=== PATIENT | female | born 1935 | race Caucasian/White ===

== ENCOUNTER 2016-11-01 12:16 | Emergency (ER) | payer OTHER ==
--- NOTE | 2016-11-01 13:08 | EDDOCDS ---
Physician Documentation [facility] Name: Anastasiya Garrison Age: 81 yrs Sex: Female : 1935 Arrival Date: 11/01/2016 Time: 12:16 Bed TR7 Private MD: SILVESTRE ADORNO Disposition: 11/01/16 12:53 Discharged to Home/Self Care. Impression: Tinea cruris. - Condition is Stable. - Discharge Instructions: Jock Itch. - Prescriptions for Clotrimazole 1 % Topical Cream - apply to affected area 1 application by TOPICAL route every 12 hours for 14 days APPLY THIN LAYER TO AFFECTED AREA TWICE DAILY FOR 14 DAYS; 15 gram. - Medication Reconciliation, Local Pharmacy Hours form. - Follow up: Emergency Department; When: As needed; Reason: Worsening of conditions. Follow up: Private Physician; When: 2 - 3 days; Reason: Wound/Symptom Recheck, Recheck today's complaints, Continuance of care. - Problem is new. - Symptoms are unchanged. Historical: - Allergies: No known drug Allergies; - Home Meds: 1. amlodipine 10 mg Oral tab 1 tab once daily 2. simvastatin 10 mg Oral tab 1 tab once daily 3. bisoprolol-hydrochlorothiazide 5-6.25 mg oral tab 1 tab once daily 4. aspirin 81 mg Oral tab 1 tab once daily 5. Breo Ellipta 100-25 mcg/dose inhalation dsdv 1 puff once daily - PMHx: Hypertension; COPD; Hypercholesterolemia; Arthritis; - PSHx: abdominal aneurysm repair; Hysterectomy; Thyroid Surgery; - Social history: Smoking status: Patient states was never smoker of tobacco. No barriers to communication noted, The patient speaks fluent [place] Islander, Speaks appropriately for age. - Family history: Not pertinent. - : The pt / caregiver states he / she is not on anticoagulants. Home medication list is obtained from the patient. - Exposure Risk Screening:: None identified. Vital Signs: 11/01 12:18 BP 146 / 64; Pulse 91; Resp 16; Temp 99.0(O); Pulse Ox 94% on R/A; Weight 66.68 kg / elp 147 lbs; Height 5 ft. 0 in. (152.40 cm); Pain 0/10; 12:18 Body Mass Index 28.71 (66.68 kg, 152.40 cm) elp MDM: 12:42 Undress patient appropriately for examination ordered. dt4 13:05 [facility] Payment Agreement was scanned into [employer] and attached to record. jp5 13:05 Financial registration complete. jp5 Signatures: Yusra Ramos, RN Codi JadeRN EDMOND joRamila Kim, SAROJ KYLE dt4 Rajani Larose jp5 The chart was reviewed and I authenticate all verbal orders and agree with the evaluation and treatment provided.Attachments: 13:05 [facility] Payment Agreement jp5 MTDD
--- NOTE | 2016-11-01 13:08 | EDDOCDS ---
Nurse's Notes [facility] Name: Anastasiya Garrison Age: 81 yrs Sex: Female : 1935 Arrival Date: 11/01/2016 Time: 12:16 Bed TR7 Private MD: SILVESTRE ADORNO Diagnosis: Tinea cruris Presentation: 11/01 12:28 Presenting complaint: Patient states: Severe rash in groin area. Been treating with jo3 diaper rash cream and then hydrocortisone and corn starch and then nystatin. Unable to get into buffer operator until the 8th. Requesting a female provider. Onset: The symptoms/episode began/occurred gradually, 2 week(s) ago. This patient has not experienced a previous allergic reaction. Anaphylaxis evaluation, the patient reports or I have noted the following symptoms which indicate a significant risk of anaphylaxis: no signs or symptoms of anaphylaxis were noted. Adult Sepsis Screening: The patient does not have new or worsening altered mentation. Patient's respiratory rate is less than 22. Systolic blood pressure is greater than 100. Patient has a qSOFA score of 0- Negative Sepsis Screen. Suicide/Homicide risk assessment- the patient denies having any suicidal and/or homicidal ideations and does not present with any other emotional, behavioral or mental health complaints. Status: Patient is not a rehabilitation services manager or dependent. Transition of care: patient was not received from another setting of care. 12:28 Acuity: JUAN CARLOS Level 4 jo3 12:28 Method Of Arrival: Walkin/Carried/Asstd jo3 Triage Assessment: 12:32 General: Appears in no apparent distress, Behavior is appropriate for age, cooperative, jo3 pleasant. Neurological: Level of Consciousness is awake, alert, Oriented to person, place, time. Respiratory: No deficits noted. Airway is patent Respiratory effort is even, unlabored. Historical: - Allergies: No known drug Allergies; - Home Meds: 1. amlodipine 10 mg Oral tab 1 tab once daily 2. simvastatin 10 mg Oral tab 1 tab once daily 3. bisoprolol-hydrochlorothiazide 5-6.25 mg oral tab 1 tab once daily 4. aspirin 81 mg Oral tab 1 tab once daily 5. Breo Ellipta 100-25 mcg/dose inhalation dsdv 1 puff once daily - PMHx: Hypertension; COPD; Hypercholesterolemia; Arthritis; - PSHx: abdominal aneurysm repair; Hysterectomy; Thyroid Surgery; - Social history: Smoking status: Patient states was never smoker of tobacco. No barriers to communication noted, The patient speaks fluent Nicaraguan, Speaks appropriately for age. - Family history: Not pertinent. - : The pt / caregiver states he / she is not on anticoagulants. Home medication list is obtained from the patient. - Exposure Risk Screening:: None identified. Screenin:06 Screening information is obtained from prior medical records. Fall risk: At risk due to kcs gait disturbance. Assistance ADL's: requires no assistance with activities of daily living. Abuse/DV Screen: The patient / caregiver reports he/she is: not in a situation that causes fear, pain or injury. Nutritional screening: No deficits noted. Advance Directives: Currently, there is no health care proxy. There is no living will. home support is adequate. Assessment: 12:45 General: Appears comfortable, well developed, well nourished, well groomed, Behavior is kcs cooperative, pleasant. Pain: Denies pain. Neurological: Level of Consciousness is awake, alert. Respiratory: Airway is patent Respiratory effort is even, unlabored, Respiratory pattern is regular, symmetrical. Derm: Skin is intact, is healthy with good turgor, Skin is dry, Skin is normal, Rash noted that is flat,diffuse, red, dry rash noted to groin and lower abdomen. 13:04 Awake, alert, oriented. Skin warm and dry. Moves all extremities. Respirations kcs unlabored. No apparent distress. The patient / caregiver is instructed regarding the plan of care and ED course. Physical assessment to be completed by PA/EDMD. Vital Signs: 12:18 BP 146 / 64; Pulse 91; Resp 16; Temp 99.0(O); Pulse Ox 94% on R/A; Weight 66.68 kg; elp Height 5 ft. 0 in. (152.40 cm); Pain 0/10; 12:18 Body Mass Index 28.71 (66.68 kg, 152.40 cm) [facility] Vitals: 12:18 Log In Time: November 01, 2016 at 12:00. [facility] ED Course: 12:17 Patient visited by Kaila Arce PCA. elp 12:17 Patient moved to Waiting elp 12:18 Gal Reyes is Private Physician. elp 12:18 Unknown, Family is Private Physician. elp 12:19 SILVESTRE ADORNO is Private Physician. elp 12:19 Patient moved to Pre RCE elp 12:30 Triage Initiated jo3 12:33 Patient visited by Codi Maria RN. jo3 12:41 Patient moved to Triage 1 kcs 12:42 Ramila Cox [facility]-C [facility]. dt4 12:42 Laila Matthew MD is Attending Physician. dt4 12:42 Patient visited by Ramila Cox PA-C. dt4 13:03 Patient moved to TR7 kcs 13:04 Patient has correct armband on for positive identification. kcs 13:05 [facility] Payment Agreement was scanned into [employer] and attached to record. jp5 13:05 No IV's were initiated during this patient's visit. No procedures done that require kcs assistance. Order Results: There are currently no results for this order. Outcome: 12:53 Discharge ordered by Provider. dt4 13:04 The following High Risk Discharge criteria are identified: None. Discharged to home kcs ambulatory, with family. Condition: stable. No special radiology studies were completed. 13:05 Discharge Assessment: Patient awake, alert and oriented x 3. No cognitive and/or kcs functional deficits noted. Patient verbalized understanding of disposition instructions. Patient awake and alert. patient administered narcotics - no. Property sent home with patient. 13:07 Patient left the ED. kcs Signatures: Yusra Ramos, RN Codi Jade,RN EDMOND jo3 Yazmin, Kaila, PEANUT SHELLER PEANUT SHELLER elp Ramila Cox PA-C PA-C dt4 Rajani Larose jp5 MTDD
--- NOTE | 2016-11-03 14:08 | EDDOCDS ---
Physician Documentation [facility] Name: Anastasiya Garrison Age: 81 yrs Sex: Female : 1935 Arrival Date: 11/01/2016 Time: 12:16 Bed TR7 Private MD: SILVESTRE ADORNO Disposition: 11/01/16 12:53 Discharged to Home/Self Care. Impression: Tinea cruris. - Condition is Stable. - Discharge Instructions: Jock Itch. - Prescriptions for Clotrimazole 1 % Topical Cream - apply to affected area 1 application by TOPICAL route every 12 hours for 14 days APPLY THIN LAYER TO AFFECTED AREA TWICE DAILY FOR 14 DAYS; 15 gram. - Medication Reconciliation, Local Pharmacy Hours form. - Follow up: Emergency Department; When: As needed; Reason: Worsening of conditions. Follow up: Private Physician; When: 2 - 3 days; Reason: Wound/Symptom Recheck, Recheck today's complaints, Continuance of care. - Problem is new. - Symptoms are unchanged. Historical: - Allergies: No known drug Allergies; - Home Meds: 1. amlodipine 10 mg Oral tab 1 tab once daily 2. simvastatin 10 mg Oral tab 1 tab once daily 3. bisoprolol-hydrochlorothiazide 5-6.25 mg oral tab 1 tab once daily 4. aspirin 81 mg Oral tab 1 tab once daily 5. Breo Ellipta 100-25 mcg/dose inhalation dsdv 1 puff once daily - PMHx: Hypertension; COPD; Hypercholesterolemia; Arthritis; - PSHx: abdominal aneurysm repair; Hysterectomy; Thyroid Surgery; - Social history: Smoking status: Patient states was never smoker of tobacco. No barriers to communication noted, The patient speaks fluent Maldivian, Speaks appropriately for age. - Family history: Not pertinent. - : The pt / caregiver states he / she is not on anticoagulants. Home medication list is obtained from the patient. - Exposure Risk Screening:: None identified. Vital Signs: 11/01 12:18 BP 146 / 64; Pulse 91; Resp 16; Temp 99.0(O); Pulse Ox 94% on R/A; Weight 66.68 kg / elp 147 lbs; Height 5 ft. 0 in. (152.40 cm); Pain 0/10; 12:18 Body Mass Index 28.71 (66.68 kg, 152.40 cm) elp MDM: 12:42 Undress patient appropriately for examination ordered. dt4 13:05 [facility] Payment Agreement was scanned into [employer] and attached to record. jp5 13: Financial registration complete. jp5 11/02 10:01 T-Sheet-- Draft Copy was scanned into [employer] and attached to record. gb Signatures: Yusra Ramos RN RN kcs Antonieta Torres, Reg Reg gb Codi Maria RN RN joRamila Kim, PAElizabethC PA-C dt4 Rajani Larose jp5 The chart was reviewed and I authenticate all verbal orders and agree with the evaluation and treatment provided.Attachments: 11/01 13:05 [facility] Payment Agreement jp5 11/02 10:01 T-Sheet-- Draft Copy gb Chart Complete MTDD
--- NOTE | 2016-11-03 14:08 | EDDOCDS ---
Physician Documentation [facility] Name: Anastasiya Garrison Age: 81 yrs Sex: Female : 1935 Arrival Date: 11/01/2016 Time: 12:16 Bed TR7 Private MD: SILVESTRE ADORNO Disposition: 11/01/16 12:53 Discharged to Home/Self Care. Impression: Tinea cruris. - Condition is Stable. - Discharge Instructions: Jock Itch. - Prescriptions for Clotrimazole 1 % Topical Cream - apply to affected area 1 application by TOPICAL route every 12 hours for 14 days APPLY THIN LAYER TO AFFECTED AREA TWICE DAILY FOR 14 DAYS; 15 gram. - Medication Reconciliation, Local Pharmacy Hours form. - Follow up: Emergency Department; When: As needed; Reason: Worsening of conditions. Follow up: Private Physician; When: 2 - 3 days; Reason: Wound/Symptom Recheck, Recheck today's complaints, Continuance of care. - Problem is new. - Symptoms are unchanged. Historical: - Allergies: No known drug Allergies; - Home Meds: 1. amlodipine 10 mg Oral tab 1 tab once daily 2. simvastatin 10 mg Oral tab 1 tab once daily 3. bisoprolol-hydrochlorothiazide 5-6.25 mg oral tab 1 tab once daily 4. aspirin 81 mg Oral tab 1 tab once daily 5. Breo Ellipta 100-25 mcg/dose inhalation dsdv 1 puff once daily - PMHx: Hypertension; COPD; Hypercholesterolemia; Arthritis; - PSHx: abdominal aneurysm repair; Hysterectomy; Thyroid Surgery; - Social history: Smoking status: Patient states was never smoker of tobacco. No barriers to communication noted, The patient speaks fluent Palauan, Speaks appropriately for age. - Family history: Not pertinent. - : The pt / caregiver states he / she is not on anticoagulants. Home medication list is obtained from the patient. - Exposure Risk Screening:: None identified. Vital Signs: 11/01 12:18 BP 146 / 64; Pulse 91; Resp 16; Temp 99.0(O); Pulse Ox 94% on R/A; Weight 66.68 kg / elp 147 lbs; Height 5 ft. 0 in. (152.40 cm); Pain 0/10; 12:18 Body Mass Index 28.71 (66.68 kg, 152.40 cm) elp MDM: 12:42 Undress patient appropriately for examination ordered. dt4 13:05 [facility] Payment Agreement was scanned into [employer] and attached to record. jp5 13: Financial registration complete. jp5 11/02 10:01 T-Sheet-- Draft Copy was scanned into [employer] and attached to record. gb Signatures: Yusra Ramos RN RN kcs Antonieta Torres, Reg Reg gb Codi Maria RN RN joRamila Kim, PAElizabethC PA-C dt4 Rajani Larose jp5 The chart was reviewed and I authenticate all verbal orders and agree with the evaluation and treatment provided.Attachments: 11/01 13:05 [facility] Payment Agreement jp5 11/02 10:01 T-Sheet-- Draft Copy gb Chart Complete MTDD
--- NOTE | 2016-11-03 14:08 | EDDOCDS ---
Nurse's Notes [facility] Name: Anastasiya Garrison Age: 81 yrs Sex: Female : 1935 Arrival Date: 11/01/2016 Time: 12:16 Bed TR7 Private MD: SILVESTRE ADORNO Diagnosis: Tinea cruris Presentation: 11/01 12:28 Presenting complaint: Patient states: Severe rash in groin area. Been treating with jo3 diaper rash cream and then hydrocortisone and corn starch and then nystatin. Unable to get into cloth neutralizer until the 8th. Requesting a female provider. Onset: The symptoms/episode began/occurred gradually, 2 week(s) ago. This patient has not experienced a previous allergic reaction. Anaphylaxis evaluation, the patient reports or I have noted the following symptoms which indicate a significant risk of anaphylaxis: no signs or symptoms of anaphylaxis were noted. Adult Sepsis Screening: The patient does not have new or worsening altered mentation. Patient's respiratory rate is less than 22. Systolic blood pressure is greater than 100. Patient has a qSOFA score of 0- Negative Sepsis Screen. Suicide/Homicide risk assessment- the patient denies having any suicidal and/or homicidal ideations and does not present with any other emotional, behavioral or mental health complaints. Status: Patient is not a servicer coin machines or dependent. Transition of care: patient was not received from another setting of care. 12:28 Acuity: JUAN CARLOS Level 4 jo3 12:28 Method Of Arrival: Walkin/Carried/Asstd jo3 Triage Assessment: 12:32 General: Appears in no apparent distress, Behavior is appropriate for age, cooperative, jo3 pleasant. Neurological: Level of Consciousness is awake, alert, Oriented to person, place, time. Respiratory: No deficits noted. Airway is patent Respiratory effort is even, unlabored. Historical: - Allergies: No known drug Allergies; - Home Meds: 1. amlodipine 10 mg Oral tab 1 tab once daily 2. simvastatin 10 mg Oral tab 1 tab once daily 3. bisoprolol-hydrochlorothiazide 5-6.25 mg oral tab 1 tab once daily 4. aspirin 81 mg Oral tab 1 tab once daily 5. Breo Ellipta 100-25 mcg/dose inhalation dsdv 1 puff once daily - PMHx: Hypertension; COPD; Hypercholesterolemia; Arthritis; - PSHx: abdominal aneurysm repair; Hysterectomy; Thyroid Surgery; - Social history: Smoking status: Patient states was never smoker of tobacco. No barriers to communication noted, The patient speaks fluent Montserratian, Speaks appropriately for age. - Family history: Not pertinent. - : The pt / caregiver states he / she is not on anticoagulants. Home medication list is obtained from the patient. - Exposure Risk Screening:: None identified. Screenin:06 Screening information is obtained from prior medical records. Fall risk: At risk due to kcs gait disturbance. Assistance ADL's: requires no assistance with activities of daily living. Abuse/DV Screen: The patient / caregiver reports he/she is: not in a situation that causes fear, pain or injury. Nutritional screening: No deficits noted. Advance Directives: Currently, there is no health care proxy. There is no living will. home support is adequate. Assessment: 12:45 General: Appears comfortable, well developed, well nourished, well groomed, Behavior is kcs cooperative, pleasant. Pain: Denies pain. Neurological: Level of Consciousness is awake, alert. Respiratory: Airway is patent Respiratory effort is even, unlabored, Respiratory pattern is regular, symmetrical. Derm: Skin is intact, is healthy with good turgor, Skin is dry, Skin is normal, Rash noted that is flat,diffuse, red, dry rash noted to groin and lower abdomen. 13:04 Awake, alert, oriented. Skin warm and dry. Moves all extremities. Respirations kcs unlabored. No apparent distress. The patient / caregiver is instructed regarding the plan of care and ED course. Physical assessment to be completed by PA/EDMD. Vital Signs: 12:18 BP 146 / 64; Pulse 91; Resp 16; Temp 99.0(O); Pulse Ox 94% on R/A; Weight 66.68 kg; elp Height 5 ft. 0 in. (152.40 cm); Pain 0/10; 12:18 Body Mass Index 28.71 (66.68 kg, 152.40 cm) [facility] Vitals: 12:18 Log In Time: November 01, 2016 at 12:00. [facility] ED Course: 12:17 Patient visited by Kaial Arce PCA. elp 12:17 Patient moved to Waiting elp 12:18 Gal Reyes is Private Physician. elp 12:18 Unknown, Family is Private Physician. elp 12:19 SILVESTRE ADORNO is Private Physician. elp 12:19 Patient moved to Pre RCE elp 12:30 Triage Initiated jo3 12:33 Patient visited by Codi Maria RN. jo3 12:41 Patient moved to Triage 1 kcs 12:42 [facility]. dt4 12:42 Laila Matthew MD is Attending Physician. dt4 12:42 Patient visited by Ramila Cox PA-C. dt4 13:03 Patient moved to TR7 kcs 13:04 Patient has correct armband on for positive identification. kcs 13:05 [facility] Payment Agreement was scanned into [employer] and attached to record. jp5 13:05 No IV's were initiated during this patient's visit. No procedures done that require kcs assistance. 02 10:01 T-Sheet-- Draft Copy was scanned into [employer] and attached to record. gb Order Results: There are currently no results for this order. Outcome: 11/01 12:53 Discharge ordered by Provider. dt4 13:04 The following High Risk Discharge criteria are identified: None. Discharged to home kcs ambulatory, with family. Condition: stable. No special radiology studies were completed. 13:05 Discharge Assessment: Patient awake, alert and oriented x 3. No cognitive and/or kcs functional deficits noted. Patient verbalized understanding of disposition instructions. Patient awake and alert. patient administered narcotics - no. Property sent home with patient. 13:07 Patient left the ED. kcs Signatures: Yusra Ramos RN RN Antonieta Rodriguez, Reg Reg gb Codi Maria,EDMOND RN Kaila Dominguez, ON CALL PHARMACY TECHNICIAN ON CALL PHARMACY TECHNICIAN elp Ramila Cox PA-C PA-C dt4 Rajani Larose jp5 Chart Complete MTDD
== END 2016-11-01 13:07 | disposition home or self-care (01) ==
LOC: M ED 12:16
DX: B35.6 Tinea cruris (principal); I10 Essential (primary) hypertension; J44.9 Chronic obstructive pulmonary disease, unspecified; E78.00 Pure hypercholesterolemia, unspecified; M19.90 Unspecified osteoarthritis, unspecified site; Z90.79 Acquired absence of other genital organ(s); Z79.51 Long term (current) use of inhaled steroids; Z79.82 Long term (current) use of aspirin; Z79.899 Other long term (current) drug therapy

== ENCOUNTER → 2016-12-11 | Outpatient (REF) | payer OTHER ==
[2016-12-11 18:14] LABS: MEAN CORPUSCULAR HEMOGLOBIN 34.4 pg (27.0-33.0); MEAN CORPUSCULAR HGB CONC 33.6 g/dl (32.0-36.5); MEAN CORPUSCULAR VOLUME 102.3 fl (80.0-96.0); RED CELL DISTRIBUTION WIDTH 12.4 % (11.5-14.5); WHITE BLOOD COUNT 8.1 K/mm3 (4.0-10.0)
[2016-12-11 18:23] LABS: ALBUMIN 3.6 GM/DL (3.2-5.2); ALBUMIN/GLOBULIN RATIO 1.03 (1.00-1.93); BILIRUBIN,TOTAL 0.5 MG/DL (0.2-1.0); CALCIUM LEVEL 9.1 MG/DL (8.8-10.2); GLOMERULAR FILTRATION RATE 56.4 (>32); POTASSIUM SERUM 4.4 MEQ/L (3.5-5.1); TOTAL PROTEIN 7.1 GM/DL (6.4-8.2)
[2016-12-11 18:26] LABS: FREE T4 0.95 NG/DL (0.76-1.46)
== END ==
LOC: M SFHCLERA 10:44
PROVIDERS: ATTEND Family Medicine
DX: R73.9 Hyperglycemia, unspecified (principal); I10 Essential (primary) hypertension
CPT/HCPCS: 80053; 80061; 81001; 83036; 84439; 84443; 85027; G0463

== ENCOUNTER → 2016-12-17 | Outpatient (REF) | payer OTHER ==
[2016-12-17 19:52] LABS: MEAN CORPUSCULAR HEMOGLOBIN 34.5 pg (27.0-33.0); MEAN CORPUSCULAR HGB CONC 33.4 g/dl (32.0-36.5); MEAN CORPUSCULAR VOLUME 103.3 fl (80.0-96.0); RED CELL DISTRIBUTION WIDTH 12.5 % (11.5-14.5); WHITE BLOOD COUNT 7.4 K/mm3 (4.0-10.0)
== END ==
LOC: M SFHCLERA 10:49
PROVIDERS: ATTEND Family Medicine
DX: K64.4 Residual hemorrhoidal skin tags (principal)
CPT/HCPCS: 85007; 85027; G0463

== ENCOUNTER → 2016-12-24 | Outpatient (REF) | payer OTHER ==
[2016-12-26 10:01] LABS: FOLATE > 24.0 NG/ML (>5.4); VITAMIN B12 LEVEL 452 PG/ML (247-911)
== END ==
LOC: M SFHCLERA 14:57
PROVIDERS: ATTEND Family Medicine
DX: R71.8 Other abnormality of red blood cells (principal)

== ENCOUNTER → 2016-12-24 | Outpatient (CLI) | payer OTHER ==
--- NOTE | 2016-12-24 16:03 | REP ---
Clinical: Cough and wheezing . Comparison: 07/28/2015 . Technique: PA and lateral. Findings: The mediastinum and cardiac silhouette are normal. The lung franco are without acute consolidation, effusion, or pneumothorax. Minimal linear right middle lobe atelectasis based on lateral radiograph cannot be excluded. Trace linear scarring at the left base noted. The skeletal structures are intact and normal. Impression: Cannot exclude minimal right middle lobe atelectasis. Signed by James Mae MD 12/24/2016 03:55 P
== END ==
LOC: M LRY 15:20
PROVIDERS: ATTEND Family Medicine
DX: R06.2 Wheezing (principal); R71.8 Other abnormality of red blood cells
CPT/HCPCS: 71020; 82607; 82746; G0463

== ENCOUNTER → 2018-01-02 | Outpatient (CLI) | payer OTHER | LOC: M LRY 10:48 | DX: R09.89 Other specified symptoms and signs involving the circulatory and respiratory systems (principal) | CPT/HCPCS: 94640 ==

== ENCOUNTER → 2018-02-18 | Outpatient (REF) | payer OTHER ==
[2018-02-18 17:27] LABS: MALB URINE SIEMENS 47.8 MG/L; MAU/CREAT RATIO 28.6 MCG/MG (0.0-30.0)
[2018-02-18 17:30] LABS: ALBUMIN 3.4 GM/DL (3.2-5.2); ALBUMIN/GLOBULIN RATIO 0.92 (1.00-1.93); ALKALINE PHOSPHATASE 129 U/L (45-117); ALT/SGPT 30 U/L (12-78); ANION GAP 7 MEQ/L (8-16); AST/SGOT 22 U/L (7-37); BILIRUBIN,TOTAL 0.6 MG/DL (0.2-1.0); BLOOD UREA NITROGEN 20 MG/DL (7-18); CALCIUM LEVEL 8.6 MG/DL (8.8-10.2); CARBON DIOXIDE LEVEL 29 MEQ/L (21-32); CHLORIDE LEVEL 101 MEQ/L (98-107); CHOLESTEROL LEVEL 158 MG/DL (<200); CHOLESTEROL RISK RATIO 2.468 (<5); CREATININE FOR GFR 1.15 MG/DL (0.55-1.30); GLOMERULAR FILTRATION RATE 47.7 (>32); GLUCOSE, FASTING 266 MG/DL (70-100); HDL CHOLESTEROL 64 MG/DL (>40); NON-HDL-C 94 MG/DL; POTASSIUM SERUM 4.6 MEQ/L (3.5-5.1); SODIUM LEVEL 137 MEQ/L (136-145); TOTAL PROTEIN 7.1 GM/DL (6.4-8.2); TRIGLYCERIDES LEVEL 150 MG/DL (<150)
[2018-02-18 18:15] LABS: BASO % 0.3 % (0.0-1.0); EOS # 0.1 10^3/uL (0.0-0.50); EOS % 0.4 % (0.0-3.0); HEMOGLOBIN 15.6 g/dl (12.0-15.5); IMMATURE GRANULOCYTE % 1.7 % (0-3.0); LYMPH # 1.3 10^3/uL (1.5-4.5); LYMPH % 10.2 % (24.0-44.0); MEAN CORPUSCULAR HEMOGLOBIN 34.2 pg (27.0-33.0); MEAN CORPUSCULAR HGB CONC 33.2 g/dl (32.0-36.5); MEAN CORPUSCULAR VOLUME 103.1 fl (80.0-96.0); MONO # 0.6 10^3/uL (0.0-0.8); MONO % 4.2 % (0.0-5.0); NEUTROPHILS # 10.9 10^3/uL (1.8-7.7); NEUTROPHILS % 83.2 % (36.0-66.0); PLATELET COUNT, AUTOMATED 210 10^3/uL (150-450); RED BLOOD COUNT 4.56 10^6/uL (4.00-5.40); RED CELL DISTRIBUTION WIDTH 12.7 % (11.5-14.5); WHITE BLOOD COUNT 13.1 10^3/uL (4.0-10.0)
[2018-02-18 18:53] LABS: ESTIMATED AVERAGE GLUCOSE 143 MG/DL (60-110); HEMOGLOBIN A1c 6.6 %
== END ==
LOC: M SFHCLERA 10:04
DX: I10 Essential (primary) hypertension (principal); Z79.899 Other long term (current) drug therapy
CPT/HCPCS: 84443

== ENCOUNTER → 2018-02-25 | Outpatient (CLI) | payer OTHER | LOC: M SMT 11:36 | DX: R05 Cough (principal); J06.9 Acute upper respiratory infection, unspecified | CPT/HCPCS: 71046 ==

== ENCOUNTER 2018-04-14 11:04 | Emergency (ER) | payer OTHER ==
[2018-04-14] MEDS: predniSONE 20 MG TAB PO (12:16)
[2018-04-14] MEDS: IPRATROPIUM 0.5MG/ALBUTEROL 2.5MG INH SOL UD 3ML (DUONEB)(J7620) NEB (12:33)
== END 2018-04-14 13:20 | disposition home or self-care (01) ==
LOC: M ED 11:04
DX: J44.1 Chronic obstructive pulmonary disease with (acute) exacerbation (principal); Z79.82 Long term (current) use of aspirin; Z79.899 Other long term (current) drug therapy
CPT/HCPCS: 71046

== ENCOUNTER 2018-07-23 10:37 | Emergency (ER) | payer OTHER ==
[2018-07-23] MEDS: IPRATROPIUM 0.5MG/ALBUTEROL 2.5MG INH SOL UD 3ML (DUONEB)(J7620) NEB (12:40)
== END 2018-07-23 13:17 | disposition home or self-care (01) ==
LOC: M ED 10:37
DX: J44.1 Chronic obstructive pulmonary disease with (acute) exacerbation (principal); J06.9 Acute upper respiratory infection, unspecified; I10 Essential (primary) hypertension; Z86.79 Personal history of other diseases of the circulatory system; Z79.82 Long term (current) use of aspirin; Z79.899 Other long term (current) drug therapy
CPT/HCPCS: 71046

== ENCOUNTER 2018-09-24 13:03 | Emergency (ER) | payer OTHER ==
[~2018-09-24] VITALS: Ht 152.4 cm; Wt 65.0 kg
[~2018-09-24 13:03] MED LIST: ALBU83IN NEB; ASPI81TA85 PO; AUGM875T28 PO; BISOPRL; BREO1INH3; HCTZ; IPRA0.00 NEB; PRED20TA PO; SIMV10TA2; ZITHTAB PO
[2018-09-24] MEDS ORDERED: BISOPRL/HCTZ (13:11)
[2018-09-24] MEDS ORDERED: diphenhydrAMINE 25 MG CAP PO ONE (15:30)
[2018-09-24] MEDS ORDERED: FAMOTIDINE 20 MG TAB PO ONE (15:30)
[2018-09-24] MEDS ORDERED: predniSONE 20 MG TAB PO ONE (15:30)
[2018-09-24 15:38] LABS: BASO # 0.1 10^3/uL (0.0-0.2); BASO % 0.9 % (0.0-1.0); EOS # 0.2 10^3/uL (0.0-0.50); HEMATOCRIT 45.2 % (36.0-47.0); HEMOGLOBIN 15.3 g/dl (12.0-15.5); LYMPH % 25.6 % (24.0-44.0); MEAN CORPUSCULAR HEMOGLOBIN 34.6 pg (27.0-33.0); MEAN CORPUSCULAR HGB CONC 33.8 g/dl (32.0-36.5); MEAN CORPUSCULAR VOLUME 102.3 fl (80.0-96.0); NEUTROPHILS # 4.6 10^3/uL (1.8-7.7); PLATELET COUNT, AUTOMATED 178 10^3/uL (150-450); RED BLOOD COUNT 4.42 10^6/uL (4.00-5.40)
[2018-09-24 16:00] LABS: ALBUMIN 3.6 GM/DL (3.2-5.2); BILIRUBIN,DIRECT 0.1 MG/DL (0.0-0.2); BILIRUBIN,TOTAL 0.4 MG/DL (0.2-1.0); C REACTIVE PROTEIN QUANTITATIV 1.72 MG/DL (0.00-0.30); CALCIUM LEVEL 9.4 MG/DL (8.8-10.2); CREATININE FOR GFR 1.02 MG/DL (0.55-1.30); GLOMERULAR FILTRATION RATE 54.8 (>32); POTASSIUM SERUM 4.8 MEQ/L (3.5-5.1); TOTAL PROTEIN 7.1 GM/DL (6.4-8.2)
[2018-09-24 16:03] LABS: ERYTHROCYTE SEDIMENTATION RATE 7 mm/hr (0-42)
[2018-09-24] MEDS ORDERED: BENA25CA4 PO (16:39)
[2018-09-24] MEDS ORDERED: TRIA25CR TOP (16:39)
[2018-09-24 16:54] VITALS: BP 162/88
== END 2018-09-24 16:56 | disposition home or self-care (01) ==
LOC: M ED 13:03
DX: L85.3 Xerosis cutis (principal); I10 Essential (primary) hypertension; J44.9 Chronic obstructive pulmonary disease, unspecified; E78.5 Hyperlipidemia, unspecified; Z79.82 Long term (current) use of aspirin

== ENCOUNTER → 2018-12-11 | Outpatient (CLI) | payer MEDICARE, OTHER ==
[~2018-12-11] MED LIST changes: +BENA25CA4 PO; +BISOPRL/HCTZ; +TRIA25CR TOP
[2018-12-11 10:42] LABS: BASO # 0.1 10^3/uL (0.0-0.2); EOS # 0.1 10^3/uL (0.0-0.50); HEMATOCRIT 47.4 % (36.0-47.0); HEMOGLOBIN 15.5 g/dl (12.0-15.5); LYMPH % 29.6 % (24.0-44.0); MEAN CORPUSCULAR HEMOGLOBIN 34.2 pg (27.0-33.0); MEAN CORPUSCULAR HGB CONC 32.7 g/dl (32.0-36.5); MEAN CORPUSCULAR VOLUME 104.6 fl (80.0-96.0); MONO # 0.9 10^3/uL (0.0-0.8); MONO % 12.7 % (0.0-5.0); NEUTROPHILS # 3.7 10^3/uL (1.8-7.7); NEUTROPHILS % 54.1 % (36.0-66.0); PLATELET COUNT, AUTOMATED 212 10^3/uL (150-450); RED BLOOD COUNT 4.53 10^6/uL (4.00-5.40); WHITE BLOOD COUNT 6.8 10^3/uL (4.0-10.0)
[2018-12-11 11:14] LABS: ALBUMIN 3.7 GM/DL (3.2-5.2); BILIRUBIN,TOTAL 0.5 MG/DL (0.2-1.0); CALCIUM LEVEL 9.3 MG/DL (8.8-10.2); CHOLESTEROL RISK RATIO 3.333 (<5); CREATININE FOR GFR 1.04 MG/DL (0.55-1.30); GLOMERULAR FILTRATION RATE 53.6 (>32); POTASSIUM SERUM 4.6 MEQ/L (3.5-5.1); THYROID STIMULATING HORMONE 4.95 uIU/ML (0.358-3.740); TOTAL PROTEIN 7.4 GM/DL (6.4-8.2)
[2018-12-11 12:07] LABS: HEMOGLOBIN A1c 6.2 %
== END ==
LOC: M LAB 09:13
PROVIDERS: ATTEND Physician Assistant
DX: E78.2 Mixed hyperlipidemia (principal); R73.01 Impaired fasting glucose; J45.909 Unspecified asthma, uncomplicated

== ENCOUNTER 2019-03-22 16:22 | Emergency (ER) | payer MEDICARE ==
[~2019-03-22] VITALS: Ht 152.4 cm; Wt 65.9 kg
[~2019-03-22 16:22] MED LIST changes: -SIMV10TA2; +SIMV10TA2 PO
[2019-03-22] MEDS ORDERED: MORPHINE 4 MG/ML 1ML VIAL/SYRINGE (J2270) IV ONE (18:00)
[2019-03-22 18:20] LABS: BASO # 0.1 10^3/uL (0.0-0.2); BASO % 0.6 % (0.0-1.0); EOS # 0.1 10^3/uL (0.0-0.50); EOS % 0.9 % (0.0-3.0); HEMATOCRIT 43.5 % (36.0-47.0); HEMOGLOBIN 14.8 g/dl (12.0-15.5); LYMPH # 1.3 10^3/uL (1.5-4.5); LYMPH % 10.8 % (24.0-44.0); MEAN CORPUSCULAR HEMOGLOBIN 34.7 pg (27.0-33.0); MEAN CORPUSCULAR VOLUME 101.9 fl (80.0-96.0); MONO # 1.1 10^3/uL (0.0-0.8); MONO % 9.1 % (0.0-5.0); NEUTROPHILS # 9.1 10^3/uL (1.8-7.7); NEUTROPHILS % 77.6 % (36.0-66.0); PLATELET COUNT, AUTOMATED 267 10^3/uL (150-450); RED BLOOD COUNT 4.27 10^6/uL (4.00-5.40); WHITE BLOOD COUNT 11.8 10^3/uL (4.0-10.0)
[2019-03-22] MEDS ORDERED: GABA-1171 PO (18:21)
[2019-03-22] MEDS ORDERED: BISO5TAB2 PO (18:21)
[2019-03-22] MEDS ORDERED: TRAM50TA2 PO (18:21)
[2019-03-22] MEDS ORDERED: INCR1INH INH (18:21)
[2019-03-22 18:31] LABS: INR 0.99; PARTIAL THROMBOPLASTIN TIME 26.6 SECONDS (25.0-38.4); PROTHROMBIN TIME 12.8 SECONDS (11.8-14.0)
[2019-03-22 18:49] LABS: CALCIUM LEVEL 9.1 MG/DL (8.8-10.2); CREATININE FOR GFR 0.99 MG/DL (0.55-1.30); GLOMERULAR FILTRATION RATE 56.6 (>32); POTASSIUM SERUM 4.4 MEQ/L (3.5-5.1)
--- NOTE | 2019-03-22 19:39 | REPVR ---
EXAM: US Duplex Right Lower Extremity Veins, Limited EXAM DATE/TIME: 03/22/2019 6:38 PM CLINICAL HISTORY: 84 years old, female; Pain; Leg, lower; Right; Additional info: Calf pain TECHNIQUE: Imaging protocol: Real-time Duplex ultrasound of the Right Lower Extremity with 2-D paredes scale, color Doppler flow and spectral waveform analysis. Limited exam was focused on the right lower extremity veins. COMPARISON: No relevant prior studies available. FINDINGS: Right deep veins: Unremarkable. The common femoral, femoral, proximal profunda femoral and popliteal veins are patent without thrombus. Normal Doppler waveforms. Normal compressibility and/or augmentation response. Right superficial veins: Unremarkable. Saphenofemoral junction is patent without thrombus. Soft tissues: Unremarkable. IMPRESSION: No acute findings. No evidence of deep vein thrombosis. Electronically signed by: Dayana Romo On 03/22/2019 19:38:34 PM
[2019-03-22] MEDS ORDERED: KETOROLAC 30 MG/ML VIAL (J1885) IV ONE (19:45)
[2019-03-22] MEDS ORDERED: traMADol 50 MG TAB (BULK 4 TAB ED) PO ONE (20:15)
[2019-03-22 20:24] VITALS: BP 183/70
== END 2019-03-22 20:31 | disposition home or self-care (01) ==
LOC: M ED 16:22
DX: M54.5 Low back pain (principal); I10 Essential (primary) hypertension; J44.9 Chronic obstructive pulmonary disease, unspecified; Z79.82 Long term (current) use of aspirin; Z79.899 Other long term (current) drug therapy
CPT/HCPCS: 80048; 85025; 85610; 85730; 93971; 96374; 96375; 99284; J1885; J2270

== ENCOUNTER → 2019-04-10 | Outpatient (CLI) | payer MEDICARE ==
[~2019-04-10] MED LIST changes: +BISO5TAB2 PO; +DOK1CAP7; +GABA-1171 PO; +GABA-843; +INCR1INH INH; +OXYC1TAB23; +TRAM50TA2 PO
--- NOTE | 2019-04-10 11:36 | REPVR ---
EXAM: MR Lumbar Spine Without Contrast. EXAM DATE/TIME: 04/10/2019 10:30 AM CLINICAL HISTORY: 84 years old, female; Pain and injury or trauma; Fall; Late effect from previous injury; Rupture of lumbar intervertebral disc; Injury details: PT states x-ray ncog worsening low back pain with right leg numbness and pain; Additional info: Wedge compression FX of 3rd lumber vertebre TECHNIQUE: Imaging protocol: Multiplanar magnetic resonance images of the lumbar spine without intravenous contrast. COMPARISON: No relevant prior studies available. FINDINGS: There is moderate compression of the L3 vertebral body. Marrow edema and irregular fracture lines suggest this is acute or subacute. There is approximately 4 mm broad-based central fragment retropulsion associated with borderline spinal stenosis. Vertebral body heights are otherwise intact. There is grade 1 spondylolisthesis at L4-5 with grade 2 spondylolisthesis at L5-S1. Alignment is otherwise maintained. Chronic bilateral pars defects are present at L5. The conus is unremarkable in appearance, with its tip at the L1-2 level. There are varying degrees of disc desiccation indicating intervertebral disc degeneration. There is borderline dilatation of the infrarenal abdominal aorta up to 3.0 cm in caliber. Note is made of some sigmoid colonic diverticula. The visualized abdominal structures appear otherwise unremarkable. T12-L1: Minimal bulge leading to very mild bilateral neural foraminal narrowing without significant spinal stenosis. L1-2: Small bulge combining with facet arthrosis to lead to moderate right and mild to moderate left neural foraminal narrowing with very mild right and mild left lateral recess narrowing, without significant central canal stenosis. There is small fluid in the facet joints. L2-3: Diffuse bulge combining with facet arthrosis and ligamentum flavum hypertrophy to lead to moderate right and mild to to moderate left neural foraminal narrowing with mild narrowing of the bilateral lateral recesses and borderline central canal stenosis. L3-4: Diffuse bulge combining with facet arthrosis to lead to moderate right and mild left neural foraminal narrowing with very mild bilateral lateral recess narrowing, without significant central canal stenosis. There is small fluid in the facet joints. L4-5: Disc osteophyte complex combining with facet arthrosis and the listhesis to lead to moderate right and mild to moderate left neural foraminal narrowing with mild bilateral lateral recess narrowing, without significant central canal stenosis. L5-S1: Uncovered disc bulge combining with facet arthrosis and the listhesis to lead to severe bilateral neural foraminal narrowing with severe narrowing of the bilateral lateral recesses and moderate central canal stenosis. If surgery is considered, recommend level confirmation. IMPRESSION: 1. Moderate compression of the L3 vertebral body, with marrow edema and irregular fracture lines suggesting acute or subacute nature, associated with mild fragment retropulsion and borderline spinal stenosis. If biopsy is not performed, with followup in 8 weeks to exclude pathologic fracture. 2. Multilevel disc desiccation indicating intervertebral disk degeneration with disc displacements as described. Most marked is L5-S1, where there is a grade 2 spondylolisthesis, severe bilateral neural foraminal and lateral recess narrowing and moderate central canal stenosis. 3. Borderline dilatation of the infrarenal abdominal aorta at 3.0 cm. Electronically signed by: Axel Portillo On 04/10/2019 11:36:45 AM
== END ==
LOC: M RAD 09:31
PROVIDERS: ATTEND Physician Assistant
DX: S32.030D Wedge compression fracture of third lumbar vertebra, subsequent encounter for fracture with routine healing (principal); X58.XXXD Exposure to other specified factors, subsequent encounter; Y92.89 Other specified places as the place of occurrence of the external cause

== ENCOUNTER 2019-04-16 11:23 | Emergency (ER) | payer MEDICARE ==
[~2019-04-16] VITALS: Ht 152.4 cm; Wt 65.9 kg
[~2019-04-16 11:23] MED LIST changes: -DOK1CAP7; -GABA-843; -OXYC1TAB23
[2019-04-16] MEDS ORDERED: OXYC1TAB23 (11:31)
[2019-04-16] MEDS ORDERED: GABA-843 (11:31)
[2019-04-16] MEDS ORDERED: BREO1INH3 (11:31)
[2019-04-16] MEDS ORDERED: DOK1CAP7 (11:31)
[2019-04-16] MEDS ORDERED: GI COCKTAIL 50ML BTL(HYOSCYAMINE/MAALOX/LIDOCAINE VISCOUS)(1:3:1) PO ONE (12:15)
[2019-04-16 12:27] LABS: BASO # 0.1 10^3/uL (0.0-0.2); BASO % 0.5 % (0.0-1.0); EOS # 0.2 10^3/uL (0.0-0.50); EOS % 1.4 % (0.0-3.0); HEMATOCRIT 42.8 % (36.0-47.0); HEMOGLOBIN 14.5 g/dl (12.0-15.5); LYMPH # 1.3 10^3/uL (1.5-4.5); LYMPH % 11.8 % (24.0-44.0); MEAN CORPUSCULAR HGB CONC 33.9 g/dl (32.0-36.5); MEAN CORPUSCULAR VOLUME 106.2 fl (80.0-96.0); MONO % 8.9 % (0.0-5.0); NEUTROPHILS # 8.5 10^3/uL (1.8-7.7); NEUTROPHILS % 76.7 % (36.0-66.0); PLATELET COUNT, AUTOMATED 231 10^3/uL (150-450); RED BLOOD COUNT 4.03 10^6/uL (4.00-5.40)
[2019-04-16 12:30] LABS: INR 1.05; PROTHROMBIN TIME 13.4 SECONDS (11.8-14.0)
[2019-04-16 12:31] LABS: PARTIAL THROMBOPLASTIN TIME 27.5 SECONDS (25.0-38.4)
[2019-04-16 12:57] LABS: ALBUMIN 2.8 GM/DL (3.2-5.2); ALT/SGPT 30 U/L (12-78); BILIRUBIN,DIRECT 0.2 MG/DL (0.0-0.2); BILIRUBIN,TOTAL 0.4 MG/DL (0.2-1.0); BLOOD UREA NITROGEN 12 MG/DL (7-18); CALCIUM LEVEL 9.1 MG/DL (8.8-10.2); CARBON DIOXIDE LEVEL 28 MEQ/L (21-32); CHLORIDE LEVEL 104 MEQ/L (98-107); CPK CREATINE PHOSPHOKINASE 47 U/L (26-192); CREATININE FOR GFR 0.96 MG/DL (0.55-1.30); GLOMERULAR FILTRATION RATE 58.7 (>32); GLUCOSE, FASTING 191 MG/DL (70-100); LIPASE 153 U/L (73-393); MB/CK RELATIVE INDEX 2.13 (< OR =4); POTASSIUM SERUM 3.9 MEQ/L (3.5-5.1); SODIUM LEVEL 138 MEQ/L (136-145); TROPONIN I < 0.02 NG/ML (< 0.10)
[2019-04-16] MEDS: GASTROGRAFIN SOLUTION 30ML PO SCH ×2 (14:31→15:05)
[2019-04-16] MEDS ORDERED: ISOVUE-370 76% 100ML VIAL (Q9967) As Ordered ONE (15:11)
[2019-04-16 17:13] VITALS: BP 143/59
--- NOTE | 2019-04-17 05:39 | ECGEPIP ---
[facility] - ED Test Date: 2019-04-16 Pat Name: CHRISTOPHE BENITEZ Department: Room: - Gender: Female Network Support: RUT : 1935 Requested By: STANFORD COTTER Order Number: [id number] Reading MD: Ok Kwon Measurements Intervals Tyler Rate: 78 P: IA: -1 QRS: QRSD: 94 T: 62 QT: 361 QTc: 411 Interpretive Statements SINUS RHYTHM WITH FIRST DEGREE AV BLOCK WITH SINUS ARRHYTHMIA WITH OCCASIONAL VENTRICULAR PREMATURE COMPLEXES PATTERN CONSISTENT WITH PULMONARY DISEASE BASELINE ARTIFACT AFFECTS INTERPRETATION SIMILAR TO 07/28/15 Electronically Signed on 04-17-2019 5:38:56 EDT by Ok Kwon
--- NOTE | 2019-04-17 07:29 | REP ---
CT of the abdomen and pelvis with IV and oral contrast for upper abdominal pain: Comparison is 2014. The visualized lung franco demonstrate curvilinear scarring in the left lower lobe, unchanged. The hepatic parenchyma is homogeneous. The gallbladder, pancreas, spleen, adrenals and kidneys are unremarkable and unchanged. The entire infrarenal abdominal aorta is aneurysmal measuring up to 3 cm in diameter diffusely. This is unchanged. There is no periaortic hematoma. There is no bowel distension or obstruction. The stomach and duodenum are unremarkable. There is no mesenteric inflammation. Pelvis: There are descending colon and sigmoid colon diverticula without CT evidence of diverticulitis. Pelvis: There is a hysterectomy. Vaginal cuff and adnexa are unremarkable as previously. The bladder is unremarkable. There is no adenopathy or ascites. There is advanced bilateral hip osteoarthritis, unchanged. There is grade 3 compression deformity of the L3 vertebral body as an interval change. There is advanced degenerative disc disease L4-5 and L5 S1 as previously. There is grade 1 spondylolisthesis at both of these levels, likely degenerative. No spondylolisthesis is identified. This is unchanged. Impression: The stomach, duodenum, and bowel are unremarkable except for descending colon/sigmoid colon diverticulosis without diverticulitis. This is unchanged. There is diffuse aneurysmal dilatation of the infrarenal abdominal aorta up to 3 cm. No focal aneurysm is identified. This is unchanged. There is new grade 3 compression deformity of the L3 vertebral body as an interval change. There is advanced lumbar degenerative disc disease L4-5 and L5 S1, unchanged. There is advanced bilateral hip osteoarthritis, unchanged. Electronically Signed by Adam Silva MD 04/17/2019 07:21 A
--- NOTE | 2019-04-18 19:38 | ED PDOC ---
Post-Departure Follow-Up dr chelsea lombardo faxed formal report of ct abd/p for fu Kurt Hahn MD Apr 18, 2019 19:38
== END 2019-04-16 17:39 | disposition home or self-care (01) ==
LOC: M ED 11:23
DX: R10.10 Upper abdominal pain, unspecified (principal); K64.8 Other hemorrhoids; I44.0 Atrioventricular block, first degree; I10 Essential (primary) hypertension; J44.9 Chronic obstructive pulmonary disease, unspecified; Z79.899 Other long term (current) drug therapy; Z79.82 Long term (current) use of aspirin
CPT/HCPCS: 36415; 74177; 80048; 80076; 81001; 82550; 82553; 83690; 84484; 85025; 85610; 85730; 86850; 86900; 86901; 87086; 93005; 93041; 99284; Q9963; Q9967

== ENCOUNTER → 2019-05-06 | Outpatient (REF) | payer OTHER ==
[~2019-05-06] MED LIST changes: +BREO1INH3 INH; +DOK1CAP7 PO; +GABA-843 PO; +OXYC1TAB23
[2019-05-06 16:58] LABS: BASO # 0.1 10^3/uL (0.0-0.2); BASO % 0.5 % (0.0-1.0); EOS # 0.1 10^3/uL (0.0-0.50); EOS % 1.1 % (0.0-3.0); HEMATOCRIT 40.6 % (36.0-47.0); HEMOGLOBIN 13.5 g/dl (12.0-15.5); LYMPH # 1.4 10^3/uL (1.5-4.5); LYMPH % 13.6 % (24.0-44.0); MEAN CORPUSCULAR HEMOGLOBIN 34.9 pg (27.0-33.0); MEAN CORPUSCULAR HGB CONC 33.3 g/dl (32.0-36.5); MEAN CORPUSCULAR VOLUME 104.9 fl (80.0-96.0); MONO % 9.6 % (0.0-5.0); NEUTROPHILS # 7.4 10^3/uL (1.8-7.7); NEUTROPHILS % 74.7 % (36.0-66.0); PLATELET COUNT, AUTOMATED 215 10^3/uL (150-450); RED BLOOD COUNT 3.87 10^6/uL (4.00-5.40); WHITE BLOOD COUNT 9.9 10^3/uL (4.0-10.0)
[2019-05-06 17:10] LABS: ALBUMIN 3.1 GM/DL (3.2-5.2); ALT/SGPT 33 U/L (12-78); BILIRUBIN,TOTAL 0.8 MG/DL (0.2-1.0); BLOOD UREA NITROGEN 13 MG/DL (7-18); CALCIUM LEVEL 9.1 MG/DL (8.8-10.2); CARBON DIOXIDE LEVEL 30 MEQ/L (21-32); CHLORIDE LEVEL 106 MEQ/L (98-107); CHOLESTEROL LEVEL 155 MG/DL (<200); CHOLESTEROL RISK RATIO 2.384 (<5); CREATININE FOR GFR 0.93 MG/DL (0.55-1.30); GLOMERULAR FILTRATION RATE > 60.0 (>32); GLUCOSE, FASTING 112 MG/DL (70-100); HDL CHOLESTEROL 65 MG/DL (>40); LDL CHOLESTEROL 73 MG/DL (<100); NON-HDL-C 90 MG/DL; SODIUM LEVEL 141 MEQ/L (136-145); TOTAL PROTEIN 6.4 GM/DL (6.4-8.2); TRIGLYCERIDES LEVEL 85 MG/DL (<150)
[2019-05-06 17:24] LABS: HEMOGLOBIN A1c 5.9 %
== END ==
LOC: M SFHCLERA 11:53
PROVIDERS: ATTEND Family Medicine
DX: I10 Essential (primary) hypertension (principal); E78.5 Hyperlipidemia, unspecified

== ENCOUNTER 2019-05-14 07:49 | Day surgery (SDC) | payer MEDICARE ==
[~2019-05-14] VITALS: Ht 152.4 cm; Wt 63.0 kg
[~2019-05-14 07:49] MED LIST changes: +LIDOCAINE 2% INJ 100 MG/5 ML SDV (FOR ANES.) As Ordered ONE; +NS 1,000 ML IV ONE; +PROPOFOL 200 MG/20 ML VIAL As Ordered ONE
--- NOTE | 2019-05-14 09:52 | ROOR ---
Patient Name: Anastasiya Garrison Procedure Date: 05/14/2019 8:53 AM Date of : 1935 Age: 84 Room: [facility] Gender: Female Note Status: Finalized Procedure: Upper GI endoscopy Indications: Dyspepsia Providers: Anthony Artis MD Referring MD: Adam RAMOS MD Requesting Provider: Medicines: Monitored Anesthesia Care Complications: No immediate complications. Procedure: Pre-Anesthesia Assessment: - Prior to the procedure, a History and Physical was performed, and patient medications and allergies were reviewed. The patient is competent. The risks and benefits of the procedure and the sedation options and risks were discussed with the patient. All questions were answered and informed consent was obtained. Patient identification and proposed procedure were verified by the physician, the nurse and the anesthesiologist in the procedure room. Mental Status Examination: alert and oriented. Airway Examination: normal oropharyngeal airway and neck mobility. Respiratory Examination: clear to auscultation. CV Examination: normal. Prophylactic Antibiotics: The patient does not require prophylactic antibiotics. Prior Anticoagulants: The patient has taken no previous anticoagulant or antiplatelet agents. ASA Grade Assessment: III - A patient with severe systemic disease. After reviewing the risks and benefits, the patient was deemed in satisfactory condition to undergo the procedure. The anesthesia plan was to use monitored anesthesia care (MAC). Immediately prior to administration of medications, the patient was re-assessed for adequacy to receive sedatives. The heart rate, respiratory rate, oxygen saturations, blood pressure, adequacy of pulmonary ventilation, and response to care were monitored throughout the procedure. The physical status of the patient was re-assessed after the procedure. The Endoscope was introduced through the mouth, and advanced to the second part of duodenum. The upper GI endoscopy was accomplished without difficulty. The patient tolerated the procedure well. Findings: The Z-line was regular and was found 31 cm from the incisors. LA Grade A (one or more mucosal breaks less than 5 mm, not extending between tops of 2 mucosal folds) esophagitis with no bleeding was found in the distal esophagus. Biopsies were taken with a cold forceps for histology. Verification of patient identification for the specimen was done by the physician and nurse using the patient's name, date and medical record number. Estimated blood loss was minimal. A medium-sized hiatal hernia was present. Scattered minimal inflammation characterized by congestion (edema), erythema and granularity was found in the gastric antrum. Biopsies were taken with a cold forceps for Helicobacter pylori testing. The duodenal bulb and second portion of the duodenum were normal. Impression: - Z-line regular, 31 cm from the incisors. - LA Grade A reflux esophagitis. Rule out Cristobal's esophagus. Biopsied. - Medium-sized hiatal hernia. - Gastritis. Biopsied. - Normal duodenal bulb and second portion of the duodenum. Recommendation: - Patient has a contact number available for emergencies. The signs and symptoms of potential delayed complications were discussed with the patient. Return to normal activities tomorrow. Written discharge instructions were provided to the patient. - Resume previous diet. - Follow an antireflux regimen. - Continue present medications. - Await pathology results. - Return to GI clinic in [facility] (address [address], [address], [place] [address]) in 4 -- 6 weeks. Please call GI clinic @ [phone] for apppointment date and time. - Return to primary care physician. Anthony Artis MD Anthony Artis MD 05/14/2019 9:52:02 AM Electronically signed by Anthony Artis MD Number of Addenda: 0 Note Initiated On: 05/14/2019 8:53 AM Estimated Blood Loss: Estimated blood loss was minimal.
--- NOTE | 2019-05-14 10:01 | ROOR ---
Patient Name: Anastasiya Garrison Procedure Date: 05/14/2019 8:54 AM Date of : 1935 Age: 84 Room: [facility] Gender: Female Note Status: Finalized Procedure: Colonoscopy Indications: Follow-up of diverticulitis Providers: Anthony Artis MD Referring MD: Adam RMAOS MD Requesting Provider: Medicines: Monitored Anesthesia Care Complications: No immediate complications. Procedure: Pre-Anesthesia Assessment: - Prior to the procedure, a History and Physical was performed, and patient medications and allergies were reviewed. The patient is competent. The risks and benefits of the procedure and the sedation options and risks were discussed with the patient. All questions were answered and informed consent was obtained. Patient identification and proposed procedure were verified by the physician, the nurse and the anesthesiologist in the procedure room. Mental Status Examination: alert and oriented. Airway Examination: normal oropharyngeal airway and neck mobility. Respiratory Examination: clear to auscultation. CV Examination: normal. Prophylactic Antibiotics: The patient does not require prophylactic antibiotics. Prior Anticoagulants: The patient has taken no previous anticoagulant or antiplatelet agents. ASA Grade Assessment: III - A patient with severe systemic disease. After reviewing the risks and benefits, the patient was deemed in satisfactory condition to undergo the procedure. The anesthesia plan was to use monitored anesthesia care (MAC). Immediately prior to administration of medications, the patient was re-assessed for adequacy to receive sedatives. The heart rate, respiratory rate, oxygen saturations, blood pressure, adequacy of pulmonary ventilation, and response to care were monitored throughout the procedure. The physical status of the patient was re-assessed after the procedure. The Colonoscope was introduced through the anus and advanced to the terminal ileum, with identification of the appendiceal orifice and IC valve. The colonoscopy was performed without difficulty. The patient tolerated the procedure well. The quality of the bowel preparation was good. The terminal ileum, ileocecal valve, appendiceal orifice, and rectum were photographed. Scope insertion time was 3 minutes. Scope withdrawal time was 9 minutes. The total duration of the procedure was 12 minutes. Findings: The perianal and digital rectal examinations were normal. The terminal ileum appeared normal. A 8 mm polyp was found in the ascending colon. The polyp was sessile. The polyp was removed with a cold snare. Resection and retrieval were complete. Verification of patient identification for the specimen was done by the physician and nurse using the patient's name, date and medical record number. Estimated blood loss was minimal. A 6 mm polyp was found in the descending colon. The polyp was sessile. The polyp was removed with a cold snare. Resection and retrieval were complete. Multiple small and large-mouthed diverticula were found from sigmoid to descending colon. There was narrowing of the colon in association with the diverticular opening. Shira-diverticular erythema was seen. There was no evidence of diverticular bleeding. Non-bleeding external and internal hemorrhoids were found during retroflexion. The hemorrhoids were large. Impression: - The examined portion of the ileum was normal. - One 8 mm polyp in the ascending colon, removed with a cold snare. Resected and retrieved. - One 6 mm polyp in the descending colon, removed with a cold snare. Resected and retrieved. - Severe diverticulosis from sigmoid to descending colon. There was narrowing of the colon in association with the diverticular opening. Shira-diverticular erythema was seen. There was no evidence of diverticular bleeding. - Non-bleeding external and internal hemorrhoids. Recommendation: - Patient has a contact number available for emergencies. The signs and symptoms of potential delayed complications were discussed with the patient. Return to normal activities tomorrow. Written discharge instructions were provided to the patient. - High fiber diet. - Continue present medications. - Await pathology results. - Repeat colonoscopy is not recommended due to current age (66 years or older) for surveillance based on pathology results and depending on clinical and functional status. - Return to GI clinic in [facility] (address [address], [address], [place], [facility]) in 4 -- 6 weeks. Please call GI clinic @ [phone] for apppointment date and time. - Return to primary care physician. Anthony Artis MD Anthony Artis MD 05/14/2019 10:00:25 AM Electronically signed by Anthony Artis MD Number of Addenda: 0 Note Initiated On: 05/14/2019 8:54 AM Estimated Blood Loss: Estimated blood loss was minimal.
[2019-05-14 10:05] VITALS: BP 136/63
== END 2019-05-14 10:18 | disposition home or self-care (01) ==
LOC: M OPP 07:49
PROVIDERS: ATTEND Internal Medicine Gastroenterology
DX: K64.8 Other hemorrhoids (principal); D12.4 Benign neoplasm of descending colon; D12.2 Benign neoplasm of ascending colon; K57.32 Diverticulitis of large intestine without perforation or abscess without bleeding; K57.30 Diverticulosis of large intestine without perforation or abscess without bleeding; K62.5 Hemorrhage of anus and rectum; K21.0 Gastro-esophageal reflux disease with esophagitis; K44.9 Diaphragmatic hernia without obstruction or gangrene; K29.70 Gastritis, unspecified, without bleeding; R10.13 Epigastric pain; Z79.82 Long term (current) use of aspirin; Z79.899 Other long term (current) drug therapy

== ENCOUNTER → 2019-05-20 | Outpatient (REF) | payer MEDICARE ==
[~2019-05-20] MED LIST changes: -LIDOCAINE 2% INJ 100 MG/5 ML SDV (FOR ANES.) As Ordered ONE; -NS 1,000 ML IV ONE; -PROPOFOL 200 MG/20 ML VIAL As Ordered ONE
[2019-05-20 18:26] LABS: ALBUMIN 2.9 GM/DL (3.2-5.2); ALT/SGPT 23 U/L (12-78); BILIRUBIN,TOTAL 0.6 MG/DL (0.2-1.0); BLOOD UREA NITROGEN 9 MG/DL (7-18); CALCIUM LEVEL 9.1 MG/DL (8.8-10.2); CARBON DIOXIDE LEVEL 29 MEQ/L (21-32); CHLORIDE LEVEL 105 MEQ/L (98-107); CREATININE FOR GFR 0.82 MG/DL (0.55-1.30); GAMMA GLUTAMYLTRANSPEPTIDASE 44 U/L (5-55); GLOMERULAR FILTRATION RATE > 60.0 (>32); GLUCOSE, FASTING 108 MG/DL (70-100); NT-PRO BNP 772 PG/ML (<450); POTASSIUM SERUM 4.3 MEQ/L (3.5-5.1); SODIUM LEVEL 140 MEQ/L (136-145); TOTAL PROTEIN 6.3 GM/DL (6.4-8.2)
[2019-05-20 20:21] LABS: TOTAL PROTEIN,RANDOM URINE 56.4 MG/DL (0.0-12.0)
== END ==
LOC: M SFHCLERA 09:58
PROVIDERS: ATTEND Family Medicine
DX: E88.09 Other disorders of plasma-protein metabolism, not elsewhere classified (principal); R60.0 Localized edema; Z79.82 Long term (current) use of aspirin; Z79.899 Other long term (current) drug therapy

== ENCOUNTER → 2019-06-03 | Outpatient (CLI) | payer MEDICARE ==
--- NOTE | 2019-06-03 10:52 | REP ---
Clinical: Chronic cough. Technique: PA and lateral. Comparison: 07/23/2018. Findings: Cardiac silhouette is normal. Diffuse chronic interstitial changes with bibasilar predominance again appreciated. Subtle atelectasis cannot be excluded. No obvious effusion. No pneumothorax. Skeletal structures intact. Impression: Relatively chronic-appearing changes as noted above. Very subtle basilar atelectasis cannot definitively be excluded. Electronically Signed by James Mae MD 06/03/2019 10:44 A
== END ==
LOC: M LRY 10:21
PROVIDERS: ATTEND Family Medicine
DX: R05 Cough (principal)
CPT/HCPCS: 71046; G0463

== ENCOUNTER → 2019-06-22 | Outpatient (REF) | payer MEDICARE ==
[2019-06-22 16:54] LABS: ALBUMIN 3.2 GM/DL (3.2-5.2); BILIRUBIN,TOTAL 0.6 MG/DL (0.2-1.0); CALCIUM LEVEL 9.4 MG/DL (8.8-10.2); CREATININE FOR GFR 1.11 MG/DL (0.55-1.30); GLOMERULAR FILTRATION RATE 49.6 (>32); THYROID STIMULATING HORMONE 5.56 uIU/ML (0.358-3.740); TOTAL PROTEIN 7.2 GM/DL (6.4-8.2)
== END ==
LOC: M SFHCLERA 12:55
PROVIDERS: ATTEND Family Medicine
DX: E88.09 Other disorders of plasma-protein metabolism, not elsewhere classified (principal); R74.8 Abnormal levels of other serum enzymes

== ENCOUNTER 2019-07-19 14:38 | Emergency (ER) | payer MEDICARE ==
[~2019-07-19] VITALS: Ht 152.4 cm; Wt 62.7 kg
[2019-07-19] MEDS ORDERED: PRED20TA (15:33)
[2019-07-19] MEDS ORDERED: IPRA0.00 (15:33)
[2019-07-19 16:13] VITALS: BP 168/75
== END 2019-07-19 16:27 | disposition home or self-care (01) ==
LOC: M ED 14:38
DX: L92.9 Granulomatous disorder of the skin and subcutaneous tissue, unspecified (principal); J45.909 Unspecified asthma, uncomplicated; I10 Essential (primary) hypertension; G89.29 Other chronic pain; Z79.899 Other long term (current) drug therapy; Z79.82 Long term (current) use of aspirin

== ENCOUNTER → 2019-07-22 | Outpatient (REF) | payer MEDICARE ==
[~2019-07-22] MED LIST changes: +IPRA0.00; +PRED20TA
== END ==
LOC: M SFHCLERA 14:02
PROVIDERS: ATTEND Nurse Practitioner Family
DX: R05 Cough (principal); Z53.8 Procedure and treatment not carried out for other reasons

== ENCOUNTER → 2019-07-22 | Outpatient (CLI) | payer MEDICARE ==
--- NOTE | 2019-07-22 14:36 | REP ---
Two-view chest: 07/22/2019. Indication: Cough. Comparison: 06/03/2019. Findings: Minimal bibasilar atelectasis is present. The lungs are hyperinflated. No air space consolidation is present. The cardiomediastinal silhouette is unremarkable. There is no evidence of significant pleural effusion or pneumothorax. Impression: Clear lungs. Sequelae of emphysema. Minimal bibasilar atelectasis. Stable. Electronically Signed by Damon Mujica DO 07/22/2019 01:17 P
== END ==
LOC: M LRY 12:18
PROVIDERS: ATTEND Nurse Practitioner Family
DX: J98.11 Atelectasis (principal); R05 Cough
CPT/HCPCS: 71046; 87804; 94640; G0463

== ENCOUNTER → 2019-10-07 | Outpatient (REF) | payer MEDICARE ==
[~2019-10-07] MED LIST changes: -SIMV10TA2 PO; +SIMV10TA21 PO
[2019-10-07 17:11] LABS: FREE T4 0.84 NG/DL (0.76-1.46); THYROID STIMULATING HORMONE 4.92 uIU/ML (0.358-3.740)
[2019-10-07 17:47] LABS: HEMOGLOBIN A1c 6.7 %
== END ==
LOC: M SFHCLERA 10:49
PROVIDERS: ATTEND Family Medicine
DX: R73.9 Hyperglycemia, unspecified (principal); Z79.899 Other long term (current) drug therapy
CPT/HCPCS: 83036; 84439; 84443; G0463

== ENCOUNTER 2020-03-14 10:21 | Emergency (ER) | payer MEDICARE ==
[~2020-03-14] VITALS: Ht 152.4 cm; Wt 65.9 kg
[2020-03-14] MEDS ORDERED: LORA-674 (10:32)
[2020-03-14] MEDS ORDERED: PANT40TA3 (10:32)
[2020-03-14] MEDS ORDERED: bisoproloL fumarate 5 MG TAB PO ONE (11:15)
[2020-03-14] MEDS ORDERED: hydroCHLOROthiazide 12.5 MG CAPSULE PO ONE (11:15)
[2020-03-14 11:24] LABS: BASO # 0.1 10^3/uL (0.0-0.2); BASO % 0.9 % (0.0-1.0); EOS # 0.1 10^3/uL (0.0-0.5); EOS % 1.5 % (0.0-3.0); HEMATOCRIT 47.7 % (36.0-47.0); HEMOGLOBIN 15.6 g/dl (12.0-15.5); LYMPH # 1.5 10^3/uL (1.5-5.0); MEAN CORPUSCULAR HEMOGLOBIN 34.2 pg (27.0-33.0); MEAN CORPUSCULAR HGB CONC 32.7 g/dl (32.0-36.5); MEAN CORPUSCULAR VOLUME 104.6 fl (80.0-96.0); MONO # 0.6 10^3/uL (0.0-0.8); NEUTROPHILS # 6.8 10^3/uL (1.5-8.5); NEUTROPHILS % 73.8 % (36.0-66.0); PLATELET COUNT, AUTOMATED 162 10^3/uL (150-450); RED BLOOD COUNT 4.56 10^6/uL (4.00-5.40); WHITE BLOOD COUNT 9.2 10^3/uL (4.0-10.0)
[2020-03-14 11:47] LABS: CALCIUM LEVEL 9.3 MG/DL (8.8-10.2); CREATININE FOR GFR 0.99 MG/DL (0.55-1.30); FREE T4 0.95 NG/DL (0.76-1.46); GLOMERULAR FILTRATION RATE 56.5 (>32); POTASSIUM SERUM 4.4 MEQ/L (3.5-5.1); THYROID STIMULATING HORMONE 6.64 uIU/ML (0.358-3.740)
[2020-03-14 12:28] VITALS: BP 157/70
--- NOTE | 2020-03-14 12:31 | REP ---
CT BRAIN WITHOUT CONTRAST: HISTORY: Hypertension. Headache. FINDINGS: Preliminary digital methods analyst data processing radiograph is unremarkable. There is heavy vascular calcification in the distal internal carotid and distal vertebral arteries bilaterally. The bony calvarium is intact. Visualized paranasal sinuses are unremarkable. No intraorbital abnormality is seen. On soft tissue window settings, there are scattered small vessel atherosclerotic changes in the periventricular white matter. There is no evidence of intracranial hemorrhage. No acute infarction is seen. No mass or midline shift is seen. IMPRESSION: Vascular calcification, diffuse volume loss, and small vessel changes are noted. No acute intracranial abnormality is appreciated. Electronically Signed by Gera Macias MD 03/14/2020 02:58 P
== END 2020-03-14 13:21 | disposition home or self-care (01) ==
LOC: M ED 10:21
DX: R51 Headache (principal); I10 Essential (primary) hypertension; K21.9 Gastro-esophageal reflux disease without esophagitis; J45.909 Unspecified asthma, uncomplicated; E78.5 Hyperlipidemia, unspecified; Z79.899 Other long term (current) drug therapy; Z79.82 Long term (current) use of aspirin; Z79.51 Long term (current) use of inhaled steroids

== ENCOUNTER → 2020-04-06 | Outpatient (REF) | payer MEDICARE ==
[~2020-04-06] MED LIST changes: -ASPI81TA85 PO; +ASPI81TA86 PO; +LORA-674; +PANT40TA29
[2020-04-06 12:20] LABS: BLOOD UREA NITROGEN 12 MG/DL (7-18); CALCIUM LEVEL 9.4 MG/DL (8.8-10.2); CARBON DIOXIDE LEVEL 30 MEQ/L (21-32); CHLORIDE LEVEL 104 MEQ/L (98-107); CREATININE FOR GFR 0.87 MG/DL (0.55-1.30); GLOMERULAR FILTRATION RATE > 60.0 (>32); GLUCOSE, FASTING 108 MG/DL (70-100); POTASSIUM SERUM 4.9 MEQ/L (3.5-5.1); SODIUM LEVEL 137 MEQ/L (136-145)
[2020-04-06 13:24] LABS: HEMOGLOBIN A1c 6.5 %
== END ==
LOC: M SFHCLERA 09:39
PROVIDERS: ATTEND Family Medicine
DX: R73.01 Impaired fasting glucose (principal)

== ENCOUNTER → 2020-05-24 | Outpatient (POV) | payer MEDICARE ==
--- NOTE | 2020-06-01 12:17 | IRPN ---
[facility] IR Progress Note IR Progress Note DATE: May 24, 2020 Patient agreed to this telephone call. I spent 20 minutes reviewing patient's history and talking to the patient's carer on the phone. FOLLOW-UP: 85-year-old female with bilateral lower extremity rest pain and rubor. Patient did not appear for her bilateral lower extremity angiogram as planned. Patient is not willing to undergo any interventions at this present time. We discussed options of a CTA which doesn't allow the option of intervention in the same setting but maybe informative. Patient would like to have a CTA instead. We'll schedule the patient for CTA.. IMPRESSION: Patient will be scheduled for CTA with bilateral lower extremity runoff. Thank you for this referral CC Dr. Ronald Rueda Allergies Coded Allergies: No Known Allergies (Unverified , 05/07/19) PETER FERNANDES MD Jun 01, 2020 12:17
== END ==
LOC: M TMIRPOV 13:52
PROVIDERS: ATTEND Radiology Diagnostic Radiology
DX: M79.605 Pain in left leg (principal); M79.606 Pain in leg, unspecified; L53.9 Erythematous condition, unspecified

== ENCOUNTER → 2020-07-27 | Outpatient (CLI) | payer MEDICARE ==
[2020-07-27 14:46] LABS: BASO # 0.1 10^3/uL (0.0-0.2); BASO % 0.5 % (0.0-1.0); EOS # 0.1 10^3/uL (0.0-0.5); EOS % 0.9 % (0.0-3.0); HEMATOCRIT 48.1 % (36.0-47.0); HEMOGLOBIN 16.1 g/dl (12.0-15.5); LYMPH # 2.1 10^3/uL (1.5-5.0); LYMPH % 22.5 % (24.0-44.0); MEAN CORPUSCULAR HEMOGLOBIN 34.5 pg (27.0-33.0); MEAN CORPUSCULAR HGB CONC 33.5 g/dl (32.0-36.5); MONO # 0.9 10^3/uL (0.0-0.8); MONO % 9.2 % (0.0-5.0); NEUTROPHILS # 6.1 10^3/uL (1.5-8.5); NEUTROPHILS % 66.2 % (36.0-66.0); PLATELET COUNT, AUTOMATED 199 10^3/uL (150-450); RED BLOOD COUNT 4.67 10^6/uL (4.00-5.40); WHITE BLOOD COUNT 9.2 10^3/uL (4.0-10.0)
[2020-07-27 15:04] LABS: ALBUMIN 3.5 GM/DL (3.2-5.2); BILIRUBIN,TOTAL 0.5 MG/DL (0.2-1.0); CALCIUM LEVEL 9.2 MG/DL (8.8-10.2); CHOLESTEROL RISK RATIO 2.839 (<5); CREATININE FOR GFR 1.04 MG/DL (0.55-1.30); GLOMERULAR FILTRATION RATE 53.4 (>32); PERCENT SATURATION 42.8 % (13.2-45.0); POTASSIUM SERUM 3.9 MEQ/L (3.5-5.1); THYROID STIMULATING HORMONE 5.07 uIU/ML (0.358-3.740); TOTAL PROTEIN 6.8 GM/DL (6.4-8.2)
[2020-07-27 15:09] LABS: TOTAL 25(OH) VITAMIN D 9.5 NG/ML (30.0-100.0)
== END ==
LOC: M LAB 13:35
PROVIDERS: ATTEND Family Medicine
DX: G25.81 Restless legs syndrome (principal); R60.0 Localized edema; E03.9 Hypothyroidism, unspecified; Z79.899 Other long term (current) drug therapy; Z23 Encounter for immunization
CPT/HCPCS: 36415; 80053; 80061; 82306; 82728; 83550; 84443; 85025; 90682; G0008; G0463

== ENCOUNTER → 2020-08-23 | Outpatient (CLI) | payer MEDICARE ==
[~2020-08-23] MED LIST changes: +ISOVUE-370 76% 100ML VIAL As Ordered ONE
--- NOTE | 2020-08-29 07:49 | REP ---
INDICATION: PAD. COMPARISON: None TECHNIQUE: Axial contrast-enhanced images from the lung bases through the bilateral lower extremities using arterial angiographic technique including multiplanar reformations and post processing MIP images along with volume rendered 3D CT angiographic images. 100 cc Isovue 370 intravenous contrast material administered without complication. This CT examination was performed using the following dose reduction techniques: Automated exposure control, adjustment of mA and/or kv according to the patient's size, and the use of iterative reconstruction technique. FINDINGS: Significant atherosclerotic disease of the aorta and branch vessels is appreciated including visible areas of stenosis at the origins of the renal arteries (left greater than right) and suspected chronic decreased perfusion to the kidneys causing bilateral atrophy. There is a patent aortofemoral bypass graft with anastomosis at the level of the right common femoral artery (DIGITAL DESIGNER). The bypass graft demonstrates satisfactory enhancement to the level of the femoral anastomosis. The enterprise bilateral common iliac arteries, and left internal/external iliac arteries demonstrate satisfactory patency. The right external iliac artery demonstrates partial likely chronic occlusion through its distal portion to the level of the enterprise common femoral artery. The right lower extremity demonstrates extensive, severe calcified atherosclerotic disease which severely limits evaluation for contrast enhancement and subsequent evaluation of flow in the common femoral artery through calf arteries. The appearance is suggestive of at least partial occlusion at the level of the proximal superficial femoral artery with at best, trickle flow distally to the ankle. The left lower extremity demonstrates extensive severe calcified atherosclerotic disease with visible areas of stenosis through the superficial femoral artery and suggestions for near occlusive disease at the distal superficial femoral artery/popliteal artery and at best, subsequent trickle flow through calf vessels to the ankle. Liver, spleen, pancreas, gallbladder, bilateral adrenal glands are relatively normal. Kidneys demonstrate atrophic changes bilaterally without perinephric stranding or hydronephrosis. The enteric system is without obstruction or acute inflammatory process. Diverticulosis noted without acute diverticulitis. Pelvis demonstrates collapsed bladder and evidence for prior hysterectomy. No ascites. No free air. No adenopathy. Skeletal structures demonstrate degenerative changes without acute abnormality. IMPRESSION: 1. Extensive atherosclerotic disease as described above. Due to extensive partially calcified atherosclerotic plaquing, distinction between flow/enhancement and artifact significantly limits evaluation through the bilateral lower extremities. Conventional contrast enhanced angiography as well as arterial ultrasound evaluation is recommended. <Electronically signed by James Mae > 08/29/20 [id number]
== END ==
LOC: M RAD 14:24
PROVIDERS: ATTEND Radiology Diagnostic Radiology
DX: I73.9 Peripheral vascular disease, unspecified (principal)
CPT/HCPCS: 75635; Q9967

== ENCOUNTER → 2020-09-06 | Outpatient (POV) | payer MEDICARE ==
[~2020-09-06] MED LIST changes: -ISOVUE-370 76% 100ML VIAL As Ordered ONE; +vit d; +vit d PO
--- NOTE | 2020-09-07 13:46 | IRPN ---
[facility] IR Progress Note IR Progress Note DATE: Sep 06, 2020 Patient agreed to this telephone follow-up. I spent 20 minutes reviewing patient's records, imaging and talking to the patient. FOLLOW-UP: 85-year-old female with bilateral lower extremity rest pain and rubor. Patient was previously not interested in intervention, therefore underwent a CTA lower extremity with runoff. She states her symptoms are getting worse, she cannot rest during the day or night and constantly has to move her legs around and down to the ground. She denies any gangrene or skin discolorati on other than the dependent rubor. ON EXAMINATION: Patient sent images of bilateral legs. Bilateral legs appear mildly edematous with generalized rubor. Prominent anterior tibial vein is seen. No ulcers. No gangrene. Imaging: I reviewed the CTA abdomen with bilateral lower extremity runoff performed 08/23/2020. Patent right aortofemoral bypass. However there is occlusion of the right SFA and popliteal artery. Left external iliac and common femoral artery appear patent however there is atherosclerotic disease and occlusion of the distal left SFA/popliteal artery. 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 Patient would benefit from angiogram and intervention if possible at the same time. We discussed the risks and benefits of the procedure and patient would now like to proceed. We'll schedule the patient for the procedure. Thank you for this referral Cc Dr. Rueda CC Dr. Lane Allergies Coded Allergies: No Known Allergies (Unverified , 05/07/19) PETER FERNANDES MD Sep 07, 2020 13:46
== END ==
LOC: M TMIRPOV 09:19
PROVIDERS: ATTEND Radiology Diagnostic Radiology
DX: I70.223 Atherosclerosis of native arteries of extremities with rest pain, bilateral legs (principal)

== ENCOUNTER → 2020-09-14 | Outpatient (CLI) | payer MEDICARE ==
[~2020-09-14] MED LIST changes: +ISOVUE-300 61% 50ML VIAL As Ordered ONE; +LIDOCAINE 1% MDV 20ML VIAL As Ordered ONE; +MIDAZOLAM INJ 2MG/2ML VIAL (J2250 PER 1MG) As Ordered ONE; +NITROGLYCERIN IN D5W 25MG/250ML (100MCG/ML) As Ordered ONE; +ONDANSETRON 4MG/2ML VIAL IV PRN; +PERCOCET 5MG/325MG TAB As Ordered ONE; +PERCOCET 5MG/325MG TAB PO PRN; +PROMETHAZINE INJ 25 MG/ML VIAL (J2550) As Ordered ONE; +diphenhydrAMINE 50MG/ML VIAL (J1200) As Ordered ONE; +fentaNYL 100 MCG/2 ML INJECTION (J3010) As Ordered ONE
[2020-09-14 08:18] LABS: HEMATOCRIT 43.8 % (36.0-47.0); HEMOGLOBIN 14.9 g/dl (12.0-15.5); MEAN CORPUSCULAR HEMOGLOBIN 35.3 pg (27.0-33.0); MEAN CORPUSCULAR VOLUME 103.8 fl (80.0-96.0); PLATELET COUNT, AUTOMATED 232 10^3/uL (150-450); RED BLOOD COUNT 4.22 10^6/uL (4.00-5.40); WHITE BLOOD COUNT 8.4 10^3/uL (4.0-10.0)
[2020-09-14 08:36] LABS: CALCIUM LEVEL 9.1 MG/DL (8.8-10.2); CREATININE FOR GFR 0.96 MG/DL (0.55-1.30); GLOMERULAR FILTRATION RATE 58.5 (>32); POTASSIUM SERUM 3.9 MEQ/L (3.5-5.1)
--- NOTE | 2020-09-14 11:04 | IRHP ---
[facility] IR Pre-Procedure H & P General Date of Service: Sep 14, 2020 Procedure: Same Day Surgery Interval History and Physical I have seen the patient and reviewed last H & P performed within 30 days. There is no significant interval change. History of Present Illness Chief Complaint The patient is a 85-year-old female admitted with a reason for visit of PAD. PRE-PROCEDURE DIAGNOSIS:PAD HEART: normal rate. LUNGS: normal breathing at rest. ASA Classification ASA Classification: III-Severe systemic dis. Mallampati Score: II NPO: Yes Problems with prior sedation: No Obstructive Sleep Apnea: No Plan moderate sedation Allergies Coded Allergies: No Known Allergies (Unverified , 05/07/19) Home Medications Scheduled Aspirin (Aspir 81), 1 TAB PO m, w and fr, (Reported) Bisoprolol/Hydrochlorothiazide (Bisoprolol-Hctz 5-6.25 mg Tab), 1 TAB PO DAILY, (Reported) Fluticasone/Vilanterol (Breo Ellipta 200-25 Mcg INH), 1 PUFF INH DAILY, (Reported) Simvastatin (Simvastatin), 1 TAB PO QHS, (Reported) [vit d], 1XWK, (Reported) [vit d], 50,000 PO 1XWK, (Reported) Discontinued Medications Gabapentin (Gabapentin), PO TID, (Reported) Discontinued Reason: Pt states not taking Ipratropium/Albuterol Sulfate (Iprat-Albut 0.5-3(2.5) mg/3 ml), (Reported) Discontinued Reason: Pt states not taking Loratadine (Loratadine), (Reported) Discontinued Reason: Pt states not taking Pantoprazole Sodium (Pantoprazole Sodium), (Reported) Discontinued Reason: Pt states not taking VS, I&O, 24H, Fishbone Vital Signs/I&O Vital Signs Date Time Temp Pulse Resp B/P (MAP) Pulse Ox O2 Delivery O2 Flow Rate FiO2 09/14/20 10:55 83 18 100 Nasal Cannula 09/14/20 10:45 2 09/14/20 07:45 98.5 Laboratory Data 24H LABS Laboratory Tests 2 09/14/20 08:00: Nucleated Red Blood Cells % (auto) 0.0, Anion Gap 8, Glomerular Filtration Rate 58.5, Calcium Level 9.1 CBC/BMP Laboratory Tests 09/14/20 08:00 PETER FERNANDES MD Sep 14, 2020 11:04
[2020-09-14 17:00] VITALS: BP 148/70
--- NOTE | 2020-09-15 13:32 | POST-OPPD ---
Postoperative Procedure Note Date Of Procedure: Sep 14, 2020 Time Of Procedure: 16:00 IR Right leg angiogram IR Below-knee runoff arteriogram. IR Right posterior tibial artery recanalization. IR Right posterior tibial artery angioplasty. IR Moderate sedation. Clinical Information:Lower extremity rest pain. Physician: Dr. Perez. Procedure: The patient was advised of the benefits, risks, and alternatives of the procedure and informed consent was obtained. A time out was performed with verification of the patient's name, MRN, site of procedure, and type of procedure to be performed. The patient was positioned in the supine position on the angiographic table. The site was prepped and draped in the usual sterile fashion. Moderate sedation was performed by the physician including the presence of an independent trained RN, who assisted in monitoring the patient's level of consciousness and physiological status. Following the administration of fentanyl and Versed, the physician spent 120 minutes of continuous qyuv-ys-lzfp time with the patient. A chief design drafter radiograph reveals no gross abnormality. Lidocaine was used for local anesthesia. The left common femoral artery was accessed, under fluoroscopy guidance with a microintroducer set. A short 0.018" [place] wire was inserted and the needle was exchanged for a 4 Fr microintroducer sheath. The guidewire and dilator were removed and a 0.035" Bents[place] wire was placed into aorta. A 6 Fr sheath was placed over the wire. A pelvic angiogram was performed. This demonstrates atherosclerotic disease of the infrarenal abdominal aorta and common iliac arteries. There is a conduit from the infrarenal abdominal aorta to the right common femoral artery which is patent. Patent bilateral internal and iliac arteries. A second pelvic angiogram was performed with angulation of the image intensifier to further evaluate the inflow. This demonstrates separate conduit from the aorta to the common femoral artery. This is patent. The catheter in conjunction with the wire was used to gain up and over access into the right common femoral artery. The catheter was exchanged over the wire for a Glidecath. The Glidecath in conjunction with the wire was used under fluoroscopy guidance to catheterize the right common femoral artery. Angiography further down the right leg was performed and this demonstrates patent superficial femoral artery and profunda femoris without significant stenosis. Patent popliteal artery. A below knee run off arteriogram was performed and this demonstrates patent anterior tibial artery without significant stenosis. Patent dorsalis pedis. Atherosclerotic disease of the posterior tibial artery and peroneal artery with multi segment greater than 90% stenosis and focal areas of occlusion. The catheter in conjunction with a wire was used under fluoroscopy guidance to catheterize the distal superficial femoral artery. The 6 Macedonian short vascular sheath was exchanged for a long 6 Macedonian 45 cm destination sheath. The tip of the sheath was positioned in the right superficial femoral artery. A [place] catheter was then used in conjunction with a wire to catheterize the popliteal artery. The catheter was then used under fluoroscopy guidance and in conjunction with the wire, to catheterize the Posterior tibial artery. Intermittent injection of contrast confirmed intraluminal location. After successful catheterization of the distal posterior tibial artery, a 3 x 200 mm [place] balloon was used under fluoroscopy guidance to angioplasty the tibio peroneal trunk and proximal posterior tibial artery. Heparin was administered. The balloon was deflated and removed over the wire. A 2.5 x 220 mm coyote balloon was then advanced over the wire under fluoroscopy guidance and positioned in the mid and distal posterior tibial artery. Angioplasty of the mid and distal posterior tibial artery was performed. The balloon was deflated and removed over the wire. The catheter was readvanced over the wire to the proximal posterior tibial artery. A post angioplasty follow-up arteriogram was performed which demonstrates much improved and now rapid flow in the posterior tibial artery all the way into the foot. Preserved flow in the anterior tibial artery and peroneal artery. As patient could not lay on the table any longer due to back discomfort, we did not intervene on the peroneal artery. But this is an option for the future. A completion magnification angiography of the right foot was performed and this demonstrates robust flow in the anterior tibial artery, dorsalis pedis and metatarsal branches and now good flow in the posterior tibial artery supplying the calcaneal and plantar branches. The Catheter, wire and sheath were removed, pressure held and hemostasis achieved. A sterile dressing was applied to the site. The patient tolerated the procedure well and was returned to the PRU in stable condition. EBL: < 5 mL. Complications:None. Impression: 1. Right leg angiogram demonstrates below-knee arterial disease with multi segment stenosis and focal occlusions in the posterior tibial and peroneal artery. 2. Successful recanalization and angioplasty of posterior tibial artery with improved 2 vessel flow into the right foot. Thank you for this referral CC Dr. Ronald Schneider CC PETER Pitts MD Sep 15, 2020 13:32
== END ==
LOC: M IRPRO 07:32
PROVIDERS: ATTEND Radiology Diagnostic Radiology
DX: I70.222 Atherosclerosis of native arteries of extremities with rest pain, left leg (principal); Z79.82 Long term (current) use of aspirin; Z79.899 Other long term (current) drug therapy
CPT/HCPCS: 75710; 80048; 85027; 99152; 99153; C1725; C1769; C1887; C1894; J1200; J1644; J2250; J3010; Q9967

== ENCOUNTER → 2020-10-10 | Outpatient (CLI) | payer MEDICARE ==
[~2020-10-10] MED LIST changes: +GABA-282 PO; -GABA-843 PO; -ISOVUE-300 61% 50ML VIAL As Ordered ONE; -LIDOCAINE 1% MDV 20ML VIAL As Ordered ONE; -MIDAZOLAM INJ 2MG/2ML VIAL (J2250 PER 1MG) As Ordered ONE; -NITROGLYCERIN IN D5W 25MG/250ML (100MCG/ML) As Ordered ONE; -ONDANSETRON 4MG/2ML VIAL IV PRN; -PERCOCET 5MG/325MG TAB As Ordered ONE; -PERCOCET 5MG/325MG TAB PO PRN; -PROMETHAZINE INJ 25 MG/ML VIAL (J2550) As Ordered ONE; -diphenhydrAMINE 50MG/ML VIAL (J1200) As Ordered ONE; -fentaNYL 100 MCG/2 ML INJECTION (J3010) As Ordered ONE
--- NOTE | 2020-10-10 10:50 | REP ---
INDICATION: THYROID NODULE COMPARISON: None. TECHNIQUE: Hernandez scale and color evaluation of the thyroid gland using the linear high frequency transducer. FINDINGS: The thyroid gland is heterogeneous. Isthmus measures 5.6 mm in width. The right lobe measures 4.6 x 3.0 x 3.0 cm and is dominated by a 3.3 x 2.7 x 2.8 cm complex hypervascular mass. The left lobe measures 2.6 x 1.4 x 1.0 cm with a 6 x 5.8 x 6.5 mm hypoechoic complex nodule with calcification. 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 Nonspecific hypoechoic complex nodule in the left lobe. <Electronically signed by James Mae > 10/10/20 [id number]
== END ==
LOC: M RAD 09:38
PROVIDERS: ATTEND Family Medicine
DX: E04.1 Nontoxic single thyroid nodule (principal)

== ENCOUNTER → 2020-10-13 | Outpatient (CLI) | payer MEDICARE ==
[~2020-10-13] MED LIST changes: +ISOVUE-300 61% 50ML VIAL As Ordered ONE; +LIDOCAINE 1% MDV 20ML VIAL As Ordered ONE; +MIDAZOLAM INJ 2MG/2ML VIAL (J2250 PER 1MG) As Ordered ONE; +PROMETHAZINE INJ 25 MG/ML VIAL (J2550) As Ordered ONE; +diphenhydrAMINE 50MG/ML VIAL (J1200) As Ordered ONE; +fentaNYL 100 MCG/2 ML INJECTION (J3010) As Ordered ONE
[2020-10-13 08:19] LABS: HEMATOCRIT 39.8 % (36.0-47.0); HEMOGLOBIN 13.2 g/dl (12.0-15.5); MEAN CORPUSCULAR HEMOGLOBIN 35.3 pg (27.0-33.0); MEAN CORPUSCULAR HGB CONC 33.2 g/dl (32.0-36.5); MEAN CORPUSCULAR VOLUME 106.4 fl (80.0-96.0); PLATELET COUNT, AUTOMATED 210 10^3/uL (150-450); RED BLOOD COUNT 3.74 10^6/uL (4.00-5.40)
[2020-10-13 08:52] LABS: INR 0.98; PROTHROMBIN TIME 13.2 SECONDS (12.5-14.3)
[2020-10-13 08:58] LABS: BLOOD UREA NITROGEN 16 MG/DL (7-18); CALCIUM LEVEL 9.4 MG/DL (8.8-10.2); CARBON DIOXIDE LEVEL 28 MEQ/L (21-32); CHLORIDE LEVEL 105 MEQ/L (98-107); GLOMERULAR FILTRATION RATE > 60.0 (>32); GLUCOSE, FASTING 103 MG/DL (70-100); POTASSIUM SERUM 4.2 MEQ/L (3.5-5.1); SODIUM LEVEL 139 MEQ/L (136-145)
--- NOTE | 2020-10-13 16:32 | POST-OPPD ---
Postoperative Procedure Note Date Of Procedure: Oct 13, 2020 Time Of Procedure: 16:07 IR Left leg angiogram IR Below-knee runoff arteriogram. IR Ultrasound-guided left common femoral artery access. IR Left posterior tibial artery recanalization. IR Left posterior tibial artery angioplasty. IR Left tibioperoneal trunk angioplasty. IR Moderate sedation. Clinical Information:Left lower extremity rest pain . Physician: Dr. Perez. Procedure: The patient was advised of the benefits, risks, and alternatives of the procedure and informed consent was obtained. A time out was performed with verification of the patient's name, MRN, site of procedure, and type of procedure to be performed. The patient was positioned in the supine position on the angiographic table. The site was prepped and draped in the usual sterile fashion. Moderate sedation was performed by the physician including the presence of an independent trained RN, who assisted in monitoring the patient's level of consciousness and physiological status. Following the administration of fentanyl and Versed, the physician spent 180 minutes of continuous fmvh-iq-eulq time with the patient. A functional tester radiograph reveals right greater than left hip arthritis. Lidocaine was used for local anesthesia. The right common femoral artery was accessed with a microintroducer set. A short 0.018" [place] wire was inserted and the needle was exchanged for a 4 Fr microintroducer sheath. The guidewire and dilator were removed and a 0.035" Bentson wire was placed into the abdominal aorta. A 6 Fr sheath was placed over the wire. An omni flush catheter was advanced over the wire under fluoroscopy guidance and used to catheterize the infrarenal abdominal aorta. A pelvic angiogram was performed and this demonstrates the infrarenal abdominal aorta. Patent left common iliac, internal and external iliac artery. The catheter in conjunction with the wire was used to try to gain up and over access into the left common iliac artery. This was not possible. The catheter was exchange over the wire for a cobra catheter. The Cobra catheter in conjunction with the wire was used to try to gain up and over access into the left common iliac artery. This was not possible due to the tortuosity of the aorta and acute angulation of the left common iliac artery. The catheter was removed of the wire and a SIM 1 catheter was used [id number]-umq-bkja to try to catheterize the aortic bifurcation and the left common iliac artery. This was not possible therefore the catheter and wire were removed and a left antegrade approach was then selected for access. Ultrasound of the left groin demonstrates patent and compressible left common femoral artery. Lidocaine was used for local anesthesia. The left common femoral artery was accessed antegrade, under ultrasound guidance with a microintroducer set. A short 0.018" [place] wire was inserted and the needle was exchanged for a 4 Fr microintroducer sheath. A left leg angiogram was then performed. This demonstrates patent proximal, mid and distal superficial femoral artery and reflux into patent profunda femoris. Angiography further down the left leg was performed and this demonstrates patent distal superficial femoral artery, proximal, mid and distal popliteal artery. A below knee run off arteriogram was performed and this demonstrates patent anterior tibial artery coursing into the left foot. Patent dorsalis pedis. Occluded left posterior tibial artery with no contribution to the calcaneal or plantar branches. Small peroneal artery. A wire was advanced through the micro sheath into the SFA and the micro sheath was exchanged for a 5 Maltese vascular sheath. A Glidecath in conjunction with the Glidewire was used under fluoroscopy guidance to catheterize the superficial femoral artery and then the popliteal artery. A repeat below-knee arterial runoff was performed and this demonstrates significant stenosis in the tibia peroneal trunk, multifocal severe stenosis in the proximal left posterior tibial artery and complete occlusion of the mid and distal posterior tibial artery. Small peroneal artery. Patent left anterior tibial artery. The catheter in conjunction with the wire was then used to catheterize the left posterior tibial artery. [place] down the left posterior tibial artery, the catheter was exchanged for a [place] catheter. Intermittent injection of contrast confirmed intraluminal location. The [place] catheter in conjunction with the Glidewire was then used under fluoroscopy guidance to catheterize the mid and distal posterior tibial artery. The wire was removed and injection of contrast confirmed intraluminal location. The catheter was then removed over the wire. A 3 x 200 mm [place] balloon was then advanced over the wire under fluoroscopy guidance and positioned in the popliteal artery, tibioperoneal trunk and proximal posterior tibial artery. This was used to angioplasty. Heparin was administered. The balloon was deflated and then repositioned to the mid posterior tibial artery. Angioplasty of the proximal and mid posterior tibial artery was performed. The balloon was deflated and removed over the wire. A 2.5 x 220 mm coyote balloon was then advanced over the wire, under fluoroscopy guidance and position in the mid and distal left posterior tibial artery. Angioplasty of the mid and distal posterior tibial artery was performed. The balloon was deflated and advanced ipoe-bwb-zant to the distal posterior tibial artery and calcaneal branches. Angioplasty was performed. The balloon was deflated and removed over the wire. A postangioplasty follow-up arteriogram was performed which demonstrates rapid flow in the tibioperoneal trunk with no residual stenosis. Complete recanalization of the left posterior tibial artery without significant stenosis. Improved flow in the peroneal artery after treatment of the tibioperoneal trunk. Robust flow in the anterior tibial artery into dorsalis pedis. Increased vascularity to the left foot. Catheters and wires removed. A Mynx device was used to close the right groin arteriotomy, the sheath was removed, hemostasis achieved and a sterile dressing was applied to site. The left groin sheath was removed, manual pressure held and hemostasis achieved. A sterile dressing was applied to the site. The patient tolerated the procedure well and was returned to the PRU in stable condition. EBL: < 5 mL. Complications:None. Impression: 1. Left leg angiogram demonstrates below-knee arterial disease with severe stenosis of the tibioperoneal trunk and occlusion of the left posterior tibial artery. 2. Successful recanalization of left posterior tibial artery now with 3 vessel runoff to the left foot. 3. Successful angioplasty of tibioperoneal trunk with improved flow to the peroneal artery. Thank you for this referral. Cc Dr. Ronald Walker Cc PETER Pitts MD Oct 13, 2020 16:32
[2020-10-13 17:15] VITALS: BP 174/81
== END ==
LOC: M IRPRO 07:26
PROVIDERS: ATTEND Radiology Diagnostic Radiology
DX: I70.222 Atherosclerosis of native arteries of extremities with rest pain, left leg (principal); M16.0 Bilateral primary osteoarthritis of hip; Q25.40 Congenital malformation of aorta unspecified
CPT/HCPCS: 37228; 37232; 75710; 75774; 80048; 85027; 85610; 85730; 99152; 99153; C1725; C1760; C1769; C1887; C1894; J1200; J1644; J2250; J3010; Q9967

== ENCOUNTER → 2020-11-15 | Outpatient (POV) | payer MEDICARE ==
[~2020-11-15] MED LIST changes: -ISOVUE-300 61% 50ML VIAL As Ordered ONE; -LIDOCAINE 1% MDV 20ML VIAL As Ordered ONE; -MIDAZOLAM INJ 2MG/2ML VIAL (J2250 PER 1MG) As Ordered ONE; -PROMETHAZINE INJ 25 MG/ML VIAL (J2550) As Ordered ONE; -diphenhydrAMINE 50MG/ML VIAL (J1200) As Ordered ONE; -fentaNYL 100 MCG/2 ML INJECTION (J3010) As Ordered ONE
--- NOTE | 2020-11-17 11:47 | IRPN ---
[facility] IR Progress Note IR Progress Note DATE: Nov 15, 2020 Patient agreed to this telephone follow-up. I spent 10 minutes talking to the patient and her daughter. FOLLOW-UP: 85-year-old female status post bilateral lower extremity angiogram and intervention for rest pain. She underwent bilateral lower extremity an giography on different days and below-knee angioplasty with improvement of flow to the bilateral lower extremities. Patient describes both access sites have healed up with no bruising swelling or pain. She does describe that sometimes her feet get very cold and tingly and subsequently get very red and hot. She denies rest pain with elevation. ON EXAMINATION: No video on patient side. IMPRESSION: Patient status post bilateral lower extremity angiography with identification of below-knee atherosclerotic disease. This was treated with bilateral lower extremity below-knee angioplasty with improvement in flow to the feet. I will start her on Plavix, she may continue the aspirin and I'll follow her up in 6 months. Thank you for this referral. Cc Dr. Rueda Allergies Coded Allergies: No Known Allergies (Unverified , 05/07/19) PETER FERNNADES MD Nov 17, 2020 11:47
== END ==
LOC: M TMIRPOV 09:58
PROVIDERS: ATTEND Radiology Diagnostic Radiology
DX: Z48.816 Encounter for surgical aftercare following surgery on the genitourinary system (principal); I70.203 Unspecified atherosclerosis of native arteries of extremities, bilateral legs

== ENCOUNTER → 2021-02-28 | Outpatient (REF) | payer MEDICARE ==
[2021-02-28 11:36] LABS: CALCIUM LEVEL 9.4 MG/DL (8.8-10.2); CREATININE FOR GFR 1.1 MG/DL (0.55-1.30); GLOMERULAR FILTRATION RATE 49.9 (>32); POTASSIUM SERUM 4.1 MEQ/L (3.5-5.1)
== END ==
LOC: M LAB REF 10:49
PROVIDERS: ATTEND Family Medicine
DX: M79.89 Other specified soft tissue disorders (principal)

== ENCOUNTER → 2021-03-29 | Outpatient (REF) | payer MEDICARE ==
[2021-03-29 15:58] LABS: CALCIUM LEVEL 9.3 MG/DL (8.8-10.2); CREATININE FOR GFR 1.42 MG/DL (0.55-1.30); GLOMERULAR FILTRATION RATE 37.2 (>32); POTASSIUM SERUM 3.6 MEQ/L (3.5-5.1)
== END ==
LOC: M LAB REF 15:10
PROVIDERS: ATTEND Family Medicine
DX: I50.9 Heart failure, unspecified (principal)

== ENCOUNTER → 2021-04-21 | Outpatient (REF) | payer MEDICARE ==
[2021-04-21 14:16] LABS: CALCIUM LEVEL 8.9 MG/DL (8.8-10.2); CREATININE FOR GFR 1.28 MG/DL (0.55-1.30); GLOMERULAR FILTRATION RATE 41.9 (>32); POTASSIUM SERUM 3.7 MEQ/L (3.5-5.1)
== END ==
LOC: M SFHCLERA 13:29
PROVIDERS: ATTEND Family Medicine
DX: I50.9 Heart failure, unspecified (principal)

== ENCOUNTER → 2021-07-07 | Outpatient (REF) | payer MEDICARE ==
[~2021-07-07] MED LIST changes: +DOK1CAP4 PO; -DOK1CAP7 PO
[2021-07-07 18:48] LABS: CALCIUM LEVEL 9.7 MG/DL (8.8-10.2); CREATININE FOR GFR 1.2 MG/DL (0.55-1.30); GLOMERULAR FILTRATION RATE 45.1 (>32); POTASSIUM SERUM 4.4 MEQ/L (3.5-5.1)
== END ==
LOC: M SHH 15:36
PROVIDERS: ATTEND Family Medicine
DX: N18.9 Chronic kidney disease, unspecified (principal)

== ENCOUNTER 2021-08-04 19:14 | Emergency (ER) | payer MEDICARE ==
[~2021-08-04] VITALS: Ht 152.4 cm; Wt 60.0 kg
--- OUTSIDE RECORDS SUMMARY | 2021-08-04 19:19 | CCD ---
Author Author [facility] Organization [facility] Address Unknown Phone Unavailable Care Team Providers Care [employer] Name Role Phone Ronald Walker Unavailable PROBLEMS Type Condition ICD9-CM Code [id number] Code Onset Dates Condition S tatus W/U Status Risk SNOMED Code Notes Problem Dyslipidemia E78.5 Active confirmed 1886247 07 Problem Chronic obstructive pulmonary disease, unspecified COPD ty pe J44.9 Active confirmed 71944787 Problem Venous stasis dermatitis of both lower extremities I87.2 Active confirmed 53399945 Problem Hypoalbuminemia E88.09 Active confirmed 1192 03968 Problem Neuropathy G62.9 Active confirmed 944725487 Problem Restless leg G25.81 Active confirmed 0561060 8 Problem Hearing difficulty of both ears H91.93 Active confi rmed 032615627 Problem Anxiety F41.9 Active confirmed 47222768 Problem Thyroid nodule E04.1 Active confirmed 32671 5005 Problem Peripheral artery disease I73.9 Active confirmed 507622038 Problem Pressure injury of left buttock, stage 1 L89.321 Active confirmed 296486838 Problem Pressure injury of buttock, stage 1, unspecified lateralit y L89.301 Active confirmed 66389710371267986 Problem Subclinical hypothyroidism E03.9 Active confirmed 80696942 Problem Essential hypertension I10 Active confirmed 57299133 Problem Chronic kidney disease, unspecified CKD stage N18. 9 Active confirmed 831305456 Problem Decrease in appetite R63.0 Active confirmed 21197952 Problem Obesity due to excess calories, unspecified obesity severi ty E66.09 Active confirmed 027466904 Problem COPD exacerbation J44.1 Active confirmed 19 0363658 Problem Pressure injury of right buttock, stage 1 L89.311 Active confirmed 067515763 Problem Generalized anxiety disorder F41.1 Active confirme d 89189409 Problem Hypothyroidism, unspecified type E03.9 Active conf irmed 61082704 Problem Congestive heart failure, un specified HF chronicity, unspecified heart failure type I50.9 Active confirmed 88164331 ALLERGIES No Known Allergies ENCOUNTERS from 1933 to 2021-06-16 [facility]counter [facility] Date [facility] [id number] [place] [address] [place] [address] 14 May, 2021 Ronald Walker Physical deconditioning R53. 81 ; Impaired activities of daily living Z78.9 ; Pressure injury of right buttock, stage 1 L89.311 and Pressure injury of left buttock, stage 1 L89.321 IMMUNIZATIONS Vaccine Route Administration Date Status COVID-19 dose #2 given elsewhere Unspecified IM Intramuscular Ap ril 2020 Administered COVID-19 dose #1 given elsewhere Unspecified IM Intramuscular [facility] 2020 Administered Influenza 18 yrs & older Flublok IM Intramuscular Jul 27, 2020 Administered Influenza 18 yrs & older Flublok IM Intramuscular Jul 01, 2019 Administered SOCIAL HISTORY Tobacco Use: Social History Observation Description Date Details (start date - stop date) Never Smoker Sex Assigned At : Social History Observation Description Sex Assigned At Unknown Language: Question Answer Notes Languages spoken: Romanian Adventism: Question Answer Notes Adventism 21 [employer] Sexual Hx: Question Answer Notes Had sex in the last 12 months (vaginal, oral, or anal)? No Have you ever had an STD? No Alcohol Screening: Question Answer Notes Did you have a drink containing alcohol in the past year? No Points 0 Interpretation Negative BMI Care Goal Follow-Up Question Answer Notes Above Normal BMI Follow-Up Dietary management educatio n, guidance, and counseling Tobacco Use: Question Answer Notes Are you a: never smoker REASON FOR REFERRAL from 1933 to 2021-06-16 Reason [facility], wound care as needed Diagnosis 1 Physical deconditioning (R53 .81) Diagnosis 2 Impaired activities of daily living (Z78.9) Diagnosis 3 Pressure injury of right but tock, stage 1 (L89.311) Diagnosis 4 Pressure injury of left butt ock, stage 1 (L89.321) Referral Organization [facility] Rishabh Referring Provider First Name Ronald Referring Provider Last Name Aaron Referring Provider Specialty Family Medicine [facility] Referral Priority Routine General Notes Anyi Arroyo 06/16/2021 9:3 3:04 AM > Sent VITAL SIGNS No information MEDICATIONS Medication SIG (Take, Route, Frequency, Duration) Notes Start Da te End Date Status Furosemide 20 MG 1 tablet Orally Daily for 90 days January, Active Ipratropium-Albuterol 0.5-2.5 (3) MG/3ML 3 ml Inhalati on every 6 hrs for 30 days Jun, Active Spironolactone 25 MG 1 tablet Orally for 30 day(s) Active Foam Dressing Bordered - as directed Externally daily , change once a week or if soaked through for 30 days Apply to gluteal area Oct, Active Breo Ellipta 200-25 MCG/INH 1 puff Inhalation Once a day Active Triamcinolone Acetonide 0.1 % 1 application Externally daily for 14 days to affected areas back, arms Nov, Not-Taking Bisoprolol-hydroCHLOROthiazide 10-6.25 MG 1 tablet Orally Once a da y for 90 Not-Taking traMADol HCl 50 MG 1 tablet as needed Orally Once a day UNSURE OF DOS E Active Simvastatin 10 MG TAKE 1 TABLET BY MOUTH ONCE DAILY IN THE EVENING fo r Active Incruse Ellipta 62.5 MCG/INH 1 puff Inhalation Once a day Active Bisoprolol Fumarate 5 MG 1 tablet Orally Once a day for 30 day(s) Active Gabapentin 300 MG Take 1 capsule by mouth at bedtime for 90 Active Eliquis 5 MG TAKE 1 TABLET BY MOUTH TWICE DAILY DIRECTED for 90 Active Aspir-81 81 MG 1 tablet Orally taqlxs-soytdrkwc-Ycmlky Active Shower Chair without wheels as directed Daily Use for 999 days D x: R53.81 Feb, Active Remeron 15 MG 1 tablet at bedtime Orally Once a day for 90 days Oct, Active PROCEDURES No Information RESULTS No Results REASON FOR VISIT Nurse? MEDICAL (GENERAL) HISTORY Type Description Date Medical History high cholesterol Medical History HTN, Goal 150/90 Medical History COPD Medical History Right hip, OA Medical History Neuropathy Surgical History 1 parathyroid removed 2012 Surgical History aortic aneurysm repair 2011 Surgical History partial hysterectomy Surgical History Colonoscopy and Endoscopy - Dr. David campos 05/14/19 Surgical History angioplasty lower extremity, Dr. Andreas mora 2020 Hospitalization History multiple times for heart palpitation s Hospitalization History pnuemonia [facility] 05/2020 Hospitalization History pneumonia, DVT right leg, COPD 1 Goals Section No Information Health Concerns No Information MEDICAL EQUIPMENT No Information MENTAL STATUS No Information FUNCTIONAL STATUS No Information ASSESSMENTS Encounter Date Diagnosis Assessment Notes Treatment Notes Treatm ent Clinical Notes 14 May, 2021 Physical deconditioning (ICD-10 - R53.81) 14 May, 2021 Impaired activities of daily living (ICD-10 - Z7 8.9) 14 May, 2021 Pressure injury of right buttock, stage 1 (ICD-1 0 - L89.311) 14 May, 2021 Pressure injury of left buttock, stage 1 (ICD-10 - L89.321) PLAN OF TREATMENT Medication Medication Name Sig Start Date Stop Date Foam Dressing Bordered - as directed Externally daily , change once a week or if soaked through for 30 days Oct, Referrals Referral Date Details [facility], wound care as needed, Home Health Asha Next Appt Details Provider Name:Ronald Walker, 2021-09-06 10:00:00 AM, [address] [facility], , [place], [address], Insurance Providers Payer Name Payer Address Payer Phone Insured Name Patient Relati onship to Insured Coverage Start Date Coverage End Date [facility] [address] [address] [facility] [id number] CHRISTOPHE BENITEZ self
--- OUTSIDE RECORDS SUMMARY | 2021-08-04 19:19 | CCD ---
Author Author [facility] Organization [facility] Address Unknown Phone Unavailable Care Team Providers Care Cheese Cooker Name Role Phone Ronald Walker Unavailable PROBLEMS Type Condition ICD9-CM Code [id number] Code Onset Dates Condition S tatus W/U Status Risk SNOMED Code Notes Problem Dyslipidemia E78.5 Active confirmed 9849142 07 Problem Chronic obstructive pulmonary disease, unspecified COPD ty pe J44.9 Active confirmed 75353416 Problem Venous stasis dermatitis of both lower extremities I87.2 Active confirmed 73312700 Problem Hypoalbuminemia E88.09 Active confirmed 1192 91330 Problem Neuropathy G62.9 Active confirmed 985424293 Problem Restless leg G25.81 Active confirmed 8740468 8 Problem Hearing difficulty of both ears H91.93 Active confi rmed 813415220 Problem Anxiety F41.9 Active confirmed 26973487 Problem Thyroid nodule E04.1 Active confirmed 39325 5005 Problem Peripheral artery disease I73.9 Active confirmed 647855312 Problem Pressure injury of left buttock, stage 1 L89.321 Active confirmed 942758270 Problem Pressure injury of buttock, stage 1, unspecified lateralit y L89.301 Active confirmed 72914215684659080 Problem 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 9 Active confirmed 586823624 Problem Decrease in appetite R63.0 Active confirmed 88940966 Problem Obesity due to excess calories, unspecified obesity severi ty E66.09 Active confirmed 393208513 Problem COPD exacerbation J44.1 Active confirmed 19 8324060 Problem Pressure injury of right buttock, stage 1 L89.311 Active confirmed 204176445 Problem Generalized anxiety disorder F41.1 Active confirme d 07626262 Problem Hypothyroidism, unspecified type E03.9 Active conf irmed 38952838 Problem Congestive heart failure, un specified HF chronicity, unspecified heart failure type I50.9 Active confirmed 15787355 ALLERGIES No Known Allergies ENCOUNTERS from 1935 to 2021-06-21 Encounter Location Date [facility] [address] [phone] [place] [address] May, Ronald Walker IMMUNIZATIONS Vaccine Route Administration Date Status COVID-19 dose #2 given elsewhere Unspecified IM Intramuscular Ap ril 2020 Administered COVID-19 dose #1 given elsewhere Unspecified IM Intramuscular Ma [facility] 2020 Administered Influenza 18 yrs & older Flublok IM Intramuscular Jul 27, 2020 Administered Influenza 18 yrs & older Flublok IM Intramuscular Jul 01, 2019 Administered SOCIAL HISTORY Tobacco Use: Social History Observation Description Date Details (start date - stop date) Never Smoker Sex Assigned At : Social History Observation Description Sex Assigned At Unknown Language: Question Answer Notes Languages spoken: Hungarian Temple: Question Answer Notes Temple 21 [place] Sexual Hx: Question Answer Notes Had sex [...] you a: never smoker REASON FOR REFERRAL No Information VITAL SIGNS No information MEDICATIONS Medication SIG (Take, Route, Frequency, Duration) Notes Start Da te End Date Status Ipratropium-Albuterol 0.5-2.5 (3) MG/3ML 3 ml Inhalati on every 6 hrs for 30 days Jun, Active Remeron 15 MG 1 tablet at bedtime Orally Once a day for 90 days Oct, Active Spironolactone 25 MG 1 tablet Orally for 30 day(s) Active Furosemide 20 MG 1 tablet Orally Daily for 90 days January, Active Foam Dressing Bordered - as directed [...] Once a da y for 90 Not-Taking MiraLax Mix-In [place] 17 GM 1 packet mixed with 8 ounces of fluid Orally Once a day as needed for 30 day(s) May, Active Simvastatin 10 MG TAKE 1 TABLET BY MOUTH ONCE DAILY IN THE EVENING fo r Active Incruse Ellipta 62.5 MCG/INH 1 puff Inhalation Once a day Active Eliquis 5 MG TAKE 1 TABLET BY MOUTH TWICE DAILY DIRECTED for 90 Active Gabapentin 300 MG Take 1 capsule by mouth at bedtime for Active traMADol HCl 50 MG 1 tablet as needed Orally Once a day UNSURE OF DOS E Active Aspir-81 81 MG 1 tablet Orally iikuvz-fvclehgxa-Rndchx Active Shower Chair without wheels as directed Daily Use for 999 days D x: R53.81 Feb, Active Bisoprolol Fumarate 5 MG 1 tablet Orally Once a day for 30 day(s) Active PROCEDURES No Information RESULTS No Results REASON FOR VISIT More Information MEDICAL (GENERAL) HISTORY Type Description Date Medical [...] Hospitalization History pneumonia, DVT right leg, COPD Goals Section No Information Health Concerns No Information MEDICAL EQUIPMENT No Information MENTAL STATUS No Information FUNCTIONAL STATUS No Information ASSESSMENTS No Information PLAN OF TREATMENT Medication Medication Name Sig Start Date Stop Date MiraLax Mix-In [place] 17 GM 1 packet mixed with 8 ounces of fluid Orally Once a day as needed for 30 day(s) May, Foam Dressing Bordered - as directed Externally daily , change once a week or if soaked through for 30 days Oct, Next Appt Details Provider Name:Ronald Walker, 2021-09-06 10:00:00 AM, [id number] [address], , [place], [address], Insurance Providers Payer Name Payer Address Payer Phone Insured Name Patient Relati onship to Insured Coverage Start Date Coverage End Date [facility] [address] [facility] [address] CHRISTOPHE BENITEZ self
--- OUTSIDE RECORDS SUMMARY | 2021-08-04 19:19 | CCD ---
Author Author [facility] Organization [facility] Address Unknown Phone Unavailable Care Team Providers Care Head Soft Sugar Operator Name Role Phone Ronald Walker Unavailable PROBLEMS Type Condition ICD9-CM Code [id number] Code Onset Dates Condition S tatus W/U Status Risk SNOMED Code Notes Problem Dyslipidemia E78.5 Active confirmed 7106043 07 Problem Chronic obstructive pulmonary disease, unspecified COPD ty pe J44.9 Active confirmed 45247311 Problem Venous stasis dermatitis of both lower extremities I87.2 Active confirmed 99819413 Problem Hypoalbuminemia E88.09 Active confirmed 1192 79395 Problem Neuropathy G62.9 Active confirmed 439776410 Problem Restless leg G25.81 Active confirmed 4232691 8 Problem Hearing difficulty of both ears H91.93 Active confi rmed 018827548 Problem Anxiety F41.9 Active confirmed 35479937 Problem Thyroid nodule E04.1 Active confirmed 36095 5005 Problem Peripheral artery disease I73.9 Active confirmed 192900717 Problem Pressure injury of left buttock, stage 1 L89.321 Active confirmed 008115784 Problem Pressure injury of buttock, stage 1, unspecified lateralit y L89.301 Active confirmed 72850761212688979 Problem 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 9 Active confirmed 475423685 Problem Decrease in appetite R63.0 Active confirmed 49612612 Problem Obesity due to excess calories, unspecified obesity severi ty E66.09 Active confirmed 844346113 Problem COPD exacerbation J44.1 Active confirmed 19 0455237 Problem Pressure injury of right buttock, stage 1 L89.311 Active confirmed 540509124 Problem Generalized anxiety disorder F41.1 Active confirme d 00300305 Problem Hypothyroidism, unspecified type E03.9 Active conf irmed 64813257 Problem Congestive heart failure, un specified HF chronicity, unspecified heart failure type I50.9 Active confirmed 94522139 ALLERGIES No Known Allergies ENCOUNTERS from 1935 to 2021-06-07 Encounter [facility] [address] [place] [address] [place] [address] Apr, Ronald Nickersonett Venous stasis dermatitis of both lower extremities I87.2 ; Congestive heart failure, unspecified HF chronicity, unspecified heart failure type I50.9 ; Lower extremity edema R60.0 ; Pressure injury of right buttock, stage 1 L89.311 ; Pressure injury of left buttock, stage 1 L89.321 ; Essential hypertension I10 ; Eschar of lower leg R23.4 and Skin lesion L98.9 IMMUNIZATIONS Vaccine Route Administration Date Status COVID-19 dose #2 given elsewhere Unspecified IM Intramuscular Ap [facility] 2020 Administered COVID-19 dose #1 given elsewhere Unspecified IM Intramuscular Ma [facility] 2020 Administered Influenza 18 yrs & older Flublok IM Intramuscular Jul 27, 2020 Administered Influenza 18 yrs & older Flublok IM Intramuscular Jul 01, 2019 Administered SOCIAL HISTORY Tobacco Use: Social History Observation Description Date Details (start date - stop date) Never Smoker Sex Assigned At : Social History Observation Description Sex Assigned At Unknown Language: Question Answer Notes Languages spoken: Swedish Taoism: Question Answer Notes Taoism 21 Buddhist Sexual Hx: Question Answer Notes Had sex [...] REASON FOR REFERRAL No Information VITAL SIGNS Weight 133.2 lbs Apr, Weight-kg 60.42 kg Apr, Height 58 in Apr, BMI 27.84 kg/m2 Apr, Heart Rate 61 /min 31 Aug, 2021 Respiratory Rate 18 /min Apr, Temperature 95.6 degrees Fahrenheit Apr, Oximetry 95 Apr, Blood pressure systolic 151 mm Hg Apr, Blood pressure diastolic 78 mm Hg Apr, MEDICATIONS Medication SIG (Take, Route, Frequency, Duration) Notes Start Da te End Date Status Furosemide 20 MG 1 tablet Orally Daily for 90 days January, Active Foam Dressing Bordered - as directed Externally daily , change once a week or if soaked through for 30 days Apply to gluteal area Oct, Active Simvastatin 10 MG TAKE 1 TABLET BY MOUTH ONCE DAILY IN THE EVENING Active Incruse Ellipta 62.5 MCG/INH 1 puff Inhalation Once a day Active Breo Ellipta 200-25 MCG/INH 1 puff Inhalation Once a day Active Triamcinolone Acetonide 0.1 % 1 application Externally daily for 14 days to affected areas back, arms Nov, Not-Taking Bisoprolol-hydroCHLOROthiazide 10-6.25 MG 1 tablet Orally Once a da y for 90 Not-Taking Eliquis 5 MG TAKE 1 TABLET BY MOUTH TWICE DAILY DIRECTED for 90 Active traMADol HCl 50 MG 1 tablet as needed Orally Once a day UNSURE OF DOS E Active Shower Chair without wheels as directed Daily Use for 999 days D x: R53.81 Feb, Active Remeron 15 MG 1 tablet at bedtime Orally Once a day for 90 days Oct, Active Spironolactone 25 MG 1 tablet Orally for 30 day(s) Active Bisoprolol Fumarate 5 MG 1 tablet Orally Once a day for 30 day(s) Active Aspir-81 81 MG 1 tablet Orally mjkxfa-fuekbstyp-Jwvczb Active Gabapentin 300 MG Take 1 capsule by mouth at bedtime for 90 Active Ipratropium-Albuterol 0.5-2.5 (3) MG/3ML 3 ml Inhalati on every 6 hrs for 30 days Jun, Active PROCEDURES No Information RESULTS No Results REASON FOR VISIT follow up MEDICAL (GENERAL) HISTORY Type Description Date Medical [...] Notes Treatment Notes Treatm ent Clinical Notes Apr, Venous stasis dermatitis of both lower extremities (ICD-10 - I87.2) Swelling has improved. Contiune lasix. Continue follow up cardilogy. Apr, Congestive heart failure, un specified HF chronicity, unspecified heart failure type (ICD-10 - I50.9) Alternates 2 tablets one day, 1 tablet the next day. Contiune at this time. Follow up cardiology. Has appointment soon to discuss this and HTN. Apr, Lower extremity edema (ICD-10 - R60.0) Swelling has improved. Contiune lasix. Continue follow up cardilogy. Apr, Pressure injury of right buttock, stage 1 (ICD-1 0 - L89.311) No longer following up with home health. Continue to try and stay off area if possible. If concerned return in future. Apr, Pressure injury of left buttock, stage 1 (ICD-10 - L89.321) No longer following up with home health. Continue to try and stay off area if possible. If concerned return in future. Apr, Essential hypertension (ICD-10 - I10) Follow up cardiology. Apr, Eschar of lower leg (ICD-10 - R23.4) Suspect eschar of lower leg to monitor for now. Keep covered. If not improving consider further evaluation/ debridement. Apr, Skin lesion (ICD-10 - L98.9) follow up [facility] cooker helper PLAN OF TREATMENT Treatment Notes Assessment Notes Clinical Notes Venous stasis dermatitis of both lower extremities Swelling has improved. Contiune lasix. Continue follow up cardilogy. Congestive heart failure, unspecified HF chronicity, unspecified heart failure type Alternates 2 tablets one day , 1 tablet the next day. Contiune at this time.Follow up cardiology. Has appointment soon to discuss this and HTN. Lower extremity edema Swelling has impro ekaterina. Contiune lasix. Continue follow up cardilogy. Pressure injury of right buttock, stage 1 No longer following up with home health. Continue to try and stay off area if possible. If concerned return in future. Pressure injury of left buttock, stage 1 No longer following up with home health. Continue to try and stay off area if possible. If concerned return in future. Essential hypertension Follow up cardiol ogy. Eschar of lower leg Suspect eschar of lo wer leg to monitor for now. Keep covered. If not improving consider further evaluation/ debridement. Skin lesion follow up [facility] americo Wiggins Appt Details 3 month Reason: Provider Name:Ronald Walker, 2021-09-06 10:00:00 AM, [address] [facility], , [place], [address], Insurance Providers Payer Name Payer Address Payer Phone Insured Name Patient Relati onship to Insured Coverage Start Date Coverage End Date [facility] [address] [address] [facility] [address] [phone] CHRISTOPHE BENITEZ self
--- OUTSIDE RECORDS SUMMARY | 2021-08-04 19:19 | CCD ---
Author Author [facility] Organization [facility] Address Unknown Phone Unavailable Care Team Providers Care Cotton Breeder Name Role Phone Ronald Walker Unavailable PROBLEMS Type Condition ICD9-CM Code [id number] Code Onset Dates Condition S tatus W/U Status Risk SNOMED Code Notes Problem Dyslipidemia E78.5 Active confirmed 5026355 07 Problem Chronic obstructive pulmonary disease, unspecified COPD ty pe J44.9 Active confirmed 64635677 Problem Venous stasis dermatitis of both lower extremities I87.2 Active confirmed 29890773 Problem Hypoalbuminemia E88.09 Active confirmed 1192 34868 Problem Neuropathy G62.9 Active confirmed 045405348 Problem Restless leg G25.81 Active confirmed 6391421 8 Problem Hearing difficulty of both ears H91.93 Active confi rmed 322200871 Problem Anxiety F41.9 Active confirmed 83737053 Problem Thyroid nodule E04.1 Active confirmed 76400 5005 Problem Peripheral artery disease I73.9 Active confirmed 149307550 Problem Pressure injury of left buttock, stage 1 L89.321 Active confirmed 160705330 Problem Pressure injury of buttock, stage 1, unspecified lateralit y L89.301 Active confirmed 00737547608859021 Problem 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 9 Active confirmed 601610877 Problem Decrease in appetite R63.0 Active confirmed 12681605 Problem Obesity due to excess calories, unspecified obesity severi ty E66.09 Active confirmed 057732540 Problem COPD exacerbation J44.1 Active confirmed 19 3224652 Problem Pressure injury of right buttock, stage 1 L89.311 Active confirmed 434838937 Problem Generalized anxiety disorder F41.1 Active confirme d 39951243 Problem Hypothyroidism, unspecified type E03.9 Active conf irmed 29297529 Problem Congestive heart failure, un specified HF chronicity, unspecified heart failure type I50.9 Active confirmed 51503928 ALLERGIES No Known Allergies ENCOUNTERS from 1935 to 2021-06-09 Encounter Location Date [facility] [address] [facility] [phone] [place] [address] May, Ronald Walker Wound of gluteal cleft, righ t, initial encounter S31.819A IMMUNIZATIONS Vaccine Route Administration Date Status COVID-19 dose #2 given elsewhere Unspecified IM Intramuscular Ap ril 2020 Administered COVID-19 dose #1 given elsewhere Unspecified IM Intramuscular [facility] 2020 Administered Influenza 18 yrs & older Flublok IM Intramuscular Jul 27, 2020 Administered Influenza 18 yrs & older Flublok IM Intramuscular Jul 01, 2019 Administered SOCIAL HISTORY Tobacco Use: Social History Observation Description Date Details (start date - stop date) Never Smoker Sex Assigned At : Social History Observation Description Sex Assigned At Unknown Language: Question Answer Notes Languages spoken: Samoan Baptist: Question Answer Notes Baptist 21 Mandaen Sexual Hx: Question Answer Notes Had sex [...] Active Aspir-81 81 MG 1 tablet Orally etfefk-ixyokaavn-Dwsdgm Active Shower Chair without wheels as directed Daily Use for 999 days D x: R53.81 Feb, Active Remeron 15 MG 1 tablet at bedtime Orally Once a day for 90 days Oct, Active PROCEDURES No Information RESULTS No Results REASON FOR VISIT bandages MEDICAL (GENERAL) HISTORY Type Description Date Medical [...] Notes Treatment Notes Treatm ent Clinical Notes May, Wound of gluteal cleft, riggreg t, initial encounter (ICD-10 - S31.819A) PLAN OF TREATMENT Medication Medication Name Sig Start Date Stop Date Foam Dressing Bordered - as directed Externally daily , change once a week or if soaked through for 30 days Oct, Next Appt Details Provider Name:Ronald Walker, 2021-09-06 10:00:00 AM, [address] [facility], , [place], [address], Insurance Providers Payer Name Payer Address Payer Phone Insured Name Patient Relati onship to Insured Coverage Start Date Coverage End Date [facility] [address] [address] [facility] [address] CHRISTOPHE BENITEZ self
--- OUTSIDE RECORDS SUMMARY | 2021-08-04 19:19 | CCD ---
Author Author [facility] Organization [facility] Address Unknown Phone Unavailable Care Team Providers Care Bridge Saw Operator Name Role Phone Ronald Walker Unavailable PROBLEMS Type Condition ICD9-CM Code [id number] Code Onset Dates Condition S tatus W/U Status Risk SNOMED Code Notes Problem Dyslipidemia E78.5 Active confirmed 9548952 07 Problem Chronic obstructive pulmonary disease, unspecified COPD ty pe J44.9 Active confirmed 89401888 Problem Venous stasis dermatitis of both lower extremities I87.2 Active confirmed 28590691 Problem Hypoalbuminemia E88.09 Active confirmed 1192 76983 Problem Neuropathy G62.9 Active confirmed 424794628 Problem Restless leg G25.81 Active confirmed 6607023 8 Problem Hearing difficulty of both ears H91.93 Active confi rmed 127961633 Problem Anxiety F41.9 Active confirmed 98291915 Problem Thyroid nodule E04.1 Active confirmed 37837 5005 Problem Peripheral artery disease I73.9 Active confirmed 854031027 Problem Pressure injury of left buttock, stage 1 L89.321 Active confirmed 551703097 Problem Pressure injury of buttock, stage 1, unspecified lateralit y L89.301 Active confirmed 07669987889929621 Problem 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 9 Active confirmed 598904666 Problem Decrease in appetite R63.0 Active confirmed 85184219 Problem Obesity due to excess calories, unspecified obesity severi ty E66.09 Active confirmed 926854171 Problem COPD exacerbation J44.1 Active confirmed 19 7980228 Problem Pressure injury of right buttock, stage 1 L89.311 Active confirmed 491867346 Problem Generalized anxiety disorder F41.1 Active confirme d 95553494 Problem Hypothyroidism, unspecified type E03.9 Active conf irmed 69387163 Problem Congestive heart failure, un specified HF chronicity, unspecified heart failure type I50.9 Active confirmed 19264787 ALLERGIES No Known Allergies ENCOUNTERS from 1935 to 2021-07-11 Encounter Location Date [facility] [address] [phone] [place] [address] Jun, Ronald Walker IMMUNIZATIONS Vaccine Route Administration Date Status COVID-19 dose #2 given elsewhere Unspecified IM Intramuscular Ap ril 2020 Administered COVID-19 dose #1 given elsewhere Unspecified IM Intramuscular Ma [facility] 2020 Administered Influenza 18 yrs & older Flublok IM Intramuscular Jul 27, 2020 Administered Influenza 18 yrs & older Flublok IM Intramuscular Jul 01, 2019 Administered SOCIAL HISTORY Tobacco Use: Social History Observation Description Date Details (start date - stop date) Never Smoker Sex Assigned At : Social History Observation Description Sex Assigned At Unknown Language: Question Answer Notes Languages spoken: Hebrew Latter Day: Question Answer Notes L[employer] 21 [employer] Sexual Hx: Question Answer Notes Had sex [...] da y for 90 Not-Taking MiraLax Mix-In [place] 17 GM 1 packet mixed with 8 [...] Active Aspir-81 81 MG 1 tablet Orally dvbcog-toctyzdan-Smndsz Active Shower Chair without wheels as directed Daily Use for 999 days D x: R53.81 Feb, Active Bisoprolol Fumarate 5 MG 1 tablet Orally Once a day for 30 day(s) Active PROCEDURES No Information RESULTS No Results REASON FOR VISIT FYI MEDICAL (GENERAL) HISTORY Type Description Date Medical [...] Sig Start Date Stop Date MiraLax Mix-In [place] 17 GM 1 packet mixed with 8 ounces of fluid Orally Once a day as needed for 30 day(s) May, Foam Dressing Bordered - as directed Externally daily , change once a week or if soaked through for 30 days Oct, Next Appt Details Provider Name:Ronald Walker, 2021-09-06 10:00:00 AM, [address] [address], , [place], [address], Insurance Providers Payer Name Payer Address Payer Phone Insured Name Patient Relati onship to Insured Coverage Start Date Coverage End Date [facility] [address] [address] [facility] [address] CHRISTOPHE BENITEZ self
--- OUTSIDE RECORDS SUMMARY | 2021-08-04 19:19 | CCD | Continuity of Care Document ---
Author Author Anastasiya CLAROS P.A. Organization Unknown Address [address] [place] [address], [address] [address] Phone [phone] Care Team Providers Care Senior Climate Advisor Name Role Phone Ary Stevenson DO AUTM Problems Active Problems Provider Date Essential hypertension Onset: 12/07/2015 Pure hypercholesterolemia Onset: 016 Social History Type Date Description Comments Sex Unknown ETOH Use Denies alcohol use Tobacco Use Start: Unknown Denies Smoking Allergies, Adverse Reactions, Alerts Description No Known Drug Allergies Medications Active Medications SIG Qnty Indications Ordering Provide r Date Medrol 4mg Tablets dose kathia, take as directed on sheet 1tabs Arnoldo Cortez MD 05/11/2021 Tramadol HCL 50mg Tablets 1 every 4-6 hours as needed pain 30tabs Arnoldo Cortez MD 05/11/20 21 Acetaminophen-Codeine #3 300-30mg Tablets take 1 tablet every 6 hours as needed for pain 28tabs DDestinee Rodriguez MD 09/29/2020 Tramadol HCL 50mg Tablets 1 every 6 hours as needed pain 28tabs M54.5 Arnoldo Cortez MD 12/30/2019 Gabapentin 300mg Capsules Take 1 Capsule By Mouth Three Times A Day 90caps S32.030D Aron Romano 06/30/2019 Simvastatin 10mg Tablets 1 by mouth every day Unknown Bisoprolol Fumarate/Hydrochlorothiazide 5-6.25mg Tablets Unknown Breo Ellipta 200-25mcg/Inh Aerosol 1 puff daily Unknown Immunizations Description No Information Available Vital Signs Date Vital Result Comment 02/26/2019 10:41am Body Temperature 97.7 F Height 66.25 inches 5'6.25" Weight 139.50 lb BMI (Body Mass Index) 22.3 kg/m2 12/07/2015 10:19am Body Temperature 96.9 F Height 57 inches 4'9" Weight 145.25 lb BMI (Body Mass Index) 31.4 kg/m2 Results Description No Information Available Procedures Date Code Description Status 05/11/2021 [id number] Phone Evaluation/Management Phys ician 11-20 Mins Completed Medical Devices Description No Information Available Encounters Type Date Location Provider Dx Diagnosis Office Visit 05/11/2021 8:00a [place] Axel Claros, P.A. M48.061 Spinal stenosis, lumbar region without neurogenic tonia M43.16 Spondylolisthesis, lumbar re gion M51.36 Other intervertebral disc de generation, lumbar region Assessments Date Code Description Provider 05/11/2021 M48.061 Spinal stenosis, lumbar region w ithout neurogenic claudicati Axel Claros, Mindy. 05/11/2021 M43.16 Spondylolisthesis, lumbar region Axel Claros, MakcA. 05/11/2021 M51.36 Other intervertebral disc degene ration, lumbar region Axel Claros, PRaffy Plan of Treatment No Information Available Functional Status Description No Information Available Mental Status Description No Information Available Referrals Description No Information Available
--- OUTSIDE RECORDS SUMMARY | 2021-08-04 19:19 | CCD ---
Author Author [facility] Organization [facility] Address Unknown Phone Unavailable Care Team Providers Care Quarry Equipment Operator Name Role Phone Ronald Walker Unavailable PROBLEMS Type Condition ICD9-CM Code [id number] Code Onset Dates Condition S tatus W/U Status Risk SNOMED Code Notes Problem Dyslipidemia E78.5 Active confirmed 5207640 07 Problem Chronic obstructive pulmonary disease, unspecified COPD ty pe J44.9 Active confirmed 33158547 Problem Venous stasis dermatitis of both lower extremities I87.2 Active confirmed 63408027 Problem Hypoalbuminemia E88.09 Active confirmed 1192 88977 Problem Neuropathy G62.9 Active confirmed 273963405 Problem Restless leg G25.81 Active confirmed 5675890 8 Problem Hearing difficulty of both ears H91.93 Active confi rmed 051618177 Problem Anxiety F41.9 Active confirmed 29722023 Problem Thyroid nodule E04.1 Active confirmed 55968 5005 Problem Peripheral artery disease I73.9 Active confirmed 775034450 Problem Pressure injury of left buttock, stage 1 L89.321 Active confirmed 099306810 Problem Pressure injury of buttock, stage 1, unspecified lateralit y L89.301 Active confirmed 37308994236148356 Problem 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 9 Active confirmed 330341047 Problem Decrease in appetite R63.0 Active confirmed 00001868 Problem Obesity due to excess calories, unspecified obesity severi ty E66.09 Active confirmed 151906963 Problem COPD exacerbation J44.1 Active confirmed 19 4858733 Problem Pressure injury of right buttock, stage 1 L89.311 Active confirmed 860773381 Problem Generalized anxiety disorder F41.1 Active confirme d 64321526 Problem Hypothyroidism, unspecified type E03.9 Active conf irmed 78539276 Problem Congestive heart failure, un specified HF chronicity, unspecified heart failure type I50.9 Active confirmed 70075201 ALLERGIES No Known Allergies ENCOUNTERS from 1935 to 2021-06-20 Encounter Location Date [facility] [phone] [place] [address] May, Ronald Walker IMMUNIZATIONS Vaccine Route Administration Date Status COVID-19 dose #2 given elsewhere Unspecified IM Intramuscular Ap ril 2020 Administered COVID-19 dose #1 given elsewhere Unspecified IM Intramuscular [facility] 2020 Administered Influenza 18 yrs & older Flublok IM Intramuscular Jul 27, 2020 Administered Influenza 18 yrs & older Flublok IM Intramuscular Jul 01, 2019 Administered SOCIAL HISTORY Tobacco Use: Social History Observation Description Date Details (start date - stop date) Never Smoker Sex Assigned At : Social History Observation Description Sex Assigned At Unknown Language: Question Answer Notes Languages spoken: Greek Oriental Orthodox: Question Answer Notes Oriental Orthodox 21 Orthodoxy Sexual Hx: Question Answer Notes Had sex [...] da y for 90 Not-Taking MiraLax Mix-In [place] 17 GM 1 packet mixed with 8 [...] Active Aspir-81 81 MG 1 tablet Orally zqhbuu-vvtywdnfo-Sumtxk Active Shower Chair without wheels as directed Daily Use for 999 days D x: R53.81 Feb, Active Bisoprolol Fumarate 5 MG 1 tablet Orally Once a day for 30 day(s) Active PROCEDURES No Information RESULTS No Results REASON FOR VISIT constipation MEDICAL (GENERAL) HISTORY Type Description Date Medical [...] Sig Start Date Stop Date MiraLax Mix-In [place] 17 GM 1 packet mixed with 8 ounces of fluid Orally Once a day as needed for 30 day(s) May, Foam Dressing Bordered - as directed Externally daily , change once a week or if soaked through for 30 days Oct, Next Appt Details Provider Name:Ronald Walker, 2021-09-06 10:00:00 AM, [address], , [place], [address], Insurance Providers Payer Name Payer Address Payer Phone Insured Name Patient Relati onship to Insured Coverage Start Date Coverage End Date [facility] [address] [address] [facility] [address] CHRISTOPHE BENITEZ self
--- OUTSIDE RECORDS SUMMARY | 2021-08-04 19:19 | CCD ---
Author Author [facility] Organization [facility] Address Unknown Phone Unavailable Care Team Providers Care Quality Engineer Medical Device Name Role Phone Ronald Walker Unavailable PROBLEMS Type Condition ICD9-CM Code [id number] Code Onset Dates Condition S tatus W/U Status Risk SNOMED Code Notes Problem Dyslipidemia E78.5 Active confirmed 0815565 07 Problem Chronic obstructive pulmonary disease, unspecified COPD ty pe J44.9 Active confirmed 95762877 Problem Venous stasis dermatitis of both lower extremities I87.2 Active confirmed 60739137 Problem Hypoalbuminemia E88.09 Active confirmed 1192 39044 Problem Neuropathy G62.9 Active confirmed 722347925 Problem Restless leg G25.81 Active confirmed 9014995 8 Problem Hearing difficulty of both ears H91.93 Active confi rmed 466315889 Problem Anxiety F41.9 Active confirmed 73170162 Problem Thyroid nodule E04.1 Active confirmed 83128 5005 Problem Peripheral artery disease I73.9 Active confirmed 586825293 Problem Pressure injury of left buttock, stage 1 L89.321 Active confirmed 609914219 Problem Pressure injury of buttock, stage 1, unspecified lateralit y L89.301 Active confirmed 18006076218795133 Problem 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 9 Active confirmed 631512425 Problem Decrease in appetite R63.0 Active confirmed 14801543 Problem Obesity due to excess calories, unspecified obesity severi ty E66.09 Active confirmed 408617667 Problem COPD exacerbation J44.1 Active confirmed 19 9560494 Problem Pressure injury of right buttock, stage 1 L89.311 Active confirmed 713428133 Problem Generalized anxiety disorder F41.1 Active confirme d 51271123 Problem Hypothyroidism, unspecified type E03.9 Active conf irmed 12664218 Problem Congestive heart failure, un specified HF chronicity, unspecified heart failure type I50.9 Active confirmed 98777733 ALLERGIES No Known Allergies ENCOUNTERS from 1933 to 2021-05-15 Encounter [facility] Date [facility] [place] [phone] [place] [address] Apr, Ronald Walker IMMUNIZATIONS Vaccine Route Administration Date Status COVID-19 dose #2 given elsewhere Unspecified IM Intramuscular Ap ril 2020 Administered COVID-19 dose #1 given elsewhere Unspecified IM Intramuscular [facility] 2020 Administered Influenza 18 yrs & older Flublok IM Intramuscular Jul 27, 2020 Administered Influenza 18 yrs & older Flublok IM Intramuscular Jul 01, 2019 Administered SOCIAL HISTORY Tobacco Use: Social History Observation Description Date Details (start date - stop date) Never Smoker Sex Assigned At : Social History Observation Description Sex Assigned At Unknown Language: Question Answer Notes Languages spoken: Portuguese Judaism: Question Answer Notes Judaism 21 Samaritan Sexual Hx: Question Answer Notes Had sex [...] Notes Start Da te End Date Status Triamcinolone Acetonide 0.1 % 1 application Externally daily for 14 days to affected areas back, arms Nov, Active Breo Ellipta 200-25 MCG/INH 1 puff Inhalation Once a day Active Furosemide 20 MG 1 tablet Orally Daily for 90 days January, Active Incruse Ellipta 62.5 MCG/INH 1 puff Inhalation Once a day Active Gabapentin 300 MG 1 capsule Orally before bedtime for 90 days Active Shower Chair without wheels as directed Daily Use for 999 days D x: R53.81 Feb, Active Bisoprolol-hydroCHLOROthiazide 10-6.25 MG 1 tablet Orally Once a da y for 90 Active Aspir-81 81 MG 1 tablet Orally sorqec-rcslqvqat-Jlsdfy Active Simvastatin 10 MG 1 tablet in the evening Orally Once a day for 90 Active Remeron 15 MG 1 tablet at bedtime Orally Once a day for 90 days 17 Oct, 2020 Active Foam Dressing Bordered - as directed Externally daily , change once a week or if soaked through for 30 days Apply to gluteal area Oct, Active Eliquis 5 MG TAKE 1 TABLET BY MOUTH TWICE DAILY DIRECTED for 90 Active Ipratropium-Albuterol 0.5-2.5 (3) MG/3ML 3 ml Inhalati on every 6 hrs for 30 days Jun, Active PROCEDURES No Information RESULTS No Results REASON FOR VISIT Update/ follow up MEDICAL (GENERAL) HISTORY Type Description [...] Medication Name Sig Start Date Stop Date Furosemide 20 MG 1 tablet Orally Daily for 90 days January, Eliquis 5 MG TAKE 1 TABLET BY MOUTH TWICE DAILY DIRECTED or 90 Simvastatin 10 MG 1 tablet in the evening Orally Once a day for 90 Foam Dressing Bordered - as directed Externally daily , change once a week or if soaked through for 30 days Oct, Next Appt Details Provider Name:Ronald Walker, 2021-05-30 10:30:00 AM, [address] [address] [facility], , [place], [address], Insurance Providers Payer Name Payer Address Payer Phone Insured Name Patient Relati onship to Insured Coverage Start Date Coverage End Date [facility] [address] [address] [facility] [phone] CHRISTOPHE BENITEZ self
--- OUTSIDE RECORDS SUMMARY | 2021-08-04 19:20 | CCD ---
Author Author [facility] Organization [facility] Address Unknown Phone Unavailable Care Team Providers Care Career Services Assistant Name Role Phone CHECO, F WILLIAN DO Unavailable Unavailable CHECO, F WILLIAN DO Unavailable Unavailable CHECO, F WILLIAN DO Unavailable Unavailable CHECO, F WILLIAN DO Unavailable Unavailable CHECO, F WILLIAN DO Unavailable Unavailable CHECO, F WILLIAN DO Unavailable Unavailable CHECO, F WILLIAN DO Unavailable Unavailable CHECO, F WILLIAN DO Unavailable Unavailable CHECO, F WILLIAN DO Unavailable Unavailable CHECO, F WILLIAN DO Unavailable Unavailable CHECO, F WILLIAN DO Unavailable Unavailable CHECO, F WILLIAN DO Unavailable Unavailable CHECO, F WILLIAN DO Unavailable Unavailable CHECO, F WILLIAN DO Unavailable Unavailable CHECO, F WILLIAN DO Unavailable Unavailable CHECO, F WILLIAN DO Unavailable Unavailable CHECO, F WILLIAN DO Unavailable Unavailable CHECO, F WILLIAN DO Unavailable Unavailable CHECO, F WILLIAN DO Unavailable Unavailable CHECO, F WILLIAN DO Unavailable Unavailable CHECO, F WILLIAN DO Unavailable Unavailable CHECO, F WILLIAN DO Unavailable Unavailable CHECO, F WILLIAN DO Unavailable Unavailable CHECO, F WILLIAN DO Unavailable Unavailable CHECO, F WILLIAN DO Unavailable Unavailable CHECO, F WILLIAN DO Unavailable Unavailable CHECO, F WILLIAN DO Unavailable Unavailable CHECO, F WILLIAN DO Unavailable Unavailable CHECO, F WILLIAN DO Unavailable Unavailable CHECO, F WILLIAN DO Unavailable Unavailable CHECO, F WILLIAN DO Unavailable Unavailable CHECO, F WILLIAN DO Unavailable Unavailable CHECO, F WILLIAN DO Unavailable Unavailable CHECO, F WILLIAN DO Unavailable Unavailable WYMAN, J RAN DO Unavailable Unavailable WYMAN, J RAN DO Unavailable Unavailable WYMAN, J RAN DO Unavailable Unavailable WYMAN, J RAN DO Unavailable Unavailable WYMAN, J RAN DO Unavailable Unavailable WYMAN, J RAN DO Unavailable Unavailable WYMAN, J RAN DO Unavailable Unavailable WYMAN, J RAN DO Unavailable Unavailable WYMAN, J RAN DO Unavailable Unavailable Nadia Mazariegos MD Unavailable Unavailable Nadia Mazariegos MD Unavailable Unavailable Nadia Mazariegos MD Unavailable Unavailable Nadia Mazariegos MD Unavailable Unavailable Nadia Mazariegos MD Unavailable Unavailable Nadia Mazariegos MD Unavailable Unavailable Nadia Mazariegos MD Unavailable Unavailable Nadia Mazariegos MD Unavailable Unavailable Nadia Mazariegos MD Unavailable Unavailable Nadia Mazariegos MD Unavailable Unavailable Nadia Mazariegos MD Unavailable Unavailable Nadia Mazariegos MD Unavailable Unavailable Nadia Mazariegos MD Unavailable Unavailable Nadia Mazariegos MD Unavailable Unavailable Nadia Mazariegos MD Unavailable Unavailable Nadia Mazariegos MD Unavailable Unavailable Nadia Mazariegos MD Unavailable Unavailable Nadia Mazariegos MD Unavailable Unavailable Nadia Mazariegos MD Unavailable Unavailable Nadia Mazariegos MD Unavailable Unavailable Nadia Mazariegos MD Unavailable Unavailable Nadia Mazariegos MD Unavailable Unavailable Nadia Mazariegos MD Unavailable Unavailable Nadia Mazariegos MD Unavailable Unavailable Nadia Mazariegos MD Unavailable Unavailable Nadia Mazariegos MD Unavailable Unavailable Nadia Mazariegos MD Unavailable Unavailable Nadia Mazariegos MD Unavailable Unavailable Nadia Mazariegos MD Unavailable Unavailable Nadia Mazariegos MD Unavailable Unavailable Cody Cox MD Unavailable Unavailable Cody Cox MD Unavailable Unavailable Cody Cox MD Unavailable Unavailable Cody Cox MD Unavailable Unavailable Cody Cox MD Unavailable Unavailable Cody Cox MD Unavailable Unavailable Olivia, B Jack SPLICING MACHINE OPERATOR AUTOMATIC Unavailable Unavailable Olivia, B Jack SPLICING MACHINE OPERATOR AUTOMATIC Unavailable Unavailable Olivia, B Jack SPLICING MACHINE OPERATOR AUTOMATIC Unavailable Unavailable Olivia, B Jack SPLICING MACHINE OPERATOR AUTOMATIC Unavailable Unavailable Olivia, B Jack SPLICING MACHINE OPERATOR AUTOMATIC Unavailable Unavailable Olivia, B Jack SPLICING MACHINE OPERATOR AUTOMATIC Unavailable Unavailable Olivia, B Jack SPLICING MACHINE OPERATOR AUTOMATIC Unavailable Unavailable Olivia, B Jack SPLICING MACHINE OPERATOR AUTOMATIC Unavailable Unavailable Olivia, B Jack SPLICING MACHINE OPERATOR AUTOMATIC Unavailable Unavailable Olivia, B Jack SPLICING MACHINE OPERATOR AUTOMATIC Unavailable Unavailable Cayden Xie MD Unavailable Unavailable Cayden Xie MD Unavailable Unavailable Cayden Xie MD Unavailable Unavailable Cayden Xie MD Unavailable Unavailable Cayden Xie MD Unavailable Unavailable Cayden Xie MD Unavailable Unavailable Cayden Xie MD Unavailable Unavailable Cayden Xie MD Unavailable Unavailable Cayden Xie MD Unavailable Unavailable Cayden Xie MD Unavailable Unavailable Cayden Xie MD Unavailable Unavailable Cayden Xie MD Unavailable Unavailable Cayden Xie MD Unavailable Unavailable Cayden Xie MD Unavailable Unavailable Cayden Xie MD Unavailable Unavailable Cayden Xie MD Unavailable Unavailable Cayden Xie MD Unavailable Unavailable Cayden Xie MD Unavailable Unavailable Cayden Xie MD Unavailable Unavailable Cayden Xie MD Unavailable Unavailable Cyaden Xie MD Unavailable Unavailable Cayden Xie MD Unavailable Unavailable Cayden Xie MD Unavailable Unavailable Cayden Xie MD Unavailable Unavailable Cayden Xie MD Unavailable Unavailable Cayden Xie MD Unavailable Unavailable Cayden Xie MD Unavailable Unavailable Cayden Xie MD Unavailable Unavailable Cayden Xie MD Unavailable Unavailable Cayden Xie MD Unavailable Unavailable Cayden Xie MD Unavailable Unavailable Cayden Xie MD Unavailable Unavailable Cayden Xie MD Unavailable Unavailable Cayden Xie MD Unavailable Unavailable Cayden Xie MD Unavailable Unavailable Cayden Xie MD Unavailable Unavailable Cayden Xie MD Unavailable Unavailable Cayden Xie MD Unavailable Unavailable Cayden Xie MD Unavailable Unavailable Cayden Xie MD Unavailable Unavailable Cayden Xie MD Unavailable Unavailable Cayden Xie MD Unavailable Unavailable Cayden Xie MD Unavailable Unavailable Cayden Xie MD Unavailable Unavailable Cayden Xie MD Unavailable Unavailable Cayden Xie MD Unavailable Unavailable Cayden Xie MD Unavailable Unavailable Cayden Xie MD Unavailable Unavailable Cayden Xie MD Unavailable Unavailable Cayden Xie MD Unavailable Unavailable Cayden Xie MD Unavailable Unavailable Cayden Xie MD Unavailable Unavailable Cayden Xie MD Unavailable Unavailable Cayden Xie MD Unavailable Unavailable Cayden Xie MD Unavailable Unavailable Cayden Xie MD Unavailable Unavailable Cayden Xie MD Unavailable Unavailable Cayden Xie MD Unavailable Unavailable Cayden Xie MD Unavailable Unavailable [facility] Unavailable Unavailable Meli Falanga, A Rosalba CORONER/MEDICAL EXAMINER Unavailable Unavailable [place] Falanga, A Rosalba CORONER/MEDICAL EXAMINER Unavailable Unavailable Meli Falanga, A Rosalba CORONER/MEDICAL EXAMINER Unavailable Unavailable Meli Falanga, A Rosalba CORONER/MEDICAL EXAMINER Unavailable Unavailable Meli Falanga, A Rosalba CORONER/MEDICAL EXAMINER Unavailable Unavailable Meli Falanga, A Rosalba CORONER/MEDICAL EXAMINER Unavailable Unavailable Meli Falanga, A Rosalba CORONER/MEDICAL EXAMINER Unavailable Unavailable [place] Falanga, A Rosalba CORONER/MEDICAL EXAMINER Unavailable Unavailable [place] Falanga, A Rosalba CORONER/MEDICAL EXAMINER Unavailable Unavailable Meli Falanga, A Rosalba CORONER/MEDICAL EXAMINER Unavailable Unavailable Meli Falanga, A Rosalba CORONER/MEDICAL EXAMINER Unavailable Unavailable [place] Falanga, A Rosalba CORONER/MEDICAL EXAMINER Unavailable Unavailable [place] Falanga, A Rosalba CORONER/MEDICAL EXAMINER Unavailable Unavailable [place] Falanga, A Rosalba CORONER/MEDICAL EXAMINER Unavailable Unavailable Meli Falanga, A Rosalba CORONER/MEDICAL EXAMINER Unavailable Unavailable Meli Falanga, A Rosalba CORONER/MEDICAL EXAMINER Unavailable Unavailable Meli Falanga, A Rosalba CORONER/MEDICAL EXAMINER Unavailable Unavailable [place] Falanga, A Rosalba CORONER/MEDICAL EXAMINER Unavailable Unavailable [place] Falanga, A Rosalba CORONER/MEDICAL EXAMINER Unavailable Unavailable [place] Falanga, A Rosalba CORONER/MEDICAL EXAMINER Unavailable Unavailable Meli Falanga, A Rosalba CORONER/MEDICAL EXAMINER Unavailable Unavailable [place] Falanga, A Rosalba CORONER/MEDICAL EXAMINER Unavailable Unavailable [place] Falanga, A Rosalba CORONER/MEDICAL EXAMINER Unavailable Unavailable [place] Falanga, A Rosalba CORONER/MEDICAL EXAMINER Unavailable Unavailable [place] Falanga, A Rosalba CORONER/MEDICAL EXAMINER Unavailable Unavailable Meli Falanga, A Rosalba CORONER/MEDICAL EXAMINER Unavailable Unavailable [place] Falanga, A Rosalba CORONER/MEDICAL EXAMINER Unavailable Unavailable Meli Falanga, A Rosalba CORONER/MEDICAL EXAMINER Unavailable Unavailable Meli Falanga, A Rosalba CORONER/MEDICAL EXAMINER Unavailable Unavailable Brian DE SANTIAGO MD Unavailable Unavailable Brian DE SANTIAGO MD Unavailable Unavailable Brian DE SANTIAGO MD Unavailable Unavailable Brian DE SANTIAGO MD Unavailable Unavailable Brian DE SANTIAGO MD Unavailable Unavailable Brian DE SANTIAGO MD Unavailable Unavailable Brian DE SANTIAGO MD Unavailable Unavailable Brian DE SANTIAGO MD Unavailable Unavailable Brian DE SANTIAGO MD Unavailable Unavailable Brian DE SANTIAGO MD Unavailable Unavailable Brian DE SANTIAGO MD Unavailable Unavailable Brian DE SANTIAGO MD Unavailable Unavailable Brian DE SANTIAGO MD Unavailable Unavailable Brian DE SANTIAGO MD Unavailable Unavailable Brian DE SANTIAGO MD Unavailable Unavailable Brian DE SANTIAGO MD Unavailable Unavailable Brian DE SANTIAGO MD Unavailable Unavailable Brian DE SANTIAGO MD Unavailable Unavailable Brian DE SANTIAGO MD Unavailable Unavailable Brian DE SANTIAGO MD Unavailable Unavailable Brian DE SANTIAGO MD Unavailable Unavailable Brian DE SANTIAGO MD Unavailable Unavailable Brian DE SANTIAGO MD Unavailable Unavailable Brian DE SANTIAGO MD Unavailable Unavailable MCELHERAN, YANELIS PA Unavailable Unavailable MCELHERAN, YANELIS PA Unavailable Unavailable MCELHERAN, YANELIS PA Unavailable Unavailable MCELHERAN, YANELIS PA Unavailable Unavailable MCELHERAN, YANELIS PA Unavailable Unavailable MCELHERAN, YANELIS PA Unavailable Unavailable MCELHERAN, YANELIS PA Unavailable Unavailable MCELHERAN, YANELIS PA Unavailable Unavailable MCELHERAN, YANELIS PA Unavailable Unavailable MCELHERAN, YANELIS PA Unavailable Unavailable MCELHERAN, YANELIS PA Unavailable Unavailable MCELHERAN, YANELIS PA Unavailable Unavailable MCELHERAN, YANELIS PA Unavailable Unavailable MCELHERAN, YANELIS PA Unavailable Unavailable MCELHERAN, YANELIS PA Unavailable Unavailable MCELHERAN, YANELIS PA Unavailable Unavailable MCELAN, YANELIS PA Unavailable Unavailable MCELAN, YANELIS PA Unavailable Unavailable MCELAN, YANELIS PA Unavailable Unavailable MCELAN, YANELIS PA Unavailable Unavailable MCELHERAN, YANELIS PA Unavailable Unavailable MCELHERAN, YANELIS PA Unavailable Unavailable MCELHERAN, YANELIS PA Unavailable Unavailable MCELHERAN, YANELIS PA Unavailable Unavailable MCELHERAN, YANELIS PA Unavailable Unavailable MCELHERAN, YANELIS PA Unavailable Unavailable MCELHERAN, YANELIS PA Unavailable Unavailable MCELHERAN, YANELIS PA Unavailable Unavailable MCELHERAN, YANELIS PA Unavailable Unavailable Macho Law MD Unavailable Unavailable Edmond, Macho RUSSELL Unavailable Unavailable Edmond, Macho RUSSELL Unavailable Unavailable Edmond, Macho RUSSELL Unavailable Unavailable Edmond, Macho RUSSELL Unavailable Unavailable Edmond, Macho RUSSELL Unavailable Unavailable Edmond, Macho RUSSELL Unavailable Unavailable Edmond, Macho RUSSELL Unavailable Unavailable Edmond, Macho RUSSELL Unavailable Unavailable Edmond, Macho RUSSELL Unavailable Unavailable Edmond, Macho RUSSELL Unavailable Unavailable Edmond, Macho RUSSELL Unavailable Unavailable Edmond, Macho RUSSELL Unavailable Unavailable Edmond, Macho RUSSELL Unavailable Unavailable Edmond, Macho RUSSELL Unavailable Unavailable Edmond, Macho RUSSELL Unavailable Unavailable Edmond, Macho RUSSELL Unavailable Unavailable Edmond, Macho RUSSELL Unavailable Unavailable Edmond, Macho RUSSELL Unavailable Unavailable Edmond, Macho RUSSELL Unavailable Unavailable Edmond, Macho RUSSELL Unavailable Unavailable Edmond, Macho RUSSELL Unavailable Unavailable Edmond, Macho RUSSELL Unavailable Unavailable Edmond, Macho RUSSELL Unavailable Unavailable Edmond, Macho RUSSELL Unavailable Unavailable Edmond, Macho RUSSELL Unavailable Unavailable Edmond, Macho RUSSELL Unavailable Unavailable Edmond, Macho RUSSELL Unavailable Unavailable Edmond, Macho RUSSELL Unavailable Unavailable Edmond, Macho RUSSELL Unavailable Unavailable Edmond, Macho RUSSELL Unavailable Unavailable RACHEL, W BINU Unavailable Unavailable RACHEL, W BINU Unavailable Unavailable RACHEL, W BINU Unavailable Unavailable RACHEL, W BINU Unavailable Unavailable RACHEL, W BINU Unavailable Unavailable RACHEL, W BINU Unavailable Unavailable RACHEL, W BINU Unavailable Unavailable RACHEL, W BINU Unavailable Unavailable RACHEL, W BINU Unavailable Unavailable RACHEL, W BINU Unavailable Unavailable RACHEL, W BINU Unavailable Unavailable RACHEL, W BINU Unavailable Unavailable RACHEL, W BINU Unavailable Unavailable RACHEL, W BINU Unavailable Unavailable RACHEL, W BINU Unavailable Unavailable RACHEL, W BINU Unavailable Unavailable RACHEL, W BINU Unavailable Unavailable RACHEL, W BINU Unavailable Unavailable RACHEL, W BINU Unavailable Unavailable RACHEL, W BINU Unavailable Unavailable RACHEL, W BINU Unavailable Unavailable RACHEL, W BINU Unavailable Unavailable RACHEL, W BINU Unavailable Unavailable RACHEL, W BINU Unavailable Unavailable RACHEL, W BINU Unavailable Unavailable RACHEL, W BINU Unavailable Unavailable RACHEL, W BINU Unavailable Unavailable RACHEL, W BINU Unavailable Unavailable RACHEL, W BINU Unavailable Unavailable RACHEL, W BINU Unavailable Unavailable RACHEL, W BINU Unavailable Unavailable RACHEL, W BINU Unavailable Unavailable RACHEL, W BINU Unavailable Unavailable RACHEL, W BINU Unavailable Unavailable RACHEL, W BINU Unavailable Unavailable RACHEL, W BINU Unavailable Unavailable RACHEL, W BINU Unavailable Unavailable RACHEL, W BINU Unavailable Unavailable Amada RAMOS Unavailable Unavailable WYMAN, SIMI TONG MD Unavailable Unavailable WYMAN, SIMI TONG MD Unavailable Unavailable WYMAN, SIMI TONG MD Unavailable Unavailable WYMAN, SIMI TONG MD Unavailable Unavailable WYMAN, SIMI TONG MD Unavailable Unavailable WYMAN, SIMI TONG MD Unavailable Unavailable WYMAN, SIMI TONG MD Unavailable Unavailable WYMAN, SIMI TONG MD Unavailable Unavailable WYMAN, SIMI TONG MD Unavailable Unavailable WYMAN, SIMI TONG MD Unavailable Unavailable WYMAN, SIMI TONG MD Unavailable Unavailable WYMAN, SIMI TONG MD Unavailable Unavailable WYMAN, SIMI TONG MD Unavailable Unavailable WYMAN, SIMI TONG MD Unavailable Unavailable WYMAN, SIMI TONG MD Unavailable Unavailable WYMAN, SIMI TONG MD Unavailable Unavailable WYMAN, SIMI TONG MD Unavailable Unavailable WYMAN, SIMI TONG MD Unavailable Unavailable WYMAN, SIMI TONG MD Unavailable Unavailable WYMAN, SIMI TONG MD Unavailable Unavailable WYMAN, SIMI TONG MD Unavailable Unavailable WYMAN, SIMI TONG MD Unavailable Unavailable WYMAN, SIMI TONG MD Unavailable Unavailable WYMAN, SIMI TONG MD Unavailable Unavailable WYMAN, SIMI TONG MD Unavailable Unavailable WYMAN, SIMI TONG MD Unavailable Unavailable WYMAN, SIMI TONG MD Unavailable Unavailable WYMAN, SIMI TONG MD Unavailable Unavailable WYMAN, SIMI TONG MD Unavailable Unavailable WYMAN, SIMI TONG MD Unavailable Unavailable WYMAN, SIMI TONG MD Unavailable Unavailable WYMAN, SIMI TONG MD Unavailable Unavailable WYMAN, SIMI TONG MD Unavailable Unavailable WYMAN, SIMI TONG MD Unavailable Unavailable WYMAN, SIMI TONG MD Unavailable Unavailable WYMAN, SIMI TONG MD Unavailable Unavailable WYMAN, SIMI TONG MD Unavailable Unavailable WYMAN, SIMI TONG MD Unavailable Unavailable WYMAN, SIMI TONG MD Unavailable Unavailable WYMANSIMI MD Unavailable Unavailable WYMANSIMI MD Unavailable Unavailable Medina, V YFN PA-C Unavailable Unavailable Medina, V YFN PA-C Unavailable Unavailable Medina, V YFN PA-C Unavailable Unavailable Mayte, V YFN PA-C Unavailable Unavailable Medina, V YFN PA-C Unavailable Unavailable Medina, V YFN PA-C Unavailable Unavailable Medina, V YFN PA-C Unavailable Unavailable Mayte, V YFN PA-C Unavailable Unavailable Mayte, V YFN PA-C Unavailable Unavailable Mayte, V YFN PA-C Unavailable Unavailable Medina, V YFN PA-C Unavailable Unavailable Medina, V YFN PA-C Unavailable Unavailable Medina, V YFN PA-C Unavailable Unavailable Medina, V YFN PA-C Unavailable Unavailable Re-disclosure Warning The records that you are about to access may contain information from federally-assisted alcohol or drug abuse programs. If such information is present, then the following federally mandated warning applies: This information has been disclosed to you from records protected by federal confidentiality rules (42 CFR part 2). The federal rules prohibit you from making any further disclosure of this information unless further disclosure is expressly permitted by the written consent of the person to whom it pertains or as otherwise permitted by 42 CFR part 2. A general authorization for the release of medical or other information is NOT sufficient for this purpose. The Federal rules restrict any use of the information to criminally investigate or prosecute any alcohol or drug abuse patient.The records that you are about to access may contain highly sensitive health information, the redisclosure of which is protected by Article 27-F of the [facility] Public Health law. If you continue you may have access to information: Regarding HIV / AIDS; Provided by facilities licensed or operated by the [facility] Office of Mental Health; or Provided by the [facility] Office for People With Developmental Disabilities. If such information is present, then the following [facility] mandated warning applies: This information has been disclosed to you from confidential records which are protected by state law. State law prohibits you from making any further disclosure of this information without the specific written consent of the person to whom it pertains, or as otherwise permitted by law. Any unauthorized further disclosure in violation of state law may result in a fine or custodial sentence or both. A general authorization for the release of medical or other information is NOT sufficient authorization for further disc losure. Allergies and Adverse Reactions Type Description Substance Reaction Status Data Source(s ) No Known Drug Allergies No Known Drug Allergies No Known Drug Aller gies active NETSMART ([facility] ) No Known Allergies No Known Allergies [facility] Family History Family Member Name Family Member Gender Family Member Status Date o f Status Description Data Source(s) Unknown Male Problem MEDENT ([facility]) Unknown Male Problem MEDENT ([facility] ) Unknown Male Problem MEDENT ([facility] () Unknown Unknown Problem MEDENT ([facility]) mother Unknown Female Problem MEDENT ([facility]) Encounters Encounter Providers Location Date Indications Data Source(s ) Outpatient Attender: YANNA DE SANTIAGO MD 08/04 05:02:29 PM EDT - 08/04/2021 06:58:47 PM EDT [facility] ([facility] ) [place] [address] [address] 06/30/2021 12:00:00 AM EDT eCW1 ([facility]) [place] [address] [address] 06/20/2021 12:00:00 AM EDT eCW1 ([facility]) [place] [address] [address] 06/19/2021 12:00:00 AM EDT eCW1 ([facility]) [place] [address] [address] 06/13/2021 12:00:00 AM EDT eCW1 ([facility]) Outpatient Attender: YFN MERCADO-SJP.MANDY 05/2021 12:00:00 AM EDT - 06/08/2021 10:54:03 AM EDT [facility] [place] [address] [address] 06/08/2021 12:00:00 AM EDT eCW1 ([facility]) [place] [address] [address] 05/30/2021 12:00:00 AM EDT eCW1 ([facility]) Outpatient Attender: YFN MERCADO-SJPDestineeMANDY 12:00:00 AM EDT - 05/25/2021 02:06:23 PM EDT [facility] Outpatient Attender: Cayden Xie MDReferrer: RAN MARTIN-SJPDestineeMANDY 05/17/2021 12:00:00 AM EDT - 05/17/2021 03:20:15 PM EDT [facility] Office Visit Attender: YANELIS TINEO Physical [facility] 05/11/2021 08:00:00 AM EDT MEDENT ([facility]) [place] [address] [address] 05/03/2021 12:00:00 AM EDT eCW1 ([facility]) [place] [address] [address] 04/25/2021 12:00:00 AM EDT eCW1 ([facility]) [place] [address] [address] 04/24/2021 12:00:00 AM EDT eCW1 ([facility]) [place] [address] [address] 04/13/2021 12:00:00 AM EDT eCW1 ([facility]) [place] [address] [address] 04/10/2021 12:00:00 AM EDT eCW1 ([facility]) [place] [address] [address] 03/30/2021 12:00:00 AM EDT eCW1 ([facility]) [place] [address] [address] 03/27/2021 12:00:00 AM EDT eCW1 ([facility]) [place] [address] [address] 03/22/2021 12:00:00 AM EDT eCW1 ([facility]) [place] [address] [facility] [place] [address] 03/20/2021 12:00:00 AM EDT eCW1 ([facility]) [place] [address] [address] 03/13/2021 12:00:00 AM EDT eCW1 [facility]) Outpatient Attender: Nadia Ortega/Thanh/Edy/Chin riojas 03/09/2021 11:30:00 AM EDT MEDENT ([facility]) [place] [address] [address] 03/08/2021 12:00:00 AM EDT [facility] [place] [address] [address] 03/06/2021 12:00:00 AM EDT [facility]CW1 [facility] [place] [address] [facility] [place] [address] 03/03/2021 12:00:00 AM EDT [facility]CW1 [facility] [place] [address] [facility] [place] [address] 02/22/2021 12:00:00 AM EDT [facility]CW1 [facility] [place] [address] [address] 02/21/2021 12:00:00 AM EDT eCW1 [facility]) [place] [address] [address] 02/16/2021 12:00:00 AM EDT [facility]CW1 [facility] [place] [address] [address] 02/16/2021 12:00:00 AM EDT eCW1 ([facility]) 02/15/2021 01:00:00 AM EDT - 021 04:36:37 PM EDT NETSMART ([facility]) [place] [address] [facility] [place] [address] 02/14/2021 12:00:00 AM EDT eCW1 [facility]) [place] [address] [facility] [place] [address] 02/13/2021 12:00:00 AM EDT eCW1 [facility]) [place] [address] [address] 02/13/2021 12:00:00 AM EDT eCW1 ([facility]) [place] [address] [address] 02/13/2021 12:00:00 AM EDT eCW1 ([facility]) Outpatient Attender: [facility] 02/05/2021 11:5 8:00 AM EDT [facility] Emergency Attender: Cody Cox MDConsultant: BINU RAMOS 02/05/2021 11:28:00 AM EDT - 02/05/2021 01:25:00 PM [facility] [place] [address] [address] 01/31/2021 12:00:00 AM EDT eCW1 ([facility]) Unknown [address], [place] [address] 01/24/2021 12:00:00 AM EDT eCW1 ([facility]) [place] [address] [facility] [facility] [address] 01/19/2021 12:00:00 AM EDT eCW1 ([facility]) [place] [address] [address] 01/19/2021 12:00:00 AM EDT eCW1 [facility] Inpatient Attender: Jack BUCIO ttender: Rosalba Cheung FNPAttender: WILLIAN KESSLER DOConsultant: BINU RAMOSConsultant: RAN WYMAN MD 01/16/2021 12:54:00 PM EDT - 01/17/2021 12:35:00 PM EDT [facility] Patient discharged. Outpatient Attender: [facility] 01/14/2021 11:0 0:00 AM EDT [facility] Outpatient Attender: Rosalba COTTER 01/14/2021 10:27:00 AM EDT - 01/16/2021 12:54:00 PM EDT [facility] [place]patient [address] [facility] [address] 12/08/2020 12:00:00 AM EST eCW1 ([facility]) [place] [address] [address] 12/07/2020 12:00:00 AM EST eCW1 ([facility]) Unknown [address] [facility] [address] 12/05/2020 12:00:00 AM EST eCW1 ([facility]) [place] [address] [facility] [address] 12/01/2020 12:00:00 AM EST eCW1 ([facility]) [place] [address] [facility] [address] 11/24/2020 12:00:00 AM EST eCW1 ([facility]) Unknown [address] [facility] [address] 11/22/2020 12:00:00 AM EST eCW1 ([facility]) Unknown [address] [facility] [address] 11/17/2020 12:00:00 AM EST eCW1 ([facility]) [place]patient [address] [facility] [address] 11/16/2020 12:00:00 AM EST eCW1 ([facility]) Unknown [address] [facility] [address] 11/10/2020 12:00:00 AM EST eCW1 ([facility]) Unknown [address] [facility] [address] 11/09/2020 12:00:00 AM EST eCW1 ([facility]) Unknown [address] [facility] [address] 11/08/2020 12:00:00 AM EST eCW1 ([facility]) [place] [address] [address] 11/08/2020 12:00:00 AM EST eCW1 ([facility]) Outpatient [address] [facility] [address] 11/03/2020 12:00:00 AM EST eCW1 ([facility]) Outpatient Attender: Macho Ortega/Thanh/Edy/Layla albright 10/31/2020 10:15:00 AM EST MEDENT ([facility]) Unknown [address] [facility] [address] 10/31/2020 12:00:00 AM EST eCW1 ([facility]) TeleMedicine Phone E/M by Phys 11-20 Min [address] [place] [address] 10/27/2020 12:00:00 AM EST eCW1 ([facility]) Unknown [address] [facility] [place] [address] 10/19/2020 12:00:00 AM EST eCW1 ([facility]) Unknown [address] [facility] [address] 08/18/2020 12:00:00 AM EST eCW1 ([facility]) Outpatient Attender: Nadia Ortega/Thanh/Edy/Chin riojas 08/11/2020 01:00:00 PM EST MEDENT ([facility]) Unknown [address] [facility] [facility] [place] [address] 08/03/2020 12:00:00 AM EST eCW1 ([facility]) Outpatient [address] [facility] [facility] [place] [address] 07/27/2020 12:00:00 AM EDT eCW1 ([facility]) Unknown [address] [facility] [place] [address] 07/04/2020 12:00:00 AM EDT eCW1 ([facility]) Immunizations Vaccine Date Status Description Data Source(s) COVID-19 dose #2 given elsewhere Unspecified 12/30/2020 03:0 8:00 PM EDT completed eCW1 ([facility]) COVID-19 dose #2 given elsewhere Unspecified 12/30/2020 03:0 8:00 PM EDT completed eCW1 ([facility]) COVID-19 dose #2 given elsewhere Unspecified 12/30/2020 03:0 8:00 PM EDT completed eCW1 ([facility]) COVID-19 dose #2 given elsewhere Unspecified 12/30/2020 03:0 8:00 PM EDT completed eCW1 ([facility]) COVID-19 dose #2 given elsewhere Unspecified 12/30/2020 03:0 8:00 PM EDT completed eCW1 ([facility]) COVID-19 dose #2 given elsewhere Unspecified 12/30/2020 03:0 8:00 PM EDT completed eCW1 ([facility]) COVID-19 dose #2 given elsewhere Unspecified 12/30/2020 03:0 8:00 PM EDT completed eCW1 ([facility]) COVID-19 dose #2 given elsewhere Unspecified 12/30/2020 03:0 8:00 PM EDT completed eCW1 ([facility]) COVID-19 dose #2 given elsewhere Unspecified 12/30/2020 03:0 8:00 PM EDT completed eCW1 ([facility]) COVID-19 dose #2 given elsewhere Unspecified 12/30/2020 03:0 8:00 PM EDT completed eCW1 ([facility]) COVID-19 dose #2 given elsewhere Unspecified 12/30/2020 03:0 8:00 PM EDT completed eCW1 ([facility]) COVID-19 dose #2 given elsewhere Unspecified 12/30/2020 03:0 8:00 PM EDT completed eCW1 ([facility]) COVID-19 dose #2 given elsewhere Unspecified 12/30/2020 03:0 8:00 PM EDT completed eCW1 ([facility]) COVID-19 dose #2 given elsewhere Unspecified 12/30/2020 03:0 8:00 PM EDT completed eCW1 ([facility]) COVID-19 dose #2 given elsewhere Unspecified 12/30/2020 03:0 8:00 PM EDT completed eCW1 ([facility]) COVID-19 dose #2 given elsewhere Unspecified 12/30/2020 03:0 8:00 PM EDT completed eCW1 ([facility]) COVID-19 dose #2 given elsewhere Unspecified 12/30/2020 03:0 8:00 PM EDT completed eCW1 ([facility]) COVID-19 dose #2 given elsewhere Unspecified 12/30/2020 03:0 8:00 PM EDT completed eCW1 ([facility]) COVID-19 dose #2 given elsewhere Unspecified 12/30/2020 03:0 8:00 PM EDT completed eCW1 ([facility]) COVID-19 dose #2 given elsewhere Unspecified 12/30/2020 03:0 8:00 PM EDT completed eCW1 ([facility]) COVID-19 dose #2 given elsewhere Unspecified 12/30/2020 03:0 8:00 PM EDT completed eCW1 ([facility]) COVID-19 dose #2 given elsewhere Unspecified 12/30/2020 03:0 8:00 PM EDT completed eCW1 ([facility]) COVID-19 dose #2 given elsewhere Unspecified 12/30/2020 03:0 8:00 PM EDT completed eCW1 ([facility]) COVID-19 dose #2 given elsewhere Unspecified 12/30/2020 03:0 8:00 PM EDT completed eCW1 ([facility]) COVID-19 dose #2 given elsewhere Unspecified 12/30/2020 03:0 8:00 PM EDT completed eCW1 ([facility]) COVID-19 dose #2 given elsewhere Unspecified 12/30/2020 03:0 8:00 PM EDT completed eCW1 ([facility]) COVID-19 dose #2 given elsewhere Unspecified 12/30/2020 03:0 8:00 PM EDT completed eCW1 ([facility]) COVID-19 dose #2 given elsewhere Unspecified 12/30/2020 03:0 8:00 PM EDT completed eCW1 ([facility]) COVID-19 dose #2 given elsewhere Unspecified 12/30/2020 03:0 8:00 PM EDT completed eCW1 ([facility]) COVID-19 dose #2 given elsewhere Unspecified 12/30/2020 03:0 8:00 PM EDT completed eCW1 ([facility]) COVID-19 dose #2 given elsewhere Unspecified 12/30/2020 03:0 8:00 PM EDT completed eCW1 ([facility]) COVID-19 VACCINE Moderna 12/30/2020 12:00:00 AM EDT completed [employer] Vaccine Series Complete: YESThis Data wa s Submitted to [facility] Via [employer]. COVID-19 dose #1 given elsewhere Unspecified 12/02/2020 03:0 7:00 PM EST completed eCW1 ([facility]) COVID-19 dose #1 given elsewhere Unspecified 12/02/2020 03:0 7:00 PM EST completed eCW1 ([facility]) COVID-19 dose #1 given elsewhere Unspecified 12/02/2020 03:0 7:00 PM EST completed eCW1 ([facility]) COVID-19 dose #1 given elsewhere Unspecified 12/02/2020 03:0 7:00 PM EST completed eCW1 ([facility]) COVID-19 dose #1 given elsewhere Unspecified 12/02/2020 03:0 7:00 PM EST completed eCW1 ([facility]) COVID-19 dose #1 given elsewhere Unspecified 12/02/2020 03:0 7:00 PM EST completed eCW1 ([facility]) COVID-19 dose #1 given elsewhere Unspecified 12/02/2020 03:0 7:00 PM EST completed eCW1 ([facility]) COVID-19 dose #1 given elsewhere Unspecified 12/02/2020 03:0 7:00 PM EST completed eCW1 ([facility]) COVID-19 dose #1 given elsewhere Unspecified 12/02/2020 03:0 7:00 PM EST completed eCW1 ([facility]) COVID-19 dose #1 given elsewhere Unspecified 12/02/2020 03:0 7:00 PM EST completed eCW1 ([facility]) COVID-19 dose #1 given elsewhere Unspecified 12/02/2020 03:0 7:00 PM EST completed eCW1 ([facility]) COVID-19 dose #1 given elsewhere Unspecified 12/02/2020 03:0 7:00 PM EST completed eCW1 ([facility]) COVID-19 dose #1 given elsewhere Unspecified 12/02/2020 03:0 7:00 PM EST completed eCW1 ([facility]) COVID-19 dose #1 given elsewhere Unspecified 12/02/2020 03:0 7:00 PM EST completed eCW1 ([facility]) COVID-19 dose #1 given elsewhere Unspecified 12/02/2020 03:0 7:00 PM EST completed eCW1 ([facility]) COVID-19 dose #1 given elsewhere Unspecified 12/02/2020 03:0 7:00 PM EST completed eCW1 ([facility]) COVID-19 dose #1 given elsewhere Unspecified 12/02/2020 03:0 7:00 PM EST completed eCW1 ([facility]) COVID-19 dose #1 given elsewhere Unspecified 12/02/2020 03:0 7:00 PM EST completed eCW1 ([facility]) COVID-19 dose #1 given elsewhere Unspecified 12/02/2020 03:0 7:00 PM EST completed eCW1 ([facility]) COVID-19 dose #1 given elsewhere Unspecified 12/02/2020 03:0 7:00 PM EST completed eCW1 ([facility]) COVID-19 dose #1 given elsewhere Unspecified 12/02/2020 03:0 7:00 PM EST completed eCW1 ([facility]) COVID-19 dose #1 given elsewhere Unspecified 12/02/2020 03:0 7:00 PM EST completed eCW1 ([facility]) COVID-19 dose #1 given elsewhere Unspecified 12/02/2020 03:0 7:00 PM EST completed eCW1 ([facility]) COVID-19 dose #1 given elsewhere Unspecified 12/02/2020 03:0 7:00 PM EST completed eCW1 ([facility]) COVID-19 dose #1 given elsewhere Unspecified 12/02/2020 03:0 7:00 PM EST completed eCW1 ([facility]) COVID-19 dose #1 given elsewhere Unspecified 12/02/2020 03:0 7:00 PM EST completed eCW1 ([facility]) COVID-19 dose #1 given elsewhere Unspecified 12/02/2020 03:0 7:00 PM EST completed eCW1 ([facility]) COVID-19 dose #1 given elsewhere Unspecified 12/02/2020 03:0 7:00 PM EST completed eCW1 ([facility]) COVID-19 dose #1 given elsewhere Unspecified 12/02/2020 03:0 7:00 PM EST completed eCW1 ([facility]) COVID-19 dose #1 given elsewhere Unspecified 12/02/2020 03:0 7:00 PM EST completed eCW1 ([facility]) COVID-19 dose #1 given elsewhere Unspecified 12/02/2020 03:0 7:00 PM EST completed eCW1 ([facility]) COVID-19 VACCINE Moderna 12/02/2020 12:00:00 AM EST completed [employer] Vaccine Series Complete: NOThis Data was Submitted to [facility] Via [employer]. influenza, recombinant, quadrIvalent,injectable, prese rvative free 07/27/2020 11:45:00 AM EDT completed eCW1 ([facility]) influenza, recombinant, quadrIvalent,injectable, prese rvative free 07/27/2020 11:45:00 AM EDT completed eCW1 ([facility]) influenza, recombinant, quadrIvalent,injectable, prese rvative free 07/27/2020 11:45:00 AM EDT completed eCW1 ([facility]) influenza, recombinant, quadrIvalent,injectable, prese rvative free 07/27/2020 11:45:00 AM EDT completed eCW1 ([facility]) influenza, recombinant, quadrIvalent,injectable, prese rvative free 07/27/2020 11:45:00 AM EDT completed eCW1 ([facility]) influenza, recombinant, quadrIvalent,injectable, prese rvative free 07/27/2020 11:45:00 AM EDT completed eCW1 ([facility]) influenza, recombinant, quadrIvalent,injectable, prese rvative free 07/27/2020 11:45:00 AM EDT completed eCW1 ([facility]) influenza, recombinant, quadrIvalent,injectable, prese rvative free 07/27/2020 11:45:00 AM EDT completed eCW1 ([facility]) influenza, recombinant, quadrIvalent,injectable, prese rvative free 07/27/2020 11:45:00 AM EDT completed eCW1 ([facility]) influenza, recombinant, quadrIvalent,injectable, prese rvative free 07/27/2020 11:45:00 AM EDT completed eCW1 ([facility]) influenza, recombinant, quadrIvalent,injectable, prese rvative free 07/27/2020 11:45:00 AM EDT completed eCW1 ([facility]) influenza, recombinant, quadrIvalent,injectable, prese rvative free 07/27/2020 11:45:00 AM EDT completed eCW1 ([facility]) influenza, recombinant, quadrIvalent,injectable, prese rvative free 07/27/2020 11:45:00 AM EDT completed eCW1 ([facility]) influenza, recombinant, quadrIvalent,injectable, prese rvative free 07/27/2020 11:45:00 AM EDT completed eCW1 ([facility]) influenza, recombinant, quadrIvalent,injectable, prese rvative free 07/27/2020 11:45:00 AM EDT completed eCW1 ([facility]) influenza, recombinant, quadrIvalent,injectable, prese rvative free 07/27/2020 11:45:00 AM EDT completed eCW1 ([facility]) influenza, recombinant, quadrIvalent,injectable, prese rvative free 07/27/2020 11:45:00 AM EDT completed eCW1 ([facility]) influenza, recombinant, quadrIvalent,injectable, prese rvative free 07/27/2020 11:45:00 AM EDT completed eCW1 ([facility]) influenza, recombinant, quadrIvalent,injectable, prese rvative free 07/27/2020 11:45:00 AM EDT completed eCW1 ([facility]) influenza, recombinant, quadrIvalent,injectable, prese rvative free 07/27/2020 11:45:00 AM EDT completed eCW1 ([facility]) influenza, recombinant, quadrIvalent,injectable, prese rvative free 07/27/2020 11:45:00 AM EDT completed eCW1 ([facility]) influenza, recombinant, quadrIvalent,injectable, prese rvative free 07/27/2020 11:45:00 AM EDT completed eCW1 ([facility]) influenza, recombinant, quadrIvalent,injectable, prese rvative free 07/27/2020 11:45:00 AM EDT completed eCW1 ([facility]) influenza, recombinant, quadrIvalent,injectable, prese rvative free 07/27/2020 11:45:00 AM EDT completed eCW1 ([facility]) influenza, recombinant, quadrIvalent,injectable, prese rvative free 07/27/2020 11:45:00 AM EDT completed eCW1 ([facility]) influenza, recombinant, quadrIvalent,injectable, prese rvative free 07/27/2020 11:45:00 AM EDT completed eCW1 ([facility]) influenza, recombinant, quadrIvalent,injectable, prese rvative free 07/27/2020 11:45:00 AM EDT completed eCW1 ([facility]) influenza, recombinant, quadrIvalent,injectable, prese rvative free 07/27/2020 11:45:00 AM EDT completed eCW1 ([facility]) influenza, recombinant, quadrIvalent,injectable, prese rvative free 07/27/2020 11:45:00 AM EDT completed eCW1 ([facility]) influenza, recombinant, quadrIvalent,injectable, prese rvative free 07/27/2020 11:45:00 AM EDT completed eCW1 ([facility]) influenza, recombinant, quadrIvalent,injectable, prese rvative free 07/27/2020 11:45:00 AM EDT completed eCW1 ([facility]) influenza, recombinant, quadrIvalent,injectable, prese rvative free 07/27/2020 11:45:00 AM EDT completed eCW1 ([facility]) influenza, recombinant, quadrIvalent,injectable, prese rvative free 07/27/2020 11:45:00 AM EDT completed eCW1 ([facility]) influenza, recombinant, quadrIvalent,injectable, prese rvative free 07/27/2020 11:45:00 AM EDT completed eCW1 ([facility]) influenza, recombinant, quadrIvalent,injectable, prese rvative free 07/27/2020 11:45:00 AM EDT completed eCW1 ([facility]) influenza, recombinant, quadrIvalent,injectable, prese rvative free 07/27/2020 11:45:00 AM EDT completed eCW1 ([facility]) influenza, recombinant, quadrIvalent,injectable, prese rvative free 07/27/2020 11:45:00 AM EDT completed eCW1 ([facility]) influenza, recombinant, quadrIvalent,injectable, prese rvative free 07/27/2020 11:45:00 AM EDT completed eCW1 ([facility]) influenza, recombinant, quadrIvalent,injectable, prese rvative free 07/27/2020 11:45:00 AM EDT completed eCW1 ([facility]) influenza, recombinant, quadrIvalent,injectable, prese rvative free 07/27/2020 11:45:00 AM EDT completed eCW1 ([facility]) influenza, recombinant, quadrIvalent,injectable, prese rvative free 07/27/2020 11:45:00 AM EDT completed eCW1 ([facility]) influenza, recombinant, quadrIvalent,injectable, prese rvative free 07/27/2020 11:45:00 AM EDT completed eCW1 ([facility]) influenza, recombinant, quadrIvalent,injectable, prese rvative free 07/27/2020 11:45:00 AM EDT completed eCW1 ([facility]) influenza, recombinant, quadrIvalent,injectable, prese rvative free 07/27/2020 11:45:00 AM EDT completed eCW1 ([facility]) influenza, recombinant, quadrIvalent,injectable, prese rvative free 07/27/2020 11:45:00 AM EDT completed eCW1 ([facility]) influenza, recombinant, quadrIvalent,injectable, prese rvative free 07/27/2020 11:45:00 AM EDT completed eCW1 ([facility]) influenza, recombinant, quadrIvalent,injectable, prese rvative free 07/27/2020 11:45:00 AM EDT completed eCW1 ([facility]) influenza, recombinant, quadrIvalent,injectable, prese rvative free 07/27/2020 11:45:00 AM EDT completed eCW1 ([facility]) influenza, recombinant, quadrIvalent,injectable, prese rvative free 07/27/2020 11:45:00 AM EDT completed eCW1 ([facility]) influenza, recombinant, quadrIvalent,injectable, prese rvative free 07/27/2020 11:45:00 AM EDT completed eCW1 ([facility]) Medications Medication Brand Name Start Date Product Form Dose Route Admi nistrative Instructions Pharmacy Instructions Status Indications Reaction Description Data Source(s) MiraLax Mix-In [place] [facility] [address] 06/20/2021 12:00: 00 AM EDT 1.0 {packet_mixed_with_8_ounces_of_fluid} active [facility]ira[facility]ax Mix-In [place] [facility] eCW1 ([facility]) [facility] [address] [facility] [address] 06/20/2021 12:00: 00 AM EDT 1.0 {packet_mixed_with_8_ounces_of_fluid} active [facility] [facility] [address] eCW1 ([facility]) MiraLax Mix-In [place] [facility] Mix-[facility] [address] 06/20/2021 12:00: 00 AM EDT 1.0 {packet_mixed_with_8_ounces_of_fluid} active MiraLax Mix-In [place] [facility] eCW1 ([facility]) Bisoprolol Fumarate 5 MG Oral Tablet bisoprolol (ZEBET A) 5 MG tablet bisoprolol (ZEBETA) 5 MG tablet 05/25/2021 12:00:00 AM EDT 2.5 mg Oral active Take 0.5 tablets (2.5 mg total) by mouth daily [facility] Spironolactone 25 MG Oral Tablet spironolactone (ALDAC TONE) 25 MG tablet spironolactone (ALDACTONE) 25 MG tablet 05/17/2021 12:00:00 AM EDT 25 mg Oral active Take 1 tablet (25 mg tota l) by mouth daily [facility] apixaban 5 MG Oral Tablet [Eliquis] Eliquis 5 MG TABS tablet Eliquis 5 MG TABS tablet 05/15/2021 12:00:00 AM EDT 5 mg active 5 mg 2 (two) times a day [facility] Mirtazapine 15 MG Oral Tablet mirtazapine (REMERON) 15 MG tablet mirtazapine (REMERON) 15 MG tablet 05/12/2021 12:00:00 AM EDT active [facility] tramadol hydrochloride 50 MG Oral Tablet Tramadol HCL 05/11/2021 12:00:00 AM EDT active MEDENT ([facility]) Methylprednisolone 4 MG Oral Tablet [Medrol] Medrol 08/2021 12:00:00 AM EDT active MEDENT ( [facility]) tramadol hydrochloride 50 MG Oral Tablet traMADol (ULT DILIA) 50 MG tablet traMADol (ULTRAM) 50 MG tablet 05/11/2021 12:00:00 AM EDT active TAKE 1 TABLET BY MOUTH EVERY 4 TO 6 HOURS NEEDED . DO NOT EXCEED 4 PER 24 HOURS [facility] 7 ACTUAT umeclidinium 0.0625 MG/ACTUAT D ry Powder Inhaler [Incruse] Incruse Ellipta 62.5 MCG/INH AEPB Incruse Ellipta 62.5 MCG/INH AEPB 05/05/2021 12:00:00 AM EDT active INHALE 1 PUFF BY MOUTH ONCE DAILY [facility] Furosemide 40 MG Furosemide 04/25/2021 01:00:00 AM EDT 2.0 {tabl et} completed [facility] ([facility]) Furosemide 20 MG Oral Tablet furosemide (LASIX) 20 MG tablet furosemide (LASIX) 20 MG tablet 04/10/2021 12:00:00 AM EDT 20 mg activ e 20 mg Pt alternating 20mg daily, with 40mg daily. [facility] Furosemide 40 MG Furosemide 03/20/2021 01:00:00 AM EDT completed NETSMART ([facility] ) Bisoprolol Fumarate 5 MG / Hydrochloroth iazide 6.25 MG Oral Tablet bisoprolol- hydrochlorothiazide (ZIAC) 5-6.25 MG per tablet bisoprolol-hydrochlorothiazide (ZIAC) 5-6.25 MG per tablet 03/15/2021 12:00:00 AM EDT 1 {tbl} Oral aborted Take 1 tablet by mouth daily [facility] gabapentin 300 MG Oral Capsule gabapentin (NEURONTIN) 300 MG capsule gabapentin (NEURONTIN) 300 MG capsule 03/09/2021 12:00:00 AM EDT 300 mg Oral active Take 300 mg by mouth [facility] Simvastatin 10 MG Oral Tablet simvastatin (ZOCOR) 10 M G tablet simvastatin (ZOCOR) 10 MG tablet 03/09/2021 12:00:00 AM EDT 10 mg Oral active Take 10 mg by mouth nightly [facility] Ipratropium-Albuterol 0.5-2.5 (3) MG/3ML Ipratropium-Albuter ol 03/07/2021 01:00:00 AM EDT completed [facility]SMART ([facility]) Remeron 15 MG Remeron 03/07/2021 01:00:00 AM EDT 1.0 {tablet} completed [facility]SMART ([facility]) Bisoprolol-Hydrochlorothiazide 10-6.25 MG Bisoprolol-Hydroch lorothiazide 02/17/2021 01:00:00 AM EDT 1.0 {tablet} completed [facility]SMART ([facility]) Breo Ellipta 200-25 MCG/INH Breo Ellipta 02/17/2021 01:00:00 AM EDT completed [facility]SM[facility] ([facility]) Incruse Ellipta 62.5 MCG/INH Incruse Ellipta 02/17/2021 01:00:00 AM EDT completed [facility]SMART ([facility]) Ipratropium-Albuterol 0.5-2.5 (3) MG/3ML Ipratropium-Albuter ol 02/17/2021 01:00:00 AM EDT completed [facility]SMART ([facility]) Cephalexin 500 MG Cephalexin 02/17/2021 01:00:00 AM EDT completed [facility]SMART ([facility] ) Remeron 15 MG Remeron 02/17/2021 01:00:00 AM EDT 1.0 {tablet} completed [facility]SMART ([facility]) Eliquis 5 MG Eliquis 02/17/2021 01:00:00 AM EDT 1.0 {tablet} completed [facility]SMART ([facility]) Furosemide 20 MG Furosemide 02/17/2021 01:00:00 AM EDT 1.0 {tabl et} completed [facility] ([facility]) Simvastatin 10 MG Simvastatin 02/17/2021 01:00:00 AM EDT 1.0 {ta blet} completed [facility] ([facility]) Gabapentin 300 MG Gabapentin 02/17/2021 01:00:00 AM EDT completed [facility]SMART ([facility] ) Triamcinolone Acetonide 0.1 % Triamcinolone Acetonide 2020 01:00:00 AM EDT completed NETSMAR T ([facility]) Albuterol 0.833 MG/ML / Ipratropium Brom paul 0.167 MG/ML Inhalant Solution ipratropium-albuterol (DUO-NEB) 0.5-2.5 mg/mL nebulizer ipratropium-albuterol (DUO-NEB) 0.5-2.5 mg/mL nebulizer 02/16/2021 12:00:00 AM EDT active as needed [facility] Bisoprolol-Hydrochlorothiazide 10-6.25 MG Bisoprolol-Hydroch lorothiazide 02/15/2021 01:00:00 AM EDT 1.0 {tablet} completed [facility]SMART ([facility]) Incruse Ellipta 62.5 MCG/INH Incruse Ellipta 02/15/2021 01:00:00 AM EDT completed [facility]SMART ([facility]) Breo Ellipta 200-25 MCG/INH Breo Ellipta 02/15/2021 01:00:00 AM EDT completed [facility]SM[facility] ([facility]) Furosemide 20 MG Furosemide 02/15/2021 01:00:00 AM EDT 1.0 {tabl et} completed [facility]SM[facility] ([facility]) Gabapentin 300 MG Gabapentin 02/15/2021 01:00:00 AM EDT completed [facility]SMART ([facility] ) Eliquis 5 MG Eliquis 02/15/2021 01:00:00 AM EDT 1.0 {tablet} completed [facility]SMART ([facility]) Triamcinolone Acetonide 0.1 % Triamcinolone Acetonide 2020 01:00:00 AM EDT completed NETSMAR T ([facility]) Simvastatin 10 MG Simvastatin 02/15/2021 01:00:00 AM EDT 1.0 {ta blet} completed NETSMART ([facility]) Cephalexin 500 MG Oral Capsule Cephalexin 500 MG 02/13/2021 12:00:0 0 AM EDT 1.0 {capsule} active Cephalexin 500 MG eCW1 ([facility]) Cephalexin 500 MG Oral Capsule Cephalexin 500 MG 02/13/2021 12:00:0 0 AM EDT 1.0 {capsule} active Cephalexin 500 MG eCW1 ([facility]) Cephalexin 500 MG Oral Capsule Cephalexin 500 MG 02/13/2021 12:00:0 0 AM EDT 1.0 {capsule} active Cephalexin 500 MG eCW1 ([facility]) Cephalexin 500 MG Oral Capsule Cephalexin 500 MG 02/13/2021 12:00:0 0 AM EDT 1.0 {capsule} active Cephalexin 500 MG eCW1 ([facility]) Cephalexin 500 MG Oral Capsule Cephalexin 500 MG 02/13/2021 12:00:0 0 AM EDT 1.0 {capsule} active Cephalexin 500 MG eCW1 ([facility]) Cephalexin 500 MG Oral Capsule Cephalexin 500 MG 02/13/2021 12:00:0 0 AM EDT 1.0 {capsule} active Cephalexin 500 MG eCW1 ([facility]) Cephalexin 500 MG Oral Capsule Cephalexin 500 MG 02/13/2021 12:00:0 0 AM EDT 1.0 {capsule} active Cephalexin 500 MG eCW1 ([facility]) apixaban 5 MG Oral Tablet [Eliquis] Eliquis 5 MG Eliquis 5 M G 01/31/2021 12:00:00 AM EDT active Eliquis 5 MG eCW1 ([facility]) apixaban 5 MG Oral Tablet [Eliquis] Eliquis 5 MG Eliquis 5 M G 01/31/2021 12:00:00 AM EDT active Eliquis 5 MG eCW1 ([facility]) Furosemide 20 MG Oral Tablet Furosemide 20 MG 01/31/2021 12:00:00 A M EDT 1.0 {tablet} active Furosemide 20 MG eCW1 ( [facility]) Furosemide 20 MG Oral Tablet Furosemide 20 MG 01/31/2021 12:00:00 A M EDT 1.0 {tablet} active Furosemide 20 MG eCW1 ( [facility]) Furosemide 20 MG Oral Tablet Furosemide 20 MG 01/31/2021 12:00:00 A M EDT 1.0 {tablet} active Furosemide 20 MG eCW1 ( [facility]) Furosemide 20 MG Oral Tablet Furosemide 20 MG 01/31/2021 12:00:00 A M EDT 1.0 {tablet} active Furosemide 20 MG eCW1 ( [facility]) Furosemide 20 MG Oral Tablet Furosemide 20 MG 01/31/2021 12:00:00 A M EDT 2.0 {tablet} active Furosemide 20 MG eCW1 ( [facility]) Furosemide 20 MG Oral Tablet Furosemide 20 MG 01/31/2021 12:00:00 A M EDT 1.0 {tablet} active Furosemide 20 MG eCW1 ( [facility]) Furosemide 20 MG Oral Tablet Furosemide 20 MG 01/31/2021 12:00:00 A M EDT 1.0 {tablet} active Furosemide 20 MG eCW1 ( [facility]) Furosemide 20 MG Oral Tablet Furosemide 20 MG 01/31/2021 12:00:00 A M EDT 1.0 {tablet} active Furosemide 20 MG eCW1 ( [facility]) apixaban 5 MG Oral Tablet [Eliquis] Eliquis 5 MG Eliquis 5 M G 01/31/2021 12:00:00 AM EDT active Eliquis 5 MG eCW1 ([facility]) Furosemide 20 MG Oral Tablet Furosemide 20 MG 01/31/2021 12:00:00 A M EDT 1.0 {tablet} active Furosemide 20 MG eCW1 ( [facility]) Furosemide 20 MG Oral Tablet Furosemide 20 MG 01/31/2021 12:00:00 A M EDT 1.0 {tablet} active Furosemide 20 MG eCW1 ( [facility]) Furosemide 20 MG Oral Tablet Furosemide 20 MG 01/31/2021 12:00:00 A M EDT 1.0 {tablet} active Furosemide 20 MG eCW1 ( [facility]) Furosemide 20 MG Oral Tablet Furosemide 20 MG 01/31/2021 12:00:00 A M EDT 1.0 {tablet} active Furosemide 20 MG eCW1 ( [facility]) apixaban 5 MG Oral Tablet [Eliquis] Eliquis 5 MG Eliquis 5 M G 01/31/2021 12:00:00 AM EDT active Eliquis 5 MG eCW1 ([facility]) Furosemide 20 MG Oral Tablet Furosemide 20 MG 01/31/2021 12:00:00 A M EDT 1.0 {tablet} active Furosemide 20 MG eCW1 ( [facility]) apixaban 5 MG Oral Tablet [Eliquis] Eliquis 5 MG Eliquis 5 M G 01/31/2021 12:00:00 AM EDT active Eliquis 5 MG eCW1 ([facility]) Furosemide 20 MG Oral Tablet Furosemide 20 MG 01/31/2021 12:00:00 A M EDT 1.0 {tablet} active Furosemide 20 MG eCW1 ( [facility]) Furosemide 20 MG Oral Tablet Furosemide 20 MG 01/31/2021 12:00:00 A M EDT 1.0 {tablet} active Furosemide 20 MG eCW1 ( [facility]) apixaban 5 MG Oral Tablet [Eliquis] Eliquis 5 MG Eliquis 5 M G 01/31/2021 12:00:00 AM EDT active Eliquis 5 MG eCW1 ([facility]) apixaban 5 MG Oral Tablet [Eliquis] Eliquis 5 MG Eliquis 5 M G 01/31/2021 12:00:00 AM EDT active Eliquis 5 MG eCW1 ([facility]) Furosemide 20 MG Oral Tablet Furosemide 20 MG 01/31/2021 12:00:00 A M EDT 1.0 {tablet} active Furosemide 20 MG eCW1 ( [facility]) apixaban 5 MG Oral Tablet [Eliquis] Eliquis 5 MG Eliquis 5 M G 01/31/2021 12:00:00 AM EDT active Eliquis 5 MG eCW1 ([facility]) Furosemide 20 MG Oral Tablet Furosemide 20 MG 01/31/2021 12:00:00 A M EDT 1.0 {tablet} active Furosemide 20 MG eCW1 ( [facility]) Furosemide 20 MG Oral Tablet Furosemide 20 MG 01/31/2021 12:00:00 A M EDT 1.0 {tablet} active Furosemide 20 MG eCW1 ( [facility]) Prednisone 20 MG Oral Tablet PredniSONE 20 MG PredniSONE 20 MG 01/31/2021 12:00:00 AM EDT 2.0 {tablet} active Pr edniSONE 20 MG eCW1 ([facility]) apixaban 5 MG Oral Tablet [Eliquis] Eliquis 5 MG Eliquis 5 M G 01/31/2021 12:00:00 AM EDT active Eliquis 5 MG eCW1 ([facility]) Furosemide 20 MG Oral Tablet Furosemide 20 MG 01/31/2021 12:00:00 A M EDT 1.0 {tablet} active Furosemide 20 MG eCW1 ( [facility]) apixaban 5 MG Oral Tablet [Eliquis] Eliquis 5 MG Eliquis 5 M G 01/31/2021 12:00:00 AM EDT active Eliquis 5 MG eCW1 ([facility]) apixaban 5 MG Oral Tablet [Eliquis] Eliquis 5 MG Eliquis 5 M G 01/31/2021 12:00:00 AM EDT active Eliquis 5 MG eCW1 ([facility]) Furosemide 20 MG Oral Tablet Furosemide 20 MG 01/31/2021 12:00:00 A M EDT 1.0 {tablet} active Furosemide 20 MG eCW1 ( [facility]) apixaban 5 MG Oral Tablet [Eliquis] Eliquis 5 MG Eliquis 5 M G 01/31/2021 12:00:00 AM EDT active Eliquis 5 MG eCW1 ([facility]) Furosemide 20 MG Oral Tablet Furosemide 20 MG 01/31/2021 12:00:00 A M EDT 1.0 {tablet} active Furosemide 20 MG eCW1 ( [facility]) apixaban 5 MG Oral Tablet [Eliquis] Eliquis 5 MG Eliquis 5 M G 01/31/2021 12:00:00 AM EDT active Eliquis 5 MG eCW1 ([facility]) Furosemide 20 MG Oral Tablet Furosemide 20 MG 01/31/2021 12:00:00 A M EDT 1.0 {tablet} active Furosemide 20 MG eCW1 ( [facility]) Furosemide 20 MG Oral Tablet Furosemide 20 MG 01/31/2021 12:00:00 A M EDT 2.0 {tablet} active Furosemide 20 MG eCW1 ( [facility]) apixaban 5 MG Oral Tablet [Eliquis] Eliquis 5 MG Eliquis 5 M G 01/31/2021 12:00:00 AM EDT active Eliquis 5 MG eCW1 ([facility]) apixaban 5 MG Oral Tablet [Eliquis] Eliquis 5 MG Eliquis 5 M G 01/31/2021 12:00:00 AM EDT active Eliquis 5 MG eCW1 ([facility]) apixaban 5 MG Oral Tablet [Eliquis] Eliquis 5 MG Eliquis 5 M G 01/31/2021 12:00:00 AM EDT active Eliquis 5 MG eCW1 ([facility]) Furosemide 20 MG Oral Tablet Furosemide 20 MG 01/31/2021 12:00:00 A M EDT 1.0 {tablet} active Furosemide 20 MG eCW1 ( [facility]) Furosemide 20 MG Oral Tablet Furosemide 20 MG 01/31/2021 12:00:00 A M EDT 1.0 {tablet} active Furosemide 20 MG eCW1 ( [facility]) apixaban 5 MG Oral Tablet [Eliquis] Eliquis 5 MG Eliquis 5 M G 01/31/2021 12:00:00 AM EDT active Eliquis 5 MG eCW1 ([facility]) Furosemide 20 MG Oral Tablet Furosemide 20 MG 01/31/2021 12:00:00 A M EDT 1.0 {tablet} active Furosemide 20 MG eCW1 ( [facility]) Furosemide 20 MG Oral Tablet Furosemide 20 MG 01/31/2021 12:00:00 A M EDT 1.0 {tablet} active Furosemide 20 MG eCW1 ( [facility]) apixaban 5 MG Oral Tablet [Eliquis] Eliquis 5 MG Eliquis 5 M G 01/31/2021 12:00:00 AM EDT active Eliquis 5 MG eCW1 ([facility]) Furosemide 20 MG Oral Tablet Furosemide 20 MG 01/31/2021 12:00:00 A M EDT 2.0 {tablet} active Furosemide 20 MG eCW1 ( [facility]) apixaban 5 MG Oral Tablet [Eliquis] Eliquis 5 MG Eliquis 5 M G 01/31/2021 12:00:00 AM EDT active Eliquis 5 MG eCW1 ([facility]) apixaban 5 MG Oral Tablet [Eliquis] Eliquis 5 MG Eliquis 5 M G 01/31/2021 12:00:00 AM EDT active Eliquis 5 MG eCW1 ([facility]) apixaban 5 MG Oral Tablet [Eliquis] Eliquis 5 MG Eliquis 5 M G 01/31/2021 12:00:00 AM EDT active Eliquis 5 MG eCW1 ([facility]) apixaban 5 MG Oral Tablet [Eliquis] Eliquis 5 MG Eliquis 5 M G 01/31/2021 12:00:00 AM EDT active Eliquis 5 MG eCW1 ([facility]) Doxycycline Monohydrate 100 MG Oral Capsule Doxycycline [place] hydrate 100 MG 01/31/2021 12:00:00 AM EDT 1.0 {capsule} active Doxycycline Monohydrate 100 MG eCW1 ([facility]) Furosemide 20 MG Oral Tablet Furosemide 20 MG 01/31/2021 12:00:00 A M EDT 1.0 {tablet} active Furosemide 20 MG eCW1 ( [facility]) Triamcinolone Acetonide 1 MG/ML Topical Cream Triamcin olone Acetonide 0.1 % Triamcinolone Acetonide 0.1 % 12/08/2020 12:00:00 AM EST 1.0 {appli cation} suspended Triamcinolone Acetonide 0 .1 % eCW1 ([facility]) Triamcinolone Acetonide 1 MG/ML Topical Cream Triamcin olone Acetonide 0.1 % Triamcinolone Acetonide 0.1 % 12/08/2020 12:00:00 AM EST 1.0 {appli cation} active Triamcinolone Acetonide 0 .1 % eCW1 ([facility]) Triamcinolone Acetonide 1 MG/ML Topical Cream Triamcin olone Acetonide 0.1 % Triamcinolone Acetonide 0.1 % 12/08/2020 12:00:00 AM EST 1.0 {appli cation} active Triamcinolone Acetonide 0 .1 % eCW1 ([facility]) Triamcinolone Acetonide 1 MG/ML Topical Cream Triamcin olone Acetonide 0.1 % Triamcinolone Acetonide 0.1 % 12/08/2020 12:00:00 AM EST 1.0 {appli cation} active Triamcinolone Acetonide 0 .1 % eCW1 ([facility]) Triamcinolone Acetonide 1 MG/ML Topical Cream Triamcin olone Acetonide 0.1 % Triamcinolone Acetonide 0.1 % 12/08/2020 12:00:00 AM EST 1.0 {appli cation} active Triamcinolone Acetonide 0 .1 % eCW1 ([facility]) Triamcinolone Acetonide 1 MG/ML Topical Cream Triamcin olone Acetonide 0.1 % Triamcinolone Acetonide 0.1 % 12/08/2020 12:00:00 AM EST 1.0 {appli cation} active Triamcinolone Acetonide 0 .1 % eCW1 ([facility]) Triamcinolone Acetonide 1 MG/ML Topical Cream Triamcin olone Acetonide 0.1 % Triamcinolone Acetonide 0.1 % 12/08/2020 12:00:00 AM EST 1.0 {appli cation} active Triamcinolone Acetonide 0 .1 % eCW1 ([facility]) Triamcinolone Acetonide 1 MG/ML Topical Cream Triamcin olone Acetonide 0.1 % Triamcinolone Acetonide 0.1 % 12/08/2020 12:00:00 AM EST 1.0 {appli cation} suspended Triamcinolone Acetonide 0 .1 % eCW1 ([facility]) Triamcinolone Acetonide 1 MG/ML Topical Cream Triamcin olone Acetonide 0.1 % Triamcinolone Acetonide 0.1 % 12/08/2020 12:00:00 AM EST 1.0 {appli cation} active Triamcinolone Acetonide 0 .1 % eCW1 ([facility]) Triamcinolone Acetonide 1 MG/ML Topical Cream Triamcin olone Acetonide 0.1 % Triamcinolone Acetonide 0.1 % 12/08/2020 12:00:00 AM EST 1.0 {appli cation} active Triamcinolone Acetonide 0 .1 % eCW1 ([facility]) Triamcinolone Acetonide 1 MG/ML Topical Cream Triamcin olone Acetonide 0.1 % Triamcinolone Acetonide 0.1 % 12/08/2020 12:00:00 AM EST 1.0 {appli cation} active Triamcinolone Acetonide 0 .1 % eCW1 ([facility]) Triamcinolone Acetonide 1 MG/ML Topical Cream Triamcin olone Acetonide 0.1 % Triamcinolone Acetonide 0.1 % 12/08/2020 12:00:00 AM EST 1.0 {appli cation} active Triamcinolone Acetonide 0 .1 % eCW1 ([facility]) Triamcinolone Acetonide 1 MG/ML Topical Cream Triamcin olone Acetonide 0.1 % Triamcinolone Acetonide 0.1 % 12/08/2020 12:00:00 AM EST 1.0 {appli cation} active Triamcinolone Acetonide 0 .1 % eCW1 ([facility]) Triamcinolone Acetonide 1 MG/ML Topical Cream Triamcin olone Acetonide 0.1 % Triamcinolone Acetonide 0.1 % 12/08/2020 12:00:00 AM EST 1.0 {appli cation} active Triamcinolone Acetonide 0 .1 % eCW1 ([facility]) Triamcinolone Acetonide 1 MG/ML Topical Cream Triamcin olone Acetonide 0.1 % Triamcinolone Acetonide 0.1 % 12/08/2020 12:00:00 AM EST 1.0 {appli cation} active Triamcinolone Acetonide 0 .1 % eCW1 ([facility]) Triamcinolone Acetonide 1 MG/ML Topical Cream Triamcin olone Acetonide 0.1 % Triamcinolone Acetonide 0.1 % 12/08/2020 12:00:00 AM EST 1.0 {appli cation} active Triamcinolone Acetonide 0 .1 % eCW1 ([facility]) Triamcinolone Acetonide 1 MG/ML Topical Cream Triamcin olone Acetonide 0.1 % Triamcinolone Acetonide 0.1 % 12/08/2020 12:00:00 AM EST 1.0 {appli cation} active Triamcinolone Acetonide 0 .1 % eCW1 ([facility]) Triamcinolone Acetonide 1 MG/ML Topical Cream Triamcin olone Acetonide 0.1 % Triamcinolone Acetonide 0.1 % 12/08/2020 12:00:00 AM EST 1.0 {appli cation} active Triamcinolone Acetonide 0 .1 % eCW1 ([facility]) Triamcinolone Acetonide 1 MG/ML Topical Cream Triamcin olone Acetonide 0.1 % Triamcinolone Acetonide 0.1 % 12/08/2020 12:00:00 AM EST 1.0 {appli cation} active Triamcinolone Acetonide 0 .1 % eCW1 ([facility]) Triamcinolone Acetonide 1 MG/ML Topical Cream Triamcin olone Acetonide 0.1 % Triamcinolone Acetonide 0.1 % 12/08/2020 12:00:00 AM EST 1.0 {appli cation} suspended Triamcinolone Acetonide 0 .1 % eCW1 ([facility]) Triamcinolone Acetonide 1 MG/ML Topical Cream Triamcin olone Acetonide 0.1 % Triamcinolone Acetonide 0.1 % 12/08/2020 12:00:00 AM EST 1.0 {appli cation} active Triamcinolone Acetonide 0 .1 % eCW1 ([facility]) Triamcinolone Acetonide 1 MG/ML Topical Cream Triamcin olone Acetonide 0.1 % Triamcinolone Acetonide 0.1 % 12/08/2020 12:00:00 AM EST 1.0 {appli cation} active Triamcinolone Acetonide 0 .1 % eCW1 ([facility]) Triamcinolone Acetonide 1 MG/ML Topical Cream Triamcin olone Acetonide 0.1 % Triamcinolone Acetonide 0.1 % 12/08/2020 12:00:00 AM EST 1.0 {appli cation} active Triamcinolone Acetonide 0 .1 % eCW1 ([facility]) Triamcinolone Acetonide 1 MG/ML Topical Cream Triamcin olone Acetonide 0.1 % Triamcinolone Acetonide 0.1 % 12/08/2020 12:00:00 AM EST 1.0 {appli cation} suspended Triamcinolone Acetonide 0 .1 % eCW1 ([facility]) Triamcinolone Acetonide 1 MG/ML Topical Cream Triamcin olone Acetonide 0.1 % Triamcinolone Acetonide 0.1 % 12/08/2020 12:00:00 AM EST 1.0 {appli cation} active Triamcinolone Acetonide 0 .1 % eCW1 ([facility]) Triamcinolone Acetonide 1 MG/ML Topical Cream Triamcin olone Acetonide 0.1 % Triamcinolone Acetonide 0.1 % 12/08/2020 12:00:00 AM EST 1.0 {appli cation} active Triamcinolone Acetonide 0 .1 % eCW1 ([facility]) Triamcinolone Acetonide 1 MG/ML Topical Cream Triamcin olone Acetonide 0.1 % Triamcinolone Acetonide 0.1 % 12/08/2020 12:00:00 AM EST 1.0 {appli cation} active Triamcinolone Acetonide 0 .1 % eCW1 ([facility]) Triamcinolone Acetonide 1 MG/ML Topical Cream Triamcin olone Acetonide 0.1 % Triamcinolone Acetonide 0.1 % 12/08/2020 12:00:00 AM EST 1.0 {appli cation} active Triamcinolone Acetonide 0 .1 % eCW1 ([facility]) Triamcinolone Acetonide 1 MG/ML Topical Cream Triamcin olone Acetonide 0.1 % Triamcinolone Acetonide 0.1 % 12/08/2020 12:00:00 AM EST 1.0 {appli cation} active Triamcinolone Acetonide 0 .1 % eCW1 ([facility]) Triamcinolone Acetonide 1 MG/ML Topical Cream Triamcin olone Acetonide 0.1 % Triamcinolone Acetonide 0.1 % 12/08/2020 12:00:00 AM EST 1.0 {appli cation} active Triamcinolone Acetonide 0 .1 % eCW1 ([facility]) Triamcinolone Acetonide 1 MG/ML Topical Cream Triamcin olone Acetonide 0.1 % Triamcinolone Acetonide 0.1 % 12/08/2020 12:00:00 AM EST 1.0 {appli cation} active Triamcinolone Acetonide 0 .1 % eCW1 ([facility]) Triamcinolone Acetonide 1 MG/ML Topical Cream Triamcin olone Acetonide 0.1 % Triamcinolone Acetonide 0.1 % 12/08/2020 12:00:00 AM EST 1.0 {appli cation} suspended Triamcinolone Acetonide 0 .1 % eCW1 ([facility]) Triamcinolone Acetonide 1 MG/ML Topical Cream Triamcin olone Acetonide 0.1 % Triamcinolone Acetonide 0.1 % 12/08/2020 12:00:00 AM EST 1.0 {appli cation} suspended Triamcinolone Acetonide 0 .1 % eCW1 ([facility]) Triamcinolone Acetonide 1 MG/ML Topical Cream Triamcin olone Acetonide 0.1 % Triamcinolone Acetonide 0.1 % 12/08/2020 12:00:00 AM EST 1.0 {appli cation} active Triamcinolone Acetonide 0 .1 % eCW1 ([facility]) Triamcinolone Acetonide 1 MG/ML Topical Cream Triamcin olone Acetonide 0.1 % Triamcinolone Acetonide 0.1 % 12/08/2020 12:00:00 AM EST 1.0 {appli cation} active Triamcinolone Acetonide 0 .1 % eCW1 ([facility]) Mirtazapine 15 MG Oral Tablet [Remeron] Remeron 15 MG Remero n 15 MG 11/16/2020 12:00:00 AM EST 1.0 {tablet_at_bedtime} active Remeron 15 MG eCW1 ([facility]) Mirtazapine 15 MG Oral Tablet [Remeron] Remeron 15 MG Remero n 15 MG 11/16/2020 12:00:00 AM EST 1.0 {tablet_at_bedtime} active Remeron 15 MG eCW1 ([facility]) Mirtazapine 15 MG Oral Tablet [Remeron] Remeron 15 MG Remero n 15 MG 11/16/2020 12:00:00 AM EST 1.0 {tablet_at_bedtime} active Remeron 15 MG eCW1 ([facility]) Mirtazapine 15 MG Oral Tablet [Remeron] Remeron 15 MG Remero n 15 MG 11/16/2020 12:00:00 AM EST 1.0 {tablet_at_bedtime} active Remeron 15 MG eCW1 ([facility]) Mirtazapine 15 MG Oral Tablet [Remeron] Remeron 15 MG Remero n 15 MG 11/16/2020 12:00:00 AM EST 1.0 {tablet_at_bedtime} active Remeron 15 MG eCW1 ([facility]) Mirtazapine 15 MG Oral Tablet [Remeron] Remeron 15 MG Remero n 15 MG 11/16/2020 12:00:00 AM EST 1.0 {tablet_at_bedtime} active Remeron 15 MG eCW1 ([facility]) Mirtazapine 15 MG Oral Tablet [Remeron] Remeron 15 MG Remero n 15 MG 11/16/2020 12:00:00 AM EST 1.0 {tablet_at_bedtime} active Remeron 15 MG eCW1 ([facility]) Mirtazapine 15 MG Oral Tablet [Remeron] Remeron 15 MG Remero n 15 MG 11/16/2020 12:00:00 AM EST 1.0 {tablet_at_bedtime} active Remeron 15 MG eCW1 ([facility]) Mirtazapine 15 MG Oral Tablet [Remeron] Remeron 15 MG Remero n 15 MG 11/16/2020 12:00:00 AM EST 1.0 {tablet_at_bedtime} active Remeron 15 MG eCW1 ([facility]) Mirtazapine 15 MG Oral Tablet [Remeron] Remeron 15 MG Remero n 15 MG 11/16/2020 12:00:00 AM EST 1.0 {tablet_at_bedtime} active Remeron 15 MG eCW1 ([facility]) Mirtazapine 15 MG Oral Tablet [Remeron] Remeron 15 MG Remero n 15 MG 11/16/2020 12:00:00 AM EST 1.0 {tablet_at_bedtime} active Remeron 15 MG eCW1 ([facility]) Mirtazapine 15 MG Oral Tablet [Remeron] Remeron 15 MG Remero n 15 MG 11/16/2020 12:00:00 AM EST 1.0 {tablet_at_bedtime} active Remeron 15 MG eCW1 ([facility]) Mirtazapine 15 MG Oral Tablet [Remeron] Remeron 15 MG Remero n 15 MG 11/16/2020 12:00:00 AM EST 1.0 {tablet_at_bedtime} active Remeron 15 MG eCW1 ([facility]) Mirtazapine 15 MG Oral Tablet [Remeron] Remeron 15 MG Remero n 15 MG 11/16/2020 12:00:00 AM EST 1.0 {tablet_at_bedtime} active Remeron 15 MG eCW1 ([facility]) Mirtazapine 15 MG Oral Tablet [Remeron] Remeron 15 MG Remero n 15 MG 11/16/2020 12:00:00 AM EST 1.0 {tablet_at_bedtime} active Remeron 15 MG eCW1 ([facility]) Mirtazapine 15 MG Oral Tablet [Remeron] Remeron 15 MG Remero n 15 MG 11/16/2020 12:00:00 AM EST 1.0 {tablet_at_bedtime} active Remeron 15 MG eCW1 ([facility]) Mirtazapine 15 MG Oral Tablet [Remeron] Remeron 15 MG Remero n 15 MG 11/16/2020 12:00:00 AM EST 1.0 {tablet_at_bedtime} active Remeron 15 MG eCW1 ([facility]) Mirtazapine 15 MG Oral Tablet [Remeron] Remeron 15 MG Remero n 15 MG 11/16/2020 12:00:00 AM EST 1.0 {tablet_at_bedtime} active Remeron 15 MG eCW1 ([facility]) Mirtazapine 15 MG Oral Tablet [Remeron] Remeron 15 MG Remero n 15 MG 11/16/2020 12:00:00 AM EST 1.0 {tablet_at_bedtime} active Remeron 15 MG eCW1 ([facility]) Mirtazapine 15 MG Oral Tablet [Remeron] Remeron 15 MG Remero n 15 MG 11/16/2020 12:00:00 AM EST 1.0 {tablet_at_bedtime} active Remeron 15 MG eCW1 ([facility]) Mirtazapine 15 MG Oral Tablet [Remeron] Remeron 15 MG Remero n 15 MG 11/16/2020 12:00:00 AM EST 1.0 {tablet_at_bedtime} active Remeron 15 MG eCW1 ([facility]) Mirtazapine 15 MG Oral Tablet [Remeron] Remeron 15 MG Remero n 15 MG 11/16/2020 12:00:00 AM EST 1.0 {tablet_at_bedtime} active Remeron 15 MG eCW1 ([facility]) Mirtazapine 15 MG Oral Tablet [Remeron] Remeron 15 MG Remero n 15 MG 11/16/2020 12:00:00 AM EST 1.0 {tablet_at_bedtime} active Remeron 15 MG eCW1 ([facility]) Mirtazapine 15 MG Oral Tablet [Remeron] Remeron 15 MG Remero n 15 MG 11/16/2020 12:00:00 AM EST 1.0 {tablet_at_bedtime} active Remeron 15 MG eCW1 ([facility]) Mirtazapine 15 MG Oral Tablet [Remeron] Remeron 15 MG Remero n 15 MG 11/16/2020 12:00:00 AM EST 1.0 {tablet_at_bedtime} active Remeron 15 MG eCW1 ([facility]) Mirtazapine 15 MG Oral Tablet [Remeron] Remeron 15 MG Remero n 15 MG 11/16/2020 12:00:00 AM EST 1.0 {tablet_at_bedtime} active Remeron 15 MG eCW1 ([facility]) Mirtazapine 15 MG Oral Tablet [Remeron] Remeron 15 MG Remero n 15 MG 11/16/2020 12:00:00 AM EST 1.0 {tablet_at_bedtime} active Remeron 15 MG eCW1 ([facility]) Mirtazapine 15 MG Oral Tablet [Remeron] Remeron 15 MG Remero n 15 MG 11/16/2020 12:00:00 AM EST 1.0 {tablet_at_bedtime} active Remeron 15 MG eCW1 ([facility]) Mirtazapine 15 MG Oral Tablet [Remeron] Remeron 15 MG Remero n 15 MG 11/16/2020 12:00:00 AM EST 1.0 {tablet_at_bedtime} active Remeron 15 MG eCW1 ([facility]) Mirtazapine 15 MG Oral Tablet [Remeron] Remeron 15 MG Remero n 15 MG 11/16/2020 12:00:00 AM EST 1.0 {tablet_at_bedtime} active Remeron 15 MG eCW1 ([facility]) Mirtazapine 15 MG Oral Tablet [Remeron] Remeron 15 MG Remero n 15 MG 11/16/2020 12:00:00 AM EST 1.0 {tablet_at_bedtime} active Remeron 15 MG eCW1 ([facility]) Mirtazapine 15 MG Oral Tablet [Remeron] Remeron 15 MG Remero n 15 MG 11/16/2020 12:00:00 AM EST 1.0 {tablet_at_bedtime} active Remeron 15 MG eCW1 ([facility]) Mirtazapine 15 MG Oral Tablet [Remeron] Remeron 15 MG Remero n 15 MG 11/16/2020 12:00:00 AM EST 1.0 {tablet_at_bedtime} active Remeron 15 MG eCW1 ([facility]) Mirtazapine 15 MG Oral Tablet [Remeron] Remeron 15 MG Remero n 15 MG 11/16/2020 12:00:00 AM EST 1.0 {tablet_at_bedtime} active Remeron 15 MG eCW1 ([facility]) Mirtazapine 15 MG Oral Tablet [Remeron] Remeron 15 MG Remero n 15 MG 11/16/2020 12:00:00 AM EST 1.0 {tablet_at_bedtime} active Remeron 15 MG eCW1 ([facility]) Mirtazapine 15 MG Oral Tablet [Remeron] Remeron 15 MG Remero n 15 MG 11/16/2020 12:00:00 AM EST 1.0 {tablet_at_bedtime} active Remeron 15 MG eCW1 ([facility]) Mirtazapine 15 MG Oral Tablet [Remeron] Remeron 15 MG Remero n 15 MG 11/16/2020 12:00:00 AM EST 1.0 {tablet_at_bedtime} active Remeron 15 MG eCW1 ([facility]) Mirtazapine 15 MG Oral Tablet [Remeron] Remeron 15 MG Remero n 15 MG 11/16/2020 12:00:00 AM EST 1.0 {tablet_at_bedtime} active Remeron 15 MG eCW1 ([facility]) Mirtazapine 15 MG Oral Tablet [Remeron] Remeron 15 MG Remero n 15 MG 11/16/2020 12:00:00 AM EST 1.0 {tablet_at_bedtime} active Remeron 15 MG eCW1 ([facility]) Mirtazapine 15 MG Oral Tablet [Remeron] Remeron 15 MG Remero n 15 MG 11/16/2020 12:00:00 AM EST 1.0 {tablet_at_bedtime} active Remeron 15 MG eCW1 ([facility]) Mirtazapine 15 MG Oral Tablet [Remeron] Remeron 15 MG Remero n 15 MG 11/16/2020 12:00:00 AM EST 1.0 {tablet_at_bedtime} active Remeron 15 MG eCW1 ([facility]) Foam Dressing Bordered - Foam Dressing Bordered - 11/09/2020 12:00: 00 AM EST suspended Foam Dressing Bordered - eCW1 ([facility]) Foam Dressing Bordered - Foam Dressing Bordered - 11/09/2020 12:00: 00 AM EST active Foam Dressing Bordered - eCW1 ([facility]) Foam Dressing Bordered - Foam Dressing Bordered - 11/09/2020 12:00: 00 AM EST suspended Foam Dressing Bordered - eCW1 ([facility]) Foam Dressing Bordered - Foam Dressing Bordered - 11/09/2020 12:00: 00 AM EST suspended Foam Dressing Bordered - eCW1 ([facility]) Foam Dressing Bordered - Foam Dressing Bordered - 11/09/2020 12:00: 00 AM EST suspended Foam Dressing Bordered - eCW1 ([facility]) Foam Dressing Bordered - Foam Dressing Bordered - 11/09/2020 12:00: 00 AM EST active Foam Dressing Bordered - eCW1 ([facility]) Foam Dressing Bordered - Foam Dressing Bordered - 11/09/2020 12:00: 00 AM EST suspended Foam Dressing Bordered - eCW1 ([facility]) Foam Dressing Bordered - Foam Dressing Bordered - 11/09/2020 12:00: 00 AM EST active Foam Dressing Bordered - eCW1 ([facility]) Foam Dressing Bordered - Foam Dressing Bordered - 11/09/2020 12:00: 00 AM EST suspended Foam Dressing Bordered - eCW1 ([facility]) Foam Dressing Bordered - Foam Dressing Bordered - 11/09/2020 12:00: 00 AM EST active Foam Dressing Bordered - eCW1 ([facility]) Foam Dressing Bordered - Foam Dressing Bordered - 11/09/2020 12:00: 00 AM EST active Foam Dressing Bordered - eCW1 ([facility]) Foam Dressing Bordered - Foam Dressing Bordered - 11/09/2020 12:00: 00 AM EST active Foam Dressing Bordered - eCW1 ([facility]) Foam Dressing Bordered - Foam Dressing Bordered - 11/09/2020 12:00: 00 AM EST active Foam Dressing Bordered - eCW1 ([facility]) Foam Dressing Bordered - Foam Dressing Bordered - 11/09/2020 12:00: 00 AM EST active Foam Dressing Bordered - eCW1 ([facility]) Foam Dressing Bordered - Foam Dressing Bordered - 11/09/2020 12:00: 00 AM EST active Foam Dressing Bordered - eCW1 ([facility]) Foam Dressing Bordered - Foam Dressing Bordered - 11/09/2020 12:00: 00 AM EST suspended Foam Dressing Bordered - eCW1 ([facility]) Foam Dressing Bordered - Foam Dressing Bordered - 11/09/2020 12:00: 00 AM EST active Foam Dressing Bordered - eCW1 ([facility]) Foam Dressing Bordered - Foam Dressing Bordered - 11/09/2020 12:00: 00 AM EST active Foam Dressing Bordered - eCW1 ([facility]) Foam Dressing Bordered - Foam Dressing Bordered - 11/09/2020 12:00: 00 AM EST suspended Foam Dressing Bordered - eCW1 ([facility]) Foam Dressing Bordered - Foam Dressing Bordered - 11/09/2020 12:00: 00 AM EST active Foam Dressing Bordered - eCW1 ([facility]) Foam Dressing Bordered - Foam Dressing Bordered - 11/09/2020 12:00: 00 AM EST suspended Foam Dressing Bordered - eCW1 ([facility]) Foam Dressing Bordered - Foam Dressing Bordered - 11/09/2020 12:00: 00 AM EST active Foam Dressing Bordered - eCW1 ([facility]) Foam Dressing Bordered - Foam Dressing Bordered - 11/09/2020 12:00: 00 AM EST suspended Foam Dressing Bordered - eCW1 ([facility]) Foam Dressing Bordered - Foam Dressing Bordered - 11/09/2020 12:00: 00 AM EST suspended Foam Dressing Bordered - eCW1 ([facility]) Foam Dressing Bordered - Foam Dressing Bordered - 11/09/2020 12:00: 00 AM EST active Foam Dressing Bordered - eCW1 ([facility]) Foam Dressing Bordered - Foam Dressing Bordered - 11/09/2020 12:00: 00 AM EST active Foam Dressing Bordered - eCW1 ([facility]) Foam Dressing Bordered - Foam Dressing Bordered - 11/09/2020 12:00: 00 AM EST suspended Foam Dressing Bordered - eCW1 ([facility]) Foam Dressing Bordered - Foam Dressing Bordered - 11/09/2020 12:00: 00 AM EST active Foam Dressing Bordered - eCW1 ([facility]) Foam Dressing Bordered - Foam Dressing Bordered - 11/09/2020 12:00: 00 AM EST active Foam Dressing Bordered - eCW1 ([facility]) Foam Dressing Bordered - Foam Dressing Bordered - 11/09/2020 12:00: 00 AM EST suspended Foam Dressing Bordered - eCW1 ([facility]) Foam Dressing Bordered - Foam Dressing Bordered - 11/09/2020 12:00: 00 AM EST active Foam Dressing Bordered - eCW1 ([facility]) Foam Dressing Bordered - Foam Dressing Bordered - 11/09/2020 12:00: 00 AM EST active Foam Dressing Bordered - eCW1 ([facility]) Foam Dressing Bordered - Foam Dressing Bordered - 11/09/2020 12:00: 00 AM EST active Foam Dressing Bordered - eCW1 ([facility]) Foam Dressing Bordered - Foam Dressing Bordered - 11/09/2020 12:00: 00 AM EST active Foam Dressing Bordered - eCW1 ([facility]) Foam Dressing Bordered - Foam Dressing Bordered - 11/09/2020 12:00: 00 AM EST active Foam Dressing Bordered - eCW1 ([facility]) Foam Dressing Bordered - Foam Dressing Bordered - 11/09/2020 12:00: 00 AM EST active Foam Dressing Bordered - eCW1 ([facility]) Foam Dressing Bordered - Foam Dressing Bordered - 11/09/2020 12:00: 00 AM EST active Foam Dressing Bordered - eCW1 ([facility]) Foam Dressing Bordered - Foam Dressing Bordered - 11/09/2020 12:00: 00 AM EST active Foam Dressing Bordered - eCW1 ([facility]) Foam Dressing Bordered - Foam Dressing Bordered - 11/09/2020 12:00: 00 AM EST active Foam Dressing Bordered - eCW1 ([facility]) Foam Dressing Bordered - Foam Dressing Bordered - 11/09/2020 12:00: 00 AM EST suspended Foam Dressing Bordered - eCW1 ([facility]) Foam Dressing Bordered - Foam Dressing Bordered - 11/09/2020 12:00: 00 AM EST active Foam Dressing Bordered - eCW1 ([facility]) Foam Dressing Bordered - Foam Dressing Bordered - 11/09/2020 12:00: 00 AM EST active Foam Dressing Bordered - eCW1 ([facility]) Foam Dressing Bordered - Foam Dressing Bordered - 11/09/2020 12:00: 00 AM EST suspended Foam Dressing Bordered - eCW1 ([facility]) Foam Dressing Bordered - Foam Dressing Bordered - 11/09/2020 12:00: 00 AM EST active Foam Dressing Bordered - eCW1 ([facility]) Foam Dressing Bordered - Foam Dressing Bordered - 11/09/2020 12:00: 00 AM EST suspended Foam Dressing Bordered - eCW1 ([facility]) Acetaminophen 300 MG / Codeine Phosphate 30 MG Oral Ta blet Acetaminophen-Codeine #3 09/29/2020 12:00:00 AM EST active MEDENT ([facility]) Trelegy Ellipta Trelegy Ellipta 08/11/2020 12:00:00 AM EST ORAL completed MEDENT ([facility] ) Ergocalciferol 76443 UNT Oral Capsule Vi tamin D (Ergocalciferol) 1.25 MG (82358 UT) Vitamin D (Ergocalciferol) 1.25 MG (86317 UT) 08/03/2020 12:00:0 0 AM EST 1.0 {capsule} active Vitamin D (Ergocal ciferol) 1.25 MG (75793 UT) eC1 ([facility]) Ergocalciferol 76904 UNT Oral Capsule Vi tamin D (Ergocalciferol) 1.25 MG (49312 UT) Vitamin D (Ergocalciferol) 1.25 MG (62604 UT) 08/03/2020 12:00:0 0 AM EST 1.0 {capsule} active Vitamin D (Ergocal ciferol) 1.25 MG (50401 UT) [facility] ([facility]) Ergocalciferol 10155 UNT Oral Capsule Vi tamin D (Ergocalciferol) 1.25 MG (42861 UT) Vitamin D (Ergocalciferol) 1.25 MG (91080 UT) 08/03/2020 12:00:0 0 AM EST 1.0 {capsule} active Vitamin D (Ergocal ciferol) 1.25 MG (61804 UT) eC ([facility]) Ergocalciferol 51666 UNT Oral Capsule Vi tamin D (Ergocalciferol) 1.25 MG (33716 UT) Vitamin D (Ergocalciferol) 1.25 MG (95018 UT) 08/03/2020 12:00:0 0 AM EST 1.0 {capsule} active Vitamin D (Ergocal ciferol) 1.25 MG (75649 UT) eC1 ([facility]) Ergocalciferol 46405 UNT Oral Capsule Vi tamin D (Ergocalciferol) 1.25 MG (57867 UT) Vitamin D (Ergocalciferol) 1.25 MG (32809 UT) 08/03/2020 12:00:0 0 AM EST 1.0 {capsule} active Vitamin D (Ergocal ciferol) 1.25 MG (09042 UT) [facility] ([facility]) Ergocalciferol 41038 UNT Oral Capsule Vi tamin D (Ergocalciferol) 1.25 MG (49211 UT) Vitamin D (Ergocalciferol) 1.25 MG (12971 UT) 08/03/2020 12:00:0 0 AM EST 1.0 {capsule} active Vitamin D (Ergocal ciferol) 1.25 MG (20217 UT) [facility] ([facility]) Ergocalciferol 72138 UNT Oral Capsule Vi tamin D (Ergocalciferol) 1.25 MG (77223 UT) Vitamin D (Ergocalciferol) 1.25 MG (96553 UT) 08/03/2020 12:00:0 0 AM EST 1.0 {capsule} active Vitamin D (Ergocal ciferol) 1.25 MG (16329 UT) [facility] ([facility]) Ergocalciferol 21053 UNT Oral Capsule Vi tamin D (Ergocalciferol) 1.25 MG (88262 UT) Vitamin D (Ergocalciferol) 1.25 MG (37196 UT) 08/03/2020 12:00:0 0 AM EST 1.0 {capsule} active Vitamin D (Ergocal ciferol) 1.25 MG (89304 UT) [facility] ([facility]) Ergocalciferol 08317 UNT Oral Capsule Vi tamin D (Ergocalciferol) 1.25 MG (27990 UT) Vitamin D (Ergocalciferol) 1.25 MG (67445 UT) 08/03/2020 12:00:0 0 AM EST 1.0 {capsule} active Vitamin D (Ergocal ciferol) 1.25 MG (41088 UT) [facility] ([facility]) Ergocalciferol 44608 UNT Oral Capsule Vi tamin D (Ergocalciferol) 1.25 MG (46790 UT) Vitamin D (Ergocalciferol) 1.25 MG (29448 UT) 08/03/2020 12:00:0 0 AM EST 1.0 {capsule} active Vitamin D (Ergocal ciferol) 1.25 MG (33658 UT) [facility] ([facility]) Ergocalciferol 05331 UNT Oral Capsule Vi tamin D (Ergocalciferol) 1.25 MG (51365 UT) Vitamin D (Ergocalciferol) 1.25 MG (94634 UT) 08/03/2020 12:00:0 0 AM EST 1.0 {capsule} active Vitamin D (Ergocal ciferol) 1.25 MG (95907 UT) [facility] ([facility]) Ergocalciferol 19297 UNT Oral Capsule Vi tamin D (Ergocalciferol) 1.25 MG (42999 UT) Vitamin D (Ergocalciferol) 1.25 MG (29209 UT) 08/03/2020 12:00:0 0 AM EST 1.0 {capsule} active Vitamin D (Ergocal ciferol) 1.25 MG (04770 UT) [facility] ([facility]) Ergocalciferol 81559 UNT Oral Capsule Vi tamin D (Ergocalciferol) 1.25 MG (31874 UT) Vitamin D (Ergocalciferol) 1.25 MG (59746 UT) 08/03/2020 12:00:0 0 AM EST 1.0 {capsule} active Vitamin D (Ergocal ciferol) 1.25 MG (25390 UT) [facility] ([facility]) Ergocalciferol 62722 UNT Oral Capsule Vi tamin D (Ergocalciferol) 1.25 MG (25895 UT) Vitamin D (Ergocalciferol) 1.25 MG (94408 UT) 08/03/2020 12:00:0 0 AM EST 1.0 {capsule} active Vitamin D (Ergocal ciferol) 1.25 MG (35987 UT) [facility] ([facility]) Ergocalciferol 83082 UNT Oral Capsule Vi tamin D (Ergocalciferol) 1.25 MG (15518 UT) Vitamin D (Ergocalciferol) 1.25 MG (31130 UT) 08/03/2020 12:00:0 0 AM EST 1.0 {capsule} active Vitamin D (Ergocal ciferol) 1.25 MG (21821 UT) eCW1 ([facility]) Ergocalciferol 35328 UNT Oral Capsule Vi tamin D (Ergocalciferol) 1.25 MG (75432 UT) Vitamin D (Ergocalciferol) 1.25 MG (80282 UT) 08/03/2020 12:00:0 0 AM EST 1.0 {capsule} active Vitamin D (Ergocal ciferol) 1.25 MG (40068 UT) eCW1 ([facility]) Ergocalciferol 13290 UNT Oral Capsule Vi tamin D (Ergocalciferol) 1.25 MG (07255 UT) Vitamin D (Ergocalciferol) 1.25 MG (69305 UT) 08/03/2020 12:00:0 0 AM EST 1.0 {capsule} active Vitamin D (Ergocal ciferol) 1.25 MG (18289 UT) eCW1 ([facility]) Ergocalciferol 69759 UNT Oral Capsule Vi tamin D (Ergocalciferol) 1.25 MG (05201 UT) Vitamin D (Ergocalciferol) 1.25 MG (69958 UT) 08/03/2020 12:00:0 0 AM EST 1.0 {capsule} active Vitamin D (Ergocal ciferol) 1.25 MG (41838 UT) [facility] ([facility]) Insurance Providers Payer name Policy type / Coverage type Policy ID Covered libertarian ID Covered libertarian's relationship to melendez Policy Melendez Plan Information MEDICARE 4 [id number] A BC MEDICARE 11 [id number] Tod[employer] Commercial [id number] Self [employer] Options Medigap Part B [id number] Self [id number] [employer] Medigap Part B [id number] Self [id number] Today's Options Medicare Commercial [id number] Self [id number] Today's Options Medicare Commercial [id number] Self [id number] Well[employer] Commercial [id number] Self [id number] Well[employer] Commercial [id number] Self [id number] WELLCARE [id number] SP [id number] WELLCARE MEDICARE [id number] WELLCARE MEDICARE [id number] Maya [id number] [facility] Health Plans [place]. [id number] Maya f [id number] TODAYS OPTIONS [id number] SP [id number] ANSI-Medicare Part B [id number] ANSI-Medicare Part B [id number] ANSI-Medicare Part B [id number] ANSI-Medicare Part B [id number] Today's Option Medicare Commercial [id number] Self [id number] TOD[employer]YS OPTIONS [id number] SP [id number] Today's Options Medicare Commercial [id number] Self TOD[employer]YS OPTIONS/[place] O [id number] S [id number] WELLCARE HEALTH PLAN [id number] SP [id number] [facility] [id number] TOD[employer]YS OPTIONS [id number] SP [id number] WELLCARE O [id number] S [id number] WELLCARE HEALTH PLAN [id number] SP [id number] MEDICARE BLUE PPO 306 [id number] SP [id number] [facility] [id number] SELF PAY 2 UNAVAILABLE 1 UNAVAILA BLE [id number] A WELLCARE [id number] SP [id number] WELLCARE -O/P [id number] 18 [id number] WELLCARE -I/P [id number] 18 [id number] WELLCARE O [id number] S [id number] WELLCARE [facility]/P [id number] 18 [id number] WELLCARE [id number] SP [id number] TODAYS OPTIONS [id number] SP [id number] ANSI-Medicare Part B [id number] [employer] One[employer] [id number] Self [id number] WELLCARE [id number] SP [id number] [employer] [id number] Self [id number] [employer] Commercial [id number] Self [id number] Problems, Conditions, and Diagnoses Code Display Name Description Problem Type Effective Dates Data Source(s) R00.0 Tachycardia, unspecified Tachycardia, unspecified Diag nosis 06/08/2021 10:03:55 AM EDT [facility] 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 I10 Essential (primary) hypertension Essential (primary) h ypertension Diagnosis 05/25/2021 12:38:53 PM EDT [facility] I50.32 Chronic diastolic (congestive) heart memo lure Chronic diastolic (congestive) heart memo Diagnosis 05/25/2021 12:38:53 PM EDT [facility] I50.9 Heart failure, unspecified Heart failure, unspecified Diagnosis 05/25/2021 12:38:53 PM EDT [facility] I10 Essential (primary) hypertension Essential (primary) h ypertension Diagnosis 02/05/2021 11:28:00 AM EDT [facility] E119 Type 2 diabetes mellitus without complic ations Type 2 diabetes mellitus without complications Diagnosis 02/05/2021 11:28:00 AM EDT [facility] I509 Heart failure, unspecified Heart failure, unspecified Diagnosis 02/05/2021 11:28:00 AM EDT [facility] J449 Chronic obstructive pulmonary disease, u nspecified Chronic obstructive pulmonary disease, unspecified Diagnosis 02/05/2021 11:28:00 AM EDT [facility] R0600 Dyspnea, unspecified Dyspnea, unspecified Diagnosis 02/05/2021 11:28:00 AM EDT [facility] Z7982 terminal block assembler (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) use of aspirin terminal block assembler (cu rrent) use of aspirin Diagnosis 02/05/2021 11:28:00 AM Health system [id number] Personal history of other venous thrombo sis and embolism Personal history of other venous thrombosis and embolism Diagnosis 02/05/2021 11:28:00 AM Health system Z7901 terminal block assembler (current) use of anticoagulant s FPC (current) use of anticoagulants Diagnosis 02/05/2021 11:28:00 AM EDT [facility] I340 Nonrheumatic mitral (valve) insufficienc y Nonrheumatic mitral (valve) insufficiency Diagnosis 01/16/2021 12:54:00 PM EDT [facility] E039 Hypothyroidism, unspecified Hypothyroidism, unspecifie d Diagnosis 01/16/2021 12:54:00 PM EDT [facility] I5020 Unspecified systolic (congestive) heart failure Unspecified systolic (congestive) heart failure Diagnosis 01/16/2021 12:54:00 PM EDT [facility] E7800 Pure hypercholesterolemia, unspecified P ure hypercholesterolemia, unspecified Diagnosis 01/14/2021 10:27:00 AM EDT [facility] I110 Hypertensive heart disease with heart fa ilure Hypertensive heart disease with heart failure Diagnosis 01/14/2021 10:27:00 AM EDT [facility] [id number] Embolism and thrombosis of superficial v eins of right lower extremity Embolism and thrombosis of superficial veins of right lower extremity Diagnosis 01/14/2021 10:27:00 AM EDT [facility] J440 Chronic obstructive pulmonar y disease with (acute) lower respiratory infection Chronic obstructive pulmonary disease wi th (acute) lower respiratory infection Diagnosis 01/14/2021 10:27:00 AM EDT [facility] N390 Urinary tract infection, site not specif ied Urinary tract infection, site not specified Diagnosis [facility]14[facility] Pneumonia, unspecified organism Pneumonia, unspecified organism Diagnosis [facility]/14[facility]2021 [facility] R[facility].0 Sinus tachycardia Sinus tachycardia [id number] 05/25/2021 12:00:00 AM EDT [facility] 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 Chronic deep vein thrombosis (DVT) of fe moral vein of left lower extremity [id number] 05/17/2021 12:00:00 AM EDT [facility] I10 Essential hypertension Essential hypertension [id number] 05/17/2021 12:00:00 AM EDT [facility] I50.32 Chronic diastolic congestive heart failu re Chronic diastolic congestive heart failure [id number] 05/17/2021 12:00:00 AM EDT [facility] N18.9 [id number] Chronic kidney disease, unspecified CKD s tage Problem 04/25/2021 12:00:00 AM EDT eCW1 ([facility]) L89.312 Pressure ulcer of right buttock, stage 2 Pressure ulcer of right buttock, stage 2 Problem 04/12/2021 01:00:00 AM EDT NETSM[facility] ([facility]) J44.9 Chronic obstructive pulmonary disease, u nspecified Chronic obstructive pulmonary disease, unspecified Problem 04/12/2021 01:00:00 AM EDT NE TSMART ([facility]) I82.402 Acute embolism and thrombosi s of unspecified deep veins of left lower extremity Acute embolism and thrombosis of unspeci fied deep veins of left lower extremity Problem 04/12/2021 01:00:00 AM EDT [facility]SM[facility] ([facility]) I11.0 Hypertensive heart disease with heart fa ilure Hypertensive heart disease with heart failure Problem 04/12/2021 01:00:00 AM EDT [facility] ([facility]) I50.9 Heart failure, unspecified Heart failure, unspecified Problem 04/12/2021 01:00:00 AM EDT [facility] ([facility] ) E78.5 Hyperlipidemia, unspecified Hyperlipidemia, unspecifie d Problem 04/12/2021 01:00:00 AM EDT [facility] ([facility] ) E03.9 Hypothyroidism, unspecified Hypothyroidism, unspecifie d Problem 04/12/2021 01:00:00 AM EDT [facility] ([facility] ) M16.11 Unilateral primary osteoarthritis, right hip Unilateral primary osteoarthritis, right hip Problem 04/12/2021 01:00:00 AM EDT NETSMAR T ([facility]) G62.9 Polyneuropathy, unspecified Polyneuropathy, unspecifie d Problem 04/12/2021 01:00:00 AM EDT [facility] ([facility] ) Z79.01 FPC (current) use of anticoagulant s terminal block assembler (current) use of anticoagulants Problem 04/12/2021 01:00:00 AM EDT [facility] ([facility]) Z87.01 Personal history of pneumonia (recurrent ) Personal history of pneumonia (recurrent) Problem 04/12/2021 01:00:00 AM EDT [facility] ([facility]) Z48.00 Encounter for change or removal of nonsu rgical wound dressing Encounter for change or removal of nonsurgical wound dressing Problem 01:00:00 AM EDT [facility] ([facility] ) L89.322 Pressure ulcer of left buttock, stage 2 Pressure ulcer of left buttock, stage 2 Problem 02/15/2021 01:00:00 AM EDT [facility] ([facility]) I11.0 Hypertensive heart disease with heart fa ilure Hypertensive heart disease with heart failure Problem 02/15/2021 01:00:00 AM EDT [facility] ([facility]) I82.409 Acute embolism and thrombosi s of unspecified deep veins of unspecified lower extremity Acute embolism and thrombosis of unspeci fied deep veins of unspecified lower extremity Problem 02/15/2021 01:00:00 AM EDT [facility] ([facility]) I50.9 Heart failure, unspecified Heart failure, unspecified Problem 02/15/2021 01:00:00 AM EDT [facility] ([facility] ) E78.5 Hyperlipidemia, unspecified Hyperlipidemia, unspecifie d Problem 02/15/2021 01:00:00 AM EDT NETSMART ([facility] ) E03.9 Hypothyroidism, unspecified Hypothyroidism, unspecifie d Problem 02/15/2021 01:00:00 AM EDT NETSMART ([facility] ) M16.11 Unilateral primary osteoarthritis, right hip Unilateral primary osteoarthritis, right hip Problem 02/15/2021 01:00:00 AM EDT NETSMAR T ([facility]) G62.9 Polyneuropathy, unspecified Polyneuropathy, unspecifie d Problem 02/15/2021 01:00:00 AM EDT NETSMART ([facility] ) Z48.00 Encounter for change or removal of nonsu rgical wound dressing Encounter for change or removal of nonsurgical wound dressing Problem 01:00:00 AM EDT NETSMART ([facility] ) Z87.01 Personal history of pneumonia (recurrent ) Personal history of pneumonia (recurrent) Problem 02/15/2021 01:00:00 AM EDT NETSMART ([facility]) J44.1 Chronic obstructive pulmonary disease wi th (acute) exacerbation Chronic obstructive pulmonary disease with (acute) exacerbation Problem 02/15/2021 01:00:00 AM EDT NETSMART ([facility] ) L89.301 [id number] Pressure injury of b uttock, stage 1, unspecified laterality Problem 01/31/2021 12:00:00 AM EDT eCW1 ([facility]) I50.9 [id number] Congestive heart memo lure, unspecified HF chronicity, unspecified heart failure type Problem 01/19/2021 12:00:00 AM EDT eCW1 ([facility]) E03.9 [id number] Hypothyroidism, unspecified type Problem 01/19/2021 12:00:00 AM EDT eCW1 ([facility]) F41.1 [id number] Generalized anxiety disorder Problem 021 12:00:00 AM EST eCW1 ([facility]) L89.311 [id number] Pressure injury of right buttock, stage 1 Problem 11/14/2020 12:00:00 AM EST eCW1 ([facility]) L89.321 [id number] Pressure injury of left buttock, stage 1 Problem 11/14/2020 12:00:00 AM EST eCW1 ([facility]) I73.9 [id number] Peripheral artery disease Problem 10/27/2020 12:00:00 AM EST eCW1 ([facility]) E04.1 [id number] Thyroid nodule Problem 08/30/2020 12:00:00 A M EST eCW1 ([facility]) R63.0 [id number] Decrease in appetite Problem 07/27/2020 12:0 0:00 AM EDT eCW1 ([facility]) E03.9 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 Subclinical hypothyroidism Problem 0 12:00:00 AM EDT eCW1 ([facility]) Surgeries/Procedures Procedure Description Date Indications Data Source(s) POCT AMB EKG <td>POCT AMB EKG</td><td>Rou olivia</td><td>06/08/2021 11:13 AM EDT</td><td> Sinus tachycardia</td><td> </td> 06/08/2021 11:13:00 AM EDT Sinus tachycardia [facility] Sinus tachycardia POCT AMB EKG <td>POCT AMB EKG</td><td>Rou olivia</td><td>05/17/2021 2:58 PM EDT</td><td> Acute congestive heart failure, unspecified heart failure type</td><td> </td> 05/17/2021 02:58:00 PM EDT Acute congestive heart failure, unspecified heart fail ure type [facility] Acute congestive heart failure, unspecif ied heart failure type PHYSICIAN TELEPHONE EVALUATION 11-20 MIN 05/11/2021 12 :00:00 AM EDT NANCY ([facility]) BASIC METABOLIC PANEL CALCIUM TOTAL <td>BASIC METABOLI C PANEL</td><td>Routine</td><td>04/21/2021</td><td></td><td> </td> 04/21/2021 12:00:00 AM EDT [facility] Spirometry 03/09/2021 12:00:00 AM EDT Aron MUNIZ ([facility], ) TROPONIN QUANTITATIVE <td>TROPONIN I</td><td>Routine</td><td>02/05/2021</td><td></td><td> </td> 02/05/2021 12:00:00 AM EDT [facility] BLOOD COUNT COMPLETE AUTO&AUTO DIFRNTL WBC COUNT <td>C BC AND DIFFERENTIAL</td><td>Routine</td><td>02/05/2021</td><td></td><td> </td> 02/05/2021 12:00:00 AM EDT [facility] BASIC METABOLIC PANEL CALCIUM TOTAL <td>BASIC METABOLI C PANEL</td><td>Routine</td><td>02/05/2021</td><td></td><td> </td> 02/05/2021 12:00:00 AM EDT [facility] Introduction of Anti-inflammatory into Peripheral Vein , Percutaneous Approach Introduction of Anti-inflammatory into Peripheral Vein, Percutaneous Approach 01/16/2021 12:00:00 AM EDT [facility] Monitoring of Cardiac Electrical Activity, External Ap proach Monitoring of Cardiac Electrical Activity, External Approach 01/16/2021 12:00:00 AM EDT [facility] Introduction of Other Anti-infective int o Peripheral Vein, Percutaneous Approach Introduction of Other Anti-infective int o Peripheral Vein, Percutaneous Approach 01/16/2021 12:00:00 AM EDT [facility] Introduction of Vasopressor into Peripheral Vein, Perc utaneous Approach Introduction of Vasopressor into Peripheral Vein, Percutaneous Approach 01/16/2021 12:00:00 AM T [facility] Immunization: Flublok Quadrivalent (18 years & older) 0.5mL IM (Influenza) 07/27/2020 12:00:00 AM EDT eCW1 ([facility]) Results ID Date Data Source [id number] 05/26/2021 09:08:03 PM EDT [facility] [place] [facility] Name Value Range Interpretation Code Description Data Charis rce(s) Supporting Document(s) FREE THYROXINE @ 1.08 ng/dL (0.76-1.46) [facility] [place] ID Date Data Source [id number] 03/09/2021 11:24:00 AM EDT MEDENT ([facility], ) Name Value Range Interpretation Code Description Data Charis rce(s) Supporting Document(s) PDFReport Laboratory test result MEDENT ([facility], ) FVC-Pred 1.77 L MEDENT ([facility], ) FVC-%Pred-Pre 87 L MEDENT ([facility], ) FVC-Pre 1.56 L MEDENT ([facility], ) FVC-LLN 1.16 L MEDENT ([facility]) Fev1-Pred 1.28 L MEDENT ([facility]) Fev1-%Pred-Pre 66 L MEDENT ([facility], ) Fev1-Pre 0.85 L MEDENT ([facility], ) Fev1-LLN 0.77 L MEDENT ([facility]) Fev6-Pred 1.64 L [facility] ([facility]) Fev6-Pre 1.56 L [facility] ([facility]) Fev6-LLN 1.04 L [facility] ([facility]) Mnf7moy-Waru 72 % MEDENT ([facility]) Fev6-%Pred-Pre 94 L MEDENT ([facility], ) Xxs8ynk-Szq 55 % [facility] ([facility]) Sqa2pch-%Pred-Pre 75 % MEDENT ([facility]) Sxb1wfd-Qqgn 92 % [facility] ([facility]) Yok9fmf-SWI 62 % [facility] ([facility]) Dlz3gwn-Amj 100 % [facility] ([facility]) Brq1frr-%Pred-Pre 107 % [facility] ([facility]) FEFMax-Pred 3.37 L/E/sec MEDENT ([facility]) FEFMax-%Pred-Pre 39 L/E/sec MEDENT ([facility]) FEFMax-Pre 1.33 L/E/sec [facility]ENT ([facility]) FEFMax-LLN 1.86 L/E/sec MEDENT ([facility]) Yur0966-Bxlh 0.76 L/E/sec MED[facility] ([facility]) Yav3192-Fpn 0.40 L/E/sec MEDENT ([facility], ) Rvy0578-CFT -0.33 L/E/sec MEDENT ([facility], ) Wcv9523-%Pred-Pre 52 L/E/sec MEDENT ([facility]) Jxe4ddq6-Wstv 76 % [facility] ([facility]) ExpTime-Pre 6.53 sec MEDENT ([facility]) Hrl6mvs2-Kzm 55 % [facility] ([facility]) Psl5aia3-HPT 68 % [facility] ([facility]) Tnb6ciq0-%Pred-Pre 71 % MEDENT ([facility]) ID Date Data Source [id number] 02/06/2021 09:13:00 AM EDT [facility] [address] [place] [address] PHONE: [phone] FAX: [phone] Name .................. : ELI SAEED Acct Number.................. : [id number] ROOM. ................. : TR-02 Number ................... : [id number] Stay type ............. : E/R Discharge Date......... ... : 02/05/21 Admit Date ......... : 02/05/21 Admit Phys .................... : TIMOTEO Torres Date of ....... : 1935 Family Phys ................... : RACHEL GREENE Phone .................. : [phone] Age ................................ : 86 Film# .................. .:[id number] Sex ................................. : F Unsigned transcriptions are preliminary reports and do not represent a medical or legal document CHEST PORTABLE [id number] COMPLETE:02/05/21 11:46 24209 Reason(s): CHF PORTABLE CHEST X-RAY: COMPARISON: 01/14/21 FINDINGS: There is improving right lower lobe infiltrate and associated pulmonary vascular congestion. The cardiomediastinal silhouette is otherwise magnified by the AP portable examination. IMPRESSION: Improving pulmonary vascular congestion and right lower lobe infiltrate. Electronically Reviewed and Signed By Austin Webber MD , 02/06/21 09:13, AML Transcribe Initials: JAH , Transcribe Date: 02/05/21 14:51, Dictation Date: Copy for: EMERGENCY DEPT via modem Copy for: 710 MED REC DISCHARGED Page 1 of 1 Name Value Range Interpretation Code Description Data Charis rce(s) Supporting Document(s) ID Date Data Source [id number] 01/17/2021 01:43:00 [place] [address] CONSULTATIONNAME: [facility] ROOM#: [id number] OF : 1935 MR#: [id number] PHYS: ALEX Bhagat DATE: 01/16/21DATE OF CONSULTATION: 01/16/21REASON FOR CONSULTATION: This is an 86-year-old white female with past history of COPDand apparently the patient came in with dyspnea and wheezing for the last one week to the emergencyroom.HISTORY OF PRESENT ILLNESS:The dyspnea is described as moderate and she hardly can walk because of the dyspnea. She has acough. She has orthopnea and paroxysmal nocturnal dyspnea. She has a cough with no expectoration.The patient is quite anxious and nervous.REVIEW OF SYSTEMS:The patient has some orthopnea and paroxysmal noctur nal dyspnea. No chest pain. No chills or fever.Mild cough. No bowel disturbance. No urinary problem. No ankle edema.PAST MEDICAL HISTORY:The patient has COPD, hypertension, hyperlipidemia.PAST SURGICAL HISTORY:The patient had AAA repaired, hysterectomy.PERSONAL HISTORY:Nonsmoker. No excess alcohol.FAMILY HISTORY:Mother of hypertension. Father with coronary artery disease.ALLERGIES:None.MEDICATIONS:1. Aspirin 81 mg daily2. Breo Ellipta daily3. Gabapentin 300 mg at bedtime4. Incruse Ellipta daily5. Mirtazapine 15 mg daily6. Simvastatin 10 mg daily [address] [place] [address] CONSULTATIONNAME: [facility] ROOM#: [id number] OF : 1935 MR#: [id number] PHYS: ALEX Bhagat DATE: 01/16/21PHYSICAL EXAMINATION:GENERAL: Moderately-built.VITAL SIGNS: Blood pressure is 150/80. Pulse was 80.HEENT: Head is normal. Pupils and fundus are normal. Mouth normal.NECK: Supple. No lymphadenopathy. Thyroid not enlarged. Neck veins are distended. No carotidbruits.CHEST: Symmetrical.HEART: Regular sinus rhythm. No murmur or gallop.LUNGS: Clear with no rales or rhonchi.ABDOMEN: Soft and nontender. No visceromegaly.EXTREMITIES: Normal. Peripheral pulses are palpable.NEUROLOGICAL: Normal.LABORATORY DATA:Lab tests showed that sodium was 142, potassium was 4.1, BUN was 30, creatinine was 1.2.Hemoglobin was 13.5. White count was 8000. COVID negative. Chest x-ray just shows pulmonaryvenous congestion. Patient's sodium was 138 and 4.2 on admission. T4 was 0.87. Troponin wasnormal. BNP was high.IMPRESSION/PLAN:Patient was given Lasix 40 mg in the emergency room and DuoNeb treatment was given. Patient hasknown hypertension and hypertensive heart disease. Patient is on Zithromax IV and cefuroxime IV,furosemide 20 mg daily. I agree with the current management. Patient is feeling better with thiscombination regimen. Patient has congestive heart failure. I will do an echocardiogram to figure outwhether it is systolic or diastolic and follow up. Patient is improving with the current medical therapy.Thank you very much.DD: William Hennessy MD, PC 01/16/21 17:38DT: BUBBA 01/17/21 01:31DS: William Hennessy MD, PC 02/06/21 09:14 2 Name Value Range Interpretation Code Description Data Charis rce(s) Supporting Document(s) ID Date Data Source [id number] 02/05/2021 11:28:00 AM EDT [facility] 1 OrderSheet [facility] Emergency Department [address] [place] [address] Phone #: ext- [phone] 02/05/2021 11:26 Patient: CHRISTOPHE BENITEZ Sex: F : 1935 Age: 86yWEIGHT:62.1 kg (M) HEIGHT:58 inches (S) BMI:28.6ALLERGIES: No Known Drug AllergyCHIEF COMPLAINT: COPDDIAGNOSIS: Chronic obstructive lung diseaseLAB ORDERSOrder Description Priority Entered Acknowledged InitialedC w Diff STAT 11:46 02/05/2021 11:46 Timoteo Stoddard Jack ; Collette Hanson.CliffCMP STAT 11:46 02/05/2021 11:46 Timoteo Stoddard Jack ; Collette R.N.BNP STAT 11:46 02/05/2021 11:46 Timoteo Stoddard Jack ; Collette R.N.Blood Culture STAT 11:46 02/05/2021 11:46 marc Stoddard0m X2 (Cody Carter ; Collette R.N.11:46 02/05/2021)Blood Culture STAT 11:46 02/05/2021 11:46 sarath Stoddard X2 (Cody Carter ; Collette R.N.11:56 02/05/2021)Troponin-T STAT 11:46 02/05/2021 11:46 Timoteo Stoddard Jack ; Collette R.N.Lactic Acid STAT 11:46 02/05/2021 11:46 Timoteo Stoddard Jack ; Collette YoderCOVID-19 CAH STAT 11:47 02/05/2021 Ack'd: 12:00 12:13 Arlyn,(Symptomatic as Cody Cox ; Collette Stoddard R.N.Defined by CDC) R.NDestinee(01/31/2021) (NotFirst Test) (NotHospitalized) (Not) (NotResident inCongregate CareSetting) (NotEmployed inHealthcare Setting)DIAGNOSTIC STUDY ORDERSOrder Description Priority Entered Acknowledged Initialed 2 OrderSheet [facility] Emergency Department [address] [place] [address] Phone #: ext- [phone] 02/05/2021 11:26 Patient: CHRISTOPHE BENITEZ Sex: F : 1935 Age: 86yChest Portable 1 STAT 11:46 02/05/2021 Ack'd: 11:46 11:50 DorisView Cody Cox ; Collette Stoddard RN(Oxygen?(No)) R.N. Reason for Study: CHF, CoughMEDICATION/IV/DRIP/FLUID ORDERSOrder Description Priority Entered Acknowledged InitialedDuoNeb Neb Tx 3 11:46 02/05/2021 Ack'd: 11:46 11:58 DorismL (NOW x1) Cody Cox ; Collette Stoddard RN R.N.GENERAL ORDERSOrder Description Priority Entered Acknowledged InitialedEKG 11:46 02/05/2021 11:46 Timoteo Stoddard Jack ; Collette Yoder[Electronically signed by Collette Stoddard R.N. (13:54 02/05/2021)][Electronically signed by Cody Cox (15:13 02/05/2021)][Electronically locked by Collette Stoddard R.N. (13:54 02/05/2021)] Name Value Range Interpretation Code Description Data Charis rce(s) Supporting Document(s) ID Date Data Source [id number] 02/05/2021 11:28:00 AM EDT [facility] 1 Medication Reconciliation Report [facility] Emergency Department [address] [place] [address] Phone #: ext- [phone] 02/05/2021 11:26 Patient: CHRISTOPHE BENITEZ Sex: F : 1935 Age: 86yWeight: 62.1 kgHeight/Length: 58 in.BMI: 28.6ALLERGIES: No Known Drug AllergyThe patient's Home Medications are listed below:CONTINUE TAKING THE FOLLOWING MEDICATIONS: Albuterol Sulfate Inhalation 1 unit dose, q4h Aspirin Oral 81 mg, MWF Bisoprolol-hydroCHLOROthiazide Oral (5-6.25 mg) 1 tablet, daily Breo Ellipta Inhalation (200-25 mcg/inh) 1 PUFF, daily Doxycycline Oral 100 mg, 2x a day, x 10 days Eliquis Oral (5 mg) 1 tablet, daily Furosemide Oral 20 mg, every other day Gabapentin Oral 300 mg, daily, every PM Incruse Ellipta Inhalation (62.5 mcg/inh) 1 PUFF, daily Mirtazapine Oral 15 mg, daily Simvastatin Oral 10 mg, dailyThe source(s) of the original Home Medication information:patient's family memberpatient's pill bottlesThe following Medications were given to the patient in the Emergency Department: 2 Medication Reconciliation Report [facility] Emergency Department [address] [place] [address] Phone #: ext- [phone] 02/05/2021 11:26 Patient: CHRISTOPHE BENITEZ Sex: F : 1935 Age: 86yDuoneb [Neb Tx] Neb TX 1 unit dose, administered: 11:58 02/05/2021The following Medications were prescribed to the patient:None. Name Value Range Interpretation Code Description Data Charis rce(s) Supporting Document(s) ID Date Data Source [id number] 02/05/2021 11:28:00 AM EDT [place] [address] Medication Administration Record [facility] Emergency Department [address] [place] [address] Phone #: ext- [phone] 02/05/2021 11:26 Patient: CHRISTOPHE BENITEZ Sex: F : 1935 Age: 86yWeight: 62.1 kgHeight/Length: 58 inBMI: 28.6ALLERGIES: No Known Drug Allergy Date/Time Medication Administered Medication OrderedGiven DUONEB [NEB TX] DuoNeb Neb Tx 3 mL (NOW x1)11:58 02/05/2021 Dose: 1 unit dose Nebulizer Neb Cristina Spence RN----Stop12:14 02/05/2021Collette Stoddard R.N. Name Value Range Interpretation Code Description Data Charis rce(s) Supporting Document(s) ID Date Data Source [id number] 02/05/2021 11:28:00 AM EDT [facility] 1 General Instructions [facility] Emergency Department [address] [place] [address] Phone #: ext- [phone] 02/05/2021 11:26 Patient: CHRISTOPHE BENITEZ Sex: F : 1935 Age: 86yCOPD (chronic bronchitis)INSTRUCTIONSWarnings: Further evaluation is necessary.GENERAL WARNINGS: Return or contact your physician immediately if your condition worsens orchanges unexpectedly, if not improving as expected, or if other problems arise.Your Current Medications: Your current home medications have been reviewed.CONTINUE TAKING THE FOLLOWING MEDICATIONS:Albuterol Sulfate Inhalation : 1 unit dose q4h.Aspirin Oral : 81 mg MWF.Bisoprolol- hydroCHLOROthiazide Oral : Tablet 5-6.25 mg, 1 tablet daily.Breo Ellipta Inhalation : Aerosol Powder Breath Activated 200-25 mcg/inh, 1 PUFF daily.Doxycycline Oral : 100 mg 2x a day, Started: 01/31/2021, x 10 days.Eliquis Oral : Tablet 5 mg, 1 tablet daily.Furosemide Oral : 20 mg every other day.Gabapentin Oral : 300 mg daily, every PM.Incruse Ellipta Inhalation : Aerosol Powder Breath Activated 62.5 mcg/inh, 1 PUFF daily.Mirtazapine Oral : 15 mg daily.Simvastatin Oral : 10 mg daily.Follow-up:Follow up with your healthcare provider Aaron in three days.Understanding of the discharge instructions verbalized by patient and family. ADDITIONAL INFORMATIONBronchitis, Antibiotic Treatment (Adult) 2 General Instructions [facility] Emergency Department [address] [place] [address] Phone #: ext- [phone] 02/05/2021 11:26 Patient: CHRISTOPHE BENITEZ Sex: F : 1935 Age: 86yBronchitis is an infection of the air passages (bronchial tubes) in your lungs. It often occurs when youhave a cold. This illness is contagious during the first few days and is spread through the air bycoughing and sneezing, or by direct contact (touching the sick person and then touching your owneyes, nose, or mouth).Symptoms of bronchitis include cough with mucus (phlegm) and low-grade fever. Bronchitis usuallylasts 7 to 14 days. Mild cases can be treated with simple home remedies. More severe infection istreated with an antibiotic.Home careFollow these guidelines when caring for yourself at home: If your sym ptoms are severe, rest at home for the first 2 to 3 days. When you go back to your usual activities, don't let yourself get too tired. Don't smoke. Also stay away from secondhand smoke. You may use orrz-enz-wkllqcd medicines to control fever or pain, unless another medicine 3 General Instructions [facility] Emergency Department [address] [place] [address] Phone #: ext- [phone] 02/05/2021 11:26 [id number] Sex[facility] F : 1935 Age: 86y was prescribed. If you have chronic liver or kidney disease or have ever had a stomach ulcer or gastrointestinal bleeding, talk with your healthcare provider before using these medicines. Also talk to your provider if you are taking medicine to prevent blood clots. Aspirin should never be given to anyone younger than 18 who is ill with a viral infection or fever. It may cause severe liver or brain damage. Your appetite may be low, so a light diet is fine. Stay well hydrated by drinking 6 to 8 glasses of fluids per day. This includes water, soft drinks, sports drinks, juices, tea, or soup. Extra fluids will help loosen mucus in your nose and lungs. Plfs-fbu-iosulcx cough, cold, and sore-throat medicines will not shorten the length of the illness, but they may be helpful to reduce your symptoms. Don't use decongestants if you have high blood pressure. Finish all antibiotic medicine. Do this even if you are feeling better after only a few days.Follow-up careFollow up with your healthcare provider, or as advised. If you had an X-ray or ECG(electrocardiogram), a specialist will review it. You will be told of any new test results that may affectyour care.If you are age 65 or older, if you smoke, or if you have a chronic lung disease or condition that affectsyour immune system, ask your healthcare provider about getting a pneumococcal vaccine and ayearly flu shot (influenza vaccine).When to seek medical adviceCall your healthcare provider right away if any of these occur: Fever of 100.4F (38C) or higher, or as directed by your healthcare provider Coughing up more sputum Weakness, drowsiness, headache, facial pain, ear pain, or a stiff neckCall 911Call 911 if any of these occur. Coughing up blood Weakness, drowsiness, headache, or stiff neck that get worse Trouble breathing, wheezing, or pain with breathing 4 General Instructions [facility] Emergency Department [address] [place] [address] Phone #: ext- [phone] 02/05/2021 11:26 Patient: CHRISTOPHE BENITEZ Sex: F : 1935 Age: 86y [id number] [employer] [place] [address]. All rights reserved. This information is not intended as asubstitute for professional medical care. Always follow your healthcare professional's instructions. You have been given the following additional information: Bronchitis, Antibiotic Treatment (Adult)(Electronically signed by Cody Cox 02/05/2021 15:13) Name Value Range Interpretation Code Description Data Charis rce(s) Supporting Document(s) ID Date Data Source [id number] 02/05/2021 11:28:00 AM EDT [facility] 1 Clinical Report - Nurses [facility] Emergency Department [address] [place] [address] P letha #: ext- [phone] 02/05/2021 11:26 [facility]: [id number] Sex: F : 1935 Age: 86yTRIAGE Arrived by private vehicle. Historian: patient. Accompanied by daughter. Triage time: 11:26 02/05/2021. Acuity: LEVEL 3. Chief Complaint: COUGH. Alert. Onset. (01/28/2021). ( Pt daughter states pt was in this facility admitted about a month ago for fluid on her lungs, pneumonia and DVT to right leg; She was discharged and originally was doing better, saw her PCP Dr. Ran curtis on 01/31/2021 who placed pt on Prednisone which she finished, placed her on Doxycycline which she is still on; She states she did not get better on this even despite alubterol nebs q4h. She states she has not gotten better and still has a productive cough and she feels she may still have pneumonia.). ( Productive clear/yellow cough.). 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 SEPSIS SCREEN: SIRS SCREEN NEGATIVE. SEPSIS SCREEN NEGATIVE. No suspect ed or confirmed signs of infection present. (11:37 02/05/2021). --11:37 02/05/21 Codi Lamb R.N. 11:26 02/05/21. BP: 126/83. MAP: 97. HR: 84. RR: 23. O2 saturation: 97% on room air. Temp: 96.9 F (oral). Pain level now: 0/10. --11:37 02/05/21 Codi Lamb R.N. Weight: 62.1 kg measured. Height/Length: 58 inches Per Patient. BMI: 28.6. --11:26 02/05/21 Codi Lamb R.N. Medications Albuterol Sulfate Inhalation 1 unit dose, q4h. --11:31 02/05/21 Codi Lamb R.N. Furosemide Oral 20 mg, every other day. --11:31 02/05/21 Codi Lamb R.N. Aspirin Oral 81 mg, MWF. --11:31 02/05/21 Codi Lamb R.N. Doxycycline Oral 100 mg, 2x a day, x 10 days, started 01/31/2021. --11:32 02/05/21 Codi Lamb R.N. Simvastatin Oral 10 mg, daily. --11:32 02/05/21 Codi Labm R.N. Gabapentin Oral 300 mg, daily every PM. --11:32 02/05/21 Codi Lamb R.N. Eliquis Oral (Tablet 5 mg) 1 tablet, daily. --11:33 02/05/21 Codi Lamb R.N. Bisoprolol-hydroCHLOROthiazide Oral (Tablet 5-6.25 mg) 1 tablet, daily. --11:34 02/05/21 Codi Lamb R.N. Mirtazapine Oral 15 mg, daily. --11:34 02/05/21 Codi Lamb R.N. Incruse Ellipta Inhalation (Aerosol Powder Breath Activated 62.5 mcg/inh) 1 PUFF, daily. --11:34 02/05/21 Codi Lamb R.N. 2 Clinical Report - Nurses [facility] Emergency Department [address] [place] [address] Phone #: ext- [phone] 02/05/2021 11:26 [id number] Sex: F : 1935 Age: 86yBreo Ellipta Inhalation (Aerosol Powder Breath Activated 200-25 mcg/inh) 1 PUFF, daily. --11:34 02/05/21Codi Lamb R.N.AllergiesNo Known Drug Allergy. --11:35 02/05/21 Codi Lamb R.N.PROBLEMS:DVT - Deep Venous Thrombosis.Solomon estive Heart Failure.COPD - Chronic Obstructive Pulmonary Disease.Abnormal Test.Chronic Venous Insufficiency.Diabetes Mellitus.Hypothyroidism.Pneumonia.Hyperglycemia.Hypertension. --11:35 02/05/21 Codi Lamb R.N.Medication/allergy information source: the patient's family and pill bottles. --11:37 02/05/21 Codi Lamb R.N.ADDITIONAL SURGERIES:AAA.Calcium deposit out of neck.Hysterectomy. --11:35 02/05/21 Codi Lamb R.N.HistoryPAST MEDICAL HX: Immunizations: up-to-date and (Pt received both doses of COVID-19 vaccine). Thepatient is post-menopausal.SOCIAL HX: Never smoker. No alcohol use or drug use. She was offered HIV testing but declined.Patient education was provided. She was offered hepatitis C testing but declined. Patient education wasprovided. ( COVID screen negative). She has not traveled outside the [place]Infectious disease exposure: No infectious disease exposure. The patient was not exposed to Coronavirus.Mask placed on patient. Patient is not a known carrier of tuberculosis, hepatitis, HIV, MRSA or VRE.Patient is not a known carrier of CRE.SELF HARM ASSESSMENT: Self harm assessment was performed. The patient answered "no" to thequestion(s) "Do you have thoughts of harming or killing yourself?" and "Do you have a plan for harming orkilling yourself?".ABUSE ASSESSMENT: Abuse assessment. The patient had positive responses to the question(s) "Do youfeel safe in your home?". Abuse denied. No suspicion of abuse. No report of abuse.NUTRITIONAL RISK ASSESSMENT: The nutritional risk assessment revealed no deficiencies. 3 Clinical Report - Nurses [facility] Emergency Department [address] [place] [address] Phone #: ext- [phone] 02/05/2021 11:26 Patient: CHRISTOPHE BENITEZ Sex: F : 1935 Age: 86y LEARNING NEEDS ASSESSMENT: The learning needs assessment revealed no barriers. FALL RISK ASSESSMENT: Fall risk assessment completed. Risk factors identified include patient age greater than 65 years. Fall interventions initiated. Patient placed on stretcher. Side rails up x2. Bed in low position. Patient visible from nurses' station and identified as a fall risk. Electronic bed monitor in use. Family at bedside. Call light in reach of patient. Instruc sherly not to get up without assistance. Instructions given to family including fall prevention information. Verbalizes understanding. FUNCTIONAL ASSESSMENT: Functional assessment performed: uses walker- this mobility impairment is an ongoing problem. SKIN INTEGRITY ASSESSMENT: Skin integrity risk assessment completed. No skin integrity risk identified. --11:37 02/05/21 Codi Lamb R.N. FAMILY HX: Father: Coronary Artery Disease. --11:55 02/05/21 Cody Cox. Interventions Identification band on patient. --11:37 02/05/21 Codi Lamb R.N.PHYSICAL ASSESSMENT late entry - 11:36 02/05/21. To room via wheelchair. GENERAL / NEURO / PSYCH: Alert. Oriented X 4. Appears in no acute distress. HEENT: Pupils equal, round and reactive to light. Voice within normal limits. Mucous membranes are pink. RESPIRATORY: Respirations not labored. The patient can speak in full sentences. Wheezes bilaterally; abnormal breath sounds right upper lung posteriorly; left upper lung posteriorly. Cough. CVS: Normal sinus rhythm noted. Capillary refill less than 2 seconds. SKIN: Skin is warm and dry. Normal skin turgor. --11:41 02/05/21 Collette Stoddard R.N.NURSING PROGRESS NOTES field applications specialist, NIBP monitor and pulse oximeter placed on patient; director external communications- Lead II; monitor alarms on; monitor strip added to paper chart. Patient gowned. Reassurance given. Three patient identifiers checked. Call light placed in reach. Side rails up x 2. Bed placed in lowest position. Brakes of bed on. Patient ready for evaluation- ED physician notified. --11:38 02/05/21 Codi Lamb R.N. EKG time: (late entry - 11:30 02/05/2021). EKG was ordered, performed by a nurse and shown to the ED physician. --11:38 02/05/21 Codi Lamb R.N. 11:56 02/05/2021 Site #1 started via IV in the right forearm with an 20g angiocath, with aseptic technique and good blood return; one attempt. Blood drawn: rainbow set, blood bank tube and cultures x2. Labeled in the presence of the patient and sent to the lab. Saline lock flushed with 10 mL saline. --12:01 02/05/21 Collette Stoddard R.N. 4 Clinical Report - Nurses [facility] Emergency Department [address] [place] [address] Phone #: ext- [phone] 02/05/2021 11:26 Patient: CHRISTOPHE BENITEZ Sex: F : 1935 Age: 86y 11:58 02/05/2021 Duoneb Neb TX Nebulizer 1 unit dose given. Given by the nurse. Allergies verified and confirmed 5 rights. Information reviewed with patient including reason for taking this medication, signs of allergic reaction and precautions. Verbalizes understanding. --11:58 02/05/21 Mariana Spence RN late entry - 12:09 02/05/21. Patient ID band checked for patient name and birthdate: patient confirmed. COVID-19 specimen obtained by RN via nasopharyngeal swab. Labeled in the presence of the patient and sent to lab. --12:14 02/05/21 Collette Stoddard R.N. 12:14 02/05/2021 Duoneb Neb TX discontinued due to improvement in patient condition. --12:14 02/05/21 Colletet Stoddard R.N. Monitoring of patient in place. Patient gowned. Reassurance given. Rounding: Position: states comfortable. Personal care / toileting: assisted with toileting. Proximity of possessions / care items: call light within easy reach. Set expectations: advised patient of rounding protocol timing and asked if they needed anything else at this time. The patient is calm. Call light placed in reach. Patient waiting for lab and radiology results. --12:22 02/05/21 Collette Stoddard R.N. ( Pt pulled on IV while toileting, hematoma area noted on right forarm, IV flushes without pain or resistance, Op site changed and small 2x2 placed to control bleeding). --12:40 02/05/21 Collette Stoddard R.N. 12:48 02/05/21. ( Medicine reconciliation sheet faxed to [facility]). --12:48 02/05/21 Mariana Spence RN 13:20 02/05/2021 Site #1 removed upon discharge. Catheter intact. Bandage applied. --13:25 02/05/21 Collette Stoddard R.N.DISPOSITION / DISCHARGE 13:25 02/05/21. Departure time: 13:02/05/2021. Condition at departure: improved and stable. No learning barriers present. Discharge instructions provided and reviewed with the patient. Reviewed warnings. Reviewed referral to a primary care physician for followup. Patient verbalized understanding. Written instructions provided in Telugu. The patient was discharged by the physician. She was discharged home and accompanied by family. She left in a wheelchair and via private vehicle. Family member driving. --13:27 02/05/21 Collette Stoddard R.N. 13:20 02/05/21. BP: 136/56. MAP: 82. HR: 82. RR: 18. O2 saturation: 95% on room air. Temp: 97.3 F (oral). Pain level now: 10. --13:27 02/05/21 Collette Stoddard R.N.Locked/Released at 02/05/2021 13:54 by Collette Stoddard R.N. 5 Clinical Report - Nurses [facility] Emergency Department [address] [place] [address] Phone #: ext- [phone] 02/05/2021 11:26 Patient: CHRISTOPHE BENITEZ Sex: F : 1935 Age: 86y Name Value Range Interpretation Code Description Data Chrais rce(s) Supporting Document(s) ID Date Data Source [id number] 02/05/2021 11:28:00 AM EDT [facility] 1 Clinical Report - Physicians/Mid Levels [facility] Emergency Department [address] [place] [address] Phone #: ext- [phone] 02/05/2021 11:26 Patient: CHRISTOPHE BENITEZ Sex: F : 1935 Age: 86y Time Seen: 11:42 02/05/2021. Arrived- By private vehicle. Historian- patient.HISTORY OF PRESENT ILLNESS Chief Complaint: HISTORY OF CHRONIC OBSTRUCTIVE PULMONARY DISEASE and cough. This started several days and is still present. The dyspnea is described as mild and is worsened by exertion. The patient has had sputum production, a cough, wheezing and dyspnea on exertion. No fever, sweating episodes, chills or chest pain or discomfort. No calf pain, foot swelling, orthopnea, paroxysmal nocturnal dyspnea or anxiety. (Patient has been coughing more and daughter states she's is worse despite antibiotics. Shortness of breath is slightly worse. Admitted 3 weeks ago for similar. No chest pain. Seen by PCP 5 days ago and placed on steroids and another round of antibiotics.). Similar symptoms previously. Patient has had similar symptoms several times. Recent medical care: The patient was seen recently in the office and hospitalized.REVIEW OF SYSTEMSThe patient has had extremity swelling. She has had a cough and easy bruising but not had weight loss.No muscle aches, eye irritation, nasal discharge, vomiting or abdominal pain. No diarrhea, black stools,headache, difficulty with urination or skin rash. No enlarged lymph nodes, fever, hematuria or numbness.All other systems reviewed and are negative.PAST HISTORYSee nurses notes. Problems: DVT - Deep Venous Thrombosis. Congestive Heart Failure. COPD - Chronic Obstructive Pulmonary Disease. Chronic Venous Insufficiency. Diabetes Mellitus. Pneumonia. Hyperglycemia. Hypertension. Additional Surgeries: AAA. Calcium deposit out of neck. Hysterectomy. 2 Clinical Report - Physicians/Mid Levels [facility] Emergency Department [address] [place] [address] Phone #: ext- [phone] 02/05/2021 11:26 Patient: CHRISTOPHE BENITEZ Sex: F : 1935 Age: 86y Medications: Breo Ellipta Inhalation (Aerosol Powder Breath Activated 200-25 mcg/inh) 1 PUFF, daily. Incruse Ellipta Inhalation (Aerosol Powder Breath Activated 62.5 mcg/inh) 1 PUFF, daily. Mirtazapine Oral 15 mg, daily. Bisoprolol-hydroCHLOROthiazide Oral (Tablet 5-6.25 mg) 1 tablet, daily. Eliquis Oral (Tablet 5 mg) 1 tablet, daily. Gabapentin Oral 300 mg, daily every PM. Simvastatin Oral 10 mg, daily. Doxycycline Oral 100 mg, 2x a day, x 10 days, started 01/31/2021. Aspirin Oral 81 mg, MWF. Furosemide Oral 20 mg, every other day. Albuterol Sulfate Inhalation 1 unit dose, q4h. Allergies: No Known Drug Allergy.SOCIAL HISTORYNever smoker.FAMILY HISTORYFather: Coronary Artery Disease.ADDITIONAL NOTESThe nursing notes have been reviewed.PHYSICAL EXAMVital Signs: 02/05/2021 11:26 BP: 126/83. MAP: 97. HR: 84. RR: 23. O2 saturation: 97% on room air.Temp: 96.9 F. Pain level now: 0/10.Appearance: Alert. No acute distress. (no conversational dyspnea).Eyes: Pupils equal, round and reactive to light. Eyes normal inspection.ENT: Nose normal. Pharynx normal.Neck: Normal inspection. No jugular venous distention. Neck supple.CVS: Normal heart rate. Heart sounds normal.Respiratory: No respiratory distress. Mildly decreased air movement in the right lung base posteriorly.Painless inspiration. Expiratory mild bilateral wheezes present. No retractions or chest wall tenderness.Abdomen: Soft and nontender. No organomegaly.Back: Normal inspection.Skin: Skin warm. Normal skin color. (venous stasis in lower extremities).Extremities: Bilateral mild 1+ pitting edema of the lower extremities involving both ankles and both lowerlegs. Extremities exhibit normal ROM.Neuro: Oriented X 3. No motor deficit. No sensory deficit.LABS, X-RAYS, AND EKGEKG: EKG time: 11:30 02/05/2021. Normal sinus rhythm. Rate: 86. Ectopic beats. Premature 3 Clinical Report - Physicians/Mid [facility] Emergency Department [address] [place] [address] Phone #: ext- [phone] 02/05/2021 11:26 Patient: CHRISTOPHE BENITEZ Sex: F : 1935 Age: 86yventricular contractions. No atrial enlargement. First-degree atrioventricular block. Decreased QRSvoltage. The QRS is not wide. Normal axis. Normal ST and T waves and QT. The study has beeninterpreted contemporaneously by me. Interpretation time: 11:45 02/05/2021.Chest X-ray: No acute disease. Mediastinum normal. No pleural effusion. (improved vascularcongestion). The X- rays were interpreted by the radiologist.Laboratory Tests:COVID-19 CAH: (ABDIAS: 02/05/2021 12:10) ( MsgRcvd 02/05/2021 12:47) Final results Test Result Flag Units (Reference) COVID-19 NOT DETECTED COVID-19 REENTER NOT DETECTED { PROCEDURAL CONTROL VALID KIT LOT # _[id number] 02/05/21.1247.CM . KIT EXP DATE _03/04/21 02/05/21.1247.CM . NORMAL RANGE IS NOT DETECTEDNEGATIVE RESULTS SHOULD BE TREATEDAS PRESUMPTIVE AND, IF INCONSISTENT WITHCLINICAL SIGNS AND SYMPTOMS OR NECESSARY FOR PATIENT MANAGEMENT, SHOULDBETESTED WITH DIFFERENT AUTHORIZED OR CLEARED MOLECULAR TESTS. NEGATIVE RESULTSDO NOT PRECLUDE [id number] AND SHOULD NOT BE USED THE SOLE BASISFOR PATIENT MANAGEMENT DECISIONS.CBC w Diff: (ABDIAS: 02/05/2021 11:58) ( MsgRcvd 02/05/2021 12:45) Final results Test Result Flag Units (Reference) CBC W/AUTOMATED DIFF COMPLETE BLOOD COUNT WBC 11.5 H 10/uL (4.2 - 11.0) RBC 4.01 L 10/uL (4.20 - 5.40) HEMOGLOBIN 13.6 g/dL (12.0 - 16.0) HEMATOCRIT 40.3 % (37.0 - 47.0) MCV 100.5 fL (81.0 - 101) MCH 33.9 pg (27.0 - 34.0) MCHC 33.7 g/dL (31.0 - 36.0) RDW 13.4 % (11.5 - 14.5) PLATELETS 207 10/uL (150 - 450) MPV 10.5 H fL (7.4 - 10.4) NEUT 72.4 % (37.0 - 80.0) LYMPH 15.3 L % (25.0 - 40.0) MONO 10.5 H % (3.0 - 8.0) EOS 0.3 % (0.0 - 7.0) BASO 0.3 % (0.0 - 2.5) %IG 1.2 H % (0.0 - 0.0) %NRBC 0.0 % (0.0 - 0.0) #NEUT 8.35 H 10/uL (2.00 - 6.90) #LYMPH 1.76 10/uL (0.60 - 3.40) #MONO 1.21 H 10/uL (0.00 - 0.90) #EOS 0.03 10/uL (0.00 - 0.70) #BASO 0.03 10/uL (0.00 - 0.20) #IG 0.14 H 10/uL (0.00 - 0.10) #NRBC 0.00 10/uL (0.00 - 0.00) MANUAL DIFF SEE BELOW SEGS 80 % (37 - 80) %LYMPH 13 L % (25 - 40) %MONO 7 % (3 - 8) RBC MORPH NOT INDICATEDCMP: (ABDIAS: 02/05/2021 11:58) ( MsgRcvd 02/05/2021 12:44) Final results Test Result Flag Units (Reference) COMPREHENSIVE METABOLIC PANEL 4 Clinical Report - Physicians/Mid Levels [facility] Emergency Department [address] [place] [address] Phone #: ext- [phone] 02/05/2021 11:26 Patient: CHRISTOPHE BENITEZ Sex: F : 1935 Age: 86y COMPREHENSIVE METABOLIC PANEL SODIUM 140 mEq/L (134 - 153) POTASSIUM 3.4 L mEq/L (3.6 - 5.0) CHLORIDE 102 mEq/L (98 - 107) CO2 25 MEQ/L (22 - 30) GLUCOSE 166 H MG/DL (70 - 99) BUN 28 H MG/DL (7 - 21) CREATININE 1.1 MG/DL (0.7 - 1.5) BUN/CREAT 25 (8 - 27) TOTAL PROTEIN 6.5 G/DL (6.3 - 8.2) ALBUMIN 3.6 L G/DL (3.9 - 5.0) GLOBULIN 2.9 GM/DL (2.4 - 3.2) A/G RATIO 1.2 (0.8 - 2.0) CALCIUM 9.4 MG/DL (8.4 - 10.2) TOTAL BILI <0.7 MG/DL (0.2 - 1.3) ALKALINE PHOS 185 H U/L (38 - 126) SGOT/AST 24 U/L (5 - 40) SGPT/ALT 28 U/L (7 - 56) ANION GAP 13.0 mmol/L (8.0 - 16.0) AGE 86 yrs NON-AA GFR 50 mL/min AFR AMER GFR >60 Male GFR Interprentation 20-49 yrs >60 mL/min Normal 50-59 yrs >56 mL/min Normal 60-69 yrs >49 mL/min Normal 70-79yrs >42 mL/min Normal 80 and above >35 mL/min Normal Female GFR Interpretation 20-39 yrs >60 mL/min Normal 40-49 yrs >58 mL/min Normal 50-59 yrs >51 mL/min Normal 60-69 yrs >45 mL/min Normal 70-79 yrs >39 mL/min Normal 80 and above >32 mL/min Normal BNP: (ABDIAS: 02/05/2021 11:58) ( [facility] 02/05/2021 12:44) Final results Test Result Flag Units (Reference) BNP 1556 H PG/ML (0 - 450) Troponin-T: (ABDIAS: 02/05/2021 11:58) ( [facility] 02/05/2021 12:44) Final results Test Result Flag Units (Reference) TROPONIN T <0.01 NG/ML (0.00 - 0.10) TROPONIN T0.1 ng/ml Recommended as the clinical threshold value forTroponin T. Lactic Acid: (ABDIAS: 02/05/2021 11:58) ( [facility] 02/05/2021 12:20) Final results Test Result Flag Units (Reference) LACTIC ACID 2.6 H MMOL/L (0.2 - 2.2).PROGRESS AND PROCEDURESCourse of Care: 12:08 02/05/21. Differential diagnosis include pneumonia, pleural effusion, anemia, URI,CHF, hyponatremia, acute renal injury, pulmonary embolism. 13:06 02/05/21. No hypoxia at rest. Pulse ox is 96%. Chest xray shows improvement from Josselyn admission. No electrolyte abnormalities. Patient will continue on Doxycycline. Old ED and inpatient records ordered. 5 Clinical Report - Physicians/Mid Levels [facility] Emergency Department [address] [place] [address] Phone #: mum- [phone] 02/05/2021 11:26 Patient: CHRISTOPHE BENITEZ Sex: F : 1935 Age: 86y Disposition: Discharged. Condition: stable.CLINICAL IMPRESSION COPD (chronic bronchitis)INSTRUCTIONS Warnings: Further evaluation is necessary. GENERAL WARNINGS: Return or contact your physician immediately if your condition worsens or changes unexpectedly, if not improving as expected, or if other problems arise. Your Current Medications: Your current home medications have been reviewed. CONTINUE TAKING THE FOLLOWING MEDICATIONS: Albuterol Sulfate Inhalation : 1 unit dose q4h. Aspirin Oral : 81 mg MWF. Bisoprolol- hydroCHLOROthiazide Oral : Tablet 5-6.25 mg, 1 tablet daily. Breo Ellipta Inhalation : Aerosol Powder Breath Activated 200-25 mcg/inh, 1 PUFF daily. Doxycycline Oral : 100 mg 2x a day, Started: 01/31/2021, x 10 days. Eliquis Oral : Tablet 5 mg, 1 tablet daily. Furosemide Oral : 20 mg every other day. Gabapentin Oral : 300 mg daily, every PM. Incruse Ellipta Inhalation : Aerosol Powder Breath Activated 62.5 mcg/inh, 1 PUFF daily. Mirtazapine Oral : 15 mg rose mary ly. Simvastatin Oral : 10 mg daily. Follow-up: Follow up with your healthcare provider Aaron in three days. Understanding of the discharge instructions verbalized by patient and family.(Electronically signed by Cody Cox 02/05/2021 15:13) Name Value Range Interpretation Code Description Data Charis rce(s) Supporting Document(s) ID Date Data Source [id number] 02/11/2021 06:46:00 AM EDT [facility] [id number] Name Value Range Interpretation Code Description Data Charis rce(s) Supporting Document(s) Bacteria identified in Blood by Culture [facility] NO GROWTH AFTER 5 DAYS ID Date Data Source [id number] 02/11/2021 10:51:00 AM EDT [facility] Name Value Range Interpretation Code Description Data Charis rce(s) Supporting Document(s) CULTURE BLOOD [facility] _CULTURE BLOOD_ TEST PERFORM ED AT [address] [address] CLIA# [id number] SEE SCANNED REPORT{ PRELIM ID Date Data Source [id number] 02/05/2021 12:10:00 PM EDT [facility] Name Value Range Interpretation Code Description Data Charis rce(s) Supporting Document(s) COVID19 Case rprt NOT DETECTED [facility] This lab was ordered by [facility] and reported by [facility]. ID Date Data Source [id number] 02/05/2021 12:47:00 PM EDT [facility] NOT DETECTEDNOT DETECTED{ PROC EDURAL CONTROL VALID KIT LOT # _[id number] 02/05/21.1247.CM . KIT EXP DATE _03/04/21 02/05/21.1247.CM . NORMAL RANGE IS NOT DETECTEDNEGATIVE RESULTS SHOULD BE TREATED PRESUMPTIVE AND, IF INCONSISTENT WITHCLINICAL SIGNS AND SYMPTOMS OR NECESSARY FOR PATIENT MANAGEMENT, SHOULD BETESTED WITH DIFFERENT AUTHORIZED OR CLEARED MOLECULAR TESTS. NEGATIVE RESULTSDO NOT PRECLUDE SARS-CoV-2 INFECTION AND SHOULD NOT BE USED THE SOLE BASISFOR PATIENT MANAGEMENT DECISIONS. Name Value Range Interpretation Code Description Data Charis rce(s) Supporting Document(s) ID Date Data Source [id number] 02/11/2021 10:51:00 AM EDT [facility] Name Value Range Interpretation Code Description Data Charis rce(s) Supporting Document(s) CULTURE BLOOD [facility] _CULTURE BLOOD_ TEST PERFORM ED AT [address] [address] CLIA# [id number] SEE SCANNED REPORT{ PRELIM ID Date Data Source [id number] 02/05/2021 12:44:00 PM EDT [facility] Name Value Range Interpretation Code Description Data Charis rce(s) Supporting Document(s) CBC W/AUTOMATED DIFF [facility] COMPLETE BLOOD COUNT Leukocytes [#/volume] in Blood by Automated count 11.5 10^3/uL 4.2 - 11.0 H [facility] Erythrocytes [#/volume] in Blood by Automated count 4.01 10^6/uL 4. 20 - 5.40 L [facility] Hemoglobin [Mass/volume] in Blood 13.6 g/dL 12.0 - 16.0 [facility] Hematocrit [Volume Fraction] of Blood by Automated count 40.3 % 3 7.0 - 47.0 [facility] Erythrocyte mean corpuscular volume [Entitic volume] b y Automated count 100.5 fL 81.0 - 101 [facility] Erythrocyte mean corpuscular hemoglobin [Entitic mass] by Automated count 33.9 pg 27.0 - 34.0 [facility] Erythrocyte mean corpuscular hemoglobin concentration [Mass/volume] by Automated count 33.7 g/dL 31.0 - 36.0 [facility] Erythrocyte distribution width [Ratio] by Automated count 13.4 % 11.5 - 14.5 [facility] Platelets [#/volume] in Blood by Automated count 207 10^3/uL 150 - 45 0 [facility] Platelet mean volume [Entitic volume] in Blood by Automated count 10.5 fL 7.4 - 10.4 H [facility] Neutrophils/100 leukocytes in Blood by Automated count 72.4 % 37. 0 - 80.0 [facility] Lymphocytes/100 leukocytes in Blood by Manual count 15.3 % 25.0 - 40.0 L [facility] Monocytes/100 leukocytes in Blood by Automated count 10.5 % 3.0 - 8.0 H [facility] Eosinophils/100 leukocytes in Blood by Automated count 0.3 % 0.0 - 7.0 [facility] Basophils/100 leukocytes in Blood by Automated count 0.3 % 0.0 - 2.5 [facility] %IG 1.2 % 0.0 - 0.0 [facility] %NRBC 0.0 % 0.0 - 0.0 [facility] al Neutrophils [#/volume] in Blood by Automated count 8.35 10^3/uL 2.00 - 6.90 H [facility] Lymphocytes [#/volume] in Blood by Automated count 1.76 10^3/uL 0.60 - 3.40 [facility] Monocytes [#/volume] in Blood by Automated count 1.21 10^3/uL 0.00 - 0.90 H [facility] Eosinophils [#/volume] in Blood by Automated count 0.03 10^3/uL 0.00 - 0.70 [facility] Basophils [#/volume] in Blood by Automated count 0.03 10^3/uL 0.00 - 0.20 [facility] #IG 0.14 10^3/uL 0.00 - 0.10 H [facility] #NRBC 0.00 10^3/uL 0.00 - 0.00 [facility] ospital MANUAL DIFF SEE BELOW [facility] Segmented neutrophils/100 leukocytes in Blood by Manual count 80 % 37 - 80 [facility] %LYMPH 13 % 25 - 40 L [facility] al %MONO 7 % 3 - 8 [facility] al RBC MORPH NOT INDICATED [facility] ID Date Data Source [id number] 02/05/2021 12:44:00 PM EDT [facility] Name Value Range Interpretation Code Description Data Charis rce(s) Supporting Document(s) COMPREHENSIVE METABOLIC PANEL [facility] COMPREHENSIVE METABOLIC PANEL Sodium [Moles/volume] in Serum or Plasma 140 mEq/L 134 - 153 [facility] [facility] Potassium [Moles/volume] in Serum or Plasma 3.4 mEq/L 3.6 - 5.0 L [facility] Chloride [Moles/volume] in Serum or Plasma 102 mEq/L 98 - 107 [facility] Carbon dioxide, total [Moles/volume] in Serum or Plasma 25 MEQ/L 22 - 30 [facility] Glucose [Mass/volume] in Serum or Plasma 166 MG/DL 70 - 99 H [facility] BUN 28 MG/DL 7 - 21 H [facility] al Creatinine [Mass/volume] in Serum or Plasma 1.1 MG/DL 0.7 - 1.5 [facility] BUN/CREAT 25 8 - 27 [facility] Protein [Mass/volume] in Serum or Plasma 6.5 G/DL 6.3 - 8.2 [facility] Albumin [Mass/volume] in Serum or Plasma 3.6 G/DL 3.9 - 5.0 L [facility] Globulin [Mass/volume] in Serum by calculation 2.9 GM/DL 2.4 - 3.2 [facility] A/G RATIO 1.2 0.8 - 2.0 [facility] Calcium [Mass/volume] in Serum or Plasma 9.4 MG/DL 8.4 - 10.2 [facility] Bilirubin.total [Mass/volume] in Serum or Plasma <0.7 MG/DL 0.2 - 1.3 [facility] Alkaline phosphatase [Enzymatic activity/volume] in Serum or Plasma 185 U/L 38 - 126 H [facility] Aspartate aminotransferase [Enzymatic activity/volume] in Serum or Plasma 24 U/L 5 - 40 [facility] Alanine aminotransferase [Enzymatic activity/volume] in Seru m or Plasma 28 U/L 7 - 56 [facility] Anion gap 3 in Serum or Plasma 13.0 mmol/L 8.0 - 16.0 [facility] AGE 86 yrs [facility] al NON-AA GFR 50 mL/min [facility] AFR AMER GFR >60 [facility] Male GFR In terprentation 20-49 yrs >60 mL/min Normal 50-59 yrs >56 mL/min Normal 60-69 yrs >49 mL/min Normal 70-79yrs >42 mL/min Normal 80 and above >35 mL/min Normal Female GFR Interpretation 20-39 yrs >60 mL/min Normal 40-49 yrs >58 mL/min Normal 50-59 yrs >51 mL/min Normal 60-69 yrs >45 mL/min Normal 70-79 yrs >39 mL/min Normal 80 and above >32 mL/min Normal ID Date Data Source [id number] 02/05/2021 12:44:00 PM EDT [facility] Name Value Range Interpretation Code Description Data Charis rce(s) Supporting Document(s) TROPONIN T <0.01 NG/ML 0.00 - 0.10 [facility] ospital TROPONIN T0.1 ng/ml Recommended as the c linical threshold value forTroponin T. ID Date Data Source [id number] 02/05/2021 12:44:00 PM EDT [facility] Name Value Range Interpretation Code Description Data Charis rce(s) Supporting Document(s) BNP 1556 PG/ML 0 - 450 H [facility] ID Date Data Source [id number] 02/05/2021 12:20:00 PM EDT [facility] Name Value Range Interpretation Code Description Data Charis rce(s) Supporting Document(s) Lactate [Moles/volume] in Serum or Plasma 2.6 MMOL/L 0.2 - 2.2 H [facility] ID Date Data Source [id number] 01/17/2021 07:06:00 AM EDT [facility] Name Value Range Interpretation Code Description Data Charis rce(s) Supporting Document(s) BASIC METABOLIC PANEL [facility] BASIC METABOLIC PANEL Sodium [Moles/volume] in Serum or Plasma 140 mEq/L 134 - 153 [facility] Potassium [Moles/volume] in Serum or Plasma 4.3 mEq/L 3.6 - 5.0 [facility] Chloride [Moles/volume] in Serum or Plasma 103 mEq/L 98 - 107 [facility] Carbon dioxide, total [Moles/volume] in Serum or Plasma 28 MEQ/L 22 - 30 [facility] Glucose [Mass/volume] in Serum or Plasma 173 MG/DL 70 - 99 H [facility] BUN 46 MG/DL 7 - 21 H [facility] al Creatinine [Mass/volume] in Serum or Plasma 1.2 MG/DL 0.7 - 1.5 [facility] BUN/CREAT 38 8 - 27 H [facility] Calcium [Mass/volume] in Serum or Plasma 9.3 MG/DL 8.4 - 10.2 [facility] Anion gap 3 in Serum or Plasma 9.0 mmol/L 8.0 - 16.0 [facility] AGE 86 yrs [facility] al AFR AMER GFR >60 [facility] NON-AA GFR 45 mL/min [facility] Male GFR Inter prentation 20-49 yrs >60 mL/min Normal 50-59 yrs >56 mL/min Normal 60-69 yrs >49 mL/min Normal 70-79yrs >42 mL/min Normal 80 and above >35 mL/min Normal Female GFR Interpretation 20-39 yrs >60 mL/min Normal 40-49 yrs >58 mL/min Normal 50-59 yrs >51 mL/min Normal 60-69 yrs >45 mL/min Normal 70-79 yrs >39 mL/min Normal 80 and above >32 mL/min Normal ID Date Data Source [id number] 01/17/2021 07:00:00 AM EDT [facility] Name Value Range Interpretation Code Description Data Charis rce(s) Supporting Document(s) CBC W/AUTOMATED DIFF [facility] COMPLETE BLOOD COUNT Leukocytes [#/volume] in Blood by Automated count 12.2 10^3/uL 4.2 - 11.0 H [facility] Erythrocytes [#/volume] in Blood by Automated count 3.71 10^6/uL 4. 20 - 5.40 L [facility] Hemoglobin [Mass/volume] in Blood 12.8 g/dL 12.0 - 16.0 [facility] Hematocrit [Volume Fraction] of Blood by Automated count 37.7 % 3 7.0 - 47.0 [facility] Erythrocyte mean corpuscular volume [Entitic volume] b y Automated count 101.6 fL 81.0 - 101 H [facility] Erythrocyte mean corpuscular hemoglobin [Entitic mass] by Automated count 34.5 pg 27.0 - 34.0 H [facility] Erythrocyte mean corpuscular hemoglobin concentration [Mass/volume] by Automated count 34.0 g/dL 31.0 - 36.0 [facility] Erythrocyte distribution width [Ratio] by Automated count 13.5 % 11.5 - 14.5 [facility] Platelets [#/volume] in Blood by Automated count 214 10^3/uL 150 - 45 0 [facility] Platelet mean volume [Entitic volume] in Blood by Automated count 10.8 fL 7.4 - 10.4 H [facility] Neutrophils/100 leukocytes in Blood by Automated count 87.9 % 37. 0 - 80.0 H [facility] Lymphocytes/100 leukocytes in Blood by Manual count 6.3 % 25.0 - 40.0 L [facility] Monocytes/100 leukocytes in Blood by Automated count 5.0 % 3.0 - 8.0 [facility] Eosinophils/100 leukocytes in Blood by Automated count 0.0 % 0.0 - 7.0 [facility] Basophils/100 leukocytes in Blood by Automated count 0.1 % 0.0 - 2.5 [facility] %IG 0.7 % 0.0 - 0.0 H [facility] %NRBC 0.0 % 0.0 - 0.0 [facility] Neutrophils [#/volume] in Blood by Automated count 10.73 10^3/uL 2. 00 - 6.90 H [facility] Lymphocytes [#/volume] in Blood by Automated count 0.77 10^3/uL 0.60 - 3.40 [facility] Monocytes [#/volume] in Blood by Automated count 0.61 10^3/uL 0.00 - 0.90 [facility] Eosinophils [#/volume] in Blood by Automated count 0.00 10^3/uL 0.00 - 0.70 [facility] Basophils [#/volume] in Blood by Automated count 0.01 10^3/uL 0.00 - 0.20 [facility] #IG 0.08 10^3/uL 0.00 - 0.10 [facility] #NRBC 0.00 10^3/uL 0.00 - 0.00 [facility] MANUAL DIFF NOT INDICATED [facility] RBC MORPH NOT INDICATED [facility] spital ID Date Data Source [id number] 01/16/2021 11:41:00 [place] [address] PHONE: [phone] FAX: [phone] Name .................. : ELI SAEED Acct Number.................. : [id number] ROOM. ................. : 100-1 Number ................... : [id number] Stay type ............. : O/P Discharge Date......... ... : Admit Date ......... : 01/14/21 Admit Phys .................... : CORETTA Date of ....... : 1935 Family Phys ................... : RACHEL JC Phone .................. : [phone] Age ................................ : 86 Film# .................. .:[id number] Sex ................................. : F Unsigned transcriptions are preliminary reports and do not represent a medical or legal document DOPPLER VENOUS BILAT LEG 25993 COMPLETE:01/15/21 13:44 KNB [id number] (REASON FOR PROCESS: PAIN BILATERAL LOWER EXTREMITY VENOUS DUPLEX DOPPLER ULTRASOUND: CLINICAL HISTORY: Pain. COMPARISON: None. FINDINGS: On the left, there is normal paredes scale compression ultrasound of the common femoral, superficial femoral and popliteal veins as well as the calf veins. Patency in the left lower extremity deep venous system is confirmed with normal color Doppler ultrasound. There is normal phasic flow in the left lower extremity deep venous system with normal augmented flow. On the right, there is incomplete compressibility of the superficial femoral vein compatible with subacute DVT. No occlusive thrombus is present on the right. Subacute DVT is seen in the proximal superior femoral vein, but there is patency of the common femoral, mid to distal superficial femoral and popliteal veins. IMPRESSION: 1. Subacute proximal superficial femoral DVT on the right. 2. No DVT on the left. Electronically Reviewed and Signed By Claudio Willard MD , 01/16/21 11:41, [facility] Transcribe Initials: DZ , Transcribe Date: 01/15/21 14:28, Dictation Date: Copy for: MELIANDRECharmaine Montano via fax Copy for: EMERGENCY DEPT via modem Copy for: [facility] REC Page 1 of 1 Name Value Range Interpretation Code Description Data Charis rce(s) Supporting Document(s) ID Date Data Source [id number] 01/16/2021 11:19:00 [place] [address] PHONE: [phone] FAX: [phone] Name .................. : ELI SAEED Acct Number.................. : [id number] ROOM. ................. : 100-1 MR Number ................... : [id number] Stay type ............. : O/P Discharge Date......... ... : Admit Date ......... : 01/14/21 Admit Phys .................... : CHECO PA Date of ....... : 1935 Family Phys ................... : RACHEL GREENE Phone ..... ............. : [phone] Age ................................ : 86 Film# .................. .:[id number] Sex ................................. : F Unsigned t ranscriptions are preliminary reports and do not represent a medical or legal document CHEST 2 VIEWS 34974 COMPLETE:01/14/21 10:46 9007 Reason(s): Shortness of Breath CHEST X-RAY: FRONTAL AND LATERAL VIEWS COMPARISON: 07/22/19 FINDINGS: There is bibasilar subsegmental atelectasis and/or pleuroparenchymal scarring. This has worsened when compared to the prior examination. There is now mild pulmonary vascular congestion and what appears to be a right lower lobe infiltrate. There is at least a small right and possible left pleural effusion. The lungs are hyperexpanded bilaterally. The heart is enlarged. There is no obvious hilar adenopathy. The aorta is unfolded, tortuous and calcified. The bones are demineralized with degenerative changes. IMPRESSION: Mild pulmonary vascular congestion with what appears to be a right lower lobe infiltrate an associated effusion. Correlate clinically. Electronically Reviewed and Signed By Austin Webber MD , 01/16/21 11:19, [facility] Transcribe Initials: JAH , Transcribe Date: 01/14/21 14:28, Dictation Date: Copy for: EMERGENCY DEPT via mode Copy for: [facility] REC Page 1 of 1 Name Value Range Interpretation Code Description Data Charis rce(s) Supporting Document(s) ID Date Data Source [id number] 01/16/2021 07:49:00 AM EDT [facility] Name Value Range Interpretation Code Description Data Charis rce(s) Supporting Document(s) BASIC METABOLIC PANEL [facility] BASIC METABOLIC PANEL Sodium [Moles/volume] in Serum or Plasma 142 mEq/L 134 - 153 [facility] Potassium [Moles/volume] in Serum or Plasma 4.4 mEq/L 3.6 - 5.0 [facility] Chloride [Moles/volume] in Serum or Plasma 103 mEq/L 98 - 107 [facility] Carbon dioxide, total [Moles/volume] in Serum or Plasma 28 MEQ/L 22 - 30 [facility] Glucose [Mass/volume] in Serum or Plasma 141 MG/DL 70 - 99 H [facility] BUN 31 MG/DL 7 - 21 H [facility] Creatinine [Mass/volume] in Serum or Plasma 1.2 MG/DL 0.7 - 1.5 [facility] BUN/CREAT 26 8 - 27 [facility] Calcium [Mass/volume] in Serum or Plasma 9.6 MG/DL 8.4 - 10.2 [facility] Anion gap 3 in Serum or Plasma 11.0 mmol/L 8.0 - 16.0 [facility] AGE 86 yrs [facility] al AFR AMER GFR >60 [facility] NON-AA GFR 45 mL/min [facility] Male GFR Inter prentation 20-49 yrs >60 mL/min Normal 50-59 yrs >56 mL/min Normal 60-69 yrs >49 mL/min Normal 70-79yrs >42 mL/min Normal 80 and above >35 mL/min Normal Female GFR Interpretation 20-39 yrs >60 mL/min Normal 40-49 yrs >58 mL/min Normal 50-59 yrs >51 mL/min Normal 60-69 yrs >45 mL/min Normal 70-79 yrs >39 mL/min Normal 80 and above >32 mL/min Normal ID Date Data Source [id number] 01/16/2021 07:48:00 AM EDT [facility] Name Value Range Interpretation Code Description Data Charis rce(s) Supporting Document(s) BNP 1534 PG/ML 0 - 450 H [facility] ID Date Data Source [id number] 01/16/2021 06:58:00 AM EDT [facility] Name Value Range Interpretation Code Description Data Charis rce(s) Supporting Document(s) CBC W/AUTOMATED DIFF [facility] COMPLETE BLOOD COUNT Leukocytes [#/volume] in Blood by Automated count 18.3 10^3/uL 4.2 - 11.0 H [facility] Erythrocytes [#/volume] in Blood by Automated count 3.94 10^6/uL 4. 20 - 5.40 L [facility] Hemoglobin [Mass/volume] in Blood 13.5 g/dL 12.0 - 16.0 [facility] Hematocrit [Volume Fraction] of Blood by Automated count 39.9 % 3 7.0 - 47.0 [facility] Erythrocyte mean corpuscular volume [Entitic volume] b y Automated count 101.3 fL 81.0 - 101 H [facility] Erythrocyte mean corpuscular hemoglobin [Entitic mass] by Automated count 34.3 pg 27.0 - 34.0 H [facility] Erythrocyte mean corpuscular hemoglobin concentration [Mass/volume] by Automated count 33.8 g/dL 31.0 - 36.0 [facility] Erythrocyte distribution width [Ratio] by Automated count 13.2 % 11.5 - 14.5 [facility] Platelets [#/volume] in Blood by Automated count 219 10^3/uL 150 - 45 0 [facility] Platelet mean volume [Entitic volume] in Blood by Automated count 10.8 fL 7.4 - 10.4 H [facility] Neutrophils/100 leukocytes in Blood by Automated count 90.9 % 37. 0 - 80.0 H [facility] Lymphocytes/100 leukocytes in Blood by Manual count 5.0 % 25.0 - 40.0 L [facility] Monocytes/100 leukocytes in Blood by Automated count 3.3 % 3.0 - 8.0 [facility] Eosinophils/100 leukocytes in Blood by Automated count 0.0 % 0.0 - 7.0 [facility] Basophils/100 leukocytes in Blood by Automated count 0.2 % 0.0 - 2.5 [facility] %IG 0.6 % 0.0 - 0.0 [facility] %NR[facility] 0.0 % 0.0 - 0.0 [facility] al Neutrophils [#/volume] in Blood by Automated count 16.58 10^3/uL 2. 00 - 6.90 H [facility] Lymphocytes [#/volume] in Blood by Automated count 0.92 10^3/uL 0.60 - 3.40 [facility] Monocytes [#/volume] in Blood by Automated count 0.61 10^3/uL 0.00 - 0.90 [facility] Eosinophils [#/volume] in Blood by Automated count 0.00 10^3/uL 0.00 - 0.70 [facility] Basophils [#/volume] in Blood by Automated count 0.03 10^3/uL 0.00 - 0.20 [facility] #IG 0.11 10^3/uL 0.00 - 0.10 [facility] #NRBC 0.00 10^3/uL 0.00 - 0.00 [facility] MANUAL DIFF NOT INDICATED [facility] RBC MORPH NOT INDICATED [facility] ID Date Data Source [id number] 01/15/2021 01:12:00 PM EDT [facility] [address] [place] [address] RESPIRATORY CARE REPORT ==== ---------NAME------- NUMBER SEX AGE ADMIT DISC. XRAY# F/C [facility] [id number] F 86 01/14/21 [id number] MB8 O/P DATE OF : 1935 M/R# [id number] PH#: [phone] 100-1 LOCATION: EMERGENCY DEPT EKG 49005 COMP LETE:01/14/21 15:54 [place] [address] PHYSICIAN: CORETTA TINEO Name Value Range Interpretation Code Description Data Charis rce(s) Supporting Document(s) ID Date Data Source [id number] 01/15/2021 07:53:00 AM EDT [facility] Name Value Range Interpretation Code Description Data Charis rce(s) Supporting Document(s) BASIC METABOLIC PANEL [facility] BASIC METABOLIC PANEL Sodium [Moles/volume] in Serum or Plasma 140 mEq/L 134 - 153 [facility] Potassium [Moles/volume] in Serum or Plasma 4.2 mEq/L 3.6 - 5.0 [facility] Chloride [Moles/volume] in Serum or Plasma 101 mEq/L 98 - 107 [facility] Carbon dioxide, total [Moles/volume] in Serum or Plasma 26 MEQ/L 22 - 30 [facility] Glucose [Mass/volume] in Serum or Plasma 331 MG/DL 70 - 99 H [facility] BUN 23 MG/DL 7 - 21 H [facility] Creatinine [Mass/volume] in Serum or Plasma 1.1 MG/DL 0.7 - 1.5 [facility] BUN/CREAT 21 8 - 27 [facility] Calcium [Mass/volume] in Serum or Plasma 9.2 MG/DL 8.4 - 10.2 [facility] Anion gap 3 in Serum or Plasma 13.0 mmol/L 8.0 - 16.0 [facility] 86 [facility] GFR >60 [facility] pital NON-AA GFR 50 mL/min [facility] Male GFR Inter prentation 20-49 yrs >60 mL/min Normal 50-59 yrs >56 mL/min Normal 60-69 yrs >49 mL/min Normal 70-79yrs >42 mL/min Normal 80 and above >35 mL/min Normal Female GFR Interpretation 20-39 yrs >60 mL/min Normal 40-49 yrs >58 mL/min Normal 50-59 yrs >51 mL/min Normal 60-69 yrs >45 mL/min Normal 70-79 yrs >39 mL/min Normal 80 and above >32 mL/min Normal ID Date Data Source [id number] 01/15/2021 07:21:00 AM EDT [facility] Name Value Range Interpretation Code Description Data Charis rce(s) Supporting Document(s) CBC W/AUTOMATED DIFF [facility] COMPLETE BLOOD COUNT Leukocytes [#/volume] in Blood by Automated count 5.7 10^3/uL 4.2 - 1 1.0 [facility] Erythrocytes [#/volume] in Blood by Automated count 3.82 10^6/uL 4. 20 - 5.40 L [facility] Hemoglobin [Mass/volume] in Blood 13.1 g/dL 12.0 - 16.0 [facility] Hematocrit [Volume Fraction] of Blood by Automated count 38.8 % 3 7.0 - 47.0 [facility] Erythrocyte mean corpuscular volume [Entitic volume] b y Automated count 101.6 fL 81.0 - 101 H [facility] Erythrocyte mean corpuscular hemoglobin [Entitic mass] by Automated count 34.3 pg 27.0 - 34.0 H [facility] Erythrocyte mean corpuscular hemoglobin concentration [Mass/volume] by Automated count 33.8 g/dL 31.0 - 36.0 [facility] Erythrocyte distribution width [Ratio] by Automated count 12.8 % 11.5 - 14.5 [facility] Platelets [#/volume] in Blood by Automated count 189 10^3/uL 150 - 45 0 [facility] Platelet mean volume [Entitic volume] in Blood by Automated count 10.8 fL 7.4 - 10.4 H [facility] Neutrophils/100 leukocytes in Blood by Automated count 81.2 % 37. 0 - 80.0 H [facility] Lymphocytes/100 leukocytes in Blood by Manual count 14.5 % 25.0 - 40.0 L [facility] Monocytes/100 leukocytes in Blood by Automated count 1.0 % 3.0 - 8.0 L [facility] Eosinophils/100 leukocytes in Blood by Automated count 2.6 % 0.0 - 7.0 [facility] Basophils/100 leukocytes in Blood by Automated count 0.2 % 0.0 - 2.5 [facility] %IG 0.5 % 0.0 - 0.0 [facility] %NR[facility] 0.0 % 0.0 - 0.0 [facility] al Neutrophils [#/volume] in Blood by Automated count 4.65 10^3/uL 2.00 - 6.90 [facility] Lymphocytes [#/volume] in Blood by Automated count 0.83 10^3/uL 0.60 - 3.40 [facility] Monocytes [#/volume] in Blood by Automated count 0.06 10^3/uL 0.00 - 0.90 [facility] Eosinophils [#/volume] in Blood by Automated count 0.15 10^3/uL 0.00 - 0.70 [facility] Basophils [#/volume] in Blood by Automated count 0.01 10^3/uL 0.00 - 0.20 [facility] #IG 0.03 10^3/uL 0.00 - 0.10 [facility] #NRBC 0.00 10^3/uL 0.00 - 0.00 [facility] MANUAL DIFF NOT INDICATED [facility] RBC MORPH NOT INDICATED [facility] ID Date Data Source [id number] 01/14/2021 10:27:00 AM EDT [facility] 1 OrderSheet [facility] Emergency Department [address] [place] [address] Phone #: [phone] 01/14/2021 10:22 Patient: CHRISTOPHE BENITEZ Sex: F : 1935 Age: 86yWEIGHT:62.2 kg (S)ALLERGIES: No Known Drug AllergyCHIEF COMPLAINT: dyspnea, COPDDIAGNOSIS: Pneumonia, Chronic obstructive lung disease, Congestive heart failure, Diabetes mellitus,HypothyroidismLAB ORDERSOrder Description Priority Entered Acknowledged InitialedBlood Culture STAT 10:46 01/14/2021 10:47 [id number] X2 (John Saunders RN10:46 01/14/2021) Physician;Blood Culture STAT 10:46 01/14/2021 10:47 [id number] X2 (John Saunders RN10:56 01/14/2021) Physician;BNP STAT 10:46 01/14/2021 10:47 Soham Saunders RN Physician;CBC w Diff STAT 10:46 01/14/2021 10:47 Soham Saunders RN Physician;CMP STAT 10:46 01/14/2021 10:47 Soham Saunders RN Physician;Urinalysis (Clean STAT 10:46 01/14/2021 13:36 Theodore,Catch) Willian Gary RN Physician;TSH STAT 10:46 01/14/2021 10:47 Soham Saunders RN Physician;Troponin-T STAT 10:46 01/14/2021 10:47 Soham Saunders RN Physician;PT/INR STAT 10:46 01/14/2021 10:47 Soham Saunders RN Physician;PT/PTT STAT 10:46 01/14/2021 10:47 Soham Saunders RN Physician; 2 [facility]Sheet [facility] [facility] Emergency Department [address] [place] [address] Phone #: ext- [phone] 01/14/2021 10:22 Patient: CHRISTOPHE BENITEZ Sex: F : 1935 Age: 86yT4 Free STAT 10:46 01/14/2021 10:47 Soham Saunders RN Physician;COVID-19 CAH (Not STAT 13:14 01/14/2021 14:15 Theodore,Symptomatic as Cookie Jaimes RN; Cookie RNDefined by [facility]) Per protocol; Willian(01/14/2021) (First [place] PhysicianTest) (NotHospitalized) (Not) (NotResident inCongregate CareSetting) (NotEmployed inHealthcare Setting)DIAGNOSTIC STUDY ORDERSOrder Description Priority Entered Acknowledged InitialedChest 2 View STAT 10:46 01/14/2021 10:47 Soham(Oxygen?(No)) Willian Saunders RN Physician; Reason for Study: Shortness of BreathMEDICATION/IV/DRIP/FLUID ORDERSOrder Description Priority Entered Acknowledged InitialedDuoNeb Neb Tx 3 10:46 01/14/2021 10:48 DlymL (NOW) Willian Saunders RN Physician;Lasix IVP 40 mg 12:45 01/14/2021 13:00 Soham(NOW) Willian Saunders RN Physician;Rocephin 12:45 01/14/2021 13:01 Soham(1gm/50mL) IVPB Willian Saunders [id number] mg with Physician;Dextrose 50 mlspike bag (D5W)GENERAL ORDERSOrder Description Priority Entered Acknowledged InitialedEKG 10:46 01/14/2021 10:47 Soham Saunders RN Physician;Saline Lock 10:46 01/14/2021 10:47 Soham 3 OrderSheet [facility] Emergency Department [address] [place] [address] Phone #: ext- [phone] 01/14/2021 10:22 Patient: CHRISTOPHE BENITEZ Sex: F : 1935 Age: 86y Willian Saunders RN Physician;[Electronically signed by Willian Kessler Physician (15:02 01/14/2021)][Electronically signed by Soham Saunders RN (15:24 01/14/2021)][Electronically locked by Soham Saunders RN (15:01/14/2021)] Name Value Range Interpretation Code Description Data Charis rce(s) Supporting Document(s) ID Date Data Source [id number] 01/14/2021 10:27:00 AM EDT [facility] 1 Medication Reconciliation Report [facility] Department [address] [place] [address] Phone #: ext- [phone] 01/14/2021 10:22 Patient: CHRISTOPHE BENITEZ Sex: F : 1935 Age: 86yWeight: 62.2 kgHeight/Length: 60 in.BMI: 26.8ALLERGIES: No Known Drug AllergyThe patient's Home Medications are listed below:THE FOLLOWING MEDICATIONS NEED TO BE RECONCILED: Acetaminophen-Codeine Oral (300-30 mg), q6h, prn Bisoprolol-hydroCHLOROthiazide Oral (5-6.25 mg), daily Breo Ellipta Inhalation (200-25 mcg/inh), daily Gabapentin Oral 300 mg, at bedtime Incruse Ellipta Inhalation Mirtazapine Oral 15 mg, at bedtime Plavix Oral 75 mg, daily, pt doesnt take Zocor Oral 10 mg, dailyThe source(s) of the original Home Medication information:patientpatient's family memberThe following Medications were given to the patient in the Emergency Department:Duoneb [Neb Tx] Neb TX 1 unit dose, administered: 10:45 1Lasix [IVP] IVP 40 mg, administered: 12:55 1ROCEPHIN (1GM/50ML) [IVPB] IVPB bolus 0, then 1 gm 100 mL/hr, administered: 12:56 01/14/2021 2 Medication Reconciliation Report [facility] Emergency Department [address] [place] [address] Phone #: ext- [phone] 01/14/2021 10:22 Patient: CHRISTOPHE BENITEZ Sex: F : 1935 Age: 86yThe following Medications were prescribed to the patient:None. Name Value Range Interpretation Code Description Data Charis rce(s) Supporting Document(s) ID Date Data Source [id number] 01/14/2021 10:27:00 AM EDT [facility] 1 Medication Administration Record [facility] Department [address] [place] [address] Phone #: jrd- [phone] 01/14/2021 10:22 Patient: CHRISTOPHE BENITEZ Sex: F : 1935 Age: 86yWeight: 62.2 kgHeight/Length: 60 inBMI: 26.8ALLERGIES: No Known Drug Allergy Date/Time Medication Administered Medication OrderedGiven DUONEB [NEB TX] DuoNeb Neb Tx 3 mL (NOW)10:45 01/14/2021 Dose: 1 unit dose Nebulizer Willow Saunders RN----Stop10:53 01/14/2021Soham Saunders RNGiven LASIX [IVP] Lasix IVP 40 mg (NOW)12:55 01/14/2021 Dose: 40 mg IVPTcande Saunders RN Site: #1 right wristStart ROCEPHIN (1GM/50ML) [IVPB] Rocephin (1gm/50mL) IVPB 920380:[id number] 01/14/2021 (CEFTRIAXONE SODIUM) mg with Dextrose 50 ml spike Bernardino Saunders RN Dose: 1 gm IVPB (D5W)---- Rate: 100 mL/hr over 30 minute(s)Stop Dispensed: 50 mL bag13:24 01/14/2021 Site: #1 right Mireille Saunders RN Name Value Range Interpretation Code Description Data Charis rce(s) Supporting Document(s) ID Date Data Source [id number] 01/14/2021 10:27:00 AM EDT [facility] 1 General Instructions [facility] Department [address] [place] [address] Phone #: ext- [phone] 01/14/2021 10:22 Patient: CHRISTOPHE BENITEZ Sex: F : 1935 Age: 86yAcute mild systolic, left ventricular congestive heart failure.Acute exacerbation of COPD.Bacterial pneumonia.Chronic, moderately well controlled type 2 diabetes with hyperglycemia.Acquired hypothyroidism. Not related to atrophy of thyroid gland or iodine deficiency. No post-surgica lhypothyroidism.(Electronically signed by Willian Kessler Physician 01/14/2021 15:02) Name Value Range Interpretation Code Description Data Charis rce(s) Supporting Document(s) ID Date Data Source [id number] 01/14/2021 10:27:00 AM EDT [facility] 1 Clinical Report - Nurses [facility] Department [address] [place] [address] Phone #: ext- [phone] 01/14/2021 10:22 Patient: CHRISTOPHE BENITEZ Sex: F : 1935 Age: 86yTRIAGEArrived by private vehicle. Historian: patient. Accompanied by family. ( presents via w/c with family withc/o cough and SOB for about a week.).Triage time: 10:23 01/14/2021. Acuity: LEVEL 3.Chief Complaint: COUGH and (SOB).Alert. No acute distress.Onset. (1 weeks).Treatment PT A:None.SEPSIS SCREEN: SIRS SCREEN NEGATIVE. SEPSIS SCREEN NEGATIVE. No suspected or confirmedsigns of infection present. --10:26 01/14/21 Cookie Jaimes RN10:23 01/14/21. BP: 150/60. MAP: 90. HR: 71. RR: 16. O2 saturation: 97%. Temp: 97.9 F. Pain level now:0/10. --10:26 01/14/21 Cookie Jaimes RN.Weight: 62.2 kg stated. Height/Length: 60 inches Per Patient. BMI: 26.8. --10:35 01/14/21 Soham Saunders RN.MedicationsZocor Oral 10 mg, daily. --10:27 01/14/21 Cookie Jaimes RN Breo Ellipta Inhalation (Aerosol Powder Breath Activated 200-25 mcg/inh), daily. --10:29 01/14/21Cookie Jaimes RN Incruse Ellipta Inhalation. --10:29 01/14/21 Cookie Jaimes RN Gabapentin Oral 300 mg, at bedtime. --12:02 01/14/21 Cookie Jaimes RN Bisoprolol-hydroCHLOROthiazide Oral (Tablet 5-6.25 mg), daily. --12:03 01/14/21 Cookie Jaimes RN Plavix Oral 75 mg, daily (pt doesnt take). --12:01/14/21 Cookie Jaimes RN Mirtazapine Oral 15 mg, at bedtime. --12:01/14/21 Cookie Jaimes RN Acetaminophen-Codeine Oral (Tablet 300-30 mg), q6h as needed. --12:01/14/21 Cookie Jaimes RNThe following entry was struck by Cookie Jaimes RN, 10:30 (01/14/21) Reason - other. Breo Ellipta Inhalation (Aerosol Powder Breath Activated 200-25 mcg/inh), daily. --10:29 01/14/21Cookie Jaimes RNThe following entry was struck by Cookie Jaimes RN, 10:30 (01/14/21) Reason - other. Incruse Ellipta Inhalation. --10:01/14/21 Cookie Jaimes RN 2 Clinical Report - Nurses [facility] Department [address] [place] [address] Phone #: ext- [phone] 01/14/2021 10:22 Patient: CHRISTOPHE BENITEZ Sex: F : 1935 Age: 86yThe following entry was struck by Cookie Jaimes RN, 10:29 (01/14/21) Reason - other.Incruse Ellipta Inhalation. --10:29 01/14/21 Cookie Jaimes RNThe following entry was struck by Cookie Jaimes RN, 10:29 (01/14/21) Reason - other.Zocor Oral 10 mg, daily. --10:27 01/14/21 Cookie Jaimes RNThe following entry was struck by Cookie Jaimes RN, 10:29 (01/14/21) Reason - other.Zocor Oral 10 mg, daily. --10:27 01/14/21 Cookie Jaimes RNThe following entry was struck by Cookie Jaimes RN, 10:29 (01/14/21) Reason - other.Breo Ellipta Inhalation (Aerosol Powder Breath Activated 200-25 mcg/inh), daily. --10:29 01/14/21Cookie Jaimes RN .AllergiesNo Known Drug Allergy. --10:27 01/14/21 Cooike Dailey RN.PROBLEMS:Hypertension.Chronic Venous Insufficiency.Abnormal Test.Pneumonia.Hyperglycemia. --10:31 01/14/21 Cookie Jaimes RNCOPD - Chronic Obstructive Pulmonary Disease. --10:41 01/14/21 Willian Kessler PhysicianThe following entry was modified by Willian Kessler Physician, 10:41 01/14/21COPD - Chronic Obstructive Pulmonary Disease. --10:31 01/14/21 Cookie Jaimes RN.Medication/allergy information source: the patient and patient's family and previous visit record. --10: Cookie Jaimes RN.ADDITIONAL SURGERIES:AAA.Calcium deposit out of neck.Hysterectomy. --10:31 01/14/21 Cookie Jaimes RN.HistorySOCIAL HX: Never smoker. No alcohol use or drug use. She was offered HIV testing but declined andhepatitis C testing but declined. She has not traveled outside the [place]Infectious disease exposure: No infectious disease exposure. (had both covid shots).SELF HARM ASSESSMENT: Self harm assessment was performed. The patient answered "no" to thequestion(s) "Have you recently felt down, depressed, or hopeless?".ABUSE ASSESSMENT: No report of abuse.NUTRITIONAL RISK ASSESSMENT: The nutritional risk assessment revealed no deficiencies. 3 Clinical Report - Nurses [facility] Department [address] [place] [address] Phone #: ext- [phone] 01/14/2021 10:22 Patient: CHRISTOPHE BENITEZ [facility]#: [id number] Sex: F : 1935 Age: 86y FUNCTIONAL ASSESSMENT: Functional assessment: no impairments noted. LEARNING NEEDS ASSESSMENT: The learning needs assessment revealed no barriers. FALL RISK ASSESSMENT: Fall risk assessment completed. Risk factors identified include patient medications, age greater than 65 years and impairment of mobility. Fall interventions initiated. Patient placed on stretcher. Side rails up x2. Bed in low position. Brakes on. Family at bedside. Call light in reach of patient. SKIN INTEGRITY ASSESSMENT: Skin integrity risk assessment completed. No skin integrity risk identified. --10:26 01/14/21 Cookie Jaimes RN. FAMILY HX: No significant family medical history. --10:43 01/14/21 Physician Елена. Interventions No allergy band on patient. --10:36 01/14/21 Soham Saunders RN.PHYSICAL [id number] 01/14/21. To room via wheelchair.GENERAL / NEURO / PSYCH: Alert. Oriented X 4.HEENT: Pharynx within normal limits. Voice within normal limits.RESPIRATORY: Decreased breath sounds in the bases bilaterally.CVS: Capillary refill less than 2 seconds.SKIN: Skin is warm and dry. --10:35 01/14/21 Soham Saunders RN.NURSING PROGRESS NOTESMonitoring of patient in place. Patient gowned. Reassurance given. Two patient identifiers checked.Bed placed in lowest position. Brakes of bed on. Patient ready for evaluation. --10:26 01/14/21Cookie Jaimes RN Cardiac rhythm: normal sinus rhythm; (1028). EKG time: (10:28 01/14/2021). EKG was shown to the ED physician. NSR. Call light placed in reach. Side rails up x 2. --10:46 01/14/21 Soham Saunders RN 10:45 01/14/2021 Duonehayley Neb TX Nebulizer 1 unit dose given. Given by the nurse. Allergies verified and confirmed 5 rights. Information reviewed with patient. --10:48 01/14/21 Soham Saunders RN 11:14 01/14/21. BP: 129/48. MAP: 75. HR: 80. RR: 18. O2 saturation: 97%. --11:14 01/14/21 [facility] Tech, Jojo BRYAN Tech1 Checked patient name and birthdate: patient confirmed. Blood samples drawn from the right wrist peripheral IV site by nurse per protocol ; labeled in presence of the patient and sent to lab: rainbow set: blood culture (1st set). Initial blood discarded. Line flushed with 10 mL normal saline post blood draw (1100). --11:16 01/14/21 Soham Saunders RN 4 Clinical Report - Nurses [facility] Emergency Department [address] [place] [address] Phone #: ext- [phone] 01/14/2021 10:22 Patient: CHRISTOPHE BENITEZ Sex: F : 1935 Age: 86yChecked patient name and birthdate. Blood samples drawn by tech: blood culture (2nd set). (6677).--11:16 01/14/21 Soham Saunders RN10:53 01/14/2021 Eusebio KRUEGER discontinued upon: receiving physician order. --11:17 01/14/21 EDMOND De Jesus11:00 01/14/2021 Site #1 started via IV in the right wrist with an 20g angiocath; two attempts. Blood drawn:rainbow set and cultures x1. Labeled in the presence of the patient and sent to the lab. Saline lock flushedwith 10 mL saline. --11:16 01/14/21 Soham Saunders RN11:26 01/14/21. BP: 114/48. MAP: 70. HR: 77. RR: 14. O2 saturation: 97%. --11:27 01/14/21 [facility] Xkuc830:58 01/14/21. BP: 104/46. MAP: 65. HR: 74. RR: 13. O2 saturation: 98%. --11:58 01/14/21 [facility] Vtow0Ctofopn transported to radiology by wheelchair with mask and ra diology tech. (1205). --12:06 01/14/21Soham Saunders RNPatiflorina returned from radiology by wheelchair with mask and pulmonary function technologist. (1215). --12:22 01/14/21 Neal RN12:26 01/14/21. BP: 127/61. MAP: 83. HR: 75. RR: 14. O2 saturation: 100%. --12:27 01/14/21 Lilli [facility] Aspb584:57 01/14/21. BP: 117/61. MAP: 79. HR: 76. RR: 16. O2 saturation: 95%. --12:58 01/14/21 [facility] Mdet510:55 01/14/2021 Lasix IVP 40 mg given over 3 minute(s) via site #1. Allergies verified and confirmed 5rights. IV patency established. IV site checked: no pain, redness, or swelling. IV flushed thoroughly pre-and post-medication administration. IVP given by RN. Information reviewed with patient. --13:00 01/14/21Soham Saunders RN12:56 01/14/2021 Started 1 gm of ROCEPHIN (1GM/50ML) (cefTRIAXone Sodium) IVPB in bag #1 50 mL;at 100 mL/hr over 30 minute(s) via site #1. via IV pump. Allergies verified and confirmed 5 rights. IVpatency established. IV site checked: no pain, redness, or swelling. I V flushed thoroughly pre- andpost-medication administration. Information reviewed with patient. --13:01 01/14/21 Soham Saunders RN13:24 01/14/2021 ROCEPHIN (1GM/50ML) IVPB via IV site #1 Discontinued: bag #1 infused. Total amountinfused: 50 mL. IV patency established. IV site checked: no pain, redness, or swelling. IV flushedthoroughly. --13:24 01/14/21 Soham Saunders RN13:28 01/14/21. BP: 121/68. MAP: 85. HR: 77. RR: 16. O2 saturation: 96%. --13:28 01/14/21 [facility] Jojo, ER Tech1 5 Clinical Report - Nurses [facility] Emergency Department [address] [place] [address] Phone #: ext- [phone] 01/14/2021 10:22 Patient: CHRISTOPHE BENITEZ Sex: F : 1935 Age: 86y ( [place] [facility] [place], voided 300cc, UA sent). --13:37 01/14/21 Cookie Jaimes RN 14:01 01/14/21. BP: 108/58. MAP: 74. HR: 73. RR: 10. O2 saturation: 94%. --14:01 01/14/21 Frederick combination saw operator, Jojo, Tech1. Intake Output Urine output: 300 mL voided with return of yellow-colored urine. --13:37 01/14/21 Cookie Jaimes RN.DISPOSITION / DISCHARGE 14:32 01/14/21. BP: 150/84. MAP: 106. HR: 76. RR: 18. O2 saturation: 98% on room air. Temp: 98 F (temporal). Pain level now: 0/10. --15:02 01/14/21 Soham Saunders RN 14:37 01/14/2021 Site #[address] upon admission; patent, no pain and no signs of infection or infiltration; flushes easily. --15:03 01/14/21 Soham Saunders RN 14:45 01/14/21. Departure time: 14:45 01/14/2021. Admitted to the Acute Inpatient Unit, Monitor ed. Transported via stretcher by nurse with monitor. Report was given to a nurse in person. Report included information regarding patient's allergies and condition including: recent changes, current vital signs and critical labs. Report included treatment information regarding medications given or pending; type and amount of IV fluids and medications infusing. All questions were answered. Report was acknowledged. --15:02 01/14/21 Soham Saunders RN.Locked/Released at 01/14/2021 15:24 by Soham Saunders RN Name Value Range Interpretation Code Description Data Charis rce(s) Supporting Document(s) ID Date Data Source [id number] 01/14/2021 10:27:00 AM EDT [facility] 1 Clinical Report - Physicians/Mid Levels [facility] Emergency Department [address] [place] [address] Phone #: ext- [phone] 01/14/2021 10:22 Patient: CHRISTOPHE BENITEZ [facility]#: [id number] Sex: F : 1935 Age: 86y Time Seen: 10:30 01/14/2021. Arrived- By private vehicle. Historian- patient and family. Disposition decision: 12:47 01/14/2021.HISTORY OF PRESENT ILLNESS Chief Complaint: DYSPNEA and HISTORY OF CHRONIC OBSTRUCTIVE PULMONARY DISEASE. This started 1 week ago and is still present. The dyspnea is described as moderate and is worsened by walking, exertion and cough, is improved by rest and is improved with sitting upright. The patient has had a cough and wheezing. No sputum production, fever, sweating episodes, chills or dyspnea on exertion. No chest pain or discomfort, calf pain, orthopnea or paroxysmal nocturnal dyspnea. No anxiety, dizziness, tingling, numbness or palpitations. The patient has had mild right and left foot swelling (chronic). Similar symptoms previously. Patient has had similar symptoms occasionally. Recent medical care: Not recently seen/assessed.REVIEW OF SYSTEMSThe patient has not had weight loss. No muscle aches, eye irritation, sore throat, nasal discharge or sinusdrainage. No nausea, vomiting, abdominal pain, diarrhea or black stools. No bloody stools, headache,fainting episodes, blurred vision or difficulty with urination. No excessive urination, skin rash, enlargedlymph nodes, joint pain or abnormal bleeding. Denies current . Patient had 2 doses of COVIDvaccine. All other systems reviewed and are negative.PAST HISTORYSee nurses notes. Problems: COPD - Chronic Obstructive Pulmonary Disease. Hypertension. Chronic Venous Insu fficiency. Abnormal Test. Pneumonia. Hyperglycemia. Additional Surgeries: AAA. Calcium deposit out of neck. Hysterectomy. Medications: Incruse Ellipta Inhalation. Breo Ellipta Inhalation (Aerosol Powder Breath Activated 200-25 mcg/inh), daily. 2 Clinical Report - Physicians/[facility] Emergency Department [address] [place] [address] Phone #: ext- [phone] 01/14/2021 10:22 Patient: CHRISTOPHE BENITEZ Sex: F : 1935 Age: 86y Zocor Oral 10 mg, daily. Allergies: No Known Drug Allergy.SOCIAL HISTORYSmoker- current status unknown (Second hand exposure from who smoked). Never smoker.No alcohol use or drug use. No recent travel. Is a local resident. Resides in a house. She lives with afamily member. Has good social support.FAMILY HISTORYNo significant family medical history.ADDITIONAL NOTESThe nursing notes have been reviewed with agreement regarding the chief complaint, HPI, ROS, PMH andpatient medications and allergies.PHYSICAL EXAMVital Signs: 01/14/2021 10:23 BP: 150/60. MAP: 90. HR: 71. RR: 16. O2 saturation: 97%. Temp: 97.9 F.Pain level now: 0/10. Have been reviewed as abnormal. Hypertensive. Heart rate normal. Respiratoryrate normal. Temperature normal. Oxygen saturation normal.Appearance: Alert. Patient in mild distress.Eyes: Pupils equal, round and reactive to light. Eyes normal inspection.ENT: Ears normal. Nose normal. Pharynx normal. Uvula midline.Neck: Normal inspection. No jugular venous distention. Neck supple.CVS: Normal heart rate and rhythm. Heart sounds normal. Pulses normal.Respiratory: No respiratory distress. Expiratory wheezes present (scattered). Rhonchi present in theleft lung base posteriorly. No chest wall tenderness.Abdomen: Soft and nontender. No organomegaly.Back: Normal inspection.Skin: Skin warm and dry. Normal skin color. No rash. Normal skin turgor.Extremities: Bilateral mild pitting edema of the lower extremities. Extremities exhibit normal ROM.Neuro: Oriented X 3. No motor deficit. No sensory deficit.LABS, X-RAYS, AND EKGEKG: EKG time: 10:32 01/14/2021. No acute process. No acute ischemia. Normal sinus rhythm.Rate: 67. First-degree atrioventricular block. Normal QRS complex. Decreased QRS voltage consistentwith chronic obstructive pulmonary disease. Normal axis. Normal ST and T waves. The study has beeninterpreted contemporaneously by me. The EKG appears to be a good tracing. Artifact present. I agreewith and confirm the computer reading of the EKG. Interpretation time: 10:36 01/14/2021.Chest X-ray: Infiltrate in the right lower lobe. Mild vascular congestion present. Cardiomegaly. Smallright pleural effusion present. Interpretation time: 12:42 01/14/2021.Laboratory Tests: Labo ratory tests have been ordered, with results reviewed and considered in themedical decision making process. BNP: (ABDIAS: 01/14/2021 11:00) ( MsgRcvd 01/14/2021 12:07) Final results 3 Clinical Report - Physicians/Mid Levels [facility] Department [address] [place] [address] Phone #: ext- [phone] 01/14/2021 10:22 Patient: CHRISTOPHE BENITEZ Sex: F : 1935 Age: 86y Test Result Flag Units (Reference) BNP 514 H PG/ML (0 - 450)CBC w Diff: (ABDIAS: 01/14/2021 11:00) ( MsgRcvd 01/14/2021 11:31) Final results Test Result Flag Units (Reference) CBC W/AUTOMATED DIFF COMPLETE BLOOD COUNT WBC 8.1 10/uL (4.2 - 11.0) RBC 4.02 L 10/uL (4.20 - 5.40) HEMOGLOBIN 13.6 g/dL (12.0 - 16.0) HEMATOCRIT 41.0 % (37.0 - 47.0) MCV 102.0 H fL (81.0 - 101) MCH 33.8 pg (27.0 - 34.0) MCHC 33.2 g/dL (31.0 - 36.0) RDW 13.1 % (11.5 - 14.5) PLATELETS 180 10/uL (150 - 450) MPV 10.7 H fL (7.4 - 10.4) NEUT 57.8 % (37.0 - 80.0) LYMPH 27.3 % (25.0 - 40.0) MONO 8.8 H % (3.0 - 8.0) EOS 5.2 % (0.0 - 7.0) BASO 0.7 % (0.0 - 2.5) %IG 0.2 H % (0.0 - 0.0) %NRBC 0.0 % (0.0 - 0.0) #NEUT 4.68 10/uL (2.00 - 6.90) #LYMPH 2.21 10/uL (0.60 - 3.40) #MONO 0.71 10/uL (0.00 - 0.90) #EOS 0.42 10/uL (0.00 - 0.70) #BASO 0.06 10/uL (0.00 - 0.20) #IG 0.02 10/uL (0.00 - 0.10) #NRBC 0.00 10/uL (0.00 - 0.00) MANUAL DIFF NOT INDICATED RBC MORPH NOT INDICATEDCMP: (ABDIAS: 01/14/2021 11:00) ( MsgRcvd 01/14/2021 11:55) Final results Test Result Flag Units (Reference) COMPREHENSIVE METABOLIC PANEL COMPREHENSIVE METABOLIC PANEL SODIUM 138 mEq/L (134 - 153) POTASSIUM 4.2 mEq/L (3.6 - 5.0) CHLORIDE 102 mEq/L (98 - 107) CO2 26 MEQ/L (22 - 30) GLUCOSE 230 H MG/DL (70 - 99) BUN 21 MG/DL (7 - 21) CREATININE 1.0 MG/DL (0.7 - 1.5) BUN/CREAT 21 (8 - 27) TOTAL PROTEIN 6.5 G/DL (6.3 - 8.2) ALBUMIN 3.5 L G/DL (3.9 - 5.0) GLOBULIN 3.0 GM/DL (2.4 - 3.2) A/G RATIO 1.2 (0.8 - 2.0) CALCIUM 9.2 MG/DL (8.4 - 10.2) TOTAL BILI <0.7 MG/DL (0.2 - 1.3) ALKALINE PHOS 188 H U/L (38 - 126) SGOT/AST 31 U/L (5 - 40) SGPT/ALT 19 U/L (7 - 56) ANION GAP 10.0 mmol/L (8.0 - 16.0) AGE 86 yrs NON-AA GFR 56 mL/min 4 Clinical Report - Physicians/Mid Levels [facility] Emergency Department [address] [place] [address] Phone #: ext- [phone] 01/14/2021 10:22 Patient: CHRISTOPHE BENITEZ Sex: F : 1935 Age: 86y AFR AMER GFR >60 Male GFR Interprentation 20-49 yrs >60 mL/min Normal 50-59 yrs >56 mL/min Normal 60-69 yrs >49 mL/min Normal 70-79yrs >42 mL/min Normal 80 and above >35 mL/min Normal Female GFR Interpretation 20-39 yrs >60 mL/min Normal 40-49 yrs >58 mL/min Normal 50-59 yrs >51 mL/min Normal 60-69 yrs >45 mL/min Normal 70- 79 yrs >39 mL/min Normal 80 and above >32 mL/min Normal TSH: (ABDIAS: 01/14/2021 11:00) ( [facility] 01/14/2021 12:07) Final results Test Result Flag Units (Reference) TSH 8.17 H uIU/mL (0.47 - 5.01) Troponin- T: (ABDIAS: 01/14/2021 11:00) ( [facility] 01/14/2021 11:55) Final results Test Result Flag Units (Reference) TROPONIN T <0.01 NG/ML (0.00 - 0.10) TROPONIN T0.1 ng/ml Recommended as the clinical threshold value forTroponin T. PT/INR: (ABDIAS: 01/14/2021 10:46) ( [facility] 01/14/2021 11:16) Canceled PT/PTT: (ABDIAS: 01/14/2021 11:00) ( [facility] 01/14/2021 11:55) Final results Test Result Flag Units (Reference) PROTIME 13.9 SECONDS (11.0 - 15.5) INR 1.02 (0.93 - 1.23) PTT 32.8 SECONDS (24.8 - 36.7) \\BLDo\\INR INTERPRETATION\\BLDx\\ Therapeutic range for Coumadin and related oral anticoagulants. -International Normalized Ratio (INR): 2.0 - 3.0 for Venous Thrombosis, Pulmonary Embolus, Tissue heart valves, Acute HI Atrial Fibrillation, Valvular heart disease and recurrent Systemic Embolism. -International Normalized Ratio (INR): 2.5 - 3.5 for Mechanical Prosthetic valve. T4 Free: (ABDIAS: 01/14/2021 11:00) ( [facility] 01/14/2021 12:07) Final results Test Result Flag Units (Reference) T4 FREE 0.87 L NG/DL (0.93 - 1.70).PROGRESS AND PROCEDURESCourse of Care: 10:48 Jan 14 2021. (Patient's history obtained from both patient and family member.Exam completed. Treatment plan discussed and agreed upon. Duo-neb treatment ordered. EKG chestx-ray labs ordered.). 12:43 Jan 14 2021. (Discussed case with Hospitalist Rosalba Albright. Will given her Rocephin IV 1gm and Lasix 40 mg IV. Will be admitted on observation.). Discussed case with hospitalist, (12:41 Jan 14 2021 Rosalba Albright). Reviewed test results and need for additional work-up. Agreed upon decision to place in observation. Health care provider will see patient in ED. Patient counseled. 5 Clinical Report - Physicians/Mid Levels [facility] Emergency Department [address] [place] [address] Phone #: [phone] 01/14/2021 10:22 Patient: CHRISTOPHE BENITEZ Sex: F : 1935 Age: 86y Disposition: Condition: serious.CLINICAL IMPRESSION Acute mild systolic, left ventricular congestive heart failure. Acute exacerbation of COPD. Bacterial pneumonia. Chronic, moderately well controlled type 2 diabetes with hyperglycemia. Acquired hypothyroidism. Not related to atrophy of thyroid gland or iodine deficiency. No post-surgical hypothyroidism.(Electronically signed by Willian Kessler, Physician 01/14/2021 15:02) Name Value Range Interpretation Code Description Data Charis rce(s) Supporting Document(s) ID Date Data Source [id number] 01/14/2021 01:45:00 PM EDT [facility] Name Value Range Interpretation Code Description Data Charis rce(s) Supporting Document(s) COVID19 Case rprt NOT DETECTED [facility] This lab was ordered by [facility] and reported by [facility]. ID Date Data Source [id number] 01/14/2021 02:20:00 PM EDT [facility] NOT DETECTEDNOT DETECTED{ PROC EDURAL CONTROL VALID KIT LOT # _[id number] 01/14/21.1420.JNL. KIT EXP DATE _02/04/21 01/14/21.1420.JNL. NORMAL RANGE IS NOT DETECTEDNEGATIVE RESULTS SHOULD BE TREATED PRESUMPTIVE AND, IF INCONSISTENT WITHCLINICAL SIGNS AND SYMPTOMS OR NECESSARY FOR PATIENT MANAGEMENT, SHOULD BETESTED WITH DIFFERENT AUTHORIZED OR CLEARED MOLECULAR TESTS. NEGATIVE RESULTSDO NOT PRECLUDE SARS-CoV-2 INFECTION AND SHOULD NOT BE USED THE SOLE BASISFOR PATIENT MANAGEMENT DECISIONS. Name Value Range Interpretation Code Description Data Charis rce(s) Supporting Document(s) ID Date Data Source [id number] 01/20/2021 03:36:00 PM EDT [facility] Name Value Range Interpretation Code Description Data Charis rce(s) Supporting Document(s) CULTURE URINE [facility] spital _CULTURE URINE_$$[id number]$$[id number]$$[id number]$$[id number]$$[id number]$$[id number]$$437514$$[id number]$$399864$$ 449774$$417193$$261732$$401773$$347999$$866520$$[id number]$$[id number]$$[id number]$$218282$$ 110405$$253090$$603345$$[id number]$$154955$$374206$$[id number]$$[id number] -- Continued on next page --Patient: ELI SAEED Order: [id number] Page 2Culture: CULTURE URINE Status: Final ==== -- Continued on next page --Patient: ELI SAEED Order: [id number] Page 2Culture: CULTURE URINE Status: Prelim =====$$[id number] DATE/TIME: 01/20/2021 15:06Culture: CULTURE URINE Status: FinalUrine Culture,Comprehensive: P1No growth in 36 - 48 hours. Previous result entered on 01/18/2021 07:20 ET No growth after 18-24 hours.P1 Test performed by: [facility] REYES #: [id number] [address] [place] [address] [phone] [facility] [address]Medical Director : Ryan Davis MD NPI #:Lab Di andrez : 01/18/21.1439.XMT.SENT REF 01/20/21.1536.XMT.SENT REF ID Date Data Source [id number] 01/14/2021 01:47:00 PM EDT [facility] Name Value Range Interpretation Code Description Data Charis rce(s) Supporting Document(s) URINALYSIS [facility] jonny URINALYSIS SOURCE R [facility] COLOR yellow NORMAL: Yellow [facility] CLARITY clear NORMAL: Clear [facility] Specific gravity of Urine by Test strip 1.010 1.001 - 1.030 [facility] pH 6 5 - 9 [facility] Glucose [Mass/volume] in Urine by Test strip NORM NORMAL: Negat [facility] Bilirubin.total [Presence] in Urine by Test strip NEG NORMAL: Negative [facility] Ketones [Presence] in Urine by Test strip NEG NORMAL: Negative [facility] Protein [Mass/volume] in Urine by Test strip NEG NORMAL: Negat [facility] Nitrite [Presence] in Urine by Test strip NEG NORMAL: Negative [facility] BLOOD 150 NORMAL: Negative [facility] Leukocyte esterase [Presence] in Urine by Test strip 100 KANU L: Negative [facility] Urobilinogen [Mass/volume] in Urine by Test strip NOR less cecille n 1.0 mg/dL [facility] MICROSCOPIC See Below [facility] ital WBC 15 - 20 NORMAL: NONE SEEN [facility] Erythrocytes [#/volume] in Urine by Test strip 1 - 3 NORMAL: NON E SEEN [facility] EPITHELIAL FEW NORMAL: NONE SEEN [facility] Bacteria [Presence] in Urine sediment by Light microscopy Tr adriana NORMAL: NONE SEEN [facility] Amorphous sediment [Presence] in Urine sediment by Light randy roscopy RARE NORMAL: NONE SEEN [facility] ID Date Data Source [id number] 01/20/2021 11:24:00 AM EDT [facility] 2114 Name Value Range Interpretation Code Description Data Charis rce(s) Supporting Document(s) Bacteria identified in Blood by Culture [facility] NO GROWTH AFTER 5 DAYS ID Date Data Source [id number] 01/24/2021 01:57:00 PM EDT [facility] Name Value Range Interpretation Code Description Data Charis rce(s) Supporting Document(s) CULTURE BLOOD [facility] _CULTURE BLOOD_{ PRELIM TEST PERFORMED AT [address] [address] CLIA# [id number] SEE SCANNED REPORT ID Date Data Source [id number] 01/24/2021 01:56:00 PM EDT [facility] Name Value Range Interpretation Code Description Data Charis rce(s) Supporting Document(s) CULTURE BLOOD [facility] _CULTURE BLOOD_{ PRELIM TEST PERFORMED AT [address] [address] CLIA# [id number] SEE SCANNED REPORT ID Date Data Source [id number] 01/14/2021 12:07:00 PM EDT [facility] Name Value Range Interpretation Code Description Data Charis rce(s) Supporting Document(s) Thyroxine (T4) free index in Serum or Plasma by calculation 0.87 NG/DL 0.93 - 1.70 L [facility] ID Date Data Source [id number] 01/14/2021 12:07:00 PM EDT [facility] Name Value Range Interpretation Code Description Data Charis rce(s) Supporting Document(s) Thyrotropin [Units/volume] in Serum or Plasma by Detec tion limit <= 0.05 mIU/L 8.17 uIU/mL 0.47 - 5.01 H [facility] ID Date Data Source [id number] 01/14/2021 12:07:00 PM EDT [facility] Name Value Range Interpretation Code Description Data Charis rce(s) Supporting Document(s) BNP 514 PG/ML 0 - 450 [facility] ID Date Data Source [id number] 01/14/2021 11:55:00 AM EDT [facility] Name Value Range Interpretation Code Description Data Charis rce(s) Supporting Document(s) TROPONIN T <0.01 NG/ML 0.00 - 0.10 [facility] ospital TROPONIN T0.1 ng/ml Recommended as the c linical threshold value forTroponin T. ID Date Data Source [id number] 01/14/2021 11:55:00 AM EDT [facility] Name Value Range Interpretation Code Description Data Charis rce(s) Supporting Document(s) COMPREHENSIVE METABOLIC PANEL [facility] COMPREHENSIVE METABOLIC PANEL Sodium [Moles/volume] in Serum or Plasma 138 mEq/L 134 - 153 [facility] Potassium [Moles/volume] in Serum or Plasma 4.2 mEq/L 3.6 - 5.0 [facility] Chloride [Moles/volume] in Serum or Plasma 102 mEq/L 98 - 107 [facility] Carbon dioxide, total [Moles/volume] in Serum or Plasma 26 MEQ/L 22 - 30 [facility] Glucose [Mass/volume] in Serum or Plasma 230 MG/DL 70 - 99 H [facility] BUN 21 MG/DL 7 - 21 [facility] Creatinine [Mass/volume] in Serum or Plasma 1.0 MG/DL 0.7 - 1.5 [facility] BUN/CREAT 21 8 - 27 [facility] Protein [Mass/volume] in Serum or Plasma 6.5 G/DL 6.3 - 8.2 [facility] Albumin [Mass/volume] in Serum or Plasma 3.5 G/DL 3.9 - 5.0 L [facility] Globulin [Mass/volume] in Serum by calculation 3.0 GM/DL 2.4 - 3.2 [facility] A/G RATIO 1.2 0.8 - 2.0 [facility] Calcium [Mass/volume] in Serum or Plasma 9.2 MG/DL 8.4 - 10.2 [facility] Bilirubin.total [Mass/volume] in Serum or Plasma <0.7 MG/DL 0.2 - 1.3 [facility] Alkaline phosphatase [Enzymatic activity/volume] in Serum or Plasma 188 U/L 38 - 126 H [facility] Aspartate aminotransferase [Enzymatic activity/volume] in Serum or Plasma 31 U/L 5 - 40 [facility] Alanine aminotransferase [Enzymatic activity/volume] in Seru m or Plasma 19 U/L 7 - 56 [facility] Anion gap 3 in Serum or Plasma 10.0 mmol/L 8.0 - 16.0 [facility] AGE 86 yrs [facility] al NON-AA GFR 56 mL/min [facility] AFR AMER GFR >60 [facility] Male GFR In terprentation 20-49 yrs >60 mL/min Normal 50-59 yrs >56 mL/min Normal 60-69 yrs >49 mL/min Normal 70-79yrs >42 mL/min Normal 80 and above >35 mL/min Normal Female GFR Interpretation 20-39 yrs >60 mL/min Normal 40-49 yrs >58 mL/min Normal 50-59 yrs >51 mL/min Normal 60-69 yrs >45 mL/min Normal 70-79 yrs >39 mL/min Normal 80 and above >32 mL/min Normal ID Date Data Source [id number] 01/14/2021 11:55:00 AM EDT [facility] Name Value Range Interpretation Code Description Data Charis rce(s) Supporting Document(s) Prothrombin time (PT) 13.9 SECONDS 11.0 - 15.5 [facility] INR in Platelet poor plasma by Coagulation assay 1.02 0.93 - 1. 23 [facility] aPTT in Blood by Coagulation assay 32.8 SECONDS 24.8 - 36.7 [facility] \\BLDo\\INR INTERPRETATION\\BLDx\\ Therapeutic range for Coumadin and related oral anticoagulants. - International Normalized Ratio (INR): 2.0 - 3.0 for Venous Thrombosis, Pulmonary Embolus, Tissue heart valves, Acute HI Atrial Fibrillation, Valvular heart disease and recurrent Systemic Embolism. - International Normalized Ratio (INR): 2.5 - 3.5 for Mechanical Prosthetic valve. ID Date Data Source [id number] 01/14/2021 11:30:00 AM EDT [facility] Name Value Range Interpretation Code Description Data Charis rce(s) Supporting Document(s) CBC W/AUTOMATED DIFF [facility] COMPLETE BLOOD COUNT Leukocytes [#/volume] in Blood by Automated count 8.1 10^3/uL 4.2 - 1 1.0 [facility] Erythrocytes [#/volume] in Blood by Automated count 4.02 10^6/uL 4. 20 - 5.40 L [facility] Hemoglobin [Mass/volume] in Blood 13.6 g/dL 12.0 - 16.0 [facility] Hematocrit [Volume Fraction] of Blood by Automated count 41.0 % 3 7.0 - 47.0 [facility] Erythrocyte mean corpuscular volume [Entitic volume] b y Automated count 102.0 fL 81.0 - 101 H [facility] Erythrocyte mean corpuscular hemoglobin [Entitic mass] by Automated count 33.8 pg 27.0 - 34.0 [facility] Erythrocyte mean corpuscular hemoglobin concentration [Mass/volume] by Automated count 33.2 g/dL 31.0 - 36.0 [facility] Erythrocyte distribution width [Ratio] by Automated count 13.1 % 11.5 - 14.5 [facility] Platelets [#/volume] in Blood by Automated count 180 10^3/uL 150 - 45 0 [facility] Platelet mean volume [Entitic volume] in Blood by Automated count 10.7 fL 7.4 - 10.4 H [facility] Neutrophils/100 leukocytes in Blood by Automated count 57.8 % 37. 0 - 80.0 [facility] Lymphocytes/100 leukocytes in Blood by Manual count 27.3 % 25.0 - 40.0 [facility] Monocytes/100 leukocytes in Blood by Automated count 8.8 % 3.0 - 8.0 H [facility] Eosinophils/100 leukocytes in Blood by Automated count 5.2 % 0.0 - 7.0 [facility] Basophils/100 leukocytes in Blood by Automated count 0.7 % 0.0 - 2.5 [facility] %IG 0.2 % 0.0 - 0.0 H [facility] %NRBC 0.0 % 0.0 - 0.0 [facility] al Neutrophils [#/volume] in Blood by Automated count 4.68 10^3/uL 2.00 - 6.90 [facility] Lymphocytes [#/volume] in Blood by Automated count 2.21 10^3/uL 0.60 - 3.40 [facility] Monocytes [#/volume] in Blood by Automated count 0.71 10^3/uL 0.00 - 0.90 [facility] Eosinophils [#/volume] in Blood by Automated count 0.42 10^3/uL 0.00 - 0.70 [facility] Basophils [#/volume] in Blood by Automated count 0.06 10^3/uL 0.00 - 0.20 [facility] #IG 0.02 10^3/uL 0.00 - 0.10 [facility] #NRBC 0.00 10^3/uL 0.00 - 0.00 [facility] MANUAL DIFF NOT INDICATED [facility] RBC MORPH NOT INDICATED [facility] ID Date Data Source TSH 08/01/2020 06:26:09 AM EST eCW1 ([facility]) Name Value Range Interpretation Code Description Data Charis rce(s) Supporting Document(s) 5.070 THYROID STIMULATING HORMONE eC W1 ([facility]) ID Date Data Source LIPID PANEL (CARDIAC RISK) 08/01/2020 06:26:09 AM EST eCW1 ( [facility]) Name Value Range Interpretation Code Description Data Charis rce(s) Supporting Document(s) Triglyceride [Mass/volume] in Serum or Plasma by calculation 145 TRIGLYCERIDES LEVEL eCW1 ([facility]) Cholesterol in HDL [Moles/volume] in Serum or Plasma 56 HDL CHOLESTEROL eCW1 ([facility]) Cholesterol [Moles/volume] in Serum or Plasma 159 CHOLESTEROL LEVEL eCW1 ([facility]) 103 NON-HDL-C eCW1 ([facility]) Cholesterol in LDL [Mass/volume] in Serum or Plasma by calculation 74 LDL CHOLESTEROL eCW1 ([facility]) 2.839 CHOLESTEROL RISK RATIO eCW1 ([facility]) ID Date Data Source TOTAL IRON BINDING CAPACIT 08/01/2020 06:26:09 AM EST eCW1 ( [facility]) Name Value Range Interpretation Code Description Data Charis rce(s) Supporting Document(s) 306 TOTAL IRON BINDING CAPACITY eC W1 ([facility]) 131 IRON (FE) eCW1 ([facility]) 42.8 PERCENT SATURATION eCW1 ([facility]) ID Date Data Source VITAMIN D 25-HYDROXY 08/01/2020 06:26:09 AM EST eCW1 ([facility]) Name Value Range Interpretation Code Description Data Charis rce(s) Supporting Document(s) 9.5 TOTAL 25(OH) VITAMIN D eCW1 ([facility]) ID Date Data Source FERRITIN 08/01/2020 06:26:09 AM EST eCW1 ([facility]) Name Value Range Interpretation Code Description Data Charis rce(s) Supporting Document(s) 224 FERRITIN eCW1 ([facility]) ID Date Data Source Comprehensive Metabolic Profile (CMP) 08/01/2020 06:26:09 AM EST eCW1 ([facility]) Name Value Range Interpretation Code Description Data Charis rce(s) Supporting Document(s) 172 GLUCOSE, FASTING eCW1 ([facility]) 14 BLOOD UREA NITROGEN eCW1 ([facility]) 1.04 CREATININE FOR GFR eCW1 ([facility]) 3.9 POTASSIUM SERUM eCW1 ([facility]) 137 SODIUM LEVEL eCW1 [facility] 103 CHLORIDE LEVEL eCW1 ([facility]) 53.4 GLOMERULAR FILTRATION RATE eCW 1 ([facility]) 28 CARBON DIOXIDE LEVEL eCW1 ([facility]) 9.2 CALCIUM LEVEL eCW1 ([facility]) 24 AST/SGOT eCW1 ([facility]) 120 ALKALINE PHOSPHATASE eCW1 ([facility]) 6.8 TOTAL PROTEIN eCW1 ([facility]) 0.5 BILIRUBIN,TOTAL eCW1 ([facility]) 24 ALT/SGPT eCW1 ([facility]) 3.5 ALBUMIN eCW1 ([facility]) 1.1 ALBUMIN/GLOBULIN RATIO eCW1 ([facility]) ID Date Data Source CBC with Differential 08/01/2020 06:26:09 AM EST eCW1 ([facility]) Name Value Range Interpretation Code Description Data Charis rce(s) Supporting Document(s) 9.2 WHITE BLOOD COUNT eCW1 ([facility]) 16.1 HEMOGLOBIN eCW1 ([facility]) 4.67 RED BLOOD COUNT eCW1 ([facility]) 34.5 MEAN CORPUSCULAR HEMOGLOBIN eC W1 ([facility]) 103.0 MEAN CORPUSCULAR VOLUME eCW1 ( [facility]) 48.1 HEMATOCRIT eCW1 ([facility]) 33.5 MEAN CORPUSCULAR HGB CONC eCW1 ([facility]) 199 PLATELET COUNT, AUTOMATED eCW1 ([facility]) 66.2 NEUTROPHILS % eCW1 ([facility]) 12.6 RED CELL DISTRIBUTION WIDTH eC W1 ([facility]) 9.2 MONO % eCW1 ([facility]) 22.5 LYMPH % eCW1 ([facility]) 0.9 EOS % eCW1 ([facility]) 0.9 MONO # eCW1 ([facility]) 2.1 LYMPH # eCW1 ([facility]) 6.1 NEUTROPHILS # eCW1 ([facility]) 0.5 BASO % eCW1 ([facility]) 0.1 EOS # eCW1 ([facility]) 0.1 BASO # eCW1 ([facility]) Procedure Social History Code Duration Value Status Description Data Source(s ) Alcohol intake 06/08/2021 12:00:00 AM EDT Ex-drinker (finding) comp leted Ex- drinker (finding) [facility] Smoking 05/30/2021 12:00:00 AM EDT Never Smoker completed Never S moker eCW1 ([facility]) Smoking 05/30/2021 12:00:00 AM EDT Never Smoker completed Never S moker eCW1 ([facility]) Smoking 05/30/2021 12:00:00 AM EDT Never Smoker completed Never S moker eCW1 ([facility]) Smoking 05/30/2021 12:00:00 AM EDT Never Smoker completed Never S moker eCW1 ([facility]) Smoking 05/30/2021 12:00:00 AM EDT Never Smoker completed Never S moker eCW1 ([facility]) Smoking 05/30/2021 12:00:00 AM EDT Never Smoker completed Never S moker eCW1 ([facility]) Tobacco use and exposure 05/25/2021 12:00:00 AM EDT Never used co mpleted Never used [facility] Smoking 05/25/2021 12:00:00 AM EDT Never smoker completed Never s moker [facility] Alcohol intake 05/17/2021 12:00:00 AM EDT Ex-drinker (finding) comp leted Ex- drinker (finding) [facility] Smoking 03/09/2021 12:00:00 AM EDT Never Smoked Cigarettes com pleted Never Smoked Cigarettes MEDENT ([facility]) Smoking 02/21/2021 12:00:00 AM EDT Never Smoker completed Never S moker eCW1 ([facility]) Smoking 02/21/2021 12:00:00 AM EDT Never Smoker completed Never S moker eCW1 ([facility]) Smoking 02/21/2021 12:00:00 AM EDT Never Smoker completed Never S moker eCW1 ([facility]) Smoking 02/21/2021 12:00:00 AM EDT Never Smoker completed Never S moker eCW1 ([facility]) Smoking 02/21/2021 12:00:00 AM EDT Never Smoker completed Never S moker eCW1 ([facility]) Smoking 02/21/2021 12:00:00 AM EDT Never Smoker completed Never S moker eCW1 ([facility]) Smoking 02/21/2021 12:00:00 AM EDT Never Smoker completed Never S moker eCW1 ([facility]) Smoking 02/21/2021 12:00:00 AM EDT Never Smoker completed Never S moker eCW1 ([facility]) Smoking 02/21/2021 12:00:00 AM EDT Never Smoker completed Never S moker eCW1 ([facility]) Smoking 02/21/2021 12:00:00 AM EDT Never Smoker completed Never S moker eCW1 ([facility]) Smoking 02/21/2021 12:00:00 AM EDT Never Smoker completed Never S moker eCW1 ([facility]) Smoking 02/21/2021 12:00:00 AM EDT Never Smoker completed Never S moker eCW1 ([facility]) Smoking 02/21/2021 12:00:00 AM EDT Never Smoker completed Never S moker eCW1 ([facility]) Smoking 02/21/2021 12:00:00 AM EDT Never Smoker completed Never S moker eCW1 ([facility]) Smoking 02/21/2021 12:00:00 AM EDT Never Smoker completed Never S moker eCW1 ([facility]) Smoking 02/21/2021 12:00:00 AM EDT Never Smoker completed Never S moker eCW1 ([facility]) Smoking 02/16/2021 12:00:00 AM EDT Never Smoker completed Never S moker eCW1 ([facility]) Smoking 02/13/2021 12:00:00 AM EDT Never Smoker completed Never S moker eCW1 ([facility]) Smoking 02/13/2021 12:00:00 AM EDT Never Smoker completed Never S moker eCW1 ([facility]) Smoking 02/13/2021 12:00:00 AM EDT Never Smoker completed Never S moker eCW1 ([facility]) Smoking 02/13/2021 12:00:00 AM EDT Never Smoker completed Never S moker eCW1 ([facility]) Smoking 02/13/2021 12:00:00 AM EDT Never Smoker completed Never S moker eCW1 ([facility]) Smoking 01/31/2021 12:00:00 AM EDT Never Smoker completed Never S moker eCW1 ([facility]) Smoking 01/19/2021 12:00:00 AM EDT Never Smoker completed Never S moker eCW1 ([facility]) Smoking 01/19/2021 12:00:00 AM EDT Never Smoker completed Never S moker eCW1 ([facility]) Smoking 12/08/2020 12:00:00 AM EST Never Smoker completed Never S moker eCW1 ([facility]) Smoking 12/08/2020 12:00:00 AM EST Never Smoker completed Never S moker eCW1 ([facility]) Smoking 12/08/2020 12:00:00 AM EST Never Smoker completed Never S moker eCW1 ([facility]) Smoking 12/08/2020 12:00:00 AM EST Never Smoker completed Never S moker eCW1 ([facility]) Smoking 11/16/2020 12:00:00 AM EST Never Smoker completed Never S moker eCW1 ([facility]) Smoking 11/16/2020 12:00:00 AM EST Never Smoker completed Never S moker eCW1 ([facility]) Smoking 11/16/2020 12:00:00 AM EST Never Smoker completed Never S moker eCW1 ([facility]) Smoking 11/16/2020 12:00:00 AM EST Never Smoker completed Never S moker eCW1 ([facility]) Smoking 11/16/2020 12:00:00 AM EST Never Smoker completed Never S moker eCW1 ([facility]) Smoking 11/16/2020 12:00:00 AM EST Never Smoker completed Never S moker eCW1 ([facility]) Smoking 11/03/2020 12:00:00 AM EST Never Smoker completed Never S moker eCW1 ([facility]) Smoking 11/03/2020 12:00:00 AM EST Never Smoker completed Never S moker eCW1 ([facility]) Smoking 11/03/2020 12:00:00 AM EST Never Smoker completed Never S moker eCW1 ([facility]) Smoking 11/03/2020 12:00:00 AM EST Never Smoker completed Never S moker eCW1 ([facility]) Smoking 11/03/2020 12:00:00 AM EST Never Smoker completed Never S moker eCW1 ([facility]) Smoking 07/27/2020 12:00:00 AM EDT Never Smoker completed Never S moker eCW1 ([facility]) Smoking 07/27/2020 12:00:00 AM EDT Never Smoker completed Never S moker eCW1 ([facility]) Smoking 07/27/2020 12:00:00 AM EDT Never Smoker completed Never S moker eCW1 ([facility]) Smoking 07/27/2020 12:00:00 AM EDT Never Smoker completed Never S moker eCW1 ([facility]) Vital Signs ID Date Data Source UNK Name Value Range Interpretation Code Description Data Source(s) Systolic blood pressure 108 mm[Hg] 108 mm[Hg] [facility] Body mass index (BMI) [Ratio] 25.78 kg/m2 25.78 kg/m2 [facility] Oxygen saturation in Arterial blood by Pulse oximetry 94 % 94 % [facility] Diastolic blood pressure 58 mm[Hg] 58 mm[Hg] [facility] Heart rate 78 /min 78 /min [facility] Body height 152.4 cm 152.4 cm [facility] Body weight 59.875 kg 59.875 kg [facility] Body weight 133.2 [lb_av] 133.2 [lb_av] eCW1 ([facility]) Body weight 60.42 kg 60.42 kg eCW1 ([facility]) Body height 58 [in_i] 58 [in_i] eCW1 ([facility]) Body mass index (BMI) [Ratio] 27.84 kg/m2 27.84 kg/m2 eCW1 ([facility]) Heart rate 61 /min 61 /min eCW1 ([facility]) Respiratory rate 18 /min 18 /min eCW1 ([facility]) Body temperature 95.6 [degF] 95.6 [degF] eCW1 ( [facility]) Systolic blood pressure 151 mm[Hg] 151 mm[Hg] e CW1 ([facility]) Diastolic blood pressure 78 mm[Hg] 78 mm[Hg] eCW1 ([facility]) Systolic blood pressure 154 mm[Hg] 154 mm[Hg] [facility] Diastolic blood pressure 82 mm[Hg] 82 mm[Hg] [facility] Heart rate 66 /min 66 /min [facility] Body height 152.4 cm 152.4 cm [facility] Body weight 58.514 kg 58.514 kg [facility] Body mass index (BMI) [Ratio] 25.19 kg/m2 25.19 kg/m2 [facility] Oxygen saturation in Arterial blood by Pulse oximetry 96 % 96 % [facility] Systolic blood pressure 110 mm[Hg] 110 mm[Hg] Aron MUNIZ ([facility]) Diastolic blood pressure 60 mm[Hg] 60 mm[Hg] MEDENT ([facility]) Oxygen saturation in Arterial blood by Pulse oximetry 97 % 97 % MEDENT ([facility]) Heart rate 70 /min 70 /min MEDENT ([facility]) Body height 60 [in_i] 60 [in_i] [facility] ([facility]) 5'0" Body weight 135.00 [lb_av] 135.00 [lb_av] MEDEN T ([facility]) Body mass index (BMI) [Ratio] 26.4 kg/m2 26.4 k g/m2 [facility] ([facility]) Odon body weight 100 [lb_av] 100 [lb_av] MEDEN T ([facility]) Body weight 61.236 kg 61.236 kg [facility] ([facility]) Body surface area Derived from formula 1.58 m2 1.58 m2 [facility] ([facility]) Body weight 1 [lb_av] 1 [lb_av] eCW1 ([facility]) Body height 58 [in_i] 58 [in_i] eCW1 ([facility]) Body mass index (BMI) [Ratio] 0.21 kg/m2 0.21 k g/m2 eCW1 ([facility]) Heart rate 69 /min 69 /min eCW1 ([facility]) Respiratory rate 17 /min 17 /min eCW1 ([facility]) Body temperature 97.5 [degF] 97.5 [degF] eCW1 ( [facility]) Systolic blood pressure 135 mm[Hg] 135 mm[Hg] e CW1 ([facility]) Diastolic blood pressure 69 mm[Hg] 69 mm[Hg] eCW1 ([facility]) Body weight 1 [lb_av] 1 [lb_av] eCW1 ([facility]) Body height 58 [in_i] 58 [in_i] eCW1 ([facility]) Body mass index (BMI) [Ratio] 0.21 kg/m2 0.21 k g/m2 eCW1 ([facility]) Heart rate 77 /min 77 /min eCW1 ([facility]) Respiratory rate 17 /min 17 /min eCW1 ([facility]) Body temperature 97.5 [degF] 97.5 [degF] eCW1 ( [facility]) Systolic blood pressure 133 mm[Hg] 133 mm[Hg] e CW1 ([facility]) Diastolic blood pressure 65 mm[Hg] 65 mm[Hg] eCW1 ([facility]) Body weight [lb_av] eCW1 ([facility]) Body height 58 [in_i] 58 [in_i] eCW1 ([facility]) Body mass index (BMI) [Ratio] 28.42 kg/m2 28.42 kg/m2 eCW1 ([facility]) Heart rate 84 /min 84 /min eCW1 ([facility]) Respiratory rate 17 /min 17 /min eCW1 ([facility]) Body temperature 96.8 [degF] 96.8 [degF] eCW1 ( [facility]) Systolic blood pressure 155 mm[Hg] 155 mm[Hg] e CW1 ([facility]) Diastolic blood pressure 89 mm[Hg] 89 mm[Hg] eCW1 ([facility]) Body height 58 [in_i] 58 [in_i] eCW1 ([facility]) Body weight 136 [lb_av] 136 [lb_av] eCW1 ([facility]) Body mass index (BMI) [Ratio] 28.42 kg/m2 28.42 kg/m2 eCW1 ([facility]) Heart rate 62 /min 62 /min eCW1 ([facility]) Respiratory rate 18 /min 18 /min eCW1 ([facility]) Body temperature 96.5 [degF] 96.5 [degF] eCW1 ( [facility]) Systolic blood pressure 151 mm[Hg] 151 mm[Hg] e CW1 ([facility]) Diastolic blood pressure 80 mm[Hg] 80 mm[Hg] eCW1 ([facility]) Body temperature 97.9 [degF] 97.9 [degF] eCW1 ( [facility]) Body weight 136 [lb_av] 136 [lb_av] eCW1 ([facility]) Body height 58 [in_i] 58 [in_i] eCW1 ([facility]) Systolic blood pressure 126 mm[Hg] 126 mm[Hg] e CW1 ([facility]) Body mass index (BMI) [Ratio] 28.42 kg/m2 28.42 kg/m2 eCW1 ([facility]) Heart rate 55 /min 55 /min eCW1 ([facility]) Diastolic blood pressure 78 mm[Hg] 78 mm[Hg] eCW1 ([facility]) Respiratory rate 17 /min 17 /min eCW1 ([facility]) Respiratory rate 16 /min 16 /min eCW1 ([facility]) Body temperature 98.3 [degF] 98.3 [degF] eCW1 ( [facility]) Body weight 135 [lb_av] 135 [lb_av] eCW1 ([facility]) Body height 58 [in_i] 58 [in_i] eCW1 ([facility]) Body mass index (BMI) [Ratio] 28.21 kg/m2 28.21 kg/m2 eCW1 ([facility]) Heart rate 74 /min 74 /min eCW1 ([facility]) Systolic blood pressure 177 mm[Hg] 177 mm[Hg] e CW1 ([facility]) Diastolic blood pressure 108 mm[Hg] 108 mm[Hg] eCW1 ([facility]) Body weight 130 [lb_av] 130 [lb_av] eCW1 ([facility]) Body height 58 [in_i] 58 [in_i] eCW1 ([facility]) Body mass index (BMI) [Ratio] 27.17 kg/m2 27.17 kg/m2 eCW1 ([facility]) Heart rate 683 /min 683 /min eCW1 ([facility]) Respiratory rate 16 /min 16 /min eCW1 ([facility]) Body temperature 98.0 [degF] 98.0 [degF] eCW1 ( [facility]) Systolic blood pressure 150 mm[Hg] 150 mm[Hg] e CW1 ([facility]) Diastolic blood pressure 81 mm[Hg] 81 mm[Hg] eCW1 ([facility]) Body weight 130 [lb_av] 130 [lb_av] eCW1 ([facility]) Body height 58 [in_i] 58 [in_i] eCW1 ([facility]) Body mass index (BMI) [Ratio] 27.17 kg/m2 27.17 kg/m2 eCW1 ([facility]) Heart rate 67 /min 67 /min eCW1 ([facility]) Respiratory rate 18 /min 18 /min eCW1 ([facility]) Body temperature 97.2 [degF] 97.2 [degF] eCW1 ( [facility]) Systolic blood pressure 166 mm[Hg] 166 mm[Hg] e CW1 ([facility]) Diastolic blood pressure 74 mm[Hg] 74 mm[Hg] eCW1 ([facility]) Systolic blood pressure 126 mm[Hg] 126 mm[Hg] M EDENT ([facility], ) Diastolic blood pressure 74 mm[Hg] 74 mm[Hg] MEDENT ([facility], ) Heart rate 69 /min 69 /min MEDENT ([facility], ) Oxygen saturation in Arterial blood by Pulse oximetry 97 % 97 % MEDENT ([facility], ) Body temperature 97.4 [degF] 97.4 [degF] MEDENT ([facility], ) Body height 60 [in_i] 60 [in_i] MEDENT ([facility], ) 5'0" O[place] body weight 100 [lb_av] 100 [lb_av] MEDEN T ([facility], ) Body weight 130 [lb_av] 130 [lb_av] eCW1 ([facility]) Body height 58 [in_i] 58 [in_i] eCW1 ([facility]) Body mass index (BMI) [Ratio] 27.17 kg/m2 27.17 kg/m2 eCW1 ([facility]) Heart rate 69 /min 69 /min eCW1 ([facility]) Respiratory rate 18 /min 18 /min eCW1 ([facility]) Body temperature 96.5 [degF] 96.5 [degF] eCW1 ( [facility]) Systolic blood pressure 165 mm[Hg] 165 mm[Hg] e CW1 ([facility]) Diastolic blood pressure 110 mm[Hg] 110 mm[Hg] eCW1 ([facility]) ID Date Data Source [id number] 02/06/2021 09:16:01 AM EDT [facility] Name Value Range Interpretation Code Description Data Source(s) WEIGHT RECORDED 133.00 pounds 133.00 pounds [facility] Height 60 Inches 060 Inches [facility] WEIGHT RECORDED 132.00 pounds 132.00 pounds [facility] Height 60 Inches 060 Inches [facility] Patient Treatment Plan of Care Planned Activity Planned Date Details Description Data Source (s) MiraLax Mix-In [place] 17 06/20/2021 12:00:00 AM EDT eCW1 ([facility]) MiraLax Mix-In [place] 17 06/20/2021 12:00:00 AM EDT eCW1 ([facility]) MiraLax Mix-In [place] 17 06/20/2021 12:00:00 AM EDT eCW1 ([facility]) Bisoprolol Fumarate 5 MG Oral Tablet 05/25/2021 12:00:00 AM EDT [facility] Spironolactone 25 MG Oral Tablet 05/17/2021 12:00:00 AM EDT [facility] apixaban 5 MG Oral Tablet [Eliquis] 05/15/2021 12:00:00 AM EDT [facility] Mirtazapine 15 MG Oral Tablet 05/12/2021 12:00:00 AM EDT [facility] tramadol hydrochloride 50 MG Oral Tablet 05/11/2021 12:00:00 AM EDT [facility] 7 ACTUAT umeclidinium 0.0625 MG/ACTUAT Dry Powder Inha ler [Incruse] 05/05/2021 12:00:00 AM EDT [facility] Furosemide 40 MG 04/25/2021 01:00:00 AM EDT [facility] ([facility]) Furosemide 20 MG Oral Tablet 04/10/2021 12:00:00 AM EDT [facility] Furosemide 40 MG 03/20/2021 01:00:00 AM EDT [facility] ([facility]) Bisoprolol Fumarate 5 MG / Hydrochlorothiazide 6.25 MG Oral Tablet 03/15/2021 12:00:00 AM EDT [facility] Simvastatin 10 MG Oral Tablet 03/09/2021 12:00:00 AM EDT [facility] gabapentin 300 MG Oral Capsule 03/09/2021 12:00:00 AM EDT [facility] Remeron 15 MG 03/07/2021 01:00:00 AM EDT [facility]) Ipratropium-Albuterol 0.5-2.5 (3) MG/3ML 03/07/2021 01:00:00 AM EDT [facility] ([facility]) Triamcinolone Acetonide 0.1 % 02/17/2021 01:00:00 AM EDT [facility]) Simvastatin 10 MG 02/17/2021 01:00:00 AM EDT [facility]) Gabapentin 300 MG 02/17/2021 01:00:00 AM EDT [facility]) Eliquis 5 MG 02/17/2021 01:00:00 AM EDT N ETSMAR ([facility]) Furosemide 20 MG 02/17/2021 01:00:00 AM EDT [facility]) Remeron 15 MG 02/17/2021 01:00:00 AM EDT [facility]) Ipratropium-Albuterol 0.5-2.5 (3) MG/3ML 02/17/2021 01:00:00 AM EDT [facility] ([facility]) Cephalexin 500 MG 02/17/2021 01:00:00 AM EDT [facility] ([facility]) Breo Ellipta 200-25 MCG/INH 02/17/2021 01:00:00 AM EDT [facility] ([facility]) Incruse Ellipta 62.5 MCG/INH 02/17/2021 01:00:00 AM EDT [facility] ([facility]) Bisoprolol-Hydrochlorothiazide 10-6.25 MG 02/17/2021 01:00:00 AM ED T [facility] ([facility]) Albuterol 0.833 MG/ML / Ipratropium [place] 0.167 MG/M L Inhalant Solution 02/16/2021 12:00:00 AM EDT [facility] Incruse Ellipta 62.5 MCG/INH 02/15/2021 01:00:00 AM EDT [facility] ([facility]) Bisoprolol-Hydrochlorothiazide 10-6.25 MG 02/15/2021 01:00:00 AM ED T [facility]SM[facility] ([facility]) Triamcinolone Acetonide 0.1 % 02/15/2021 01:00:00 AM EDT [facility] ([facility]) Simvastatin 10 MG 02/15/2021 01:00:00 AM EDT [facility] ([facility]) Gabapentin 300 MG 02/15/2021 01:00:00 AM EDT [facility] ([facility]) Eliquis 5 MG 02/15/2021 01:00:00 AM EDT N ETSMART ([facility]) Furosemide 20 MG 02/15/2021 01:00:00 AM EDT [facility] ([facility]) Breo Ellipta 200-25 MCG/INH 02/15/2021 01:00:00 AM EDT [facility] ([facility]) Cephalexin 500 MG Oral Capsule 02/13/2021 12:00:00 AM EDT eCW1 ([facility]) Cephalexin 500 MG Oral Capsule 02/13/2021 12:00:00 AM EDT eCW1 ([facility]) Cephalexin 500 MG Oral Capsule 02/13/2021 12:00:00 AM EDT eCW1 ([facility]) Cephalexin 500 MG Oral Capsule 02/13/2021 12:00:00 AM EDT eCW1 ([facility]) Cephalexin 500 MG Oral Capsule 02/13/2021 12:00:00 AM EDT eCW1 ([facility]) Furosemide 20 MG Oral Tablet 01/31/2021 12:00:00 AM EDT eCW1 ([facility]) Furosemide 20 MG Oral Tablet 01/31/2021 12:00:00 AM EDT eCW1 ([facility]) Furosemide 20 MG Oral Tablet 01/31/2021 12:00:00 AM EDT eCW1 ([facility]) Furosemide 20 MG Oral Tablet 01/31/2021 12:00:00 AM EDT eCW1 ([facility]) Furosemide 20 MG Oral Tablet 01/31/2021 12:00:00 AM EDT eCW1 ([facility]) Furosemide 20 MG Oral Tablet 01/31/2021 12:00:00 AM EDT eCW1 ([facility]) Furosemide 20 MG Oral Tablet 01/31/2021 12:00:00 AM EDT eCW1 ([facility]) Furosemide 20 MG Oral Tablet 01/31/2021 12:00:00 AM EDT eCW1 ([facility]) Furosemide 20 MG Oral Tablet 01/31/2021 12:00:00 AM EDT eCW1 ([facility]) Furosemide 20 MG Oral Tablet 01/31/2021 12:00:00 AM EDT eCW1 ([facility]) Furosemide 20 MG Oral Tablet 01/31/2021 12:00:00 AM EDT eCW1 ([facility]) Furosemide 20 MG Oral Tablet 01/31/2021 12:00:00 AM EDT eCW1 ([facility]) Furosemide 20 MG Oral Tablet 01/31/2021 12:00:00 AM EDT eCW1 ([facility]) Furosemide 20 MG Oral Tablet 01/31/2021 12:00:00 AM EDT eCW1 ([facility]) Furosemide 20 MG Oral Tablet 01/31/2021 12:00:00 AM EDT eCW1 ([facility]) Furosemide 20 MG Oral Tablet 01/31/2021 12:00:00 AM EDT eCW1 ([facility]) Furosemide 20 MG Oral Tablet 01/31/2021 12:00:00 AM EDT eCW1 ([facility]) apixaban 5 MG Oral Tablet [Eliquis] 01/31/2021 12:00:00 AM EDT eCW1 ([facility]) Furosemide 20 MG Oral Tablet 01/31/2021 12:00:00 AM EDT eCW1 ([facility]) Furosemide 20 MG Oral Tablet 01/31/2021 12:00:00 AM EDT eCW1 ([facility]) Prednisone 20 MG Oral Tablet 01/31/2021 12:00:00 AM EDT eCW1 ([facility]) Doxycycline Monohydrate 100 MG Oral Capsule 01/31/2021 12:00:00 AM EDT eCW1 ([facility]) Triamcinolone Acetonide 1 MG/ML Topical Cream 12/08/2020 12:00:00 A M EST eCW1 ([facility]) Triamcinolone Acetonide 1 MG/ML Topical Cream 12/08/2020 12:00:00 A M EST eCW1 ([facility]) Triamcinolone Acetonide 1 MG/ML Topical Cream 12/08/2020 12:00:00 A M EST eCW1 ([facility]) Triamcinolone Acetonide 1 MG/ML Topical Cream 12/08/2020 12:00:00 A M EST eCW1 ([facility]) Mirtazapine 15 MG Oral Tablet [Remeron] 11/16/2020 12:00:00 AM EST eCW1 ([facility]) Mirtazapine 15 MG Oral Tablet [Remeron] 11/16/2020 12:00:00 AM EST eCW1 ([facility]) Mirtazapine 15 MG Oral Tablet [Remeron] 11/16/2020 12:00:00 AM EST eCW1 ([facility]) Mirtazapine 15 MG Oral Tablet [Remeron] 11/16/2020 12:00:00 AM EST eCW1 ([facility]) Mirtazapine 15 MG Oral Tablet [Remeron] 11/16/2020 12:00:00 AM EST eCW1 ([facility]) Mirtazapine 15 MG Oral Tablet [Remeron] 11/16/2020 12:00:00 AM EST eCW1 ([facility]) Mirtazapine 15 MG Oral Tablet [Remeron] 11/16/2020 12:00:00 AM EST eCW1 ([facility]) Mirtazapine 15 MG Oral Tablet [Remeron] 11/16/2020 12:00:00 AM EST eCW1 ([facility]) Mirtazapine 15 MG Oral Tablet [Remeron] 11/16/2020 12:00:00 AM EST eCW1 ([facility]) Mirtazapine 15 MG Oral Tablet [Remeron] 11/16/2020 12:00:00 AM EST eCW1 ([facility]) Mirtazapine 15 MG Oral Tablet [Remeron] 11/16/2020 12:00:00 AM EST eCW1 ([facility]) Mirtazapine 15 MG Oral Tablet [Remeron] 11/16/2020 12:00:00 AM EST eCW1 ([facility]) Foam Dressing Bordered - 11/09/2020 12:00:00 AM EST eCW1 ([facility]) Foam Dressing Bordered - 11/09/2020 12:00:00 AM EST eCW1 ([facility]) Foam Dressing Bordered - 11/09/2020 12:00:00 AM EST eCW1 ([facility]) Foam Dressing Bordered - 11/09/2020 12:00:00 AM EST eCW1 ([facility]) Foam Dressing Bordered - 11/09/2020 12:00:00 AM EST eCW1 ([facility]) Foam Dressing Bordered - 11/09/2020 12:00:00 AM EST eCW1 ([facility]) Foam Dressing Bordered - 11/09/2020 12:00:00 AM EST eCW1 ([facility]) Foam Dressing Bordered - 11/09/2020 12:00:00 AM EST eCW1 ([facility]) Foam Dressing Bordered - 11/09/2020 12:00:00 AM EST eCW1 ([facility]) Foam Dressing Bordered - 11/09/2020 12:00:00 AM EST eCW1 ([facility]) Foam Dressing Bordered - 11/09/2020 12:00:00 AM EST eCW1 ([facility]) Foam Dressing Bordered - 11/09/2020 12:00:00 AM EST eCW1 ([facility]) Foam Dressing Bordered - 11/09/2020 12:00:00 AM EST eCW1 ([facility]) Foam Dressing Bordered - 11/09/2020 12:00:00 AM EST eCW1 ([facility]) Foam Dressing Bordered - 11/09/2020 12:00:00 AM EST eCW1 ([facility]) Foam Dressing Bordered - 11/09/2020 12:00:00 AM EST eCW1 ([facility]) Foam Dressing Bordered - 11/09/2020 12:00:00 AM EST eCW1 ([facility]) Foam Dressing Bordered - 11/09/2020 12:00:00 AM EST eCW1 ([facility]) Ergocalciferol [id number] UNT Oral Capsule 08/03/2020 12:00:00 AM EST eCW1 ([facility]) Ergocalciferol [id number] UNT Oral Capsule 08/03/2020 12:00:00 AM EST eCW1 ([facility]) Ergocalciferol [id number] UNT Oral Capsule 08/03/2020 12:00:00 AM EST eCW1 ([facility]) Ergocalciferol [id number] UNT Oral Capsule 08/03/2020 12:00:00 AM EST eCW1 ([facility])
--- OUTSIDE RECORDS SUMMARY | 2021-08-04 21:32 | CCD ---
Author Author [facility] Organization [facility] Address Unknown Phone Unavailable Care Team Providers Care Link Trainer Mechanic Name Role Phone CHECO, F WILLIAN DO [...] F WILLIAN DO Unavailable Unavailable CHECO, F IWLLIAN DO Unavailable Unavailable CHECO, F WILLIAN DO [...] Cox MD Unavailable Unavailable Olivia, B Jack PATIENT TRANSPORT ORDERLY Unavailable Unavailable Olivia, B Jack PATIENT TRANSPORT ORDERLY Unavailable Unavailable Olivia, B Jack PATIENT TRANSPORT ORDERLY Unavailable Unavailable Olivia, B Jack PATIENT TRANSPORT ORDERLY Unavailable Unavailable Olivia, B Jack PATIENT TRANSPORT ORDERLY Unavailable Unavailable Olivia, B Jack PATIENT TRANSPORT ORDERLY Unavailable Unavailable Olivia, B Jack PATIENT TRANSPORT ORDERLY Unavailable Unavailable Olivia, B Jack PATIENT TRANSPORT ORDERLY Unavailable Unavailable Olivia, B Jack PATIENT TRANSPORT ORDERLY Unavailable Unavailable Olivia, B Jack PATIENT TRANSPORT ORDERLY Unavailable Unavailable Cayden Xie MD Unavailable Unavailable [...] Xie MD Unavailable Unavailable [facility] Unavailable Unavailable Meli Falanga, A Rosalba ORDNANCE TECHNICIAN Unavailable Unavailable Molalla Falanga, A Rosalba ORDNANCE TECHNICIAN Unavailable Unavailable Meli Falanga, A Rosalba ORDNANCE TECHNICIAN Unavailable Unavailable Meli Falanga, A Rosalba ORDNANCE TECHNICIAN Unavailable Unavailable Meli Falanga, A Rosalba ORDNANCE TECHNICIAN Unavailable Unavailable Meli Falanga, A Rosalba ORDNANCE TECHNICIAN Unavailable Unavailable Meli Falanga, A Orsalba ORDNANCE TECHNICIAN Unavailable Unavailable Molalla Falanga, A Rosalba ORDNANCE TECHNICIAN Unavailable Unavailable Molalla Falanga, A Rosalba ORDNANCE TECHNICIAN Unavailable Unavailable Meli Falanga, A Rosalba ORDNANCE TECHNICIAN Unavailable Unavailable Meli Falanga, A Rosalba ORDNANCE TECHNICIAN Unavailable Unavailable Molalla Falanga, A Rosalba ORDNANCE TECHNICIAN Unavailable Unavailable Molalla Falanga, A Rosalba ORDNANCE TECHNICIAN Unavailable Unavailable Molalla Falanga, A Rosalba ORDNANCE TECHNICIAN Unavailable Unavailable Meli Falanga, A Rosalba ORDNANCE TECHNICIAN Unavailable Unavailable Meli Falanga, A Rosalba ORDNANCE TECHNICIAN Unavailable Unavailable Meli Falanga, A Rosalba ORDNANCE TECHNICIAN Unavailable Unavailable Molalla Falanga, A Rosalba ORDNANCE TECHNICIAN Unavailable Unavailable Molalla Falanga, A Rosalba ORDNANCE TECHNICIAN Unavailable Unavailable Molalla Falanga, A Rosalba ORDNANCE TECHNICIAN Unavailable Unavailable Meli Falanga, A Rosalba ORDNANCE TECHNICIAN Unavailable Unavailable Molalla Falanga, A Rosalba ORDNANCE TECHNICIAN Unavailable Unavailable Molalla Falanga, A Rosalba ORDNANCE TECHNICIAN Unavailable Unavailable Molalla Falanga, A Rosalba ORDNANCE TECHNICIAN Unavailable Unavailable Molalla Falanga, A Rosalba ORDNANCE TECHNICIAN Unavailable Unavailable Meli Falanga, A Rosalba ORDNANCE TECHNICIAN Unavailable Unavailable Molalla Falanga, A Rosalba ORDNANCE TECHNICIAN Unavailable Unavailable Meli Falanga, A Rosalba ORDNANCE TECHNICIAN Unavailable Unavailable Meli Falanga, A Rosalba ORDNANCE TECHNICIAN Unavailable Unavailable Brian DE SANTIAGO MD Unavailable [...] Unavailable Unavailable Macho Law MD Unavailable Unavailable Wray, Macho RUSSELL Unavailable Unavailable Wray, Macho RUSSELL Unavailable Unavailable Wray, Macho RUSSELL Unavailable Unavailable Wray, Macho RUSSELL Unavailable Unavailable Wray, Macho RUSSELL Unavailable Unavailable Wray, Macho RUSSELL Unavailable Unavailable Wray, Macho RUSSELL Unavailable Unavailable Wray, Macho RUSSELL Unavailable Unavailable Wray, Macho RUSSELL Unavailable Unavailable Wray, Macho RUSSELL Unavailable Unavailable Wray, Macho RUSSELL Unavailable Unavailable Wray, Macho RUSSELL Unavailable Unavailable Wray, Macho RUSSELL Unavailable Unavailable Wray, Macho RUSSELL Unavailable Unavailable Wray, Macho RUSSELL Unavailable Unavailable Wray, Macho RUSSELL Unavailable Unavailable Wray, Macho RUSSELL Unavailable Unavailable Wray, Macho RUSSELL Unavailable Unavailable Wray, Macho RUSSELL Unavailable Unavailable Wray, Macho RUSSELL Unavailable Unavailable Wray, Macho RUSSELL Unavailable Unavailable Wray, Macho RUSSELL Unavailable Unavailable Wray, Macho RUSSELL Unavailable Unavailable Wray, Macho RUSSELL Unavailable Unavailable Wray, Macho RUSSELL Unavailable Unavailable Wray, Macho RUSSELL Unavailable Unavailable Wray, Macho RUSSELL Unavailable Unavailable Wray, Macho RUSSELL Unavailable Unavailable Wray, Macho RUSSELL Unavailable Unavailable Wray, Macho RUSSELL Unavailable Unavailable RACHEL, W BINU [...] MD Unavailable Unavailable WYMANSIMI MD Unavailable Unavailable Forest, V YFN PA-C Unavailable Unavailable Forest, V YFN PA-C Unavailable Unavailable Forest, V YFN PA-C Unavailable Unavailable Mayte, V YFN PA-C Unavailable Unavailable Forest, V YFN PA-C Unavailable Unavailable Forest, V YFN PA-C Unavailable Unavailable Forest, V YFN PA-C Unavailable Unavailable Mayte, V YFN PA-C Unavailable Unavailable Mayte, V YFN PA-C Unavailable Unavailable Mayte, V YFN PA-C Unavailable Unavailable Forest, V YFN PA-C Unavailable Unavailable Forest, V YFN PA-C Unavailable Unavailable Forest, V YFN PA-C Unavailable Unavailable Forest, V YFN PA-C Unavailable Unavailable Re-disclosure Warning [...] is protected by Article 27-F of the [facility] Public Health law. If you continue you may have access to information: Regarding HIV / AIDS; Provided by facilities licensed or operated by the [facility] Office of Mental Health; or Provided by the [facility] Office for People With Developmental Disabilities. If such information is present, then the following [facility] mandated warning applies: This information has [...] law may result in a fine or half-way sentence or both. A general authorization for the release of medical or other information is NOT sufficient authorization for further disc losure. Allergies and Adverse Reactions Type Description Substance Reaction Status Data Source(s ) No Known Drug Allergies No Known Drug Allergies No Known Drug Aller gies active NETSMART ([facility] ) No Known Allergies No Known Allergies [facility] Family History Family Member Name Family Member Gender Family Member Status Date o f Status Description Data Source(s) Unknown Male Problem MEDENT ([facility]) Unknown Male Problem MEDENT ([facility] ) Unknown Male Problem MEDENT ([facility] () Unknown Unknown Problem MEDENT ([facility]) mother Unknown Female Problem MEDENT ([facility]) Encounters Encounter Providers Location Date Indications Data Source(s ) Outpatient Attender: YANNA DE SANTIAGO MD 08/04 05:02:29 PM EDT - 08/04/2021 06:58:47 PM EDT Doc[facility]Tap ([facility] ) [place] [address] [facility] [address] 06/30/2021 12:00:00 AM EDT eCW1 ([facility]) [place] [address] [facility] [address] 06/20/2021 12:00:00 AM EDT eCW1 ([facility]) [place] [address] [facility] [address] 06/19/2021 12:00:00 AM EDT eCW1 ([facility]) [place] [address] [facility] [address] 06/13/2021 12:00:00 AM EDT eCW1 ([facility]) Outpatient Attender: YFN MERCADO-SJP.MANDY 05/2021 12:00:00 AM EDT - 06/08/2021 10:54:03 AM EDT [facility] [place] [address] [facility] [address] 06/08/2021 12:00:00 AM EDT eCW1 ([facility]) Out[place] [address] [facility] [address] 05/30/2021 12:00:00 AM EDT eCW1 ([facility]) Outpatient Attender: YFN MERCADO-SJPDestineeMANDY 12:00:00 AM EDT - 05/25/2021 02:06:23 PM EDT [facility] Outpatient Attender: Cayden Xie MDReferrer: RAN MARTIN-SJPDestineeMANDY 05/17/2021 12:00:00 AM EDT - 05/17/2021 03:20:15 PM EDT [facility] Office Visit Attender: YANELIS TINEO Physical Therapy 05/11/2021 08:00:00 AM EDT MEDENT ([facility]) [place] [address] [facility] [address] 05/03/2021 12:00:00 AM EDT eCW1 ([facility]) [place] [address] [facility] [address] 04/25/2021 12:00:00 AM EDT eCW1 ([facility]) [place] [address] [facility] [address] 04/24/2021 12:00:00 AM EDT eCW1 ([facility]) [place] [address] [facility] [address] 04/13/2021 12:00:00 AM EDT eCW1 ([facility]) [place] [address] [facility] [address] 04/10/2021 12:00:00 AM EDT eCW1 ([facility]) [place] [address] [facility] [address] 03/30/2021 12:00:00 AM EDT eCW1 ([facility]) [place] [address] [facility] [address] 03/27/2021 12:00:00 AM EDT eCW1 ([facility]) [place] [address] [facility] [address] 03/22/2021 12:00:00 AM EDT eCW1 ([facility]) [place] [address] [facility] [place] [address] 03/20/2021 12:00:00 AM EDT eCW1 ([facility]) [place] [address] [facility] [address] 03/13/2021 12:00:00 AM EDT eCW1 [facility]) Outpatient Attender: Nadia Ortega/Thanh/Edy/Chin riojas 03/09/2021 11:30:00 AM EDT MEDENT ([facility]) [place] [address] [facility] [address] 03/08/2021 12:00:00 AM EDT [facility] [place] [address] [facility] [address] 03/06/2021 12:00:00 AM EDT eCW1 [facility] [place] [address] [facility] [place] [address] 03/03/2021 12:00:00 AM EDT eCW1 ([facility] [place] [address] [facility] [place] [address] 02/22/2021 12:00:00 AM EDT eCW1 ([facility]) Outpatient [address] [facility] [address] 02/21/2021 12:00:00 AM EDT eCW1 [facility] Outpatient [address] [facility] [address] 02/16/2021 12:00:00 AM EDT eCW1 [facility] [place] [address] [facility] [address] 02/16/2021 12:00:00 AM EDT eCW1 ([facility]) 02/15/2021 01:00:00 AM EDT - 021 04:36:37 PM EDT NETSMART ([facility]) [place] [address] [facility] [place] [address] 02/14/2021 12:00:00 AM EDT eCW1 ([facility]) [place] [address] [facility] [place] [address] 02/13/2021 12:00:00 AM EDT eCW1 [facility] Outpatient [address] [facility] [address] 02/13/2021 12:00:00 AM EDT eCW1 ([facility]) [place] [address] [facility] [address] 02/13/2021 12:00:00 AM EDT eCW1 ([facility]) Outpatient Attender: [facility] 02/05/2021 11:5 8:00 AM EDT [facility] Emergency Attender: Cody Cox MDConsultant: BINU RAMOS 02/05/2021 11:28:00 AM EDT - 02/05/2021 01:25:00 PM [facility] [address] [facility] [address] 01/31/2021 12:00:00 AM EDT eCW1 ([facility]) [place] [address] [facility] [address] 01/24/2021 12:00:00 AM EDT eCW1 ([facility]) Outpatient [address] [facility] [address] 01/19/2021 12:00:00 AM EDT eCW1 ([facility]) Unknown [address] [facility] [address] 01/19/2021 12:00:00 AM EDT [facility]CW1 [facility] In[facility] Attender: Jack BUCIO ttender: Rosalba Cheung FNPAttender: WILLIAN KESSLER DOConsultant: BINU RAMOSConsultant: RAN WYMAN MD 01/16/2021 12:54:00 PM EDT - 01/17/2021 12:35:00 PM EDT [facility] Patient discharged. Outpatient Attender: [facility] 01/14/2021 11:0 0:00 AM EDT [facility] Outpatient Attender: Rosalba COTTER 01/14/2021 10:27:00 AM EDT - 01/16/2021 12:54:00 PM EDT [facility] Outpatient [address] [facility] [address] 12/08/2020 12:00:00 AM EST eCW1 ([facility]) Unknown [address] [facility] [address] 12/07/2020 12:00:00 AM EST eCW1 ([facility]) Unknown [address] [facility] [address] 12/05/2020 12:00:00 AM EST eCW1 ([facility]) Unknown [address] [facility] [address] 12/01/2020 12:00:00 AM EST eCW1 ([facility]) Unknown [address] [facility] [address] 11/24/2020 12:00:00 AM EST eCW1 ([facility]) [place] [address] [facility] [address] 11/22/2020 12:00:00 AM EST eCW1 ([facility]) Unknown [address] [facility] [address] 11/17/2020 12:00:00 AM EST eCW1 ([facility]) Outpatient [address] [facility] [address] 11/16/2020 12:00:00 AM EST eCW1 ([facility]) [place] [address] [facility] [address] 11/10/2020 12:00:00 AM EST eCW1 ([facility]) Unknown [address] [facility] [address] 11/09/2020 12:00:00 AM EST eCW1 ([facility]) Unknown [address] [facility] [address] 11/08/2020 12:00:00 AM EST eCW1 ([facility]) [place] [address] [facility] [address] 11/08/2020 12:00:00 AM EST eCW1 ([facility]) Outpatient [address] [facility] [address] 11/03/2020 12:00:00 AM EST eCW1 ([facility]) Outpatient Attender: Macho Ortega/Thanh/Edy/Layla albright 10/31/2020 10:15:00 AM EST MEDENT ([facility]) [place] [address] [facility] [address] 10/31/2020 12:00:00 AM EST eCW1 ([facility]) TeleMedicine Phone E/M by Phys 11-20 Min [address] [place] [address] 10/27/2020 12:00:00 AM EST eCW1 ([facility]) Unknown [address] [facility] [place] [address] 10/19/2020 12:00:00 AM EST eCW1 ([facility]) Unknown [address] [facility] [address] 08/18/2020 12:00:00 AM EST eCW1 ([facility]) Outpatient Attender: Nadia Ortega/Thanh/Edy/Chin riojas 08/11/2020 01:00:00 PM EST [facility] ([facility] Unknown [address] [facility] Y [address] 08/03/2020 12:00:00 AM EST eCW1 ([facility]) Outpatient [address] [facility] Y [address] 07/27/2020 12:00:00 AM EDT eCW1 ([facility]) Unknown [address] [facility] Y [address] 07/04/2020 12:00:00 AM EDT eCW1 ([facility]) Immunizations Vaccine Date Status Description Data Source(s) COVID-19 dose #2 given elsewhere Unspecified 12/30/2020 03:0 8:00 PM EDT completed eCW1 ([facility]) COVID-19 dose #2 given elsewhere Unspecified 12/30/2020 03:0 8:00 PM EDT completed eCW1 ([facility]) COVID-19 dose #2 given elsewhere Unspecified 12/30/2020 03:0 8:00 PM EDT completed eCW1 ([facility]) COVID-19 dose #2 given elsewhere Unspecified 12/30/2020 03:0 8:00 PM EDT completed eCW1 ([facility]) COVID-19 dose #2 given elsewhere Unspecified 12/30/2020 03:0 8:00 PM EDT completed eCW1 ([facility]) COVID-19 dose #2 given elsewhere Unspecified 12/30/2020 03:0 8:00 PM EDT completed eCW1 ([facility]) COVID-19 dose #2 given elsewhere Unspecified 12/30/2020 03:0 8:00 PM EDT completed eCW1 ([facility]) COVID-19 dose #2 given elsewhere Unspecified 12/30/2020 03:0 8:00 PM EDT completed eCW1 ([facility]) COVID-19 dose #2 given elsewhere Unspecified 12/30/2020 03:0 8:00 PM EDT completed eCW1 ([facility]) COVID-19 dose #2 given elsewhere Unspecified 12/30/2020 03:0 8:00 PM EDT completed eCW1 ([facility]) COVID-19 dose #2 given elsewhere Unspecified 12/30/2020 03:0 8:00 PM EDT completed eCW1 ([facility]) COVID-19 dose #2 given elsewhere Unspecified 12/30/2020 03:0 8:00 PM EDT completed eCW1 ([facility]) COVID-19 dose #2 given elsewhere Unspecified 12/30/2020 03:0 8:00 PM EDT completed eCW1 ([facility]) COVID-19 dose #2 given elsewhere Unspecified 12/30/2020 03:0 8:00 PM EDT completed eCW1 ([facility]) COVID-19 dose #2 given elsewhere Unspecified 12/30/2020 03:0 8:00 PM EDT completed eCW1 ([facility]) COVID-19 dose #2 given elsewhere Unspecified 12/30/2020 03:0 8:00 PM EDT completed eCW1 ([facility]) COVID-19 dose #2 given elsewhere Unspecified 12/30/2020 03:0 8:00 PM EDT completed eCW1 ([facility]) COVID-19 dose #2 given elsewhere Unspecified 12/30/2020 03:0 8:00 PM EDT completed eCW1 ([facility]) COVID-19 dose #2 given elsewhere Unspecified 12/30/2020 03:0 8:00 PM EDT completed eCW1 ([facility]) COVID-19 dose #2 given elsewhere Unspecified 12/30/2020 03:0 8:00 PM EDT completed eCW1 ([facility]) COVID-19 dose #2 given elsewhere Unspecified 12/30/2020 03:0 8:00 PM EDT completed eCW1 ([facility]) COVID-19 dose #2 given elsewhere Unspecified 12/30/2020 03:0 8:00 PM EDT completed eCW1 ([facility]) COVID-19 dose #2 given elsewhere Unspecified 12/30/2020 03:0 8:00 PM EDT completed eCW1 ([facility]) COVID-19 dose #2 given elsewhere Unspecified 12/30/2020 03:0 8:00 PM EDT completed eCW1 ([facility]) COVID-19 dose #2 given elsewhere Unspecified 12/30/2020 03:0 8:00 PM EDT completed eCW1 ([facility]) COVID-19 dose #2 given elsewhere Unspecified 12/30/2020 03:0 8:00 PM EDT completed eCW1 ([facility]) COVID-19 dose #2 given elsewhere Unspecified 12/30/2020 03:0 8:00 PM EDT completed eCW1 ([facility]) COVID-19 dose #2 given elsewhere Unspecified 12/30/2020 03:0 8:00 PM EDT completed eCW1 ([facility]) COVID-19 dose #2 given elsewhere Unspecified 12/30/2020 03:0 8:00 PM EDT completed eCW1 ([facility]) COVID-19 dose #2 given elsewhere Unspecified 12/30/2020 03:0 8:00 PM EDT completed eCW1 ([facility]) COVID-19 dose #2 given elsewhere Unspecified 12/30/2020 03:0 8:00 PM EDT completed eCW1 ([facility]) COVID-19 VACCINE Moderna 12/30/2020 12:00:00 AM EDT completed [employer] Vaccine Series Complete: YESThis Data wa s Submitted to [facility] Via [employer]. COVID-19 dose #1 given elsewhere Unspecified 12/02/2020 03:0 7:00 PM EST completed eCW1 ([facility]) COVID-19 dose #1 given elsewhere Unspecified 12/02/2020 03:0 7:00 PM EST completed eCW1 ([facility]) COVID-19 dose #1 given elsewhere Unspecified 12/02/2020 03:0 7:00 PM EST completed eCW1 ([facility]) COVID-19 dose #1 given elsewhere Unspecified 12/02/2020 03:0 7:00 PM EST completed eCW1 ([facility]) COVID-19 dose #1 given elsewhere Unspecified 12/02/2020 03:0 7:00 PM EST completed eCW1 ([facility]) COVID-19 dose #1 given elsewhere Unspecified 12/02/2020 03:0 7:00 PM EST completed eCW1 ([facility]) COVID-19 dose #1 given elsewhere Unspecified 12/02/2020 03:0 7:00 PM EST completed eCW1 ([facility]) COVID-19 dose #1 given elsewhere Unspecified 12/02/2020 03:0 7:00 PM EST completed eCW1 ([facility]) COVID-19 dose #1 given elsewhere Unspecified 12/02/2020 03:0 7:00 PM EST completed eCW1 ([facility]) COVID-19 dose #1 given elsewhere Unspecified 12/02/2020 03:0 7:00 PM EST completed eCW1 ([facility]) COVID-19 dose #1 given elsewhere Unspecified 12/02/2020 03:0 7:00 PM EST completed eCW1 ([facility]) COVID-19 dose #1 given elsewhere Unspecified 12/02/2020 03:0 7:00 PM EST completed eCW1 ([facility]) COVID-19 dose #1 given elsewhere Unspecified 12/02/2020 03:0 7:00 PM EST completed eCW1 ([facility]) COVID-19 dose #1 given elsewhere Unspecified 12/02/2020 03:0 7:00 PM EST completed eCW1 ([facility]) COVID-19 dose #1 given elsewhere Unspecified 12/02/2020 03:0 7:00 PM EST completed eCW1 ([facility]) COVID-19 dose #1 given elsewhere Unspecified 12/02/2020 03:0 7:00 PM EST completed eCW1 ([facility]) COVID-19 dose #1 given elsewhere Unspecified 12/02/2020 03:0 7:00 PM EST completed eCW1 ([facility]) COVID-19 dose #1 given elsewhere Unspecified 12/02/2020 03:0 7:00 PM EST completed eCW1 ([facility]) COVID-19 dose #1 given elsewhere Unspecified 12/02/2020 03:0 7:00 PM EST completed eCW1 ([facility]) COVID-19 dose #1 given elsewhere Unspecified 12/02/2020 03:0 7:00 PM EST completed eCW1 ([facility]) COVID-19 dose #1 given elsewhere Unspecified 12/02/2020 03:0 7:00 PM EST completed eCW1 ([facility]) COVID-19 dose #1 given elsewhere Unspecified 12/02/2020 03:0 7:00 PM EST completed eCW1 ([facility]) COVID-19 dose #1 given elsewhere Unspecified 12/02/2020 03:0 7:00 PM EST completed eCW1 ([facility]) COVID-19 dose #1 given elsewhere Unspecified 12/02/2020 03:0 7:00 PM EST completed eCW1 ([facility]) COVID-19 dose #1 given elsewhere Unspecified 12/02/2020 03:0 7:00 PM EST completed eCW1 ([facility]) COVID-19 dose #1 given elsewhere Unspecified 12/02/2020 03:0 7:00 PM EST completed eCW1 ([facility]) COVID-19 dose #1 given elsewhere Unspecified 12/02/2020 03:0 7:00 PM EST completed eCW1 ([facility]) COVID-19 dose #1 given elsewhere Unspecified 12/02/2020 03:0 7:00 PM EST completed eCW1 ([facility]) COVID-19 dose #1 given elsewhere Unspecified 12/02/2020 03:0 7:00 PM EST completed eCW1 ([facility]) COVID-19 dose #1 given elsewhere Unspecified 12/02/2020 03:0 7:00 PM EST completed eCW1 ([facility]) COVID-19 dose #1 given elsewhere Unspecified 12/02/2020 03:0 7:00 PM EST completed eCW1 ([facility]) COVID-19 VACCINE Moderna 12/02/2020 12:00:00 AM EST completed [employer] Vaccine Series Complete: NOThis Data was Submitted to [facility] Via [employer]. influenza, recombinant, quadrIvalent,injectable, prese rvative free 07/27/2020 11:45:00 AM EDT completed eCW1 ([facility]) influenza, recombinant, quadrIvalent,injectable, prese rvative free 07/27/2020 11:45:00 AM EDT completed eCW1 ([facility]) influenza, recombinant, quadrIvalent,injectable, prese rvative free 07/27/2020 11:45:00 AM EDT completed eCW1 ([facility]) influenza, recombinant, quadrIvalent,injectable, prese rvative free 07/27/2020 11:45:00 AM EDT completed eCW1 ([facility]) influenza, recombinant, quadrIvalent,injectable, prese rvative free 07/27/2020 11:45:00 AM EDT completed eCW1 ([facility]) influenza, recombinant, quadrIvalent,injectable, prese rvative free 07/27/2020 11:45:00 AM EDT completed eCW1 ([facility]) influenza, recombinant, quadrIvalent,injectable, prese rvative free 07/27/2020 11:45:00 AM EDT completed eCW1 ([facility]) influenza, recombinant, quadrIvalent,injectable, prese rvative free 07/27/2020 11:45:00 AM EDT completed eCW1 ([facility]) influenza, recombinant, quadrIvalent,injectable, prese rvative free 07/27/2020 11:45:00 AM EDT completed eCW1 ([facility]) influenza, recombinant, quadrIvalent,injectable, prese rvative free 07/27/2020 11:45:00 AM EDT completed eCW1 ([facility]) influenza, recombinant, quadrIvalent,injectable, prese rvative free 07/27/2020 11:45:00 AM EDT completed eCW1 ([facility]) influenza, recombinant, quadrIvalent,injectable, prese rvative free 07/27/2020 11:45:00 AM EDT completed eCW1 ([facility]) influenza, recombinant, quadrIvalent,injectable, prese rvative free 07/27/2020 11:45:00 AM EDT completed eCW1 ([facility]) influenza, recombinant, quadrIvalent,injectable, prese rvative free 07/27/2020 11:45:00 AM EDT completed eCW1 ([facility]) influenza, recombinant, quadrIvalent,injectable, prese rvative free 07/27/2020 11:45:00 AM EDT completed eCW1 ([facility]) influenza, recombinant, quadrIvalent,injectable, prese rvative free 07/27/2020 11:45:00 AM EDT completed eCW1 ([facility]) influenza, recombinant, quadrIvalent,injectable, prese rvative free 07/27/2020 11:45:00 AM EDT completed eCW1 ([facility]) influenza, recombinant, quadrIvalent,injectable, prese rvative free 07/27/2020 11:45:00 AM EDT completed eCW1 ([facility]) influenza, recombinant, quadrIvalent,injectable, prese rvative free 07/27/2020 11:45:00 AM EDT completed eCW1 ([facility]) influenza, recombinant, quadrIvalent,injectable, prese rvative free 07/27/2020 11:45:00 AM EDT completed eCW1 ([facility]) influenza, recombinant, quadrIvalent,injectable, prese rvative free 07/27/2020 11:45:00 AM EDT completed eCW1 ([facility]) influenza, recombinant, quadrIvalent,injectable, prese rvative free 07/27/2020 11:45:00 AM EDT completed eCW1 ([facility]) influenza, recombinant, quadrIvalent,injectable, prese rvative free 07/27/2020 11:45:00 AM EDT completed eCW1 ([facility]) influenza, recombinant, quadrIvalent,injectable, prese rvative free 07/27/2020 11:45:00 AM EDT completed eCW1 ([facility]) influenza, recombinant, quadrIvalent,injectable, prese rvative free 07/27/2020 11:45:00 AM EDT completed eCW1 ([facility]) influenza, recombinant, quadrIvalent,injectable, prese rvative free 07/27/2020 11:45:00 AM EDT completed eCW1 ([facility]) influenza, recombinant, quadrIvalent,injectable, prese rvative free 07/27/2020 11:45:00 AM EDT completed eCW1 ([facility]) influenza, recombinant, quadrIvalent,injectable, prese rvative free 07/27/2020 11:45:00 AM EDT completed eCW1 ([facility]) influenza, recombinant, quadrIvalent,injectable, prese rvative free 07/27/2020 11:45:00 AM EDT completed eCW1 ([facility]) influenza, recombinant, quadrIvalent,injectable, prese rvative free 07/27/2020 11:45:00 AM EDT completed eCW1 ([facility]) influenza, recombinant, quadrIvalent,injectable, prese rvative free 07/27/2020 11:45:00 AM EDT completed eCW1 ([facility]) influenza, recombinant, quadrIvalent,injectable, prese rvative free 07/27/2020 11:45:00 AM EDT completed eCW1 ([facility]) influenza, recombinant, quadrIvalent,injectable, prese rvative free 07/27/2020 11:45:00 AM EDT completed eCW1 ([facility]) influenza, recombinant, quadrIvalent,injectable, prese rvative free 07/27/2020 11:45:00 AM EDT completed eCW1 ([facility]) influenza, recombinant, quadrIvalent,injectable, prese rvative free 07/27/2020 11:45:00 AM EDT completed eCW1 ([facility]) influenza, recombinant, quadrIvalent,injectable, prese rvative free 07/27/2020 11:45:00 AM EDT completed eCW1 ([facility]) influenza, recombinant, quadrIvalent,injectable, prese rvative free 07/27/2020 11:45:00 AM EDT completed eCW1 ([facility]) influenza, recombinant, quadrIvalent,injectable, prese rvative free 07/27/2020 11:45:00 AM EDT completed eCW1 ([facility]) influenza, recombinant, quadrIvalent,injectable, prese rvative free 07/27/2020 11:45:00 AM EDT completed eCW1 ([facility]) influenza, recombinant, quadrIvalent,injectable, prese rvative free 07/27/2020 11:45:00 AM EDT completed eCW1 ([facility]) influenza, recombinant, quadrIvalent,injectable, prese rvative free 07/27/2020 11:45:00 AM EDT completed eCW1 ([facility]) influenza, recombinant, quadrIvalent,injectable, prese rvative free 07/27/2020 11:45:00 AM EDT completed eCW1 ([facility]) influenza, recombinant, quadrIvalent,injectable, prese rvative free 07/27/2020 11:45:00 AM EDT completed eCW1 ([facility]) influenza, recombinant, quadrIvalent,injectable, prese rvative free 07/27/2020 11:45:00 AM EDT completed eCW1 ([facility]) influenza, recombinant, quadrIvalent,injectable, prese rvative free 07/27/2020 11:45:00 AM EDT completed eCW1 ([facility]) influenza, recombinant, quadrIvalent,injectable, prese rvative free 07/27/2020 11:45:00 AM EDT completed eCW1 ([facility]) influenza, recombinant, quadrIvalent,injectable, prese rvative free 07/27/2020 11:45:00 AM EDT completed eCW1 ([facility]) influenza, recombinant, quadrIvalent,injectable, prese rvative free 07/27/2020 11:45:00 AM EDT completed eCW1 ([facility]) influenza, recombinant, quadrIvalent,injectable, prese rvative free 07/27/2020 11:45:00 AM EDT completed eCW1 ([facility]) influenza, recombinant, quadrIvalent,injectable, prese rvative free 07/27/2020 11:45:00 AM EDT completed eCW1 ([facility]) Medications Medication Brand Name Start Date Product Form Dose Route Admi nistrative Instructions Pharmacy Instructions Status Indications Reaction Description Data Source(s) [facility]ax Mix-In [place] [facility]In [address] 06/20/2021 12:00: 00 AM EDT 1.0 {packet_mixed_with_8_ounces_of_fluid} active [facility]ira[facility]ax Mix-[facility] [place] eCW1 ([facility]) MiraLax Mix-In [address] [facility]-In [address] 06/20/2021 12:00: 00 AM EDT 1.0 {packet_mixed_with_8_ounces_of_fluid} active [facility] [address] eCW1 ([facility]) MiraLax Mix-In [place] [facility]ira[facility] Mix-In [address] 06/20/2021 12:00: 00 AM EDT 1.0 {packet_mixed_with_8_ounces_of_fluid} active MiraLax Mix-In [place] eCW1 ([facility]) Bisoprolol Fumarate 5 MG Oral Tablet bisoprolol (ZEBET A) 5 MG tablet bisoprolol (ZEBETA) 5 MG tablet 05/25/2021 12:00:00 AM EDT 2.5 mg Oral active Take 0.5 tablets (2.5 mg total) by mouth daily [facility] Spironolactone 25 MG Oral Tablet spironolactone (ALDAC TONE) 25 MG tablet spironolactone (ALDACTONE) 25 MG tablet 05/17/2021 12:00:00 AM EDT 25 mg Oral active Take 1 tablet (25 mg tota l) by mouth daily [facility] apixaban 5 MG Oral Tablet [Eliquis] Eliquis 5 MG TABS tablet Eliquis 5 MG TABS tablet 05/15/2021 12:00:00 AM EDT 5 mg active 5 mg 2 (two) times a day [facility] Mirtazapine 15 MG Oral Tablet mirtazapine (REMERON) 15 MG tablet mirtazapine (REMERON) 15 MG tablet 05/12/2021 12:00:00 AM EDT active [facility] tramadol hydrochloride 50 MG Oral Tablet Tramadol [...] DO NOT EXCEED 4 PER 24 HOURS [facility] 7 ACTUAT umeclidinium 0.0625 MG/ACTUAT D ry Powder Inhaler [Incruse] Incruse Ellipta 62.5 MCG/INH AEPB Incruse Ellipta 62.5 MCG/INH AEPB 05/05/2021 12:00:00 AM EDT active INHALE 1 PUFF BY MOUTH ONCE DAILY [facility] Furosemide 40 MG Furosemide 04/25/2021 01:00:00 AM EDT 2.0 {tabl et} completed NETSMART ([facility]) Furosemide 20 MG Oral Tablet furosemide (LASIX) 20 MG tablet furosemide (LASIX) 20 MG tablet 04/10/2021 12:00:00 AM EDT 20 mg activ e 20 mg Pt alternating 20mg daily, with 40mg daily. [facility] Furosemide 40 MG Furosemide 03/20/2021 01:00:00 AM EDT completed NETSMART ([facility] ) Bisoprolol Fumarate 5 MG / Hydrochloroth iazide 6.25 MG Oral Tablet bisoprolol- hydrochlorothiazide (ZIAC) 5-6.25 MG per tablet bisoprolol-hydrochlorothiazide (ZIAC) 5-6.25 MG per tablet 03/15/2021 12:00:00 AM EDT 1 {tbl} Oral aborted Take 1 tablet by mouth daily [facility] gabapentin 300 MG Oral Capsule gabapentin (NEURONTIN) 300 MG capsule gabapentin (NEURONTIN) 300 MG capsule 03/09/2021 12:00:00 AM EDT 300 mg Oral active Take 300 mg by mouth [facility] Simvastatin 10 MG Oral Tablet simvastatin (ZOCOR) 10 M G tablet simvastatin (ZOCOR) 10 MG tablet 03/09/2021 12:00:00 AM EDT 10 mg Oral active Take 10 mg by mouth nightly [facility] Ipratropium-Albuterol 0.5-2.5 (3) MG/3ML Ipratropium-Albuter ol 03/07/2021 01:00:00 AM EDT completed NETSMART ([facility]) Remeron 15 MG Remeron 03/07/2021 01:00:00 AM EDT 1.0 {tablet} completed NETSMART ([facility]) Bisoprolol-Hydrochlorothiazide 10-6.25 MG Bisoprolol-Hydroch lorothiazide 02/17/2021 01:00:00 AM EDT 1.0 {tablet} completed NETSMART ([facility]) Breo Ellipta 200-25 MCG/INH Breo Ellipta 02/17/2021 01:00:00 AM EDT completed NETSMART ([facility]) Incruse Ellipta 62.5 MCG/INH Incruse Ellipta 02/17/2021 01:00:00 AM EDT completed NETSMART ([facility]) Ipratropium-Albuterol 0.5-2.5 (3) MG/3ML Ipratropium-Albuter ol 02/17/2021 01:00:00 AM EDT completed NETSMART ([facility]) Cephalexin 500 MG Cephalexin 02/17/2021 01:00:00 AM EDT completed NETSMART ([facility] ) Remeron 15 MG Remeron 02/17/2021 01:00:00 AM EDT 1.0 {tablet} completed NETSMART ([facility]) Eliquis 5 MG Eliquis 02/17/2021 01:00:00 AM EDT 1.0 {tablet} completed NETSMART ([facility]) Furosemide 20 MG Furosemide 02/17/2021 01:00:00 AM EDT 1.0 {tabl et} completed NETSMART ([facility]) Simvastatin 10 MG Simvastatin 02/17/2021 01:00:00 AM EDT 1.0 {ta blet} completed NETSMART ([facility]) Gabapentin 300 MG Gabapentin 02/17/2021 01:00:00 AM EDT completed NETSMART ([facility] ) Triamcinolone Acetonide 0.1 % Triamcinolone Acetonide 2020 01:00:00 AM EDT completed NETSMAR T ([facility]) Albuterol 0.833 MG/ML / Ipratropium Brom paul 0.167 MG/ML Inhalant Solution ipratropium-albuterol (DUO-NEB) 0.5-2.5 mg/mL nebulizer ipratropium-albuterol (DUO-NEB) 0.5-2.5 mg/mL nebulizer 02/16/2021 12:00:00 AM EDT active as needed [facility] Bisoprolol-Hydrochlorothiazide 10-6.25 MG Bisoprolol-Hydroch lorothiazide 02/15/2021 01:00:00 AM EDT 1.0 {tablet} completed NETSMART ([facility]) Incruse Ellipta 62.5 MCG/INH Incruse Ellipta 02/15/2021 01:00:00 AM EDT completed NETSMART ([facility]) Breo Ellipta 200-25 MCG/INH Breo Ellipta 02/15/2021 01:00:00 AM EDT completed NETSMART ([facility]) Furosemide 20 MG Furosemide 02/15/2021 01:00:00 AM EDT 1.0 {tabl et} completed NETSMART ([facility]) Gabapentin 300 MG Gabapentin 02/15/2021 01:00:00 AM EDT completed NETSMART ([facility] ) Eliquis 5 MG Eliquis 02/15/2021 01:00:00 AM EDT 1.0 {tablet} completed NETSMART ([facility]) Triamcinolone Acetonide 0.1 % Triamcinolone Acetonide 2020 01:00:00 AM EDT completed NETSMAR T ([facility]) Simvastatin 10 MG Simvastatin 02/15/2021 01:00:00 AM EDT 1.0 {ta blet} completed NETSMART ([facility]) Cephalexin 500 MG Oral Capsule Cephalexin 500 MG 02/13/2021 12:00:0 0 AM EDT 1.0 {capsule} active Cephalexin 500 MG eCW1 ([facility]) Cephalexin 500 MG Oral Capsule Cephalexin 500 MG 02/13/2021 12:00:0 0 AM EDT 1.0 {capsule} active Cephalexin 500 MG eCW1 ([facility]) Cephalexin 500 MG Oral Capsule Cephalexin 500 MG 02/13/2021 12:00:0 0 AM EDT 1.0 {capsule} active Cephalexin 500 MG eCW1 ([facility]) Cephalexin 500 MG Oral Capsule Cephalexin 500 MG 02/13/2021 12:00:0 0 AM EDT 1.0 {capsule} active Cephalexin 500 MG eCW1 ([facility]) Cephalexin 500 MG Oral Capsule Cephalexin 500 MG 02/13/2021 12:00:0 0 AM EDT 1.0 {capsule} active Cephalexin 500 MG eCW1 ([facility]) Cephalexin 500 MG Oral Capsule Cephalexin 500 MG 02/13/2021 12:00:0 0 AM EDT 1.0 {capsule} active Cephalexin 500 MG eCW1 ([facility]) Cephalexin 500 MG Oral Capsule Cephalexin 500 MG 02/13/2021 12:00:0 0 AM EDT 1.0 {capsule} active Cephalexin 500 MG eCW1 ([facility]) apixaban 5 MG Oral Tablet [Eliquis] Eliquis 5 MG Eliquis 5 M G 01/31/2021 12:00:00 AM EDT active Eliquis 5 MG eCW1 ([facility]) apixaban 5 MG Oral Tablet [Eliquis] Eliquis 5 MG Eliquis 5 M G 01/31/2021 12:00:00 AM EDT active Eliquis 5 MG eCW1 ([facility]) Furosemide 20 MG Oral Tablet Furosemide 20 MG 01/31/2021 12:00:00 A M EDT 1.0 {tablet} active Furosemide 20 MG eCW1 ( [facility]) Furosemide 20 MG Oral Tablet Furosemide 20 MG 01/31/2021 12:00:00 A M EDT 1.0 {tablet} active Furosemide 20 MG eCW1 ( [facility]) Furosemide 20 MG Oral Tablet Furosemide 20 MG 01/31/2021 12:00:00 A M EDT 1.0 {tablet} active Furosemide 20 MG eCW1 ( [facility]) Furosemide 20 MG Oral Tablet Furosemide 20 MG 01/31/2021 12:00:00 A M EDT 1.0 {tablet} active Furosemide 20 MG eCW1 ( [facility]) Furosemide 20 MG Oral Tablet Furosemide 20 MG 01/31/2021 12:00:00 A M EDT 2.0 {tablet} active Furosemide 20 MG eCW1 ( [facility]) Furosemide 20 MG Oral Tablet Furosemide 20 MG 01/31/2021 12:00:00 A M EDT 1.0 {tablet} active Furosemide 20 MG eCW1 ( [facility]) Furosemide 20 MG Oral Tablet Furosemide 20 MG 01/31/2021 12:00:00 A M EDT 1.0 {tablet} active Furosemide 20 MG eCW1 ( [facility]) Furosemide 20 MG Oral Tablet Furosemide 20 MG 01/31/2021 12:00:00 A M EDT 1.0 {tablet} active Furosemide 20 MG eCW1 ( [facility]) apixaban 5 MG Oral Tablet [Eliquis] Eliquis 5 MG Eliquis 5 M G 01/31/2021 12:00:00 AM EDT active Eliquis 5 MG eCW1 ([facility]) Furosemide 20 MG Oral Tablet Furosemide 20 MG 01/31/2021 12:00:00 A M EDT 1.0 {tablet} active Furosemide 20 MG eCW1 ( [facility]) Furosemide 20 MG Oral Tablet Furosemide 20 MG 01/31/2021 12:00:00 A M EDT 1.0 {tablet} active Furosemide 20 MG eCW1 ( [facility]) Furosemide 20 MG Oral Tablet Furosemide 20 MG 01/31/2021 12:00:00 A M EDT 1.0 {tablet} active Furosemide 20 MG eCW1 ( [facility]) Furosemide 20 MG Oral Tablet Furosemide 20 MG 01/31/2021 12:00:00 A M EDT 1.0 {tablet} active Furosemide 20 MG eCW1 ( [facility]) apixaban 5 MG Oral Tablet [Eliquis] Eliquis 5 MG Eliquis 5 M G 01/31/2021 12:00:00 AM EDT active Eliquis 5 MG eCW1 ([facility]) Furosemide 20 MG Oral Tablet Furosemide 20 MG 01/31/2021 12:00:00 A M EDT 1.0 {tablet} active Furosemide 20 MG eCW1 ( [facility]) apixaban 5 MG Oral Tablet [Eliquis] Eliquis 5 MG Eliquis 5 M G 01/31/2021 12:00:00 AM EDT active Eliquis 5 MG eCW1 ([facility]) Furosemide 20 MG Oral Tablet Furosemide 20 MG 01/31/2021 12:00:00 A M EDT 1.0 {tablet} active Furosemide 20 MG eCW1 ( [facility]) Furosemide 20 MG Oral Tablet Furosemide 20 MG 01/31/2021 12:00:00 A M EDT 1.0 {tablet} active Furosemide 20 MG eCW1 ( [facility]) apixaban 5 MG Oral Tablet [Eliquis] Eliquis 5 MG Eliquis 5 M G 01/31/2021 12:00:00 AM EDT active Eliquis 5 MG eCW1 ([facility]) apixaban 5 MG Oral Tablet [Eliquis] Eliquis 5 MG Eliquis 5 M G 01/31/2021 12:00:00 AM EDT active Eliquis 5 MG eCW1 ([facility]) Furosemide 20 MG Oral Tablet Furosemide 20 MG 01/31/2021 12:00:00 A M EDT 1.0 {tablet} active Furosemide 20 MG eCW1 ( [facility]) apixaban 5 MG Oral Tablet [Eliquis] Eliquis 5 MG Eliquis 5 M G 01/31/2021 12:00:00 AM EDT active Eliquis 5 MG eCW1 ([facility]) Furosemide 20 MG Oral Tablet Furosemide 20 MG 01/31/2021 12:00:00 A M EDT 1.0 {tablet} active Furosemide 20 MG eCW1 ( [facility]) Furosemide 20 MG Oral Tablet Furosemide 20 MG 01/31/2021 12:00:00 A M EDT 1.0 {tablet} active Furosemide 20 MG eCW1 ( [facility]) Prednisone 20 MG Oral Tablet PredniSONE 20 MG PredniSONE 20 MG 01/31/2021 12:00:00 AM EDT 2.0 {tablet} active Pr edniSONE 20 MG eCW1 ([facility]) apixaban 5 MG Oral Tablet [Eliquis] Eliquis 5 MG Eliquis 5 M G 01/31/2021 12:00:00 AM EDT active Eliquis 5 MG eCW1 ([facility]) Furosemide 20 MG Oral Tablet Furosemide 20 MG 01/31/2021 12:00:00 A M EDT 1.0 {tablet} active Furosemide 20 MG eCW1 ( [facility]) apixaban 5 MG Oral Tablet [Eliquis] Eliquis 5 MG Eliquis 5 M G 01/31/2021 12:00:00 AM EDT active Eliquis 5 MG eCW1 ([facility]) apixaban 5 MG Oral Tablet [Eliquis] Eliquis 5 MG Eliquis 5 M G 01/31/2021 12:00:00 AM EDT active Eliquis 5 MG eCW1 ([facility]) Furosemide 20 MG Oral Tablet Furosemide 20 MG 01/31/2021 12:00:00 A M EDT 1.0 {tablet} active Furosemide 20 MG eCW1 ( [facility]) apixaban 5 MG Oral Tablet [Eliquis] Eliquis 5 MG Eliquis 5 M G 01/31/2021 12:00:00 AM EDT active Eliquis 5 MG eCW1 ([facility]) Furosemide 20 MG Oral Tablet Furosemide 20 MG 01/31/2021 12:00:00 A M EDT 1.0 {tablet} active Furosemide 20 MG eCW1 ( [facility]) apixaban 5 MG Oral Tablet [Eliquis] Eliquis 5 MG Eliquis 5 M G 01/31/2021 12:00:00 AM EDT active Eliquis 5 MG eCW1 ([facility]) Furosemide 20 MG Oral Tablet Furosemide 20 MG 01/31/2021 12:00:00 A M EDT 1.0 {tablet} active Furosemide 20 MG eCW1 ( [facility]) Furosemide 20 MG Oral Tablet Furosemide 20 MG 01/31/2021 12:00:00 A M EDT 2.0 {tablet} active Furosemide 20 MG eCW1 ( [facility]) apixaban 5 MG Oral Tablet [Eliquis] Eliquis 5 MG Eliquis 5 M G 01/31/2021 12:00:00 AM EDT active Eliquis 5 MG eCW1 ([facility]) apixaban 5 MG Oral Tablet [Eliquis] Eliquis 5 MG Eliquis 5 M G 01/31/2021 12:00:00 AM EDT active Eliquis 5 MG eCW1 ([facility]) apixaban 5 MG Oral Tablet [Eliquis] Eliquis 5 MG Eliquis 5 M G 01/31/2021 12:00:00 AM EDT active Eliquis 5 MG eCW1 ([facility]) Furosemide 20 MG Oral Tablet Furosemide 20 MG 01/31/2021 12:00:00 A M EDT 1.0 {tablet} active Furosemide 20 MG eCW1 ( [facility]) Furosemide 20 MG Oral Tablet Furosemide 20 MG 01/31/2021 12:00:00 A M EDT 1.0 {tablet} active Furosemide 20 MG eCW1 ( [facility]) apixaban 5 MG Oral Tablet [Eliquis] Eliquis 5 MG Eliquis 5 M G 01/31/2021 12:00:00 AM EDT active Eliquis 5 MG eCW1 ([facility]) Furosemide 20 MG Oral Tablet Furosemide 20 MG 01/31/2021 12:00:00 A M EDT 1.0 {tablet} active Furosemide 20 MG eCW1 ( [facility]) Furosemide 20 MG Oral Tablet Furosemide 20 MG 01/31/2021 12:00:00 A M EDT 1.0 {tablet} active Furosemide 20 MG eCW1 ( [facility]) apixaban 5 MG Oral Tablet [Eliquis] Eliquis 5 MG Eliquis 5 M G 01/31/2021 12:00:00 AM EDT active Eliquis 5 MG eCW1 ([facility]) Furosemide 20 MG Oral Tablet Furosemide 20 MG 01/31/2021 12:00:00 A M EDT 2.0 {tablet} active Furosemide 20 MG eCW1 ( [facility]) apixaban 5 MG Oral Tablet [Eliquis] Eliquis 5 MG Eliquis 5 M G 01/31/2021 12:00:00 AM EDT active Eliquis 5 MG eCW1 ([facility]) apixaban 5 MG Oral Tablet [Eliquis] Eliquis 5 MG Eliquis 5 M G 01/31/2021 12:00:00 AM EDT active Eliquis 5 MG eCW1 ([facility]) apixaban 5 MG Oral Tablet [Eliquis] Eliquis 5 MG Eliquis 5 M G 01/31/2021 12:00:00 AM EDT active Eliquis 5 MG eCW1 ([facility]) apixaban 5 MG Oral Tablet [Eliquis] Eliquis 5 MG Eliquis 5 M G 01/31/2021 12:00:00 AM EDT active Eliquis 5 MG eCW1 ([facility]) Doxycycline Monohydrate 100 MG Oral Capsule Doxycycline [place] hydrate 100 MG 01/31/2021 12:00:00 AM EDT 1.0 {capsule} active Doxycycline Monohydrate 100 MG eCW1 ([facility]) Furosemide 20 MG Oral Tablet Furosemide 20 MG 01/31/2021 12:00:00 A M EDT 1.0 {tablet} active Furosemide 20 MG eCW1 ( [facility]) Triamcinolone Acetonide 1 MG/ML Topical Cream Triamcin olone Acetonide 0.1 % Triamcinolone Acetonide 0.1 % 12/08/2020 12:00:00 AM EST 1.0 {appli cation} suspended Triamcinolone Acetonide 0 .1 % eCW1 ([facility]) Triamcinolone Acetonide 1 MG/ML Topical Cream Triamcin olone Acetonide 0.1 % Triamcinolone Acetonide 0.1 % 12/08/2020 12:00:00 AM EST 1.0 {appli cation} active Triamcinolone Acetonide 0 .1 % eCW1 ([facility]) Triamcinolone Acetonide 1 MG/ML Topical Cream Triamcin olone Acetonide 0.1 % Triamcinolone Acetonide 0.1 % 12/08/2020 12:00:00 AM EST 1.0 {appli cation} active Triamcinolone Acetonide 0 .1 % eCW1 ([facility]) Triamcinolone Acetonide 1 MG/ML Topical Cream Triamcin olone Acetonide 0.1 % Triamcinolone Acetonide 0.1 % 12/08/2020 12:00:00 AM EST 1.0 {appli cation} active Triamcinolone Acetonide 0 .1 % eCW1 ([facility]) Triamcinolone Acetonide 1 MG/ML Topical Cream Triamcin olone Acetonide 0.1 % Triamcinolone Acetonide 0.1 % 12/08/2020 12:00:00 AM EST 1.0 {appli cation} active Triamcinolone Acetonide 0 .1 % eCW1 ([facility]) Triamcinolone Acetonide 1 MG/ML Topical Cream Triamcin olone Acetonide 0.1 % Triamcinolone Acetonide 0.1 % 12/08/2020 12:00:00 AM EST 1.0 {appli cation} active Triamcinolone Acetonide 0 .1 % eCW1 ([facility]) Triamcinolone Acetonide 1 MG/ML Topical Cream Triamcin olone Acetonide 0.1 % Triamcinolone Acetonide 0.1 % 12/08/2020 12:00:00 AM EST 1.0 {appli cation} active Triamcinolone Acetonide 0 .1 % eCW1 ([facility]) Triamcinolone Acetonide 1 MG/ML Topical Cream Triamcin olone Acetonide 0.1 % Triamcinolone Acetonide 0.1 % 12/08/2020 12:00:00 AM EST 1.0 {appli cation} suspended Triamcinolone Acetonide 0 .1 % eCW1 ([facility]) Triamcinolone Acetonide 1 MG/ML Topical Cream Triamcin olone Acetonide 0.1 % Triamcinolone Acetonide 0.1 % 12/08/2020 12:00:00 AM EST 1.0 {appli cation} active Triamcinolone Acetonide 0 .1 % eCW1 (Formerly [facility], [facility]) Triamcinolone Acetonide 1 MG/ML Topical Cream Triamcin olone Acetonide 0.1 % Triamcinolone Acetonide 0.1 % 12/08/2020 12:00:00 AM EST 1.0 {appli cation} active Triamcinolone Acetonide 0 .1 % eCW1 ([facility]) Triamcinolone Acetonide 1 MG/ML Topical Cream Triamcin olone Acetonide 0.1 % Triamcinolone Acetonide 0.1 % 12/08/2020 12:00:00 AM EST 1.0 {appli cation} active Triamcinolone Acetonide 0 .1 % eCW1 ([facility]) Triamcinolone Acetonide 1 MG/ML Topical Cream Triamcin olone Acetonide 0.1 % Triamcinolone Acetonide 0.1 % 12/08/2020 12:00:00 AM EST 1.0 {appli cation} active Triamcinolone Acetonide 0 .1 % eCW1 ([facility]) Triamcinolone Acetonide 1 MG/ML Topical Cream Triamcin olone Acetonide 0.1 % Triamcinolone Acetonide 0.1 % 12/08/2020 12:00:00 AM EST 1.0 {appli cation} active Triamcinolone Acetonide 0 .1 % eCW1 ([facility]) Triamcinolone Acetonide 1 MG/ML Topical Cream Triamcin olone Acetonide 0.1 % Triamcinolone Acetonide 0.1 % 12/08/2020 12:00:00 AM EST 1.0 {appli cation} active Triamcinolone Acetonide 0 .1 % eCW1 ([facility]) Triamcinolone Acetonide 1 MG/ML Topical Cream Triamcin olone Acetonide 0.1 % Triamcinolone Acetonide 0.1 % 12/08/2020 12:00:00 AM EST 1.0 {appli cation} active Triamcinolone Acetonide 0 .1 % eCW1 ([facility]) Triamcinolone Acetonide 1 MG/ML Topical Cream Triamcin olone Acetonide 0.1 % Triamcinolone Acetonide 0.1 % 12/08/2020 12:00:00 AM EST 1.0 {appli cation} active Triamcinolone Acetonide 0 .1 % eCW1 ([facility]) Triamcinolone Acetonide 1 MG/ML Topical Cream Triamcin olone Acetonide 0.1 % Triamcinolone Acetonide 0.1 % 12/08/2020 12:00:00 AM EST 1.0 {appli cation} active Triamcinolone Acetonide 0 .1 % eCW1 ([facility]) Triamcinolone Acetonide 1 MG/ML Topical Cream Triamcin olone Acetonide 0.1 % Triamcinolone Acetonide 0.1 % 12/08/2020 12:00:00 AM EST 1.0 {appli cation} active Triamcinolone Acetonide 0 .1 % eCW1 ([facility]) Triamcinolone Acetonide 1 MG/ML Topical Cream Triamcin olone Acetonide 0.1 % Triamcinolone Acetonide 0.1 % 12/08/2020 12:00:00 AM EST 1.0 {appli cation} active Triamcinolone Acetonide 0 .1 % eCW1 ([facility]) Triamcinolone Acetonide 1 MG/ML Topical Cream Triamcin olone Acetonide 0.1 % Triamcinolone Acetonide 0.1 % 12/08/2020 12:00:00 AM EST 1.0 {appli cation} suspended Triamcinolone Acetonide 0 .1 % eCW1 ([facility]) Triamcinolone Acetonide 1 MG/ML Topical Cream Triamcin olone Acetonide 0.1 % Triamcinolone Acetonide 0.1 % 12/08/2020 12:00:00 AM EST 1.0 {appli cation} active Triamcinolone Acetonide 0 .1 % eCW1 ([facility]) Triamcinolone Acetonide 1 MG/ML Topical Cream Triamcin olone Acetonide 0.1 % Triamcinolone Acetonide 0.1 % 12/08/2020 12:00:00 AM EST 1.0 {appli cation} active Triamcinolone Acetonide 0 .1 % eCW1 ([facility]) Triamcinolone Acetonide 1 MG/ML Topical Cream Triamcin olone Acetonide 0.1 % Triamcinolone Acetonide 0.1 % 12/08/2020 12:00:00 AM EST 1.0 {appli cation} active Triamcinolone Acetonide 0 .1 % eCW1 ([facility]) Triamcinolone Acetonide 1 MG/ML Topical Cream Triamcin olone Acetonide 0.1 % Triamcinolone Acetonide 0.1 % 12/08/2020 12:00:00 AM EST 1.0 {appli cation} suspended Triamcinolone Acetonide 0 .1 % eCW1 ([facility]) Triamcinolone Acetonide 1 MG/ML Topical Cream Triamcin olone Acetonide 0.1 % Triamcinolone Acetonide 0.1 % 12/08/2020 12:00:00 AM EST 1.0 {appli cation} active Triamcinolone Acetonide 0 .1 % eCW1 ([facility]) Triamcinolone Acetonide 1 MG/ML Topical Cream Triamcin olone Acetonide 0.1 % Triamcinolone Acetonide 0.1 % 12/08/2020 12:00:00 AM EST 1.0 {appli cation} active Triamcinolone Acetonide 0 .1 % eCW1 ([facility]) Triamcinolone Acetonide 1 MG/ML Topical Cream Triamcin olone Acetonide 0.1 % Triamcinolone Acetonide 0.1 % 12/08/2020 12:00:00 AM EST 1.0 {appli cation} active Triamcinolone Acetonide 0 .1 % eCW1 ([facility]) Triamcinolone Acetonide 1 MG/ML Topical Cream Triamcin olone Acetonide 0.1 % Triamcinolone Acetonide 0.1 % 12/08/2020 12:00:00 AM EST 1.0 {appli cation} active Triamcinolone Acetonide 0 .1 % eCW1 ([facility]) Triamcinolone Acetonide 1 MG/ML Topical Cream Triamcin olone Acetonide 0.1 % Triamcinolone Acetonide 0.1 % 12/08/2020 12:00:00 AM EST 1.0 {appli cation} active Triamcinolone Acetonide 0 .1 % eCW1 ([facility]) Triamcinolone Acetonide 1 MG/ML Topical Cream Triamcin olone Acetonide 0.1 % Triamcinolone Acetonide 0.1 % 12/08/2020 12:00:00 AM EST 1.0 {appli cation} active Triamcinolone Acetonide 0 .1 % eCW1 ([facility]) Triamcinolone Acetonide 1 MG/ML Topical Cream Triamcin olone Acetonide 0.1 % Triamcinolone Acetonide 0.1 % 12/08/2020 12:00:00 AM EST 1.0 {appli cation} active Triamcinolone Acetonide 0 .1 % eCW1 ([facility]) Triamcinolone Acetonide 1 MG/ML Topical Cream Triamcin olone Acetonide 0.1 % Triamcinolone Acetonide 0.1 % 12/08/2020 12:00:00 AM EST 1.0 {appli cation} suspended Triamcinolone Acetonide 0 .1 % eCW1 ([facility]) Triamcinolone Acetonide 1 MG/ML Topical Cream Triamcin olone Acetonide 0.1 % Triamcinolone Acetonide 0.1 % 12/08/2020 12:00:00 AM EST 1.0 {appli cation} suspended Triamcinolone Acetonide 0 .1 % eCW1 ([facility]) Triamcinolone Acetonide 1 MG/ML Topical Cream Triamcin olone Acetonide 0.1 % Triamcinolone Acetonide 0.1 % 12/08/2020 12:00:00 AM EST 1.0 {appli cation} active Triamcinolone Acetonide 0 .1 % eCW1 ([facility]) Triamcinolone Acetonide 1 MG/ML Topical Cream Triamcin olone Acetonide 0.1 % Triamcinolone Acetonide 0.1 % 12/08/2020 12:00:00 AM EST 1.0 {appli cation} active Triamcinolone Acetonide 0 .1 % eCW1 ([facility]) Mirtazapine 15 MG Oral Tablet [Remeron] Remeron 15 MG Remero n 15 MG 11/16/2020 12:00:00 AM EST 1.0 {tablet_at_bedtime} active Remeron 15 MG eCW1 ([facility]) Mirtazapine 15 MG Oral Tablet [Remeron] Remeron 15 MG Remero n 15 MG 11/16/2020 12:00:00 AM EST 1.0 {tablet_at_bedtime} active Remeron 15 MG eCW1 ([facility]) Mirtazapine 15 MG Oral Tablet [Remeron] Remeron 15 MG Remero n 15 MG 11/16/2020 12:00:00 AM EST 1.0 {tablet_at_bedtime} active Remeron 15 MG eCW1 ([facility]) Mirtazapine 15 MG Oral Tablet [Remeron] Remeron 15 MG Remero n 15 MG 11/16/2020 12:00:00 AM EST 1.0 {tablet_at_bedtime} active Remeron 15 MG eCW1 ([facility]) Mirtazapine 15 MG Oral Tablet [Remeron] Remeron 15 MG Remero n 15 MG 11/16/2020 12:00:00 AM EST 1.0 {tablet_at_bedtime} active Remeron 15 MG eCW1 ([facility]) Mirtazapine 15 MG Oral Tablet [Remeron] Remeron 15 MG Remero n 15 MG 11/16/2020 12:00:00 AM EST 1.0 {tablet_at_bedtime} active Remeron 15 MG eCW1 ([facility]) Mirtazapine 15 MG Oral Tablet [Remeron] Remeron 15 MG Remero n 15 MG 11/16/2020 12:00:00 AM EST 1.0 {tablet_at_bedtime} active Remeron 15 MG eCW1 ([facility]) Mirtazapine 15 MG Oral Tablet [Remeron] Remeron 15 MG Remero n 15 MG 11/16/2020 12:00:00 AM EST 1.0 {tablet_at_bedtime} active Remeron 15 MG eCW1 ([facility]) Mirtazapine 15 MG Oral Tablet [Remeron] Remeron 15 MG Remero n 15 MG 11/16/2020 12:00:00 AM EST 1.0 {tablet_at_bedtime} active Remeron 15 MG eCW1 ([facility]) Mirtazapine 15 MG Oral Tablet [Remeron] Remeron 15 MG Remero n 15 MG 11/16/2020 12:00:00 AM EST 1.0 {tablet_at_bedtime} active Remeron 15 MG eCW1 ([facility]) Mirtazapine 15 MG Oral Tablet [Remeron] Remeron 15 MG Remero n 15 MG 11/16/2020 12:00:00 AM EST 1.0 {tablet_at_bedtime} active Remeron 15 MG eCW1 ([facility]) Mirtazapine 15 MG Oral Tablet [Remeron] Remeron 15 MG Remero n 15 MG 11/16/2020 12:00:00 AM EST 1.0 {tablet_at_bedtime} active Remeron 15 MG eCW1 ([facility]) Mirtazapine 15 MG Oral Tablet [Remeron] Remeron 15 MG Remero n 15 MG 11/16/2020 12:00:00 AM EST 1.0 {tablet_at_bedtime} active Remeron 15 MG eCW1 ([facility]) Mirtazapine 15 MG Oral Tablet [Remeron] Remeron 15 MG Remero n 15 MG 11/16/2020 12:00:00 AM EST 1.0 {tablet_at_bedtime} active Remeron 15 MG eCW1 ([facility]) Mirtazapine 15 MG Oral Tablet [Remeron] Remeron 15 MG Remero n 15 MG 11/16/2020 12:00:00 AM EST 1.0 {tablet_at_bedtime} active Remeron 15 MG eCW1 ([facility]) Mirtazapine 15 MG Oral Tablet [Remeron] Remeron 15 MG Remero n 15 MG 11/16/2020 12:00:00 AM EST 1.0 {tablet_at_bedtime} active Remeron 15 MG eCW1 ([facility]) Mirtazapine 15 MG Oral Tablet [Remeron] Remeron 15 MG Remero n 15 MG 11/16/2020 12:00:00 AM EST 1.0 {tablet_at_bedtime} active Remeron 15 MG eCW1 ([facility]) Mirtazapine 15 MG Oral Tablet [Remeron] Remeron 15 MG Remero n 15 MG 11/16/2020 12:00:00 AM EST 1.0 {tablet_at_bedtime} active Remeron 15 MG eCW1 ([facility]) Mirtazapine 15 MG Oral Tablet [Remeron] Remeron 15 MG Remero n 15 MG 11/16/2020 12:00:00 AM EST 1.0 {tablet_at_bedtime} active Remeron 15 MG eCW1 ([facility]) Mirtazapine 15 MG Oral Tablet [Remeron] Remeron 15 MG Remero n 15 MG 11/16/2020 12:00:00 AM EST 1.0 {tablet_at_bedtime} active Remeron 15 MG eCW1 ([facility]) Mirtazapine 15 MG Oral Tablet [Remeron] Remeron 15 MG Remero n 15 MG 11/16/2020 12:00:00 AM EST 1.0 {tablet_at_bedtime} active Remeron 15 MG eCW1 ([facility]) Mirtazapine 15 MG Oral Tablet [Remeron] Remeron 15 MG Remero n 15 MG 11/16/2020 12:00:00 AM EST 1.0 {tablet_at_bedtime} active Remeron 15 MG eCW1 ([facility]) Mirtazapine 15 MG Oral Tablet [Remeron] Remeron 15 MG Remero n 15 MG 11/16/2020 12:00:00 AM EST 1.0 {tablet_at_bedtime} active Remeron 15 MG eCW1 ([facility]) Mirtazapine 15 MG Oral Tablet [Remeron] Remeron 15 MG Remero n 15 MG 11/16/2020 12:00:00 AM EST 1.0 {tablet_at_bedtime} active Remeron 15 MG eCW1 ([facility]) Mirtazapine 15 MG Oral Tablet [Remeron] Remeron 15 MG Remero n 15 MG 11/16/2020 12:00:00 AM EST 1.0 {tablet_at_bedtime} active Remeron 15 MG eCW1 ([facility]) Mirtazapine 15 MG Oral Tablet [Remeron] Remeron 15 MG Remero n 15 MG 11/16/2020 12:00:00 AM EST 1.0 {tablet_at_bedtime} active Remeron 15 MG eCW1 ([facility]) Mirtazapine 15 MG Oral Tablet [Remeron] Remeron 15 MG Remero n 15 MG 11/16/2020 12:00:00 AM EST 1.0 {tablet_at_bedtime} active Remeron 15 MG eCW1 ([facility]) Mirtazapine 15 MG Oral Tablet [Remeron] Remeron 15 MG Remero n 15 MG 11/16/2020 12:00:00 AM EST 1.0 {tablet_at_bedtime} active Remeron 15 MG eCW1 ([facility]) Mirtazapine 15 MG Oral Tablet [Remeron] Remeron 15 MG Remero n 15 MG 11/16/2020 12:00:00 AM EST 1.0 {tablet_at_bedtime} active Remeron 15 MG eCW1 ([facility]) Mirtazapine 15 MG Oral Tablet [Remeron] Remeron 15 MG Remero n 15 MG 11/16/2020 12:00:00 AM EST 1.0 {tablet_at_bedtime} active Remeron 15 MG eCW1 ([facility]) Mirtazapine 15 MG Oral Tablet [Remeron] Remeron 15 MG Remero n 15 MG 11/16/2020 12:00:00 AM EST 1.0 {tablet_at_bedtime} active Remeron 15 MG eCW1 ([facility]) Mirtazapine 15 MG Oral Tablet [Remeron] Remeron 15 MG Remero n 15 MG 11/16/2020 12:00:00 AM EST 1.0 {tablet_at_bedtime} active Remeron 15 MG eCW1 ([facility]) Mirtazapine 15 MG Oral Tablet [Remeron] Remeron 15 MG Remero n 15 MG 11/16/2020 12:00:00 AM EST 1.0 {tablet_at_bedtime} active Remeron 15 MG eCW1 ([facility]) Mirtazapine 15 MG Oral Tablet [Remeron] Remeron 15 MG Remero n 15 MG 11/16/2020 12:00:00 AM EST 1.0 {tablet_at_bedtime} active Remeron 15 MG eCW1 ([facility]) Mirtazapine 15 MG Oral Tablet [Remeron] Remeron 15 MG Remero n 15 MG 11/16/2020 12:00:00 AM EST 1.0 {tablet_at_bedtime} active Remeron 15 MG eCW1 ([facility]) Mirtazapine 15 MG Oral Tablet [Remeron] Remeron 15 MG Remero n 15 MG 11/16/2020 12:00:00 AM EST 1.0 {tablet_at_bedtime} active Remeron 15 MG eCW1 ([facility]) Mirtazapine 15 MG Oral Tablet [Remeron] Remeron 15 MG Remero n 15 MG 11/16/2020 12:00:00 AM EST 1.0 {tablet_at_bedtime} active Remeron 15 MG eCW1 ([facility]) Mirtazapine 15 MG Oral Tablet [Remeron] Remeron 15 MG Remero n 15 MG 11/16/2020 12:00:00 AM EST 1.0 {tablet_at_bedtime} active Remeron 15 MG eCW1 ([facility]) Mirtazapine 15 MG Oral Tablet [Remeron] Remeron 15 MG Remero n 15 MG 11/16/2020 12:00:00 AM EST 1.0 {tablet_at_bedtime} active Remeron 15 MG eCW1 ([facility]) Mirtazapine 15 MG Oral Tablet [Remeron] Remeron 15 MG Remero n 15 MG 11/16/2020 12:00:00 AM EST 1.0 {tablet_at_bedtime} active Remeron 15 MG eCW1 ([facility]) Mirtazapine 15 MG Oral Tablet [Remeron] Remeron 15 MG Remero n 15 MG 11/16/2020 12:00:00 AM EST 1.0 {tablet_at_bedtime} active Remeron 15 MG eCW1 ([facility]) Foam Dressing Bordered - Foam Dressing Bordered - 11/09/2020 12:00: 00 AM EST suspended Foam Dressing Bordered - eCW1 ([facility]) Foam Dressing Bordered - Foam Dressing Bordered - 11/09/2020 12:00: 00 AM EST active Foam Dressing Bordered - eCW1 ([facility]) Foam Dressing Bordered - Foam Dressing Bordered - 11/09/2020 12:00: 00 AM EST suspended Foam Dressing Bordered - eCW1 ([facility]) Foam Dressing Bordered - Foam Dressing Bordered - 11/09/2020 12:00: 00 AM EST suspended Foam Dressing Bordered - eCW1 ([facility]) Foam Dressing Bordered - Foam Dressing Bordered - 11/09/2020 12:00: 00 AM EST suspended Foam Dressing Bordered - eCW1 ([facility]) Foam Dressing Bordered - Foam Dressing Bordered - 11/09/2020 12:00: 00 AM EST active Foam Dressing Bordered - eCW1 ([facility]) Foam Dressing Bordered - Foam Dressing Bordered - 11/09/2020 12:00: 00 AM EST suspended Foam Dressing Bordered - eCW1 ([facility]) Foam Dressing Bordered - Foam Dressing Bordered - 11/09/2020 12:00: 00 AM EST active Foam Dressing Bordered - eCW1 ([facility]) Foam Dressing Bordered - Foam Dressing Bordered - 11/09/2020 12:00: 00 AM EST suspended Foam Dressing Bordered - eCW1 ([facility]) Foam Dressing Bordered - Foam Dressing Bordered - 11/09/2020 12:00: 00 AM EST active Foam Dressing Bordered - eCW1 ([facility]) Foam Dressing Bordered - Foam Dressing Bordered - 11/09/2020 12:00: 00 AM EST active Foam Dressing Bordered - eCW1 ([facility]) Foam Dressing Bordered - Foam Dressing Bordered - 11/09/2020 12:00: 00 AM EST active Foam Dressing Bordered - eCW1 ([facility]) Foam Dressing Bordered - Foam Dressing Bordered - 11/09/2020 12:00: 00 AM EST active Foam Dressing Bordered - eCW1 ([facility]) Foam Dressing Bordered - Foam Dressing Bordered - 11/09/2020 12:00: 00 AM EST active Foam Dressing Bordered - eCW1 ([facility]) Foam Dressing Bordered - Foam Dressing Bordered - 11/09/2020 12:00: 00 AM EST active Foam Dressing Bordered - eCW1 ([facility]) Foam Dressing Bordered - Foam Dressing Bordered - 11/09/2020 12:00: 00 AM EST suspended Foam Dressing Bordered - eCW1 ([facility]) Foam Dressing Bordered - Foam Dressing Bordered - 11/09/2020 12:00: 00 AM EST active Foam Dressing Bordered - eCW1 ([facility]) Foam Dressing Bordered - Foam Dressing Bordered - 11/09/2020 12:00: 00 AM EST active Foam Dressing Bordered - eCW1 ([facility]) Foam Dressing Bordered - Foam Dressing Bordered - 11/09/2020 12:00: 00 AM EST suspended Foam Dressing Bordered - eCW1 ([facility]) Foam Dressing Bordered - Foam Dressing Bordered - 11/09/2020 12:00: 00 AM EST active Foam Dressing Bordered - eCW1 ([facility]) Foam Dressing Bordered - Foam Dressing Bordered - 11/09/2020 12:00: 00 AM EST suspended Foam Dressing Bordered - eCW1 ([facility]) Foam Dressing Bordered - Foam Dressing Bordered - 11/09/2020 12:00: 00 AM EST active Foam Dressing Bordered - eCW1 ([facility]) Foam Dressing Bordered - Foam Dressing Bordered - 11/09/2020 12:00: 00 AM EST suspended Foam Dressing Bordered - eCW1 ([facility]) Foam Dressing Bordered - Foam Dressing Bordered - 11/09/2020 12:00: 00 AM EST suspended Foam Dressing Bordered - eCW1 ([facility]) Foam Dressing Bordered - Foam Dressing Bordered - 11/09/2020 12:00: 00 AM EST active Foam Dressing Bordered - eCW1 ([facility]) Foam Dressing Bordered - Foam Dressing Bordered - 11/09/2020 12:00: 00 AM EST active Foam Dressing Bordered - eCW1 ([facility]) Foam Dressing Bordered - Foam Dressing Bordered - 11/09/2020 12:00: 00 AM EST suspended Foam Dressing Bordered - eCW1 ([facility]) Foam Dressing Bordered - Foam Dressing Bordered - 11/09/2020 12:00: 00 AM EST active Foam Dressing Bordered - eCW1 ([facility]) Foam Dressing Bordered - Foam Dressing Bordered - 11/09/2020 12:00: 00 AM EST active Foam Dressing Bordered - eCW1 ([facility]) Foam Dressing Bordered - Foam Dressing Bordered - 11/09/2020 12:00: 00 AM EST suspended Foam Dressing Bordered - eCW1 ([facility]) Foam Dressing Bordered - Foam Dressing Bordered - 11/09/2020 12:00: 00 AM EST active Foam Dressing Bordered - eCW1 ([facility]) Foam Dressing Bordered - Foam Dressing Bordered - 11/09/2020 12:00: 00 AM EST active Foam Dressing Bordered - eCW1 ([facility]) Foam Dressing Bordered - Foam Dressing Bordered - 11/09/2020 12:00: 00 AM EST active Foam Dressing Bordered - eCW1 ([facility]) Foam Dressing Bordered - Foam Dressing Bordered - 11/09/2020 12:00: 00 AM EST active Foam Dressing Bordered - eCW1 ([facility]) Foam Dressing Bordered - Foam Dressing Bordered - 11/09/2020 12:00: 00 AM EST active Foam Dressing Bordered - eCW1 ([facility]) Foam Dressing Bordered - Foam Dressing Bordered - 11/09/2020 12:00: 00 AM EST active Foam Dressing Bordered - eCW1 ([facility]) Foam Dressing Bordered - Foam Dressing Bordered - 11/09/2020 12:00: 00 AM EST active Foam Dressing Bordered - eCW1 ([facility]) Foam Dressing Bordered - Foam Dressing Bordered - 11/09/2020 12:00: 00 AM EST active Foam Dressing Bordered - eCW1 ([facility]) Foam Dressing Bordered - Foam Dressing Bordered - 11/09/2020 12:00: 00 AM EST active Foam Dressing Bordered - eCW1 ([facility]) Foam Dressing Bordered - Foam Dressing Bordered - 11/09/2020 12:00: 00 AM EST suspended Foam Dressing Bordered - eCW1 ([facility]) Foam Dressing Bordered - Foam Dressing Bordered - 11/09/2020 12:00: 00 AM EST active Foam Dressing Bordered - eCW1 ([facility]) Foam Dressing Bordered - Foam Dressing Bordered - 11/09/2020 12:00: 00 AM EST active Foam Dressing Bordered - eCW1 ([facility]) Foam Dressing Bordered - Foam Dressing Bordered - 11/09/2020 12:00: 00 AM EST suspended Foam Dressing Bordered - eCW1 ([facility]) Foam Dressing Bordered - Foam Dressing Bordered - 11/09/2020 12:00: 00 AM EST active Foam Dressing Bordered - eCW1 ([facility]) Foam Dressing Bordered - Foam Dressing Bordered - 11/09/2020 12:00: 00 AM EST suspended Foam Dressing Bordered - eCW1 ([facility]) Acetaminophen 300 MG / Codeine Phosphate 30 MG Oral Ta blet Acetaminophen-Codeine #3 09/29/2020 12:00:00 AM EST active [facility] ([facility]) Trelegy Ellipta Trelegy Ellipta 08/11/2020 12:00:00 AM EST ORAL completed [facility] ([facility], ) Ergocalciferol 16210 UNT Oral Capsule Vi tamin D (Ergocalciferol) 1.25 MG (76930 UT) Vitamin D (Ergocalciferol) 1.25 MG (48761 UT) 08/03/2020 12:00:0 0 AM EST 1.0 {capsule} active Vitamin D (Ergocal ciferol) 1.25 MG (04131 UT) eC1 ([facility]) Ergocalciferol 40004 UNT Oral Capsule Vi tamin D (Ergocalciferol) 1.25 MG (56816 UT) Vitamin D (Ergocalciferol) 1.25 MG (22263 UT) 08/03/2020 12:00:0 0 AM EST 1.0 {capsule} active Vitamin D (Ergocal ciferol) 1.25 MG (72867 UT) [facility] ([facility]) Ergocalciferol 82504 UNT Oral Capsule Vi tamin D (Ergocalciferol) 1.25 MG (22305 UT) Vitamin D (Ergocalciferol) 1.25 MG (42351 UT) 08/03/2020 12:00:0 0 AM EST 1.0 {capsule} active Vitamin D (Ergocal ciferol) 1.25 MG (33706 UT) [facility] ([facility]) Ergocalciferol 95106 UNT Oral Capsule Vi tamin D (Ergocalciferol) 1.25 MG (04977 UT) Vitamin D (Ergocalciferol) 1.25 MG (98218 UT) 08/03/2020 12:00:0 0 AM EST 1.0 {capsule} active Vitamin D (Ergocal ciferol) 1.25 MG (17996 UT) eC1 ([facility]) Ergocalciferol 87726 UNT Oral Capsule Vi tamin D (Ergocalciferol) 1.25 MG (22689 UT) Vitamin D (Ergocalciferol) 1.25 MG (26931 UT) 08/03/2020 12:00:0 0 AM EST 1.0 {capsule} active Vitamin D (Ergocal ciferol) 1.25 MG (04601 UT) [facility] ([facility]) Ergocalciferol 91939 UNT Oral Capsule Vi tamin D (Ergocalciferol) 1.25 MG (11933 UT) Vitamin D (Ergocalciferol) 1.25 MG (37767 UT) 08/03/2020 12:00:0 0 AM EST 1.0 {capsule} active Vitamin D (Ergocal ciferol) 1.25 MG (39822 UT) [facility] ([facility]) Ergocalciferol 81409 UNT Oral Capsule Vi tamin D (Ergocalciferol) 1.25 MG (69750 UT) Vitamin D (Ergocalciferol) 1.25 MG (67384 UT) 08/03/2020 12:00:0 0 AM EST 1.0 {capsule} active Vitamin D (Ergocal ciferol) 1.25 MG (21476 UT) [facility] ([facility]) Ergocalciferol 05381 UNT Oral Capsule Vi tamin D (Ergocalciferol) 1.25 MG (75956 UT) Vitamin D (Ergocalciferol) 1.25 MG (65035 UT) 08/03/2020 12:00:0 0 AM EST 1.0 {capsule} active Vitamin D (Ergocal ciferol) 1.25 MG (87429 UT) [facility] ([facility]) Ergocalciferol 00327 UNT Oral Capsule Vi tamin D (Ergocalciferol) 1.25 MG (43129 UT) Vitamin D (Ergocalciferol) 1.25 MG (22761 UT) 08/03/2020 12:00:0 0 AM EST 1.0 {capsule} active Vitamin D (Ergocal ciferol) 1.25 MG (54837 UT) [facility] ([facility]) Ergocalciferol 23046 UNT Oral Capsule Vi tamin D (Ergocalciferol) 1.25 MG (19679 UT) Vitamin D (Ergocalciferol) 1.25 MG (92716 UT) 08/03/2020 12:00:0 0 AM EST 1.0 {capsule} active Vitamin D (Ergocal ciferol) 1.25 MG (85398 UT) [facility] ([facility]) Ergocalciferol 42173 UNT Oral Capsule Vi tamin D (Ergocalciferol) 1.25 MG (79114 UT) Vitamin D (Ergocalciferol) 1.25 MG (08667 UT) 08/03/2020 12:00:0 0 AM EST 1.0 {capsule} active Vitamin D (Ergocal ciferol) 1.25 MG (01580 UT) [facility] ([facility]) Ergocalciferol 38992 UNT Oral Capsule Vi tamin D (Ergocalciferol) 1.25 MG (26111 UT) Vitamin D (Ergocalciferol) 1.25 MG (97331 UT) 08/03/2020 12:00:0 0 AM EST 1.0 {capsule} active Vitamin D (Ergocal ciferol) 1.25 MG (74573 UT) [facility] ([facility]) Ergocalciferol 63304 UNT Oral Capsule Vi tamin D (Ergocalciferol) 1.25 MG (68016 UT) Vitamin D (Ergocalciferol) 1.25 MG (35490 UT) 08/03/2020 12:00:0 0 AM EST 1.0 {capsule} active Vitamin D (Ergocal ciferol) 1.25 MG (37606 UT) [facility] ([facility]) Ergocalciferol 96281 UNT Oral Capsule Vi tamin D (Ergocalciferol) 1.25 MG (20536 UT) Vitamin D (Ergocalciferol) 1.25 MG (29408 UT) 08/03/2020 12:00:0 0 AM EST 1.0 {capsule} active Vitamin D (Ergocal ciferol) 1.25 MG (78901 UT) [facility] ([facility]) Ergocalciferol 54797 UNT Oral Capsule Vi tamin D (Ergocalciferol) 1.25 MG (14718 UT) Vitamin D (Ergocalciferol) 1.25 MG (13631 UT) 08/03/2020 12:00:0 0 AM EST 1.0 {capsule} active Vitamin D (Ergocal ciferol) 1.25 MG (58569 UT) eCW1 ([facility]) Ergocalciferol 85973 UNT Oral Capsule Vi tamin D (Ergocalciferol) 1.25 MG (11357 UT) Vitamin D (Ergocalciferol) 1.25 MG (22630 UT) 08/03/2020 12:00:0 0 AM EST 1.0 {capsule} active Vitamin D (Ergocal ciferol) 1.25 MG (78071 UT) eCW1 ([facility]) Ergocalciferol 51863 UNT Oral Capsule Vi tamin D (Ergocalciferol) 1.25 MG (27130 UT) Vitamin D (Ergocalciferol) 1.25 MG (53066 UT) 08/03/2020 12:00:0 0 AM EST 1.0 {capsule} active Vitamin D (Ergocal ciferol) 1.25 MG (99217 UT) eCW1 ([facility]) Ergocalciferol 08344 UNT Oral Capsule Vi tamin D (Ergocalciferol) 1.25 MG (89005 UT) Vitamin D (Ergocalciferol) 1.25 MG (60848 UT) 08/03/2020 12:00:0 0 AM EST 1.0 {capsule} active Vitamin D (Ergocal ciferol) 1.25 MG (33564 UT) [facility] ([facility]) Insurance Providers Payer name Policy type / Coverage type Policy ID Covered libertarian ID Covered libertarian's relationship to melendez Policy Melendez Plan Information MEDICARE 4 [id number] 1 [id number] A BC MEDICARE 11 [id number] Todays Options Commercial [id number] Self Todays Options Medigap Part B [id number] Self [id number] Todays Options Medigap Part B [id number] Self [id number] Today's Options Medicare Commercial [id number] Self [id number] Today's Options Medicare Commercial [id number] Self [id number] Wellcare Commercial [id number] Self [id number] Wellcare Commercial [id number] Self [id number] WELLCARE [id number] SP [id number] WELLCARE MEDICARE [id number] WELLCARE MEDICARE [id number] Maya [id number] [facility] Health Plans [employer]. [id number] Maya f [id number] TODAYS OPTIONS [id number] SP [id number] ANSI-Medicare Part B [id number] ANSI-Medicare Part B [id number] ANSI-Medicare Part B [id number] ANSI-Medicare Part B [id number] Today's Option Medicare Commercial [id number] Self [id number] TODAYS OPTIONS [id number] SP [id number] Today's Options Medicare Commercial [id number] Self TODAYS OPTIONS/MALAWIAN O [id number] S [id number] WELLCARE HEALTH PLAN [id number] SP [id number] [facility] [id number] TODAYS OPTIONS [id number] SP [id number] WELLCARE O [id number] S [id number] WELLCARE HEALTH PLAN [id number] SP [id number] MEDICARE BLUE PPO 306 [id number] SP [id number] [facility] [id number] 18 [id number] SELF PAY 2 UNAVAILABLE 1 UNAVAILA BLE [id number] A WELLCARE [id number] SP [id number] WELLCARE -O/P [id number] 18 [id number] WELLCARE -I/P [id number] 18 [id number] WELLCARE O [id number] S [id number] WELLCARE [facility] [id number] 18 [id number] WELLCARE [id number] SP [id number] TODAYS OPTIONS [id number] SP [id number] ANSI-Medicare Part B [id number] [facility] [id number] Self [id number] WELLCARE [id number] SP [id number] [facility] [id number] Self [id number] HCI Commercial [id number] Self [id number] Problems, Conditions, and Diagnoses Code Display Name Description Problem Type Effective Dates Data Source(s) R00.0 Tachycardia, unspecified Tachycardia, unspecified Diag nosis 06/08/2021 10:03:55 AM EDT [facility] 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 and thrombosis of left Diagnosis 05/25/2021 12:38:53 PM EDT [facility] I10 Essential (primary) hypertension Essential (primary) h ypertension Diagnosis 05/25/2021 12:38:53 PM EDT [facility] I50.32 Chronic diastolic (congestive) heart memo lure Chronic diastolic (congestive) heart memo Diagnosis 05/25/2021 12:38:53 PM EDT [facility] I50.9 Heart failure, unspecified Heart failure, unspecified Diagnosis 05/25/2021 12:38:53 PM EDT [facility] I10 Essential (primary) hypertension Essential (primary) h ypertension Diagnosis 02/05/2021 11:28:00 AM EDT [facility] E119 Type 2 diabetes mellitus without complic ations Type 2 diabetes mellitus without complications Diagnosis 02/05/2021 11:28:00 AM EDT [facility] I509 Heart failure, unspecified Heart failure, unspecified Diagnosis 02/05/2021 11:28:00 AM EDT [facility] J449 Chronic obstructive pulmonary disease, u nspecified Chronic obstructive pulmonary disease, unspecified Diagnosis 02/05/2021 11:28:00 AM EDT [facility] R0600 Dyspnea, unspecified Dyspnea, unspecified Diagnosis 02/05/2021 11:28:00 AM EDT [facility] 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 Diagnosis 02/05/2021 11:28:00 AM [facility] [id number] Personal history of other venous thrombo sis and embolism Personal history of other venous thrombosis and embolism Diagnosis 02/05/2021 11:28:00 AM [facility] 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 s penitentiary (current) use of anticoagulants Diagnosis 02/05/2021 11:28:00 AM EDT [facility] I340 Nonrheumatic mitral (valve) insufficienc y Nonrheumatic mitral (valve) insufficiency Diagnosis 01/16/2021 12:54:00 PM EDT [facility] E039 Hypothyroidism, unspecified Hypothyroidism, unspecifie d Diagnosis 01/16/2021 12:54:00 PM EDT [facility] I5020 Unspecified systolic (congestive) heart failure Unspecified systolic (congestive) heart failure Diagnosis 01/16/2021 12:54:00 PM EDT [facility] E7800 Pure hypercholesterolemia, unspecified P ure hypercholesterolemia, unspecified Diagnosis 01/14/2021 10:27:00 AM EDT [facility] I110 Hypertensive heart disease with heart fa ilure Hypertensive heart disease with heart failure Diagnosis 01/14/2021 10:27:00 AM EDT [facility] [id number] Embolism and thrombosis of superficial v eins of right lower extremity Embolism and thrombosis of superficial veins of right lower extremity Diagnosis 01/14/2021 10:27:00 AM EDT [facility] J440 Chronic obstructive pulmonar y disease with (acute) lower respiratory infection Chronic obstructive pulmonary disease wi th (acute) lower respiratory infection Diagnosis 01/14/2021 10:27:00 AM EDT [facility] N390 Urinary tract infection, site not specif ied Urinary tract infection, site not specified Diagnosis [facility]14[facility] Pneumonia, unspecified organism Pneumonia, unspecified organism Diagnosis [facility] R00.0 Sinus tachycardia Sinus tachycardia [id number] 05/25/2021 12:00:00 AM EDT [facility] 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 Chronic deep vein thrombosis (DVT) of fe moral vein of left lower extremity [id number] 05/17/2021 12:00:00 AM EDT [facility] I10 Essential hypertension Essential hypertension [id number] 05/17/2021 12:00:00 AM EDT [facility] I50.32 Chronic diastolic congestive heart failu re Chronic diastolic congestive heart failure [id number] 05/17/2021 12:00:00 AM EDT [facility] N18.9 [id number] Chronic kidney disease, unspecified CKD s tage Problem 04/25/2021 12:00:00 AM EDT eCW1 ([facility]) L89.312 Pressure ulcer of right buttock, stage 2 Pressure ulcer of right buttock, stage 2 Problem 04/12/2021 01:00:00 AM EDT [facility] ([facility]) J44.9 Chronic obstructive pulmonary disease, u nspecified Chronic obstructive pulmonary disease, unspecified Problem 04/12/2021 01:00:00 AM EDT NE TSMART ([facility]) I82.402 Acute embolism and thrombosi s of unspecified deep veins of left lower extremity Acute embolism and thrombosis of unspeci fied deep veins of left lower extremity Problem 04/12/2021 01:00:00 AM EDT [facility] ([facility]) I11.0 Hypertensive heart disease with heart fa ilure Hypertensive heart disease with heart failure Problem 04/12/2021 01:00:00 AM EDT [facility] ([facility]) I50.9 Heart failure, unspecified Heart failure, unspecified Problem 04/12/2021 01:00:00 AM EDT [facility] ([facility] ) E78.5 Hyperlipidemia, unspecified Hyperlipidemia, unspecifie d Problem 04/12/2021 01:00:00 AM EDT [facility] ([facility] ) E03.9 Hypothyroidism, unspecified Hypothyroidism, unspecifie d Problem 04/12/2021 01:00:00 AM EDT [facility] ([facility] ) M16.11 Unilateral primary osteoarthritis, right hip Unilateral primary osteoarthritis, right hip Problem 04/12/2021 01:00:00 AM EDT NETSMAR T ([facility]) G62.9 Polyneuropathy, unspecified Polyneuropathy, unspecifie d Problem 04/12/2021 01:00:00 AM EDT [facility] ([facility] ) Z79.01 penitentiary (current) use of anticoagulant s 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 Problem 04/12/2021 01:00:00 AM EDT [facility] ([facility]) Z87.01 Personal history of pneumonia (recurrent ) Personal history of pneumonia (recurrent) Problem 04/12/2021 01:00:00 AM EDT [facility] ([facility]) Z48.00 Encounter for change or removal of nonsu rgical wound dressing Encounter for change or removal of nonsurgical wound dressing Problem 01:00:00 AM EDT [facility] ([facility] ) L89.322 Pressure ulcer of left buttock, stage 2 Pressure ulcer of left buttock, stage 2 Problem 02/15/2021 01:00:00 AM EDT [facility] ([facility]) I11.0 Hypertensive heart disease with heart fa ilure Hypertensive heart disease with heart failure Problem 02/15/2021 01:00:00 AM EDT [facility] ([facility]) I82.409 Acute embolism and thrombosi s of unspecified deep veins of unspecified lower extremity Acute embolism and thrombosis of unspeci fied deep veins of unspecified lower extremity Problem 02/15/2021 01:00:00 AM EDT [facility]SM ART ([facility]) I50.9 Heart failure, unspecified Heart failure, unspecified Problem 02/15/2021 01:00:00 AM EDT [facility] ([facility] ) E78.5 Hyperlipidemia, unspecified Hyperlipidemia, unspecifie d Problem 02/15/2021 01:00:00 AM EDT [facility] ([facility] ) E03.9 Hypothyroidism, unspecified Hypothyroidism, unspecifie d Problem 02/15/2021 01:00:00 AM EDT [facility] ([facility] ) M16.11 Unilateral primary osteoarthritis, right hip Unilateral primary osteoarthritis, right hip Problem 02/15/2021 01:00:00 AM EDT NETSMAR T ([facility]) G62.9 Polyneuropathy, unspecified Polyneuropathy, unspecifie d Problem 02/15/2021 01:00:00 AM EDT [facility] ([facility] ) Z48.00 Encounter for change or removal of nonsu rgical wound dressing Encounter for change or removal of nonsurgical wound dressing Problem 01:00:00 AM EDT [facility] ([facility] ) Z87.01 Personal history of pneumonia (recurrent ) Personal history of pneumonia (recurrent) Problem 02/15/2021 01:00:00 AM EDT [facility] ([facility]) J44.1 Chronic obstructive pulmonary disease wi th (acute) exacerbation Chronic obstructive pulmonary disease with (acute) exacerbation Problem 02/15/2021 01:00:00 AM EDT [facility] ([facility] ) L89.301 [id number] Pressure injury of b uttock, stage 1, unspecified laterality Problem 01/31/2021 12:00:00 AM EDT eCW1 ([facility]) I50.9 [id number] Congestive heart memo lure, unspecified HF chronicity, unspecified heart failure type Problem 01/19/2021 12:00:00 AM EDT eCW1 ([facility]) E03.9 [id number] Hypothyroidism, unspecified type Problem 01/19/2021 12:00:00 AM EDT eCW1 ([facility]) F41.1 [id number] Generalized anxiety disorder Problem 021 12:00:00 AM EST eCW1 ([facility]) L89.311 532844994 Pressure injury of right buttock, stage 1 Problem 11/14/2020 12:00:00 AM EST eCW1 ([facility]) L89.321 490856613 Pressure injury of left buttock, stage 1 Problem 11/14/2020 12:00:00 AM EST eCW1 ([facility]) I73.9 [id number] Peripheral artery disease Problem 10/27/2020 12:00:00 AM EST eCW1 ([facility]) E04.1 [id number] Thyroid nodule Problem 08/30/2020 12:00:00 A M EST eCW1 ([facility]) R63.0 87264649 Decrease in appetite Problem 07/27/2020 12:0 0:00 AM EDT eCW1 ([facility]) E03.9 [id number] Subclinical hypothyroidism Problem 0 12:00:00 AM EDT eCW1 ([facility]) Surgeries/Procedures Procedure Description Date Indications Data Source(s) POCT AMB EKG <td>POCT AMB EKG</td><td>Rou olivia</td><td>06/08/2021 11:13 AM EDT</td><td> Sinus tachycardia</td><td> </td> 06/08/2021 11:13:00 AM EDT Sinus tachycardia [facility] Sinus tachycardia POCT AMB EKG <td>POCT AMB EKG</td><td>Rou olivia</td><td>05/17/2021 2:58 PM EDT</td><td> Acute congestive heart failure, unspecified heart failure type</td><td> </td> 05/17/2021 02:58:00 PM EDT Acute congestive heart failure, unspecified heart fail ure type [facility] Acute congestive heart failure, unspecif ied heart failure type PHYSICIAN TELEPHONE EVALUATION 11-20 MIN 05/11/2021 12 :00:00 AM EDT NANCY ([facility]) BASIC METABOLIC PANEL CALCIUM TOTAL <td>BASIC METABOLI C PANEL</td><td>Routine</td><td>04/21/2021</td><td></td><td> </td> 04/21/2021 12:00:00 AM EDT [facility] Spirometry 03/09/2021 12:00:00 AM EDT Aron MUNIZ ([facility], ) TROPONIN QUANTITATIVE <td>TROPONIN I</td><td>Routine</td><td>02/05/2021</td><td></td><td> </td> 02/05/2021 12:00:00 AM EDT [facility] BLOOD COUNT COMPLETE AUTO&AUTO DIFRNTL WBC COUNT <td>C BC AND DIFFERENTIAL</td><td>Routine</td><td>02/05/2021</td><td></td><td> </td> 02/05/2021 12:00:00 AM EDT [facility] BASIC METABOLIC PANEL CALCIUM TOTAL <td>BASIC METABOLI C PANEL</td><td>Routine</td><td>02/05/2021</td><td></td><td> </td> 02/05/2021 12:00:00 AM EDT [facility] Introduction of Anti-inflammatory into Peripheral Vein , Percutaneous Approach Introduction of Anti-inflammatory into Peripheral Vein, Percutaneous Approach 01/16/2021 12:00:00 AM EDT [facility] Monitoring of Cardiac Electrical Activity, External Ap proach Monitoring of Cardiac Electrical Activity, External Approach 01/16/2021 12:00:00 AM EDT [facility] Introduction of Other Anti-infective int o Peripheral Vein, Percutaneous Approach Introduction of Other Anti-infective int o Peripheral Vein, Percutaneous Approach 01/16/2021 12:00:00 AM EDT [facility] Introduction of Vasopressor into Peripheral Vein, Perc utaneous Approach Introduction of Vasopressor into Peripheral Vein, Percutaneous Approach 01/16/2021 12:00:00 AM T [facility] Immunization: Flublok Quadrivalent (18 years & older) 0.5mL IM (Influenza) 07/27/2020 12:00:00 AM EDT eCW1 ([facility]) Results ID Date Data Source [id number] 05/26/2021 09:08:03 PM EDT [facility] [place] [facility] Name Value Range Interpretation Code Description Data Charis rce(s) Supporting Document(s) FREE THYROXINE @ 1.08 ng/dL (0.76-1.46) [facility] ID Date Data Source [id number] 03/09/2021 11:24:00 AM EDT [facility] ([facility], ) Name Value Range Interpretation Code Description Data Charis rce(s) Supporting Document(s) PDFReport Laboratory test result [facility] ([facility], ) FVC-Pred 1.77 L [facility] ([facility], ) FVC-%Pred-Pre 87 L [facility] ([facility], ) FVC-Pre 1.56 L [facility] ([facility], ) FVC-LLN 1.16 L [facility] ([facility]) Fev1-Pred 1.28 L [facility] ([facility]) Fev1-%Pred-Pre 66 L [facility] ([facility], ) Fev1-Pre 0.85 L [facility] ([facility], ) Fev1-LLN 0.77 L [facility] ([facility]) Fev6-Pred 1.64 L [facility] ([facility]) Fev6-Pre 1.56 L [facility] ([facility]) Fev6-LLN 1.04 L [facility] ([facility]) Zfx7nij-Jbct 72 % [facility] ([facility]) Fev6-%Pred-Pre 94 L [facility] ([facility], ) Yow9zko-Nxh 55 % [facility] ([facility]) Qni2cqj-%Pred-Pre 75 % [facility] ([facility]) Tqy6fir-Xipe 92 % [facility] ([facility]) Ucb6axm-STD 62 % [facility] ([facility]) Vsa5ohl-Hnz 100 % [facility] ([facility]) Pxk5ywv-%Pred-Pre 107 % [facility] ([facility]) FEFMax-Pred 3.37 L/E/sec [facility] ([facility]) FEFMax-%Pred-Pre 39 L/E/sec [facility] ([facility]) FEFMax-Pre 1.33 L/E/sec [facility] ([facility]) FEFMax-LLN 1.86 L/E/sec [facility] ([facility]) Jrb6253-Menr 0.76 L/E/sec [facility] ([facility]) Ugo9164-Sox 0.40 L/E/sec [facility] ([facility], ) Tls9313-DOY -0.33 L/E/sec [facility] ([facility], ) Bjj4532-%Pred-Pre 52 L/E/sec [facility] ([facility]) Ati9lyt4-Rsvq 76 % [facility] ([facility]) ExpTime-Pre 6.53 sec [facility] ([facility]) Wih3zwu2-Bmx 55 % [facility] ([facility]) Syr9ari7-ZUL 68 % [facility] ([facility]) Tof1ylo9-%Pred-Pre 71 % [facility] ([facility]) ID Date Data Source [id number] 02/06/2021 09:13:00 AM EDT [facility] [address] [place] [address] PHONE: [phone] FAX: [phone] Name .................. : ELI SAEED Acct Number.................. : [id number] ROOM. ................. : TR-02 Number ................... : [id number] Stay type ............. : E/R Discharge Date......... ... : 02/05/21 Admit Date ......... : 02/05/21 Admit Phys .................... : TIMOTEO Torres Date of ....... : 1935 Family Phys ................... : RACHEL GREENE Phone .................. : [phone] Age ................................ : 86 Film# .................. .:[id number] Sex ................................. : F Unsigned transcriptions are preliminary reports and do not represent a medical or legal document CHEST PORTABLE [id number] COMPLETE:02/05/21 11:46 96513 Reason(s): CHF PORTABLE CHEST X-RAY: COMPARISON: 01/14/21 [...] rce(s) Supporting Document(s) ID Date Data Source [id number] 01/17/2021 01:43:00 [place] [address] CONSULTATIONNAME: [facility] ROOM#: [id number] OF : 1935 MR#: [id number] PHYS: ALEX Bhagat DATE: 01/16/21DATE OF CONSULTATION: [...] mg daily6. Simvastatin 10 mg daily [address] [place] [address] CONSULTATIONNAME: [facility] ROOM#: [id number] OF : 1935 MR#: [id number] PHYS: ALEX Bhagat DATE: 01/16/21PHYSICAL EXAMINATION:GENERAL: Moderately-built.VITAL [...] rce(s) Supporting Document(s) ID Date Data Source [id number] 02/05/2021 11:28:00 AM EDT [facility] 1 OrderSheet [facility] Emergency Department [address] [place] [address] Phone #: ext- [phone] 02/05/2021 11:26 Patient: CHRISTOPHE BENITEZ Sex: F : 1935 Age: 86yWEIGHT:62.1 kg (M) HEIGHT:58 inches (S) BMI:28.6ALLERGIES: No Known Drug AllergyCHIEF COMPLAINT: COPDDIAGNOSIS: Chronic obstructive lung diseaseLAB ORDERSOrder Description Priority Entered Acknowledged InitialedC w Diff STAT 11:46 02/05/2021 11:46 Timoteo Stoddard Jack ; Collette Hanson.CliffCMP STAT 11:46 02/05/2021 11:46 Timoteo Stoddard Jack ; Colltete R.N.BNP STAT 11:46 02/05/2021 11:46 Timoteo Stoddard [...] Description Priority Entered Acknowledged Initialed 2 OrderSheet [facility] Emergency Department [address] [place] [address] Phone #: ext- [phone] 02/05/2021 11:26 Patient: [...] rce(s) Supporting Document(s) ID Date Data Source [id number] 02/05/2021 11:28:00 AM EDT [facility] 1 Medication Reconciliation Report [facility] Emergency Department [address] [place] [address] Phone #: ext- [phone] 02/05/2021 11:26 Patient: [...] the Emergency Department: 2 Medication Reconciliation Report [facility] Emergency Department [address] [place] [address] Phone #: ext- [phone] 02/05/2021 11:26 Patient: CHRISTOPHE BENITEZ Sex: F : 1935 Age: 86yDuoneb [Neb Tx] Neb TX 1 unit dose, administered: 11:58 02/05/2021The following Medications were prescribed to the patient:None. Name Value Range Interpretation Code Description Data Charis rce(s) Supporting Document(s) ID Date Data Source [id number] 02/05/2021 11:28:00 AM EDT [place] [address] Medication Administration Record [facility] Emergency Department [address] [place] [address] Phone #: ext- [phone] 02/05/2021 11:26 Patient: [...] rce(s) Supporting Document(s) ID Date Data Source [id number] 02/05/2021 11:28:00 AM EDT [facility] 1 General Instructions [facility] Emergency Department [address] [place] [address] Phone #: ext- [phone] 02/05/2021 11:26 Patient: [...] INFORMATIONBronchitis, Antibiotic Treatment (Adult) 2 General Instructions [facility] Emergency Department [address] [place] [address] Phone #: ext- [phone] 02/05/2021 11:26 Patient: [...] away from secondhand smoke. You may use afcg-zph-fzlokbi medicines to control fever or pain, unless another medicine 3 General Instructions [facility] Emergency Department [address] [place] [address] Phone #: ext- [phone] 02/05/2021 11:26 [id number] Sex[facility] : 1935 Age: 86y was [...] loosen mucus in your nose and lungs. Jzaa-bgw-ruwxjfa cough, cold, and sore-throat medicines will not [...] or pain with breathing 4 General Instructions [facility] Emergency Department [address] [place] [address] Phone #: ext- [phone] 02/05/2021 11:26 Patient: CHRISTOPHE BENITEZ Sex: F : 1935 Age: 86y [phone] [employer] (now [employer] [address] [place] [address]. All rights reserved. This information is not intended as asubstitute for professional medical care. Always follow your healthcare professional's instructions. You have been given the following additional information: Bronchitis, Antibiotic Treatment (Adult)(Electronically signed by Cody Cox 02/05/2021 15:13) Name Value Range Interpretation Code Description Data Charis rce(s) Supporting Document(s) ID Date Data Source [id number] 02/05/2021 11:28:00 AM EDT [facility] 1 Clinical Report - Nurses [facility] Emergency Department [address] [place] [address] P letha #: ext- [phone] 02/05/2021 11:26 [facility]: [id number] Sex: F : 1935 Age: 86yTRIAGE Arrived [...] have pneumonia.). ( Productive clear/yellow cough.). 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 SEPSIS [...] Oral 10 mg, daily. --11:32 02/05/21 Codi Lamb R.N. Gabapentin Oral 300 mg, daily every [...] Lamb R.N. 2 Clinical Report - Nurses [facility] Emergency Department [address] [place] [address] Phone #: ext- [phone] 02/05/2021 11:26 [facility]: [id number] Sex: F : 1935 Age: 86yBreo Ellipta [...] no deficiencies. 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 4 Clinical Report - Nurses [facility] Emergency Department [address] [place] [address] Phone #: ext- [phone] 02/05/2021 11:26 Patient: [...] to improvement in patient condition. --12:14 02/05/21 Collette Stoddard R.N. Monitoring of patient in place. [...] placed to control bleeding). --12:40 02/05/21 Collette Stoddrad R.N. 12:48 02/05/21. ( Medicine reconciliation sheet faxed to [facility]). --12:48 02/05/21 Mariana Spence RN 13:20 [...] Patient verbalized understanding. Written instructions provided in Croatian. The patient was discharged by the physician. [...] Stoddard R.N. 5 Clinical Report - Nurses [facility] Emergency Department [address] [place] [address] Phone #: ext- [phone] 02/05/2021 11:26 Patient: CHRISTOPHE BENITEZ Sex: F : 1935 Age: 86y Name Value Range Interpretation Code Description Data Charis rce(s) Supporting Document(s) ID Date Data Source [id number] 02/05/2021 11:28:00 AM EDT [facility] 1 Clinical Report - Physicians/Mid Levels [facility] Emergency Department [address] [place] [address] Phone #: ext- [phone] 02/05/2021 11:26 Patient: CHRISTOPHE BENITEZ Sex: F [...] Hysterectomy. 2 Clinical Report - Physicians/Mid Levels [facility] Emergency Department [address] [place] [address] Phone #: ext- [phone] 02/05/2021 11:26 Patient: CHRISTOPHE BENITEZ Sex: F [...] beats. Premature 3 Clinical Report - Physicians/Mid [facility] Emergency Department [address] [place] [address] Phone #: ext- [phone] 02/05/2021 11:26 Patient: [...] CLEARED MOLECULAR TESTS. NEGATIVE RESULTSDO NOT PRECLUDE [id number] AND SHOULD NOT BE USED THE SOLE [...] PANEL 4 Clinical Report - Physicians/Mid Levels [facility] Emergency Department [address] [place] [address] Phone #: ext- [phone] 02/05/2021 11:26 Patient: [...] mL/min Normal BNP: (ABDIAS: 02/05/2021 11:58) ( [facility] 02/05/2021 12:44) Final results Test Result Flag Units (Reference) BNP 1556 H PG/ML (0 - 450) Troponin-T: (ABDIAS: 02/05/2021 11:58) ( [facility] 02/05/2021 12:44) Final results Test Result Flag Units (Reference) TROPONIN T <0.01 NG/ML (0.00 - 0.10) TROPONIN T0.1 ng/ml Recommended as the clinical threshold value forTroponin T. Lactic Acid: (ABDIAS: 02/05/2021 11:58) ( [facility] 02/05/2021 12:20) Final results Test Result Flag [...] ordered. 5 Clinical Report - Physicians/Mid Levels [facility] Emergency Department [address] [place] [address] Phone #: poo- [phone] 02/05/2021 11:26 Patient: CHRISTOPHE BENITEZ Sex: F [...] rce(s) Supporting Document(s) ID Date Data Source [id number] 02/11/2021 06:46:00 AM EDT [facility] [id number] Name Value Range Interpretation Code Description Data Charis rce(s) Supporting Document(s) Bacteria identified in Blood by Culture [facility] NO GROWTH AFTER 5 DAYS ID Date Data Source [id number] 02/11/2021 10:51:00 AM EDT [facility] Name Value Range Interpretation Code Description Data Charis rce(s) Supporting Document(s) CULTURE BLOOD [facility] _CULTURE BLOOD_ TEST PERFORM ED AT [address] [address] CLIA# [id number] SEE SCANNED REPORT{ PRELIM ID Date Data Source [id number] 02/05/2021 12:10:00 PM EDT [facility] Name Value Range Interpretation Code Description Data Charis rce(s) Supporting Document(s) COVID19 Case rprt NOT DETECTED [facility] This lab was ordered by [facility] and reported by [facility]. ID Date Data Source [id number] 02/05/2021 12:47:00 PM EDT [facility] NOT DETECTEDNOT DETECTED{ PROC EDURAL CONTROL VALID [...] rce(s) Supporting Document(s) ID Date Data Source [id number] 02/11/2021 10:51:00 AM EDT [facility] Name Value Range Interpretation Code Description Data Charis rce(s) Supporting Document(s) CULTURE BLOOD [facility] _CULTURE BLOOD_ TEST PERFORM ED AT [address] [address] CLIA# [id number] SEE SCANNED REPORT{ PRELIM ID Date Data Source [id number] 02/05/2021 12:44:00 PM EDT [facility] Name Value Range Interpretation Code Description Data Charis rce(s) Supporting Document(s) CBC W/AUTOMATED DIFF [facility] COMPLETE BLOOD COUNT Leukocytes [#/volume] in Blood by Automated count 11.5 10^3/uL 4.2 - 11.0 H [facility] Erythrocytes [#/volume] in Blood by Automated count 4.01 10^6/uL 4. 20 - 5.40 L [facility] Hemoglobin [Mass/volume] in Blood 13.6 g/dL 12.0 - 16.0 [facility] Hematocrit [Volume Fraction] of Blood by Automated count 40.3 % 3 7.0 - 47.0 [facility] Erythrocyte mean corpuscular volume [Entitic volume] b y Automated count 100.5 fL 81.0 - 101 [facility] Erythrocyte mean corpuscular hemoglobin [Entitic mass] by Automated count 33.9 pg 27.0 - 34.0 [facility] Erythrocyte mean corpuscular hemoglobin concentration [Mass/volume] by Automated count 33.7 g/dL 31.0 - 36.0 [facility] Erythrocyte distribution width [Ratio] by Automated count 13.4 % 11.5 - 14.5 [facility] Platelets [#/volume] in Blood by Automated count 207 10^3/uL 150 - 45 0 [facility] Platelet mean volume [Entitic volume] in Blood by Automated count 10.5 fL 7.4 - 10.4 H [facility] Neutrophils/100 leukocytes in Blood by Automated count 72.4 % 37. 0 - 80.0 [facility] Lymphocytes/100 leukocytes in Blood by Manual count 15.3 % 25.0 - 40.0 L [facility] Monocytes/100 leukocytes in Blood by Automated count 10.5 % 3.0 - 8.0 H [facility] Eosinophils/100 leukocytes in Blood by Automated count 0.3 % 0.0 - 7.0 [facility] Basophils/100 leukocytes in Blood by Automated count 0.3 % 0.0 - 2.5 [facility] %IG 1.2 % 0.0 - 0.0 [facility] %[facility] 0.0 % 0.0 - 0.0 [facility] al Neutrophils [#/volume] in Blood by Automated count 8.35 10^3/uL 2.00 - 6.90 H [facility] Lymphocytes [#/volume] in Blood by Automated count 1.76 10^3/uL 0.60 - 3.40 [facility] Monocytes [#/volume] in Blood by Automated count 1.21 10^3/uL 0.00 - 0.90 H [facility] Eosinophils [#/volume] in Blood by Automated count 0.03 10^3/uL 0.00 - 0.70 [facility] Basophils [#/volume] in Blood by Automated count 0.03 10^3/uL 0.00 - 0.20 [facility] #IG 0.14 10^3/uL 0.00 - 0.10 H [facility]ital #NRBC 0.00 10^3/uL 0.00 - 0.00 [facility] ospital MANUAL DIFF SEE BELOW [facility] Segmented neutrophils/100 leukocytes in Blood by Manual count 80 % 37 - 80 [facility] %LYMPH 13 % 25 - 40 L [facility] al %MONO 7 % 3 - 8 [facility] al RBC MORPH NOT INDICATED [facility] ID Date Data Source [id number] 02/05/2021 12:44:00 PM EDT [facility] Name Value Range Interpretation Code Description Data Charis rce(s) Supporting Document(s) COMPREHENSIVE METABOLIC PANEL [facility] COMPREHENSIVE METABOLIC PANEL Sodium [Moles/volume] in Serum or Plasma 140 mEq/L 134 - 153 [facility] Potassium [Moles/volume] in Serum or Plasma 3.4 mEq/L 3.6 - 5.0 L [facility] Chloride [Moles/volume] in Serum or Plasma 102 mEq/L 98 - 107 [facility] Carbon dioxide, total [Moles/volume] in Serum or Plasma 25 MEQ/L 22 - 30 [facility] Glucose [Mass/volume] in Serum or Plasma 166 MG/DL 70 - 99 H [facility] BUN 28 MG/DL 7 - 21 H [facility] al Creatinine [Mass/volume] in Serum or Plasma 1.1 MG/DL 0.7 - 1.5 [facility] BUN/CREAT 25 8 - 27 [facility] al Protein [Mass/volume] in Serum or Plasma 6.5 G/DL 6.3 - 8.2 [facility] Albumin [Mass/volume] in Serum or Plasma 3.6 G/DL 3.9 - 5.0 L [facility] Globulin [Mass/volume] in Serum by calculation 2.9 GM/DL 2.4 - 3.2 [facility] A/G RATIO 1.2 0.8 - 2.0 [facility] Calcium [Mass/volume] in Serum or Plasma 9.4 MG/DL 8.4 - 10.2 [facility] Bilirubin.total [Mass/volume] in Serum or Plasma <0.7 MG/DL 0.2 - 1.3 [facility] Alkaline phosphatase [Enzymatic activity/volume] in Serum or Plasma 185 U/L 38 - 126 H [facility] Aspartate aminotransferase [Enzymatic activity/volume] in Serum or Plasma 24 U/L 5 - 40 [facility] Alanine aminotransferase [Enzymatic activity/volume] in Seru m or Plasma 28 U/L 7 - 56 [facility] Anion gap 3 in Serum or Plasma 13.0 mmol/L 8.0 - 16.0 [facility] AGE 86 yrs [facility] al NON-AA GFR 50 mL/min [facility] AMER GFR >60 [facility] Male GFR In terprentation [...] >32 mL/min Normal ID Date Data Source [id number] 02/05/2021 12:44:00 PM EDT [facility] Name Value Range Interpretation Code Description Data Charis rce(s) Supporting Document(s) TROPONIN T <0.01 NG/ML 0.00 - 0.10 [facility] ospital TROPONIN T0.1 ng/ml Recommended as the c linical threshold value forTroponin T. ID Date Data Source [id number] 02/05/2021 12:44:00 PM EDT [facility] Name Value Range Interpretation Code Description Data Charis rce(s) Supporting Document(s) BNP 1556 PG/ML 0 - 450 H [facility] ID Date Data Source [id number] 02/05/2021 12:20:00 PM EDT [facility] Name Value Range Interpretation Code Description Data Charis rce(s) Supporting Document(s) Lactate [Moles/volume] in Serum or Plasma 2.6 MMOL/L 0.2 - 2.2 H [facility] ID Date Data Source [id number] 01/17/2021 07:06:00 AM EDT [facility] Name Value Range Interpretation Code Description Data Charis rce(s) Supporting Document(s) BASIC METABOLIC PANEL [facility] BASIC METABOLIC PANEL Sodium [Moles/volume] in Serum or Plasma 140 mEq/L 134 - 153 [facility] Potassium [Moles/volume] in Serum or Plasma 4.3 mEq/L 3.6 - 5.0 [facility] Chloride [Moles/volume] in Serum or Plasma 103 mEq/L 98 - 107 [facility] Carbon dioxide, total [Moles/volume] in Serum or Plasma 28 MEQ/L 22 - 30 [facility] Glucose [Mass/volume] in Serum or Plasma 173 MG/DL 70 - 99 H [facility] BUN 46 MG/DL 7 - 21 H [facility] al Creatinine [Mass/volume] in Serum or Plasma 1.2 MG/DL 0.7 - 1.5 [facility] BUN/CREAT 38 8 - 27 H [facility] Calcium [Mass/volume] in Serum or Plasma 9.3 MG/DL 8.4 - 10.2 [facility] Anion gap 3 in Serum or Plasma 9.0 mmol/L 8.0 - 16.0 [facility] AGE 86 yrs [facility] al AFR AMER GFR >60 [facility] NON-AA GFR 45 mL/min [facility] Male GFR Inter prentation 20-49 yrs >60 [...] >32 mL/min Normal ID Date Data Source [id number] 01/17/2021 07:00:00 AM EDT [facility] Name Value Range Interpretation Code Description Data Charis rce(s) Supporting Document(s) CBC W/AUTOMATED DIFF [facility] COMPLETE BLOOD COUNT Leukocytes [#/volume] in Blood by Automated count 12.2 10^3/uL 4.2 - 11.0 H [facility] Erythrocytes [#/volume] in Blood by Automated count 3.71 10^6/uL 4. 20 - 5.40 L [facility] Hemoglobin [Mass/volume] in Blood 12.8 g/dL 12.0 - 16.0 [facility] Hematocrit [Volume Fraction] of Blood by Automated count 37.7 % 3 7.0 - 47.0 [facility] Erythrocyte mean corpuscular volume [Entitic volume] b y Automated count 101.6 fL 81.0 - 101 H [facility] Erythrocyte mean corpuscular hemoglobin [Entitic mass] by Automated count 34.5 pg 27.0 - 34.0 H [facility] Erythrocyte mean corpuscular hemoglobin concentration [Mass/volume] by Automated count 34.0 g/dL 31.0 - 36.0 [facility] Erythrocyte distribution width [Ratio] by Automated count 13.5 % 11.5 - 14.5 [facility] Platelets [#/volume] in Blood by Automated count 214 10^3/uL 150 - 45 0 [facility] Platelet mean volume [Entitic volume] in Blood by Automated count 10.8 fL 7.4 - 10.4 H [facility] Neutrophils/100 leukocytes in Blood by Automated count 87.9 % 37. 0 - 80.0 H [facility] Lymphocytes/100 leukocytes in Blood by Manual count 6.3 % 25.0 - 40.0 L [facility] Monocytes/100 leukocytes in Blood by Automated count 5.0 % 3.0 - 8.0 [facility] Eosinophils/100 leukocytes in Blood by Automated count 0.0 % 0.0 - 7.0 [facility] Basophils/100 leukocytes in Blood by Automated count 0.1 % 0.0 - 2.5 [facility] %IG 0.7 % 0.0 - 0.0 H [facility] al %NRBC 0.0 % 0.0 - 0.0 [facility] Neutrophils [#/volume] in Blood by Automated count 10.73 10^3/uL 2. 00 - 6.90 H [facility] Lymphocytes [#/volume] in Blood by Automated count 0.77 10^3/uL 0.60 - 3.40 [facility] Monocytes [#/volume] in Blood by Automated count 0.61 10^3/uL 0.00 - 0.90 [facility] Eosinophils [#/volume] in Blood by Automated count 0.00 10^3/uL 0.00 - 0.70 [facility] Basophils [#/volume] in Blood by Automated count 0.01 10^3/uL 0.00 - 0.20 [facility] #IG 0.08 10^3/uL 0.00 - 0.10 [facility] #NRBC 0.00 10^3/uL 0.00 - 0.00 [facility] MANUAL DIFF NOT INDICATED [facility] RBC MORPH NOT INDICATED [facility] spital ID Date Data Source [id number] 01/16/2021 11:41:00 [place] [address] PHONE: [phone] FAX: [phone] Name .................. : ELI SAEED Acct Number.................. : [id number] ROOM. ................. : 100-1 Number ................... : [id number] Stay type ............. : O/P Discharge Date......... ... : Admit Date ......... : 01/14/21 Admit Phys .................... : CORETTA Date of ....... : 1935 Family Phys ................... : RACHEL JC Phone .................. : [phone] Age ................................ : 86 Film# .................. .:[id number] Sex ................................. : F Unsigned transcriptions are preliminary reports and do not represent a medical or legal document DOPPLER VENOUS BILAT LEG 04707 COMPLETE:01/15/21 13:44 KNB [id number] (REASON FOR PROCESS: [...] EMERGENCY DEPT via modem Copy for: [facility] REC Page 1 of 1 Name Value Range Interpretation Code Description Data Charis rce(s) Supporting Document(s) ID Date Data Source [id number] 01/16/2021 11:19:00 [place] [address] PHONE: [phone] FAX: [phone] Name .................. : ELI SAEED Acct Number.................. : [id number] ROOM. ................. : 100-1 MR Number ................... : [id number] Stay type ............. : O/P Discharge Date......... ... : Admit Date ......... : 01/14/21 Admit Phys .................... : CHECO PA Date of ....... : 1935 Family Phys ................... : RACHEL GREENE Phone ..... ............. : [phone] Age ................................ : 86 Film# .................. .:[id number] Sex ................................. : F Unsigned t ranscriptions are preliminary reports and do not represent a medical or legal document CHEST 2 VIEWS 25595 COMPLETE:01/14/21 10:46 9007 Reason(s): Shortness of Breath [...] By Austin Webber MD , 01/16/21 11:19, [facility] Transcribe Initials: JAH , Transcribe Date: 01/14/21 14:28, Dictation Date: Copy for: EMERGENCY DEPT via mode Copy for: [facility] REC Page 1 of 1 Name Value Range Interpretation Code Description Data Charis rce(s) Supporting Document(s) ID Date Data Source [id number] 01/16/2021 07:49:00 AM EDT [facility] Name Value Range Interpretation Code Description Data Charis rce(s) Supporting Document(s) BASIC METABOLIC PANEL [facility] BASIC METABOLIC PANEL Sodium [Moles/volume] in Serum or Plasma 142 mEq/L 134 - 153 [facility] Potassium [Moles/volume] in Serum or Plasma 4.4 mEq/L 3.6 - 5.0 [facility] Chloride [Moles/volume] in Serum or Plasma 103 mEq/L 98 - 107 [facility] Carbon dioxide, total [Moles/volume] in Serum or Plasma 28 MEQ/L 22 - 30 [facility] Glucose [Mass/volume] in Serum or Plasma 141 MG/DL 70 - 99 H [facility] BUN 31 MG/DL 7 - 21 H [facility] al Creatinine [Mass/volume] in Serum or Plasma 1.2 MG/DL 0.7 - 1.5 [facility] BUN/CREAT 26 8 - 27 [facility] al Calcium [Mass/volume] in Serum or Plasma 9.6 MG/DL 8.4 - 10.2 [facility] Anion gap 3 in Serum or Plasma 11.0 mmol/L 8.0 - 16.0 [facility] AGE 86 yrs [facility] al AFR AMER GFR >60 [facility] NON-AA GFR 45 mL/min [facility] Male GFR Inter prentation 20-49 yrs >60 [...] >32 mL/min Normal ID Date Data Source [id number] 01/16/2021 07:48:00 AM EDT [facility] Name Value Range Interpretation Code Description Data Charis rce(s) Supporting Document(s) BNP 1534 PG/ML 0 - 450 H [facility] ID Date Data Source [id number] 01/16/2021 06:58:00 AM EDT [facility] Name Value Range Interpretation Code Description Data Charis rce(s) Supporting Document(s) CBC W/AUTOMATED DIFF [facility] COMPLETE BLOOD COUNT Leukocytes [#/volume] in Blood by Automated count 18.3 10^3/uL 4.2 - 11.0 H [facility] Erythrocytes [#/volume] in Blood by Automated count 3.94 10^6/uL 4. 20 - 5.40 L [facility] Hemoglobin [Mass/volume] in Blood 13.5 g/dL 12.0 - 16.0 [facility] Hematocrit [Volume Fraction] of Blood by Automated count 39.9 % 3 7.0 - 47.0 [facility] Erythrocyte mean corpuscular volume [Entitic volume] b y Automated count 101.3 fL 81.0 - 101 H [facility] Erythrocyte mean corpuscular hemoglobin [Entitic mass] by Automated count 34.3 pg 27.0 - 34.0 H [facility] Erythrocyte mean corpuscular hemoglobin concentration [Mass/volume] by Automated count 33.8 g/dL 31.0 - 36.0 [facility] Erythrocyte distribution width [Ratio] by Automated count 13.2 % 11.5 - 14.5 [facility] Platelets [#/volume] in Blood by Automated count 219 10^3/uL 150 - 45 0 [facility] Platelet mean volume [Entitic volume] in Blood by Automated count 10.8 fL 7.4 - 10.4 H [facility] Neutrophils/100 leukocytes in Blood by Automated count 90.9 % 37. 0 - 80.0 H [facility] Lymphocytes/100 leukocytes in Blood by Manual count 5.0 % 25.0 - 40.0 L [facility] Monocytes/100 leukocytes in Blood by Automated count 3.3 % 3.0 - 8.0 [facility] Eosinophils/100 leukocytes in Blood by Automated count 0.0 % 0.0 - 7.0 [facility] Basophils/100 leukocytes in Blood by Automated count 0.2 % 0.0 - 2.5 [facility] %IG 0.6 % 0.0 - 0.0 [facility] 0.[facility] % 0.0 - 0.0 [facility] al Neutrophils [#/volume] in Blood by Automated count 16.58 10^3/uL 2. 00 - 6.90 H [facility] Lymphocytes [#/volume] in Blood by Automated count 0.92 10^3/uL 0.60 - 3.40 [facility] Monocytes [#/volume] in Blood by Automated count 0.61 10^3/uL 0.00 - 0.90 [facility] Eosinophils [#/volume] in Blood by Automated count 0.00 10^3/uL 0.00 - 0.70 [facility] Basophils [#/volume] in Blood by Automated count 0.03 10^3/uL 0.00 - 0.20 [facility] #IG 0.11 10^3/uL 0.00 - 0.10 [facility] #NRBC 0.00 10^3/uL 0.00 - 0.00 [facility] MANUAL DIFF NOT INDICATED [facility] RBC MORPH NOT INDICATED [facility] sp[facility] ID Date Data Source [id number] 01/15/2021 01:12:00 PM EDT [facility] [address] [place] [address] RESPIRATORY CARE REPORT ==== ---------NAME------- NUMBER SEX AGE ADMIT DISC. XRAY# F/C [facility] [id number] F 86 01/14/21 [id number] O/P DATE OF : 1935 M/R# [id number] PH#: [phone] LOCATION: EMERGENCY DEPT EKG 23440 COMP LETE:01/14/21 15:54 [place] [id number] PHYSICIAN: CORETTA TINEO Name Value Range Interpretation Code Description Data Charis rce(s) Supporting Document(s) ID Date Data Source [id number] 01/15/2021 07:53:00 AM EDT [facility] Name Value Range Interpretation Code Description Data Charis rce(s) Supporting Document(s) BASIC METABOLIC PANEL [facility] BASIC METABOLIC PANEL Sodium [Moles/volume] in Serum or Plasma 140 mEq/L 134 - 153 [facility] Potassium [Moles/volume] in Serum or Plasma 4.2 mEq/L 3.6 - 5.0 [facility] Chloride [Moles/volume] in Serum or Plasma 101 mEq/L 98 - 107 [facility] Carbon dioxide, total [Moles/volume] in Serum or Plasma 26 MEQ/L 22 - 30 [facility] Glucose [Mass/volume] in Serum or Plasma 331 MG/DL 70 - 99 H [facility] BUN 23 MG/DL 7 - 21 H [facility] al Creatinine [Mass/volume] in Serum or Plasma 1.1 MG/DL 0.7 - 1.5 [facility] BUN/CREAT 21 8 - 27 [facility] al Calcium [Mass/volume] in Serum or Plasma 9.2 MG/DL 8.4 - 10.2 [facility] Anion gap 3 in Serum or Plasma 13.0 mmol/L 8.0 - 16.0 [facility] 86 [facility] AMER GFR >60 [facility] pital NON-AA GFR 50 mL/min [facility] Male GFR Inter prentation 20-49 [...] >32 mL/min Normal ID Date Data Source [id number] 01/15/2021 07:21:00 AM EDT [facility] Name Value Range Interpretation Code Description Data Charis rce(s) Supporting Document(s) CBC W/AUTOMATED DIFF [facility] COMPLETE BLOOD COUNT Leukocytes [#/volume] in Blood by Automated count 5.7 10^3/uL 4.2 - 1 1.0 [facility] Erythrocytes [#/volume] in Blood by Automated count 3.82 10^6/uL 4. 20 - 5.40 L [facility] Hemoglobin [Mass/volume] in Blood 13.1 g/dL 12.0 - 16.0 [facility] Hematocrit [Volume Fraction] of Blood by Automated count 38.8 % 3 7.0 - 47.0 [facility] Erythrocyte mean corpuscular volume [Entitic volume] b y Automated count 101.6 fL 81.0 - 101 H [facility] Erythrocyte mean corpuscular hemoglobin [Entitic mass] by Automated count 34.3 pg 27.0 - 34.0 H [facility] Erythrocyte mean corpuscular hemoglobin concentration [Mass/volume] by Automated count 33.8 g/dL 31.0 - 36.0 [facility] Erythrocyte distribution width [Ratio] by Automated count 12.8 % 11.5 - 14.5 [facility] Platelets [#/volume] in Blood by Automated count 189 10^3/uL 150 - 45 0 [facility] Platelet mean volume [Entitic volume] in Blood by Automated count 10.8 fL 7.4 - 10.4 H [facility] Neutrophils/100 leukocytes in Blood by Automated count 81.2 % 37. 0 - 80.0 H [facility] Lymphocytes/100 leukocytes in Blood by Manual count 14.5 % 25.0 - 40.0 L [facility] Monocytes/100 leukocytes in Blood by Automated count 1.0 % 3.0 - 8.0 L [facility] Eosinophils/100 leukocytes in Blood by Automated count 2.6 % 0.0 - 7.0 [facility] Basophils/100 leukocytes in Blood by Automated count 0.2 % 0.0 - 2.5 [facility] %IG 0.5 % 0.0 - 0.0 [facility] %NRBC 0.0 % 0.0 - 0.0 [facility] al Neutrophils [#/volume] in Blood by Automated count 4.65 10^3/uL 2.00 - 6.90 [facility] Lymphocytes [#/volume] in Blood by Automated count 0.83 10^3/uL 0.60 - 3.40 [facility] Monocytes [#/volume] in Blood by Automated count 0.06 10^3/uL 0.00 - 0.90 [facility] Eosinophils [#/volume] in Blood by Automated count 0.15 10^3/uL 0.00 - 0.70 [facility] Basophils [#/volume] in Blood by Automated count 0.01 10^3/uL 0.00 - 0.20 [facility] #IG 0.03 10^3/uL 0.00 - 0.10 [facility] #NRBC 0.00 10^3/uL 0.00 - 0.00 [facility] MANUAL DIFF NOT INDICATED [facility] RBC MORPH NOT INDICATED [facility] ID Date Data Source [id number] 01/14/2021 10:27:00 AM EDT [facility] 1 OrderSheet [facility] Emergency Department [address] [place] [address] Phone #: ext- [phone] 01/14/2021 10:22 Patient: CHRISTOPHE BENITEZ Sex: F : 1935 Age: 86yWEIGHT:62.2 kg (S)ALLERGIES: No Known Drug AllergyCHIEF COMPLAINT: dyspnea, COPDDIAGNOSIS: Pneumonia, Chronic obstructive lung disease, Congestive heart failure, Diabetes mellitus,HypothyroidismLAB ORDERSOrder Description Priority Entered Acknowledged InitialedBlood Culture STAT 10:46 01/14/2021 10:47 [id number] X2 (John Saunders RN10:46 01/14/2021) Physician;Blood Culture STAT 10:46 01/14/2021 10:47 [id number] X2 (John Saunders RN10:56 01/14/2021) Physician;BNP STAT [...] 10:47 Soham Saunders RN Physician; 2 OrderSheet [facility] Emergency Department [address] [place] [address] Phone #: ext- [phone] 01/14/2021 10:22 Patient: CHRISTOPHE BENITEZ Sex: F : 1935 Age: 86yT4 Free STAT 10:46 01/14/2021 10:47 Soham Saunders RN Physician;COVID-19 CAH (Not STAT 13:14 01/14/2021 14:15 Theodore,Symptomatic as Cookie Jaimes RN; Cookie RNDefined by [facility] Per protocol; Willian(01/14/2021) ([facility] [place] PhysicianTest) (NotHospitalized) [...] 40 mg 12:45 01/14/2021 13:00 Soham(NOW) Willian Suanders RN Physician;Rocephin 12:45 01/14/2021 13:01 Soham(1gm/50mL) IVPB Willian Saunders RN7741 mg with Physician;Dextrose 50 mlspike bag (D5W)GENERAL ORDERSOrder Description Priority Entered Acknowledged InitialedEKG 10:46 01/14/2021 10:47 Soham Saunders RN Physician;Saline Lock 10:46 01/14/2021 10:47 Soham 3 OrderSheet [facility] Emergency Department [address] [place] [address] Phone #: ext- [phone] 01/14/2021 10:22 Patient: CHRISTOPHE BENITEZ Sex: F : 1935 Age: 86y Willian Saunders RN Physician;[Electronically signed by Willian Kessler Physician (15:02 01/14/2021)][Electronically signed by Soham Saunders RN (15:24 01/14/2021)][Electronically locked by Soham Saunders RN (15:01/14/2021)] Name Value Range Interpretation Code Description Data Charis rce(s) Supporting Document(s) ID Date Data Source [id number] 01/14/2021 10:27:00 AM EDT [facility] 1 Medication Reconciliation Report [facility] Emergency Department [address] [place] [address] Phone #: ext- [phone] 01/14/2021 10:22 Patient: CHRISTOPHE BENITEZ Sex: F [...] administered: 12:56 01/14/2021 2 Medication Reconciliation Report [facility] Emergency Department [address] [place] [address] Phone #: ext- [phone] 01/14/2021 10:22 Patient: CHRISTOPHE BENITEZ Sex: F : 1935 Age: 86yThe following Medications were prescribed to the patient:None. Name Value Range Interpretation Code Description Data Charis rce(s) Supporting Document(s) ID Date Data Source [id number] 01/14/2021 10:27:00 AM EDT [facility] 1 Medication Administration Record [facility] Emergency Department [address] [place] [address] Phone #: [phone] 01/14/2021 10:22 Patient: CHRISTOPHE BENITEZ Sex: F [...] wristStart ROCEPHIN (1GM/50ML) [IVPB] Rocephin (1gm/50mL) IVPB 644610:56 01/14/2021 (CEFTRIAXONE SODIUM) mg with Dextrose 50 ml spike Bernardino Saunders RN Dose: 1 gm IVPB (D5W)---- Rate: 100 mL/hr over 30 minute(s)Stop Dispensed: 50 mL bag13:24 01/14/2021 Site: #1 right Mireilel Saunders RN Name Value Range Interpretation Code Description Data Charis rce(s) Supporting Document(s) ID Date Data Source [id number] 01/14/2021 10:27:00 AM EDT [facility] 1 General Instructions [facility] Emergency Department [address] [place] [address] Phone #: ext- [phone] 01/14/2021 10:22 Patient: [...] rce(s) Supporting Document(s) ID Date Data Source [id number] 01/14/2021 10:27:00 AM EDT [facility] 1 Clinical Report - Nurses [facility] Emergency Department [address] [place] [address] Phone #: ext- [phone] 01/14/2021 10:22 Patient: CHRISTOPHE EBNITEZ Sex: F : 1935 Age: 86yTRIAGEArrived by [...] Jaimes RN 2 Clinical Report - Nurses [facility] Emergency Department [address] [place] [address] Phone #: ext- [phone] 01/14/2021 10:22 Patient: [...] RN .AllergiesNo Known Drug Allergy. --10:27 01/14/21 Cookie Dailye RN.PROBLEMS:Hypertension.Chronic Venous Insufficiency.Abnormal Test.Pneumonia.Hyperglycemia. --10:31 01/14/21 Cookie [...] no deficiencies. 3 Clinical Report - Nurses [facility] Emergency Department [address] [place] [address] Phone #: ext- [phone] 01/14/2021 10:22 Patient: CHRISTOPHE BENITEZ [facility]#: [id number] Sex: F : 1935 Age: 86y FUNCTIONAL [...] on patient. --10:36 01/14/21 Soham Saunders RN.PHYSICAL UDMCOFSCIN86:35 01/14/21. To room via wheelchair.GENERAL / NEURO [...] RR: 18. O2 saturation: 97%. --11:14 01/14/21 [facility] Tech, Jojo BRYAN Tech1 Checked patient name [...] Saunders RN 4 Clinical Report - Nurses [facility] Emergency Department [address] [place] [address] Phone #: ext- [phone] 01/14/2021 10:22 Patient: CHRISTOPHE BENITEZ Sex: F : 1935 Age: 86yChecked patient name and birthdate. Blood samples drawn by tech: blood culture (2nd set). (7140).--11:16 01/14/21 Soham Saunders RN10:53 01/14/2021 Euseboi KRUEGER discontinued upon: receiving physician order. --11:17 [...] RR: 14. O2 saturation: 97%. --11:27 01/14/21 [facility] CenterGal [facility] Jbgf044:58 01/14/21. BP: 104/46. MAP: 65. HR: 74. RR: 13. O2 saturation: 98%. --11:58 01/14/21 [facility] Humh3Mnmafhj transported to radiology by wheelchair with mask and ra diology tech. (1205). --12:06 01/14/21Soham Saunders RNPatiflorina returned from radiology by wheelchair with mask and cardiac cath lab radiology technologist. (1215). --12:22 01/14/21 Neal RN12:26 01/14/21. BP: 127/61. MAP: 83. HR: 75. RR: 14. O2 saturation: 100%. --12:27 01/14/21 Lilli [facility] Afxk571:57 01/14/21. BP: 117/61. MAP: 79. HR: 76. RR: 16. O2 saturation: 95%. --12:58 01/14/21 [facility] Zwoo376:55 01/14/2021 Lasix IVP 40 mg given over [...] RR: 16. O2 saturation: 96%. --13:28 01/14/21 [facility] Center[facility] Jojo, ER Tech1 5 Clinical Report - Nurses [facility] Emergency Department [address] [place] [address] Phone #: ext- [phone] 01/14/2021 10:22 Patient: CHRISTOPHE BENITEZ Sex: F : 1935 Age: 86y ( out of bed to [facility] with assist, voided 300cc, UA sent). --13:37 01/14/21 Cookie Jaimes RN 14:01 01/14/21. BP: 108/58. MAP: 74. HR: 73. RR: 10. O2 saturation: 94%. --14:01 01/14/21 [place] reticle printer, Jojo, Tech1. Intake Output Urine output: 300 [...] rce(s) Supporting Document(s) ID Date Data Source [id number] 01/14/2021 10:27:00 AM EDT [facility] 1 Clinical Report - Physicians/Mid Levels [facility] Emergency Department [address] [place] [address] Phone #: ext- [phone] 01/14/2021 10:22 Patient: CHRISTOPHE BENITEZ [facility]#: [id number] Sex: F : 1935 Age: 86y Time [...] 200-25 mcg/inh), daily. 2 Clinical Report - Physicians/[facility] Emergency Department [address] [place] [address] Phone #: ext- [phone] 01/14/2021 10:22 Patient: [...] results 3 Clinical Report - Physicians/Mid Levels [facility] Emergency Department [address] [place] [address] Phone #: ext- [phone] 01/14/2021 10:22 Patient: CHRISTOPHE BENITEZ Sex: F [...] mL/min 4 Clinical Report - Physicians/Mid Levels [facility] Emergency Department [address] [place] [address] Phone #: ext- [phone] 01/14/2021 10:22 Patient: [...] mL/min Normal TSH: (ABDIAS: 01/14/2021 11:00) ( [facility] 01/14/2021 12:07) Final results Test Result Flag Units (Reference) TSH 8.17 H uIU/mL (0.47 - 5.01) Troponin- T: (ABDIAS: 01/14/2021 11:00) ( [facility] 01/14/2021 11:55) Final results Test Result Flag Units (Reference) TROPONIN T <0.01 NG/ML (0.00 - 0.10) TROPONIN T0.1 ng/ml Recommended as the clinical threshold value forTroponin T. PT/INR: (ABDIAS: 01/14/2021 10:46) ( [facility] 01/14/2021 11:16) Canceled PT/PTT: (ABDIAS: 01/14/2021 11:00) ( [facility] 01/14/2021 11:55) Final results Test Result Flag Units (Reference) PROTIME 13.9 SECONDS (11.0 - 15.5) INR 1.02 (0.93 - 1.23) PTT 32.8 SECONDS (24.8 - 36.7) \\BLDo\\INR INTERPRETATION\\BLDx\\ Therapeutic range for Coumadin and related oral anticoagulants. -International Normalized Ratio (INR): 2.0 - 3.0 for Venous Thrombosis, Pulmonary Embolus, Tissue heart valves, Acute AL Atrial Fibrillation, Valvular heart disease and recurrent Systemic Embolism. -International Normalized Ratio (INR): 2.5 - 3.5 for Mechanical Prosthetic valve. T4 Free: (ABDIAS: 01/14/2021 11:00) ( [facility] 01/14/2021 12:07) Final results Test Result Flag [...] counseled. 5 Clinical Report - Physicians/Mid Levels [facility] Emergency Department [address] [place] [address] Phone #: ext- [phone] 01/14/2021 10:22 Patient: [...] rce(s) Supporting Document(s) ID Date Data Source [id number] 01/14/2021 01:45:00 PM EDT [facility] Name Value Range Interpretation Code Description Data Charis rce(s) Supporting Document(s) COVID19 Case rprt NOT DETECTED [facility] This lab was ordered by [facility] and reported by [facility]. ID Date Data Source [id number] 01/14/2021 02:20:00 PM EDT [facility] NOT DETECTEDNOT DETECTED{ PROC EDURAL CONTROL VALID [...] rce(s) Supporting Document(s) ID Date Data Source [id number] 01/20/2021 03:36:00 PM EDT [facility] Name Value Range Interpretation Code Description Data Charis rce(s) Supporting Document(s) CULTURE URINE [facility] spital _CULTURE URINE_$$[id number]$$[id number]$$[id number]$$944413$$162103$$267717$$314216$$902742$$849519$$ 107565$$067043$$339518$$870571$$647469$$126907$$618158$$521796$$052579$$691714$$ 067496$$206365$$317069$$487197$$717254$$042279$$708394$$[id number] -- Continued on next page --Patient: ELI SAEED Order: [id number] Page 2Culture: CULTURE URINE Status: Final ==== -- Continued on next page --Patient: ELI SAEED Order: [id number] Page 2Culture: CULTURE URINE Status: Prelim =====$$[id number]$$[id number] DATE/TIME: 01/20/2021 15:06Culture: CULTURE URINE Status: FinalUrine Culture,Comprehensive: P1No growth in 36 - 48 hours. Previous result entered on 01/18/2021 07:20 ET No growth after 18-24 hours.P1 Test performed by: [facility] REYES #: [id number] [address] [place] [phone] [facility] [id number] Director : Ryan Davis MD NPI #:Lab Di andrez : 01/18/21.1439.XMT.SENT REF 01/20/21.1536.XMT.SENT REF ID Date Data Source [id number] 01/14/2021 01:47:00 PM EDT [facility] Name Value Range Interpretation Code Description Data Charis rce(s) Supporting Document(s) URINALYSIS [facility] jonny URINALYSIS SOURCE R [facility] COLOR yellow NORMAL: Yellow [facility] CLARITY clear NORMAL: Clear [facility] Specific gravity of Urine by Test strip 1.010 1.001 - 1.030 [facility] pH 6 5 - 9 [facility] Glucose [Mass/volume] in Urine by Test strip NORM NORMAL: Negat [facility] Bilirubin.total [Presence] in Urine by Test strip NEG NORMAL: Negative [facility] Ketones [Presence] in Urine by Test strip NEG NORMAL: Negative [facility] Protein [Mass/volume] in Urine by Test strip NEG NORMAL: Negat [facility] Nitrite [Presence] in Urine by Test strip NEG NORMAL: Negative [facility] BLOOD 150 NORMAL: Negative [facility] Leukocyte esterase [Presence] in Urine by Test strip 100 KANU L: Negative [facility] Urobilinogen [Mass/volume] in Urine by Test strip NOR less cecille n 1.0 mg/dL [facility] MICROSCOPIC See Below [facility] ital WBC 15 - 20 NORMAL: NONE SEEN [facility] Erythrocytes [#/volume] in Urine by Test strip 1 - 3 NORMAL: NON E SEEN [facility] EPITHELIAL FEW NORMAL: NONE SEEN [facility] Bacteria [Presence] in Urine sediment by Light microscopy Tr adriana NORMAL: NONE SEEN [facility] Amorphous sediment [Presence] in Urine sediment by Light randy roscopy RARE NORMAL: NONE SEEN [facility] ID Date Data Source [id number] 01/20/2021 11:24:00 AM EDT [facility] 2114 Name Value Range Interpretation Code Description Data Charis rce(s) Supporting Document(s) Bacteria identified in Blood by Culture [facility] NO GROWTH AFTER 5 DAYS ID Date Data Source [id number] 01/24/2021 01:57:00 PM EDT [facility] Name Value Range Interpretation Code Description Data Charis rce(s) Supporting Document(s) CULTURE BLOOD [facility] spital _CULTURE BLOOD_{ PRELIM TEST PERFORMED AT [address] [address] CLIA# [id number] SEE SCANNED REPORT ID Date Data Source [id number] 01/24/2021 01:56:00 PM EDT [facility] Name Value Range Interpretation Code Description Data Charis rce(s) Supporting Document(s) CULTURE BLOOD [facility] spital _CULTURE BLOOD_{ PRELIM TEST PERFORMED AT [address] [address] CLIA# [id number] SEE SCANNED REPORT ID Date Data Source [id number] 01/14/2021 12:07:00 PM EDT [facility] Name Value Range Interpretation Code Description Data Charis rce(s) Supporting Document(s) Thyroxine (T4) free index in Serum or Plasma by calculation 0.87 NG/DL 0.93 - 1.70 L [facility] ID Date Data Source [id number] 01/14/2021 12:07:00 PM EDT [facility] Name Value Range Interpretation Code Description Data Charis rce(s) Supporting Document(s) Thyrotropin [Units/volume] in Serum or Plasma by Detec tion limit <= 0.05 mIU/L 8.17 uIU/mL 0.47 - 5.01 H [facility] ID Date Data Source [id number] 01/14/2021 12:07:00 PM EDT [facility] Name Value Range Interpretation Code Description Data Charis rce(s) Supporting Document(s) BNP 514 PG/ML 0 - 450 H [facility] ID Date Data Source [id number] 01/14/2021 11:55:00 AM EDT [facility] Name Value Range Interpretation Code Description Data Charis rce(s) Supporting Document(s) TROPONIN T <0.01 NG/ML 0.00 - 0.10 [facility] ospital TROPONIN T0.1 ng/ml Recommended as the c linical threshold value forTroponin T. ID Date Data Source [id number] 01/14/2021 11:55:00 AM EDT [facility] Name Value Range Interpretation Code Description Data Charis rce(s) Supporting Document(s) COMPREHENSIVE METABOLIC PANEL [facility] COMPREHENSIVE METABOLIC PANEL Sodium [Moles/volume] in Serum or Plasma 138 mEq/L 134 - 153 [facility] Potassium [Moles/volume] in Serum or Plasma 4.2 mEq/L 3.6 - 5.0 [facility] Chloride [Moles/volume] in Serum or Plasma 102 mEq/L 98 - 107 [facility] Carbon dioxide, total [Moles/volume] in Serum or Plasma 26 MEQ/L 22 - 30 [facility] Glucose [Mass/volume] in Serum or Plasma 230 MG/DL 70 - 99 H [facility] BUN 21 MG/DL 7 - 21 [facility] Creatinine [Mass/volume] in Serum or Plasma 1.0 MG/DL 0.7 - 1.5 [facility] BUN/CREAT 21 8 - 27 [facility] Protein [Mass/volume] in Serum or Plasma 6.5 G/DL 6.3 - 8.2 [facility] Albumin [Mass/volume] in Serum or Plasma 3.5 G/DL 3.9 - 5.0 L [facility] Globulin [Mass/volume] in Serum by calculation 3.0 GM/DL 2.4 - 3.2 [facility] A/G RATIO 1.2 0.8 - 2.0 [facility] Calcium [Mass/volume] in Serum or Plasma 9.2 MG/DL 8.4 - 10.2 [facility] Bilirubin.total [Mass/volume] in Serum or Plasma <0.7 MG/DL 0.2 - 1.3 [facility] Alkaline phosphatase [Enzymatic activity/volume] in Serum or Plasma 188 U/L 38 - 126 H [facility] Aspartate aminotransferase [Enzymatic activity/volume] in Serum or Plasma 31 U/L 5 - 40 [facility] Alanine aminotransferase [Enzymatic activity/volume] in Seru m or Plasma 19 U/L 7 - 56 [facility] Anion gap 3 in Serum or Plasma 10.0 mmol/L 8.0 - 16.0 [facility] AGE 86 yrs [facility] al NON-AA GFR 56 [facility] AFR AMER GFR >60 [facility] Male GFR In terprentation [...] >32 mL/min Normal ID Date Data Source [id number] 01/14/2021 11:55:00 AM EDT [facility] Name Value Range Interpretation Code Description Data Charis rce(s) Supporting Document(s) Prothrombin time (PT) 13.9 SECONDS 11.0 - 15.5 [facility] INR in Platelet poor plasma by Coagulation assay 1.02 0.93 - 1. 23 [facility] aPTT in Blood by Coagulation assay 32.8 SECONDS 24.8 - 36.7 [facility] \\BLDo\\INR INTERPRETATION\\BLDx\\ Therapeutic range for Coumadin and related oral anticoagulants. - International Normalized Ratio (INR): 2.0 - 3.0 for Venous Thrombosis, Pulmonary Embolus, Tissue heart valves, Acute AL Atrial Fibrillation, Valvular heart disease and recurrent Systemic Embolism. - International Normalized Ratio (INR): 2.5 - 3.5 for Mechanical Prosthetic valve. ID Date Data Source [id number] 01/14/2021 11:30:00 AM EDT [facility] Name Value Range Interpretation Code Description Data Charis rce(s) Supporting Document(s) CBC W/AUTOMATED DIFF [facility] COMPLETE BLOOD COUNT Leukocytes [#/volume] in Blood by Automated count 8.1 10^3/uL 4.2 - 1 1.0 [facility] Erythrocytes [#/volume] in Blood by Automated count 4.02 10^6/uL 4. 20 - 5.40 L [facility] Hemoglobin [Mass/volume] in Blood 13.6 g/dL 12.0 - 16.0 [facility] Hematocrit [Volume Fraction] of Blood by Automated count 41.0 % 3 7.0 - 47.0 [facility] Erythrocyte mean corpuscular volume [Entitic volume] b y Automated count 102.0 fL 81.0 - 101 H [facility] Erythrocyte mean corpuscular hemoglobin [Entitic mass] by Automated count 33.8 pg 27.0 - 34.0 [facility] Erythrocyte mean corpuscular hemoglobin concentration [Mass/volume] by Automated count 33.2 g/dL 31.0 - 36.0 [facility] Erythrocyte distribution width [Ratio] by Automated count 13.1 % 11.5 - 14.5 [facility] Platelets [#/volume] in Blood by Automated count 180 10^3/uL 150 - 45 0 [facility] Platelet mean volume [Entitic volume] in Blood by Automated count 10.7 fL 7.4 - 10.4 H [facility] Neutrophils/100 leukocytes in Blood by Automated count 57.8 % 37. 0 - 80.0 [facility] Lymphocytes/100 leukocytes in Blood by Manual count 27.3 % 25.0 - 40.0 [facility] Monocytes/100 leukocytes in Blood by Automated count 8.8 % 3.0 - 8.0 H [facility] Eosinophils/100 leukocytes in Blood by Automated count 5.2 % 0.0 - 7.0 [facility] Basophils/100 leukocytes in Blood by Automated count 0.7 % 0.0 - 2.5 [facility] Hospital %IG 0.2 % 0.0 - 0.0 H [facility] Hospit al %NRBC 0.0 % 0.0 - 0.0 [facility] al Neutrophils [#/volume] in Blood by Automated count 4.68 10^3/uL 2.00 - 6.90 [facility] Lymphocytes [#/volume] in Blood by Automated count 2.21 10^3/uL 0.60 - 3.40 [facility] Monocytes [#/volume] in Blood by Automated count 0.71 10^3/uL 0.00 - 0.90 [facility] Eosinophils [#/volume] in Blood by Automated count 0.42 10^3/uL 0.00 - 0.70 [facility] Basophils [#/volume] in Blood by Automated count 0.06 10^3/uL 0.00 - 0.20 [facility] #IG 0.02 10^3/uL 0.00 - 0.10 [facility]spital #NRBC 0.00 10^3/uL 0.00 - 0.00 [facility] MANUAL DIFF NOT INDICATED [facility] Hospital RBC MORPH NOT INDICATED [facility] Ho sp[facility] ID Date Data Source TSH 08/01/2020 06:26:09 AM EST eCW1 ([facility]) Name Value Range Interpretation Code Description Data Charis rce(s) Supporting Document(s) 5.070 THYROID STIMULATING HORMONE eC W1 ([facility]) ID Date Data Source LIPID PANEL (CARDIAC RISK) 08/01/2020 06:26:09 AM EST eCW1 ( [facility]) Name Value Range Interpretation Code Description Data Charis rce(s) Supporting Document(s) Triglyceride [Mass/volume] in Serum or Plasma by calculation 145 TRIGLYCERIDES LEVEL eCW1 ([facility]) Cholesterol in HDL [Moles/volume] in Serum or Plasma 56 HDL CHOLESTEROL eCW1 ([facility]) Cholesterol [Moles/volume] in Serum or Plasma 159 CHOLESTEROL LEVEL eCW1 ([facility]) 103 NON-HDL-C eCW1 ([facility]) Cholesterol in LDL [Mass/volume] in Serum or Plasma by calculation 74 LDL CHOLESTEROL eCW1 ([facility]) 2.839 CHOLESTEROL RISK RATIO eCW1 ([facility]) ID Date Data Source TOTAL IRON BINDING CAPACIT 08/01/2020 06:26:09 AM EST eCW1 ( [facility]) Name Value Range Interpretation Code Description Data Charis rce(s) Supporting Document(s) 306 TOTAL IRON BINDING CAPACITY eC W1 ([facility]) 131 IRON (FE) eCW1 ([facility]) 42.8 PERCENT SATURATION eCW1 ([facility]) ID Date Data Source VITAMIN D 25-HYDROXY 08/01/2020 06:26:09 AM EST eCW1 ([facility]) Name Value Range Interpretation Code Description Data Charis rce(s) Supporting Document(s) 9.5 TOTAL 25(OH) VITAMIN D eCW1 ([facility]) ID Date Data Source FERRITIN 08/01/2020 06:26:09 AM EST eCW1 ([facility]) Name Value Range Interpretation Code Description Data Charis rce(s) Supporting Document(s) 224 FERRITIN eCW1 ([facility]) ID Date Data Source Comprehensive Metabolic Profile (CMP) 08/01/2020 06:26:09 AM EST eCW1 ([facility]) Name Value Range Interpretation Code Description Data Charis rce(s) Supporting Document(s) 172 GLUCOSE, FASTING eCW1 ([facility]) 14 BLOOD UREA NITROGEN eCW1 ([facility]) 1.04 CREATININE FOR GFR eCW1 ([facility]) 3.9 POTASSIUM SERUM eCW1 ([facility]) 137 SODIUM LEVEL eCW1 ([facility]) 103 CHLORIDE LEVEL eCW1 ([facility]) 53.4 GLOMERULAR FILTRATION RATE eCW 1 ([facility]) 28 CARBON DIOXIDE LEVEL eCW1 ([facility]) 9.2 CALCIUM LEVEL eCW1 ([facility]) 24 AST/SGOT eCW1 ([facility]) 120 ALKALINE PHOSPHATASE eCW1 ([facility]) 6.8 TOTAL PROTEIN eCW1 ([facility]) 0.5 BILIRUBIN,TOTAL eCW1 ([facility]) 24 ALT/SGPT eCW1 ([facility]) 3.5 ALBUMIN eCW1 ([facility]) 1.1 ALBUMIN/GLOBULIN RATIO eCW1 ([facility]) ID Date Data Source CBC with Differential 08/01/2020 06:26:09 AM EST eCW1 ([facility]) Name Value Range Interpretation Code Description Data Charis rce(s) Supporting Document(s) 9.2 WHITE BLOOD COUNT eCW1 ([facility]) 16.1 HEMOGLOBIN eCW1 ([facility]) 4.67 RED BLOOD COUNT eCW1 ([facility]) 34.5 MEAN CORPUSCULAR HEMOGLOBIN eC W1 ([facility]) 103.0 MEAN CORPUSCULAR VOLUME eCW1 ( [facility]) 48.1 HEMATOCRIT eCW1 ([facility]) 33.5 MEAN CORPUSCULAR HGB CONC eCW1 ([facility]) 199 PLATELET COUNT, AUTOMATED eCW1 ([facility]) 66.2 NEUTROPHILS % eCW1 ([facility]) 12.6 RED CELL DISTRIBUTION WIDTH eC W1 ([facility]) 9.2 MONO % eCW1 ([facility]) 22.5 LYMPH % eCW1 ([facility]) 0.9 EOS % eCW1 ([facility]) 0.9 MONO # eCW1 ([facility]) 2.1 LYMPH # eCW1 ([facility]) 6.1 NEUTROPHILS # eCW1 ([facility]) 0.5 BASO % eCW1 ([facility]) 0.1 EOS # eCW1 ([facility]) 0.1 BASO # eCW1 ([facility]) Procedure Social History Code Duration Value Status Description Data Source(s ) Alcohol intake 06/08/2021 12:00:00 AM EDT Ex-drinker (finding) comp leted Ex- drinker (finding) [facility] Smoking 05/30/2021 12:00:00 AM EDT Never Smoker completed Never S moker eCW1 ([facility]) Smoking 05/30/2021 12:00:00 AM EDT Never Smoker completed Never S moker eCW1 ([facility]) Smoking 05/30/2021 12:00:00 AM EDT Never Smoker completed Never S moker eCW1 ([facility]) Smoking 05/30/2021 12:00:00 AM EDT Never Smoker completed Never S moker eCW1 ([facility]) Smoking 05/30/2021 12:00:00 AM EDT Never Smoker completed Never S moker eCW1 ([facility]) Smoking 05/30/2021 12:00:00 AM EDT Never Smoker completed Never S moker eCW1 ([facility]) Tobacco use and exposure 05/25/2021 12:00:00 AM EDT Never used co mpleted Never used [facility] Smoking 05/25/2021 12:00:00 AM EDT Never smoker completed Never s moker [facility] Alcohol intake 05/17/2021 12:00:00 AM EDT Ex-drinker (finding) comp leted Ex- drinker (finding) [facility] Smoking 03/09/2021 12:00:00 AM EDT Never Smoked Cigarettes com pleted Never Smoked Cigarettes MEDENT ([facility]) Smoking 02/21/2021 12:00:00 AM EDT Never Smoker completed Never S moker eCW1 ([facility]) Smoking 02/21/2021 12:00:00 AM EDT Never Smoker completed Never S moker eCW1 ([facility]) Smoking 02/21/2021 12:00:00 AM EDT Never Smoker completed Never S moker eCW1 ([facility]) Smoking 02/21/2021 12:00:00 AM EDT Never Smoker completed Never S moker eCW1 ([facility]) Smoking 02/21/2021 12:00:00 AM EDT Never Smoker completed Never S moker eCW1 ([facility]) Smoking 02/21/2021 12:00:00 AM EDT Never Smoker completed Never S moker eCW1 ([facility]) Smoking 02/21/2021 12:00:00 AM EDT Never Smoker completed Never S moker eCW1 ([facility]) Smoking 02/21/2021 12:00:00 AM EDT Never Smoker completed Never S moker eCW1 ([facility]) Smoking 02/21/2021 12:00:00 AM EDT Never Smoker completed Never S moker eCW1 ([facility]) Smoking 02/21/2021 12:00:00 AM EDT Never Smoker completed Never S moker eCW1 ([facility]) Smoking 02/21/2021 12:00:00 AM EDT Never Smoker completed Never S moker eCW1 ([facility]) Smoking 02/21/2021 12:00:00 AM EDT Never Smoker completed Never S moker eCW1 ([facility]) Smoking 02/21/2021 12:00:00 AM EDT Never Smoker completed Never S moker eCW1 ([facility]) Smoking 02/21/2021 12:00:00 AM EDT Never Smoker completed Never S moker eCW1 ([facility]) Smoking 02/21/2021 12:00:00 AM EDT Never Smoker completed Never S moker eCW1 ([facility]) Smoking 02/21/2021 12:00:00 AM EDT Never Smoker completed Never S moker eCW1 ([facility]) Smoking 02/16/2021 12:00:00 AM EDT Never Smoker completed Never S moker eCW1 ([facility]) Smoking 02/13/2021 12:00:00 AM EDT Never Smoker completed Never S moker eCW1 ([facility]) Smoking 02/13/2021 12:00:00 AM EDT Never Smoker completed Never S moker eCW1 ([facility]) Smoking 02/13/2021 12:00:00 AM EDT Never Smoker completed Never S moker eCW1 ([facility]) Smoking 02/13/2021 12:00:00 AM EDT Never Smoker completed Never S moker eCW1 ([facility]) Smoking 02/13/2021 12:00:00 AM EDT Never Smoker completed Never S moker eCW1 ([facility]) Smoking 01/31/2021 12:00:00 AM EDT Never Smoker completed Never S moker eCW1 ([facility]) Smoking 01/19/2021 12:00:00 AM EDT Never Smoker completed Never S moker eCW1 ([facility]) Smoking 01/19/2021 12:00:00 AM EDT Never Smoker completed Never S moker eCW1 ([facility]) Smoking 12/08/2020 12:00:00 AM EST Never Smoker completed Never S moker eCW1 ([facility]) Smoking 12/08/2020 12:00:00 AM EST Never Smoker completed Never S moker eCW1 ([facility]) Smoking 12/08/2020 12:00:00 AM EST Never Smoker completed Never S moker eCW1 ([facility]) Smoking 12/08/2020 12:00:00 AM EST Never Smoker completed Never S moker eCW1 ([facility]) Smoking 11/16/2020 12:00:00 AM EST Never Smoker completed Never S moker eCW1 ([facility]) Smoking 11/16/2020 12:00:00 AM EST Never Smoker completed Never S moker eCW1 ([facility]) Smoking 11/16/2020 12:00:00 AM EST Never Smoker completed Never S moker eCW1 ([facility]) Smoking 11/16/2020 12:00:00 AM EST Never Smoker completed Never S moker eCW1 ([facility]) Smoking 11/16/2020 12:00:00 AM EST Never Smoker completed Never S moker eCW1 ([facility]) Smoking 11/16/2020 12:00:00 AM EST Never Smoker completed Never S moker eCW1 ([facility]) Smoking 11/03/2020 12:00:00 AM EST Never Smoker completed Never S moker eCW1 ([facility]) Smoking 11/03/2020 12:00:00 AM EST Never Smoker completed Never S moker eCW1 ([facility]) Smoking 11/03/2020 12:00:00 AM EST Never Smoker completed Never S moker eCW1 ([facility]) Smoking 11/03/2020 12:00:00 AM EST Never Smoker completed Never S moker eCW1 ([facility]) Smoking 11/03/2020 12:00:00 AM EST Never Smoker completed Never S moker eCW1 ([facility]) Smoking 07/27/2020 12:00:00 AM EDT Never Smoker completed Never S moker eCW1 ([facility]) Smoking 07/27/2020 12:00:00 AM EDT Never Smoker completed Never S moker eCW1 ([facility]) Smoking 07/27/2020 12:00:00 AM EDT Never Smoker completed Never S moker eCW1 ([facility]) Smoking 07/27/2020 12:00:00 AM EDT Never Smoker completed Never S moker eCW1 ([facility]) Vital Signs ID Date Data Source UNK Name Value Range Interpretation Code Description Data Source(s) Systolic blood pressure 108 mm[Hg] 108 mm[Hg] [facility] Diastolic blood pressure 58 mm[Hg] 58 mm[Hg] [facility] Heart rate 78 /min 78 /min [facility] Body height 152.4 cm 152.4 cm [facility] Body weight 59.875 kg 59.875 kg [facility] Body mass index (BMI) [Ratio] 25.78 kg/m2 25.78 kg/m2 [facility] Oxygen saturation in Arterial blood by Pulse oximetry 94 % 94 % [facility] Body weight 133.2 [lb_av] 133.2 [lb_av] eCW1 ([facility]) Body weight 60.42 kg 60.42 kg eCW1 ([facility]) Body height 58 [in_i] 58 [in_i] eCW1 ([facility]) Body mass index (BMI) [Ratio] 27.84 kg/m2 27.84 kg/m2 eCW1 ([facility]) Heart rate 61 /min 61 /min eCW1 ([facility]) Respiratory rate 18 /min 18 /min eCW1 ([facility]) Body temperature 95.6 [degF] 95.6 [degF] eCW1 ( [facility]) Systolic blood pressure 151 mm[Hg] 151 mm[Hg] e CW1 ([facility]) Diastolic blood pressure 78 mm[Hg] 78 mm[Hg] eCW1 ([facility]) Systolic blood pressure 154 mm[Hg] 154 mm[Hg] [facility] Diastolic blood pressure 82 mm[Hg] 82 mm[Hg] [facility] Heart rate 66 /min 66 /min [facility] Body height 152.4 cm 152.4 cm [facility] Body weight 58.514 kg 58.514 kg [facility] Body mass index (BMI) [Ratio] 25.19 kg/m2 25.19 kg/m2 [facility] Oxygen saturation in Arterial blood by Pulse oximetry 96 % 96 % [facility] Systolic blood pressure 110 mm[Hg] 110 mm[Hg] M EDENT ([facility]) Diastolic blood pressure 60 mm[Hg] 60 mm[Hg] MEDENT ([facility]) Heart rate 70 /min 70 /min MEDENT ([facility]) Oxygen saturation in Arterial blood by Pulse oximetry 97 % 97 % [facility] ([facility]) Body height 60 [in_i] 60 [in_i] [facility] ([facility]) 5'0" Body weight 135.00 [lb_av] 135.00 [lb_av] [facility] Body mass index (BMI) [Ratio] 26.4 kg/m2 26.4 k g/m2 [facility] ([facility]) [place] body weight 100 [lb_av] 100 [lb_av] [facility] Body weight 61.236 kg 61.236 kg [facility] ([facility]) Body surface area Derived from formula 1.58 m2 1.58 m2 [facility] ([facility]) Body weight 1 [lb_av] 1 [lb_av] eCW1 ([facility]) Body height 58 [in_i] 58 [in_i] eCW1 ([facility]) Body mass index (BMI) [Ratio] 0.21 kg/m2 0.21 k g/m2 eCW1 ([facility]) Heart rate 69 /min 69 /min eCW1 ([facility]) Respiratory rate 17 /min 17 /min eCW1 ([facility]) Body temperature 97.5 [degF] 97.5 [degF] eCW1 ( [facility]) Systolic blood pressure 135 mm[Hg] 135 mm[Hg] e CW1 ([facility]) Diastolic blood pressure 69 mm[Hg] 69 mm[Hg] eCW1 ([facility]) Body weight 1 [lb_av] 1 [lb_av] eCW1 ([facility]) Body height 58 [in_i] 58 [in_i] eCW1 ([facility]) Body mass index (BMI) [Ratio] 0.21 kg/m2 0.21 k g/m2 eCW1 ([facility]) Heart rate 77 /min 77 /min eCW1 ([facility]) Respiratory rate 17 /min 17 /min eCW1 ([facility]) Body temperature 97.5 [degF] 97.5 [degF] eCW1 ( [facility]) Systolic blood pressure 133 mm[Hg] 133 mm[Hg] e CW1 ([facility]) Diastolic blood pressure 65 mm[Hg] 65 mm[Hg] eCW1 ([facility]) Body weight [lb_av] eCW1 ([facility]) Body height 58 [in_i] 58 [in_i] eCW1 ([facility]) Body mass index (BMI) [Ratio] 28.42 kg/m2 28.42 kg/m2 eCW1 ([facility]) Heart rate 84 /min 84 /min eCW1 ([facility]) Respiratory rate 17 /min 17 /min eCW1 ([facility]) Body temperature 96.8 [degF] 96.8 [degF] eCW1 ( [facility]) Systolic blood pressure 155 mm[Hg] 155 mm[Hg] e CW1 ([facility]) Diastolic blood pressure 89 mm[Hg] 89 mm[Hg] eCW1 ([facility]) Body height 58 [in_i] 58 [in_i] eCW1 ([facility]) Body weight 136 [lb_av] 136 [lb_av] eCW1 ([facility]) Heart rate 62 /min 62 /min eCW1 ([facility]) Respiratory rate 18 /min 18 /min eCW1 ([facility]) Body temperature 96.5 [degF] 96.5 [degF] eCW1 ( [facility]) Systolic blood pressure 151 mm[Hg] 151 mm[Hg] e CW1 ([facility]) Diastolic blood pressure 80 mm[Hg] 80 mm[Hg] eCW1 ([facility]) Body mass index (BMI) [Ratio] 28.42 kg/m2 28.42 kg/m2 eCW1 ([facility]) Body temperature 97.9 [degF] 97.9 [degF] eCW1 ( [facility]) Body weight 136 [lb_av] 136 [lb_av] eCW1 ([facility]) Body height 58 [in_i] 58 [in_i] eCW1 ([facility]) Body mass index (BMI) [Ratio] 28.42 kg/m2 28.42 kg/m2 eCW1 ([facility]) Heart rate 55 /min 55 /min eCW1 ([facility]) Respiratory rate 17 /min 17 /min eCW1 ([facility]) Systolic blood pressure 126 mm[Hg] 126 mm[Hg] e CW1 ([facility]) Diastolic blood pressure 78 mm[Hg] 78 mm[Hg] eCW1 ([facility]) Respiratory rate 16 /min 16 /min eCW1 ([facility]) Body weight 135 [lb_av] 135 [lb_av] eCW1 ([facility]) Body height 58 [in_i] 58 [in_i] eCW1 ([facility]) Body mass index (BMI) [Ratio] 28.21 kg/m2 28.21 kg/m2 eCW1 ([facility]) Heart rate 74 /min 74 /min eCW1 ([facility]) Body temperature 98.3 [degF] 98.3 [degF] eCW1 ( [facility]) Systolic blood pressure 177 mm[Hg] 177 mm[Hg] e CW1 ([facility]) Diastolic blood pressure 108 mm[Hg] 108 mm[Hg] eCW1 ([facility]) Body weight 130 [lb_av] 130 [lb_av] eCW1 ([facility]) Body height 58 [in_i] 58 [in_i] eCW1 ([facility]) Body mass index (BMI) [Ratio] 27.17 kg/m2 27.17 kg/m2 eCW1 ([facility]) Heart rate 683 /min 683 /min eCW1 ([facility]) Respiratory rate 16 /min 16 /min [facility] ([facility] [facility]) Body temperature 98.0 [degF] 98.0 [degF] eCW1 ( [facility]) Systolic blood pressure 150 mm[Hg] 150 mm[Hg] e CW1 ([facility]) Diastolic blood pressure 81 mm[Hg] 81 mm[Hg] eCW1 ([facility]) Body weight 130 [lb_av] 130 [lb_av] eCW1 ([facility]) Body height 58 [in_i] 58 [in_i] eCW1 ([facility]) Body mass index (BMI) [Ratio] 27.17 kg/m2 27.17 kg/m2 eCW1 ([facility]) Heart rate 67 /min 67 /min eCW1 ([facility]) Respiratory rate 18 /min 18 /min eCW1 ([facility]) Body temperature 97.2 [degF] 97.2 [degF] eCW1 ( [facility]) Systolic blood pressure 166 mm[Hg] 166 mm[Hg] e CW1 ([facility]) Diastolic blood pressure 74 mm[Hg] 74 mm[Hg] eCW1 ([facility]) Systolic blood pressure 126 mm[Hg] 126 mm[Hg] M EDENT ([facility], ) Diastolic blood pressure 74 mm[Hg] 74 mm[Hg] MEDENT ([facility], ) Heart rate 69 /min 69 /min MEDENT ([facility], ) Oxygen saturation in Arterial blood by Pulse oximetry 97 % 97 % MEDENT ([facility], ) Body temperature 97.4 [degF] 97.4 [degF] MEDENT ([facility], ) Body height 60 [in_i] 60 [in_i] MEDENT ([facility], ) 5'0" [place] body weight 100 [lb_av] 100 [lb_av] MEDEN T ([facility], ) Systolic blood pressure 165 mm[Hg] 165 mm[Hg] e CW1 ([facility]) Body weight 130 [lb_av] 130 [lb_av] eCW1 ([facility]) Body height 58 [in_i] 58 [in_i] eCW1 ([facility]) Body mass index (BMI) [Ratio] 27.17 kg/m2 27.17 kg/m2 eCW1 ([facility]) Diastolic blood pressure 110 mm[Hg] 110 mm[Hg] eCW1 ([facility]) Heart rate 69 /min 69 /min eCW1 ([facility]) Respiratory rate 18 /min 18 /min eCW1 ([facility]) Body temperature 96.5 [degF] 96.5 [degF] eCW1 ( [facility]) ID Date Data Source [id number] 02/06/2021 09:16:01 AM EDT [facility] Name Value Range Interpretation Code Description Data Source(s) WEIGHT RECORDED 133.00 pounds 133.00 pounds [facility] Height 60 Inches 060 Inches [facility] WEIGHT RECORDED 132.00 pounds 132.00 pounds [facility] Height 60 Inches 060 Inches [facility] Patient Treatment Plan of Care Planned Activity Planned Date Details Description Data Source (s) MiraLax Mix-In [place] 17 06/20/2021 12:00:00 AM EDT eCW1 ([facility]) MiraLax Mix-In [place] 17 06/20/2021 12:00:00 AM EDT eCW1 ([facility]) MiraLax Mix-In [place] 17 06/20/2021 12:00:00 AM EDT eCW1 ([facility]) Bisoprolol Fumarate 5 MG Oral Tablet 05/25/2021 12:00:00 AM EDT [facility] Spironolactone 25 MG Oral Tablet 05/17/2021 12:00:00 AM EDT [facility] apixaban 5 MG Oral Tablet [Eliquis] 05/15/2021 12:00:00 AM EDT [facility] Mirtazapine 15 MG Oral Tablet 05/12/2021 12:00:00 AM EDT [facility] tramadol hydrochloride 50 MG Oral Tablet 05/11/2021 12:00:00 AM EDT [facility] 7 ACTUAT umeclidinium 0.0625 MG/ACTUAT Dry Powder Inha ler [Incruse] 05/05/2021 12:00:00 AM EDT [facility] Furosemide 40 MG 04/25/2021 01:00:00 AM EDT [facility] ([facility]) Furosemide 20 MG Oral Tablet 04/10/2021 12:00:00 AM EDT [facility] Furosemide 40 MG 03/20/2021 01:00:00 AM EDT [facility] ([facility]) Bisoprolol Fumarate 5 MG / Hydrochlorothiazide 6.25 MG Oral Tablet 03/15/2021 12:00:00 AM EDT [facility] Simvastatin 10 MG Oral Tablet 03/09/2021 12:00:00 AM EDT [facility] gabapentin 300 MG Oral Capsule 03/09/2021 12:00:00 AM EDT [facility] Remeron 15 MG 03/07/2021 01:00:00 AM EDT [facility]) Ipratropium-Albuterol 0.5-2.5 (3) MG/3ML 03/07/2021 01:00:00 AM EDT [facility] ([facility]) Triamcinolone Acetonide 0.1 % 02/17/2021 01:00:00 AM EDT [facility]) Simvastatin 10 MG 02/17/2021 01:00:00 AM EDT [facility]) Gabapentin 300 MG 02/17/2021 01:00:00 AM EDT [facility]) Eliquis 5 MG 02/17/2021 01:00:00 AM EDT N [facility] ([facility]) Furosemide 20 MG 02/17/2021 01:00:00 AM EDT [facility]) Remeron 15 MG 02/17/2021 01:00:00 AM EDT [facility]) Ipratropium-Albuterol 0.5-2.5 (3) MG/3ML 02/17/2021 01:00:00 AM EDT [facility] ([facility]) Cephalexin 500 MG 02/17/2021 01:00:00 AM EDT [facility] ([facility]) Breo Ellipta 200-25 MCG/INH 02/17/2021 01:00:00 AM EDT [facility] ([facility]) Incruse Ellipta 62.5 MCG/INH 02/17/2021 01:00:00 AM EDT [facility] ([facility]) Bisoprolol-Hydrochlorothiazide 10-6.25 MG 02/17/2021 01:00:00 AM ED T [facility] ([facility]) Albuterol 0.833 MG/ML / Ipratropium Reydon 0.167 MG/M L Inhalant Solution 02/16/2021 12:00:00 AM EDT [facility] Incruse Ellipta 62.5 MCG/INH 02/15/2021 01:00:00 AM EDT [facility] ([facility]) Bisoprolol-Hydrochlorothiazide 10-6.25 MG 02/15/2021 01:00:00 AM ED T [facility] ([facility]) Triamcinolone Acetonide 0.1 % 02/15/2021 01:00:00 AM EDT [facility] ([facility]) Simvastatin 10 MG 02/15/2021 01:00:00 AM EDT [facility] ([facility]) Gabapentin 300 MG 02/15/2021 01:00:00 AM EDT [facility] ([facility]) Eliquis 5 MG 02/15/2021 01:00:00 AM EDT N [facility] ([facility]) Furosemide 20 MG 02/15/2021 01:00:00 AM EDT [facility] ([facility]) Breo Ellipta 200-25 MCG/INH 02/15/2021 01:00:00 AM EDT [facility] ([facility]) Cephalexin 500 MG Oral Capsule 02/13/2021 12:00:00 AM EDT eCW1 ([facility]) Cephalexin 500 MG Oral Capsule 02/13/2021 12:00:00 AM EDT eCW1 ([facility]) Cephalexin 500 MG Oral Capsule 02/13/2021 12:00:00 AM EDT eCW1 ([facility]) Cephalexin 500 MG Oral Capsule 02/13/2021 12:00:00 AM EDT eCW1 ([facility]) Cephalexin 500 MG Oral Capsule 02/13/2021 12:00:00 AM EDT eCW1 ([facility]) Furosemide 20 MG Oral Tablet 01/31/2021 12:00:00 AM EDT eCW1 ([facility]) Furosemide 20 MG Oral Tablet 01/31/2021 12:00:00 AM EDT eCW1 ([facility]) Furosemide 20 MG Oral Tablet 01/31/2021 12:00:00 AM EDT eCW1 ([facility]) Furosemide 20 MG Oral Tablet 01/31/2021 12:00:00 AM EDT eCW1 ([facility]) Furosemide 20 MG Oral Tablet 01/31/2021 12:00:00 AM EDT eCW1 ([facility]) Furosemide 20 MG Oral Tablet 01/31/2021 12:00:00 AM EDT eCW1 ([facility]) Furosemide 20 MG Oral Tablet 01/31/2021 12:00:00 AM EDT eCW1 ([facility]) Furosemide 20 MG Oral Tablet 01/31/2021 12:00:00 AM EDT eCW1 ([facility]) Furosemide 20 MG Oral Tablet 01/31/2021 12:00:00 AM EDT eCW1 ([facility]) Furosemide 20 MG Oral Tablet 01/31/2021 12:00:00 AM EDT eCW1 ([facility]) Furosemide 20 MG Oral Tablet 01/31/2021 12:00:00 AM EDT eCW1 ([facility]) Furosemide 20 MG Oral Tablet 01/31/2021 12:00:00 AM EDT eCW1 ([facility]) Furosemide 20 MG Oral Tablet 01/31/2021 12:00:00 AM EDT eCW1 ([facility]) Furosemide 20 MG Oral Tablet 01/31/2021 12:00:00 AM EDT eCW1 ([facility]) Furosemide 20 MG Oral Tablet 01/31/2021 12:00:00 AM EDT eCW1 ([facility]) Furosemide 20 MG Oral Tablet 01/31/2021 12:00:00 AM EDT eCW1 ([facility]) Furosemide 20 MG Oral Tablet 01/31/2021 12:00:00 AM EDT eCW1 ([facility]) apixaban 5 MG Oral Tablet [Eliquis] 01/31/2021 12:00:00 AM EDT eCW1 ([facility]) Furosemide 20 MG Oral Tablet 01/31/2021 12:00:00 AM EDT eCW1 ([facility]) Furosemide 20 MG Oral Tablet 01/31/2021 12:00:00 AM EDT eCW1 ([facility]) Prednisone 20 MG Oral Tablet 01/31/2021 12:00:00 AM EDT eCW1 ([facility]) Doxycycline Monohydrate 100 MG Oral Capsule 01/31/2021 12:00:00 AM EDT eCW1 ([facility]) Triamcinolone Acetonide 1 MG/ML Topical Cream 12/08/2020 12:00:00 A M EST eCW1 ([facility]) Triamcinolone Acetonide 1 MG/ML Topical Cream 12/08/2020 12:00:00 A M EST eCW1 ([facility]) Triamcinolone Acetonide 1 MG/ML Topical Cream 12/08/2020 12:00:00 A M EST eCW1 ([facility]) Triamcinolone Acetonide 1 MG/ML Topical Cream 12/08/2020 12:00:00 A M EST eCW1 ([facility]) Mirtazapine 15 MG Oral Tablet [Remeron] 11/16/2020 12:00:00 AM EST eCW1 ([facility]) Mirtazapine 15 MG Oral Tablet [Remeron] 11/16/2020 12:00:00 AM EST eCW1 ([facility]) Mirtazapine 15 MG Oral Tablet [Remeron] 11/16/2020 12:00:00 AM EST eCW1 ([facility]) Mirtazapine 15 MG Oral Tablet [Remeron] 11/16/2020 12:00:00 AM EST eCW1 ([facility]) Mirtazapine 15 MG Oral Tablet [Remeron] 11/16/2020 12:00:00 AM EST eCW1 ([facility]) Mirtazapine 15 MG Oral Tablet [Remeron] 11/16/2020 12:00:00 AM EST eCW1 ([facility]) Mirtazapine 15 MG Oral Tablet [Remeron] 11/16/2020 12:00:00 AM EST eCW1 ([facility]) Mirtazapine 15 MG Oral Tablet [Remeron] 11/16/2020 12:00:00 AM EST eCW1 ([facility]) Mirtazapine 15 MG Oral Tablet [Remeron] 11/16/2020 12:00:00 AM EST eCW1 ([facility]) Mirtazapine 15 MG Oral Tablet [Remeron] 11/16/2020 12:00:00 AM EST eCW1 ([facility]) Mirtazapine 15 MG Oral Tablet [Remeron] 11/16/2020 12:00:00 AM EST eCW1 ([facility]) Mirtazapine 15 MG Oral Tablet [Remeron] 11/16/2020 12:00:00 AM EST eCW1 ([facility]) Foam Dressing Bordered - 11/09/2020 12:00:00 AM EST eCW1 ([facility]) Foam Dressing Bordered - 11/09/2020 12:00:00 AM EST eCW1 ([facility]) Foam Dressing Bordered - 11/09/2020 12:00:00 AM EST eCW1 ([facility]) Foam Dressing Bordered - 11/09/2020 12:00:00 AM EST eCW1 ([facility]) Foam Dressing Bordered - 11/09/2020 12:00:00 AM EST eCW1 ([facility]) Foam Dressing Bordered - 11/09/2020 12:00:00 AM EST eCW1 ([facility]) Foam Dressing Bordered - 11/09/2020 12:00:00 AM EST eCW1 ([facility]) Foam Dressing Bordered - 11/09/2020 12:00:00 AM EST eCW1 ([facility]) Foam Dressing Bordered - 11/09/2020 12:00:00 AM EST eCW1 ([facility]) Foam Dressing Bordered - 11/09/2020 12:00:00 AM EST eCW1 ([facility]) Foam Dressing Bordered - 11/09/2020 12:00:00 AM EST eCW1 ([facility]) Foam Dressing Bordered - 11/09/2020 12:00:00 AM EST eCW1 ([facility]) Foam Dressing Bordered - 11/09/2020 12:00:00 AM EST eCW1 ([facility]) Foam Dressing Bordered - 11/09/2020 12:00:00 AM EST eCW1 ([facility]) Foam Dressing Bordered - 11/09/2020 12:00:00 AM EST eCW1 ([facility]) Foam Dressing Bordered - 11/09/2020 12:00:00 AM EST eCW1 ([facility]) Foam Dressing Bordered - 11/09/2020 12:00:00 AM EST eCW1 ([facility]) Foam Dressing Bordered - 11/09/2020 12:00:00 AM EST eCW1 ([facility]) Ergocalciferol [id number] UNT Oral Capsule 08/03/2020 12:00:00 AM EST eCW1 ([facility]) Ergocalciferol [id number] UNT Oral Capsule 08/03/2020 12:00:00 AM EST eCW1 ([facility]) Ergocalciferol [id number] UNT Oral Capsule 08/03/2020 12:00:00 AM EST eCW1 ([facility]) Ergocalciferol [id number] UNT Oral Capsule 08/03/2020 12:00:00 AM EST eCW1 ([facility])
[2021-08-04 21:38] LABS: BASO % 0.2 % (0.0-1.0); EOS % 0.2 % (0.0-3.0); HEMOGLOBIN 13.6 g/dl (12.0-15.5); LYMPH # 0.9 10^3/uL (1.5-5.0); LYMPH % 10.7 % (24.0-44.0); MEAN CORPUSCULAR HEMOGLOBIN 34.5 pg (27.0-33.0); MEAN CORPUSCULAR VOLUME 101.5 fl (80.0-96.0); MONO # 0.7 10^3/uL (0.0-0.8); MONO % 7.7 % (2.0-8.0); NEUTROPHILS % 80.7 % (36.0-66.0); PLATELET COUNT, AUTOMATED 164 10^3/uL (150-450); RED BLOOD COUNT 3.94 10^6/uL (4.00-5.40); WHITE BLOOD COUNT 8.6 10^3/uL (4.0-10.0)
[2021-08-04 22:04] LABS: BLOOD UREA NITROGEN 22 MG/DL (7-18); CALCIUM LEVEL 8.6 MG/DL (8.8-10.2); CARBON DIOXIDE LEVEL 26 MEQ/L (21-32); CHLORIDE LEVEL 103 MEQ/L (98-107); CK-MB VALUE MASS 4.2 NG/ML (<3.6); CPK CREATINE PHOSPHOKINASE 201 U/L (26-192); CREATININE FOR GFR 1.45 MG/DL (0.55-1.30); GLOMERULAR FILTRATION RATE 36.3 (>32); GLUCOSE, FASTING 84 MG/DL (70-100); MB/CK RELATIVE INDEX 2.09 (< OR =4); NT-PRO BNP 1148 PG/ML (<450); SODIUM LEVEL 136 MEQ/L (136-145); TROPONIN I < 0.02 NG/ML (< 0.10)
--- NOTE | 2021-08-04 22:07 | REPVR ---
PROCEDURE INFORMATION: Exam: XR Chest Exam date and time: 08/04/21 (8:42pm) Age: 86 years old Clinical indication: Possible pneumonia TECHNIQUE: Imaging protocol: Portable CXR Views: 1 view COMPARISON: Chest films of 06/03/19 FINDINGS: Comparison is made with chest films done on 06/03/19. The patient is rotated to an PARKER projection. Normal heart size. Uncoiled thoracic aorta. Minimal linear stranding again seen at each lung base (probable faint atelectasis and/or scarring). No consolidation. No pleural effusions. No pneumothorax. Advanced degenerative changes at each shoulder joint (unchanged). Soft tissue calcifications project over the lateral portion of the left scapula (unchanged). IMPRESSION: No significant interval change is evident over the past 2 years. No focal infiltrates. No pleural effusions. See additional comments above. Electronically signed by: Cris Potter On 08/04/2021 22:07:13 PM
[2021-08-04 23:06] VITALS: BP 151/62
--- NOTE | 2021-08-05 12:46 | ECGEPIP ---
[facility] - ED Test Date: 2021-08-04 Pat Name: CHRISTOPHE BENITEZ Department: Room: - Gender: Female [employer]: ED : 1935 Requested By: Ke Hanson Order Number: [id number] Reading MD: Kurt Roque Measurements Intervals Roundup Rate: 102 P: RI: QRS: -19 QRSD: 78 T: 41 QT: 344 QTc: 448 Interpretive Statements Accelerated Junctional rhythm - unablet o fully assess juncitonal vs Sinus tachycard tachycard tachycardia due to significant baseline artifact Low voltage QRS Nonspecific ST abnormality Baseline artifact may affect reading Delayed R wave progression cw 04/16/19 rate increased unclear if rhythm change due to above Nonspecific ST T wave changes CLINICAL CORRELATION ADVISED Electronically Signed on 08-05-2021 12:45:55 EDT by Kurt Roque
== END 2021-08-04 23:51 | disposition home or self-care (01) ==
LOC: M ED 19:14
DX: U07.1 COVID-19 (principal); R00.0 Tachycardia, unspecified; I10 Essential (primary) hypertension; E78.5 Hyperlipidemia, unspecified; J44.9 Chronic obstructive pulmonary disease, unspecified; Z79.82 Long term (current) use of aspirin; Z79.899 Other long term (current) drug therapy

== ENCOUNTER → 2021-08-07 | Outpatient (CLI) | payer MEDICARE ==
[~2021-08-07] MED LIST changes: +ACETAMINOPHEN TAB 650MG DOSE (2X325MG) PO ONE; +ACETAMINOPHEN TAB 650MG DOSE (2X325MG) PO PRN; +ALBUTEROL 90 MCG/ACT 8GM HFA INHALER INH PRN; +ALBUTEROL SULFATE 2.5 MG/0.5 ML INH NEB SOLN INH PRN; +ANUS2.5C2 TOP; +BISO1TAB18 PO; -BISO5TAB2 PO; +CASIRIVIMAB (REGN10933) 600 MG, IMDEVIMAB (REGN10987) 600 MG in NS 250 ML IV ONE; +CASIRIVIMAB/IMDEVIMAB 1,200 MG in NS 250 ML IV ONE; +EPINEPHrine INJ 1 MG/ML 1ML AMP IM PRN; +EQ H1PAD EXT; +NS 1,000 ML IV SCH; +diphenhydrAMINE 25MG CAP PO ONE; +diphenhydrAMINE 50MG/ML VIAL (J1200) IV PRN; +methylPREDNISolone 125MG 2ML VIAL IV PRN
== END ==
LOC: M OPCLI4 12:00
PROVIDERS: ATTEND Internal Medicine
DX: U07.1 COVID-19 (principal); Z53.21 Procedure and treatment not carried out due to patient leaving prior to being seen by health care provider

== ENCOUNTER → 2021-09-12 | Outpatient (REF) | payer MEDICARE ==
[~2021-09-12] MED LIST changes: -ACETAMINOPHEN TAB 650MG DOSE (2X325MG) PO ONE; -ACETAMINOPHEN TAB 650MG DOSE (2X325MG) PO PRN; -ALBUTEROL 90 MCG/ACT 8GM HFA INHALER INH PRN; -ALBUTEROL SULFATE 2.5 MG/0.5 ML INH NEB SOLN INH PRN; -CASIRIVIMAB (REGN10933) 600 MG, IMDEVIMAB (REGN10987) 600 MG in NS 250 ML IV ONE; -CASIRIVIMAB/IMDEVIMAB 1,200 MG in NS 250 ML IV ONE; -EPINEPHrine INJ 1 MG/ML 1ML AMP IM PRN; -NS 1,000 ML IV SCH; -diphenhydrAMINE 25MG CAP PO ONE; -diphenhydrAMINE 50MG/ML VIAL (J1200) IV PRN; -methylPREDNISolone 125MG 2ML VIAL IV PRN
[2021-09-12 14:04] LABS: HEMATOCRIT 38.2 % (36.0-47.0); HEMOGLOBIN 12.9 g/dl (12.0-15.5); MEAN CORPUSCULAR HEMOGLOBIN 33.9 pg (27.0-33.0); MEAN CORPUSCULAR HGB CONC 33.8 g/dl (32.0-36.5); MEAN CORPUSCULAR VOLUME 100.3 fl (80.0-96.0); PLATELET COUNT, AUTOMATED 199 10^3/uL (150-450); RED BLOOD COUNT 3.81 10^6/uL (4.00-5.40); WHITE BLOOD COUNT 8.9 10^3/uL (4.0-10.0)
[2021-09-12 14:37] LABS: ALBUMIN 2.9 GM/DL (3.2-5.2); BILIRUBIN,TOTAL 0.4 MG/DL (0.2-1.0); CALCIUM LEVEL 9.5 MG/DL (8.8-10.2); CHOLESTEROL RISK RATIO 2.559 (<5); CREATININE FOR GFR 1.21 MG/DL (0.55-1.30); FREE T3 2.8 PG/ML (2.2-4.0); FREE T4 1.04 NG/DL (0.76-1.46); GLOMERULAR FILTRATION RATE 44.7 (>32); MAGNESIUM LEVEL 2.3 MG/DL (1.8-2.4); POTASSIUM SERUM 4.9 MEQ/L (3.5-5.1); THYROID STIMULATING HORMONE 8.06 uIU/ML (0.358-3.740)
== END ==
LOC: M SHH 13:27
PROVIDERS: ATTEND Family Medicine
DX: E78.2 Mixed hyperlipidemia (principal); R60.9 Edema, unspecified; I50.20 Unspecified systolic (congestive) heart failure

== ENCOUNTER → 2021-09-26 | Outpatient (REF) | payer MEDICARE ==
[2021-09-26 13:44] LABS: CALCIUM LEVEL 9.6 MG/DL (8.8-10.2); CREATININE FOR GFR 1.56 MG/DL (0.55-1.30); GLOMERULAR FILTRATION RATE 33.3 (>32); MAGNESIUM LEVEL 2.3 MG/DL (1.8-2.4); POTASSIUM SERUM 5.5 MEQ/L (3.5-5.1)
== END ==
LOC: M SHH 12:54
PROVIDERS: ATTEND Registered Nurse
DX: R06.02 Shortness of breath (principal)

== ENCOUNTER → 2021-10-06 | Outpatient (REF) | payer MEDICARE ==
[~2021-10-06] MED LIST changes: -ANUS2.5C2 TOP; -EQ H1PAD EXT
[2021-10-06 14:44] LABS: ALBUMIN 2.9 GM/DL (3.2-5.2); BILIRUBIN,TOTAL 0.2 MG/DL (0.2-1.0); CALCIUM LEVEL 9.2 MG/DL (8.8-10.2); CREATININE FOR GFR 1.29 MG/DL (0.55-1.30); GLOMERULAR FILTRATION RATE 41.5 (>32); POTASSIUM SERUM 4.7 MEQ/L (3.5-5.1); TOTAL PROTEIN 6.4 GM/DL (6.4-8.2)
== END ==
LOC: M SHH 13:46
PROVIDERS: ATTEND Registered Nurse
DX: I50.9 Heart failure, unspecified (principal)

== ENCOUNTER → 2021-11-07 | Outpatient (REF) | payer MEDICARE ==
[~2021-11-07] MED LIST changes: +ANUS2.5C2 TOP; +EQ H1PAD EXT
[2021-11-07 16:34] LABS: FREE T3 2.6 PG/ML (2.2-4.0); FREE T4 1.54 NG/DL (0.76-1.46); THYROID STIMULATING HORMONE 0.766 uIU/ML (0.358-3.740)
[2021-11-07 19:39] LABS: THYROID PEROXIDASE ANTIBODY < 28.0 U/ML (<60.0)
== END ==
LOC: M LAB REF 15:48 → M SHH 15:48
PROVIDERS: ATTEND Registered Nurse
DX: E03.9 Hypothyroidism, unspecified (principal)

== ENCOUNTER → 2021-11-14 | Outpatient (REF) | payer MEDICARE ==
[2021-11-14 15:47] LABS: CALCIUM LEVEL 9.1 MG/DL (8.8-10.2); CREATININE FOR GFR 1.31 MG/DL (0.55-1.30); GLOMERULAR FILTRATION RATE 40.8 (>32); POTASSIUM SERUM 4.9 MEQ/L (3.5-5.1)
== END ==
LOC: M SHH 15:00
PROVIDERS: ATTEND Registered Nurse
DX: I50.9 Heart failure, unspecified (principal)

== ENCOUNTER → 2021-11-28 | Outpatient (REF) | payer MEDICARE ==
[2021-11-28 14:22] LABS: CALCIUM LEVEL 9.1 MG/DL (8.8-10.2); CREATININE FOR GFR 1.5 MG/DL (0.55-1.30); GLOMERULAR FILTRATION RATE 34.9 (>32); POTASSIUM SERUM 4.6 MEQ/L (3.5-5.1)
== END ==
LOC: M SHH 13:12
PROVIDERS: ATTEND Registered Nurse
DX: I50.9 Heart failure, unspecified (principal)

== ENCOUNTER 2021-12-30 14:16 | Emergency (ER) | payer MEDICARE ==
[~2021-12-30] VITALS: Ht 152.4 cm; Wt 56.8 kg
[2021-12-30 14:17] VITALS: BP 138/64
[2021-12-30] MEDS ORDERED: SIMV20TA22 (14:28)
[2021-12-30] MEDS ORDERED: EUTH50TA (14:28)
[2021-12-30] MEDS ORDERED: BISO5TAB14 (14:28)
[2021-12-30] MEDS ORDERED: ELIQ5TAB (14:28)
[2021-12-30] MEDS ORDERED: INCR1INH (14:28)
[2021-12-30] MEDS ORDERED: MIRT-10 (14:28)
[2021-12-30] MEDS ORDERED: OFLOSO (14:28)
[2021-12-30] MEDS ORDERED: SPIR-10 (14:28)
[2021-12-30] MEDS ORDERED: TORS20TA2 (14:28)
[2021-12-30] MEDS ORDERED: SERT25TA21 (14:28)
== END 2021-12-30 16:11 | disposition home or self-care (01) ==
LOC: M ED 14:16
DX: J06.9 Acute upper respiratory infection, unspecified (principal); I51.7 Cardiomegaly; J98.11 Atelectasis; J44.9 Chronic obstructive pulmonary disease, unspecified; E03.9 Hypothyroidism, unspecified; Z79.890 Hormone replacement therapy; Z79.899 Other long term (current) drug therapy

== ENCOUNTER → 2022-01-04 | Outpatient (CLI) | payer MEDICARE ==
[~2022-01-04] MED LIST changes: +BISO5TAB14; +ELIQ5TAB; +EUTH50TA; +INCR1INH; +MIRT-10; +OFLOSO; +SERT25TA21; +SIMV20TA22; +SPIR-10; +TORS20TA2
[2022-01-04 14:44] LABS: CALCIUM LEVEL 9.5 MG/DL (8.8-10.2); CREATININE FOR GFR 1.32 MG/DL (0.55-1.30); GLOMERULAR FILTRATION RATE 40.4 (>32); POTASSIUM SERUM 4.5 MEQ/L (3.5-5.1)
== END ==
LOC: M LAB 13:36
PROVIDERS: ATTEND Registered Nurse
DX: I50.9 Heart failure, unspecified (principal)